=== PATIENT | female | born 1960 | race Caucasian/White ===

== ENCOUNTER 2019-06-04 18:24 | Emergency (ER) | payer MEDICARE, MEDICAID, SELFPAY ==
[2019-06-04 18:25] VITALS: BP 132/78; PULSE 112; RESP 20; TEMP 36.6; O2SAT 88; BMI 41.1
== END 2019-06-04 18:51 | disposition left against medical advice (07) ==
LOC: ED 18:49
PROVIDERS: Emergency Provider Emergency Medicine; PCP Family Medicine
DX: Z53.29 Procedure and treatment not carried out because of patient's decision for other reasons (principal)

== ENCOUNTER 2019-06-24 08:18 | Outpatient (RCR) | payer MEDICARE, MEDICAID, SELFPAY ==
[2019-06-24 08:54] VITALS: BP 129/78; PULSE 106; RESP 18; TEMP 36.4; BMI 42.9
--- NOTE | 2019-06-24 10:15 | PCM.WC.HP ---
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-term use Diabetes mellitus complication status: with circulatory complication Diabetes mellitus complication detail: with other circulatory complications Qualified Code(s): E11.59 - Type 2 diabetes mellitus with other circulatory complications Code(s): E11.9 - Type 2 diabetes mellitus without complications (4) History of DVT (deep vein thrombosis) Status: Chronic Current Visit: Yes Code(s): Z86.718 - Personal history of other venous thrombosis and embolism (5) Obesity Status: Chronic Current Visit: Yes Code(s): E66.9 - Obesity, unspecified (6) Tobacco dependence Status: Acute Current Visit: Yes Code(s): F17.200 - Nicotine dependence, unspecified, uncomplicated (7) Peripheral autonomic neuropathy due to diabetes mellitus Status: Acute Current Visit: Yes Qualifiers: Diabetes mellitus type: type 2 Qualified Code(s): E11.43 - Type 2 diabetes mellitus with diabetic autonomic (poly)neuropathy Code(s): E11.43 - Type 2 diabetes mellitus with diabetic autonomic (poly)neuropathy History of Present Illness Date of Service: 06/24/19 Chief Complaint: Follow-up blood blister left heel History of Wound: The 58-year-old white female history of diabetes type 2. States was wearing boots that did not fit well over 6 months ago and developed a slight sore. In the last 2 weeks it developed into a blood blister with liquid serous fluid and a hematoma underneath the skin. Patient has poor peripheral vascular feeling in her legs. Patient also has history of chronic obstructive lung disease. Past Medical History Past Medical History: Chronic Problems History of DVT (deep vein thrombosis) (Chronic) Obesity (Chronic) Hypothyroidism (Chronic) HLD (hyperlipidemia) (Chronic) Gout (Chronic) Gastroesophageal reflux disease (Chronic) DM2 (diabetes mellitus, type 2) (Chronic) COLD (chronic obstructive lung disease) (Chronic) Past Medical History: Decubitus ulcer left heel stage II Allergies/Adverse Reactions: Allergies morphine Allergy (Mild, Verified 06/04/19 18:28) Hives Home Medications: Ambulatory Orders Medication Instructions Recorded Allopurinol [Zyloprim] 300 mg PO DAILY 07/01/13 [place] Thyroid 360 mg PO DAILY 07/01/13 Carafate 1 gm PO 4X/DAY 07/01/13 Furosemide [Lasix] 40 mg PO BID 07/01/13 Gabapentin 400 mg PO BID 07/01/13 Lantus SoloStar Pen 100 unit SC QHS 07/01/13 Meloxicam 15 mg PO DAILY 07/01/13 Nexium 40 mg PO DAILY 07/01/13 Oxycodone [Oxyir] 15 mg PO TID 07/01/13 Oxycontin 80 mg PO TID 07/01/13 Potassium Chloride [K-Dur] 40 meq PO DAILY 07/01/13 Sitagliptin Phos/Metformin HCl 1 tab PO BID 07/01/13 [Janumet 50-1,000 MG Tablet] Crestor 10 mg PO DAILY 10/10/15 Gabapentin [Neurontin] 800 mg PO 4X/DAY 10/10/15 Lorazepam [Ativan] 1 mg PO TID 10/10/15 Lives: Alone Smoking Status: Heavy Smoker (>10/day) Tobacco Use: Cigarettes Review of Systems Constitutional: Denies: Chills, Fever Eyes: Denies: Blurred vision, Drainage, Pain HEENT: Denies: Difficulty Hearing, Difficulty Swallowing, Sore Throat, Visual Changes Cardiovascular: Denies: Chest Pain, Palpitations, Syncope Respiratory: Denies: Cough, Shortness of Breath Gastrointestinal: Denies: Abdominal Pain, Nausea, Vomiting Genitourinary: Denies: Dysuria, Frequency Musculoskeletal: Denies: Joint Pain, Muscle pain Skin: Reports: Wounds - Blood blister left heel. Denies: Jaundice, Rash Neurological: Denies: Balance problems, Change in Speech, Difficulty swallowing, Focal weakness Psychiatric: Denies: Anxiety, Depression Endocrine: Denies: Change in Body Habitus Hematologic/ Lymphatic: Denies: Adenopathy - Physical Exam Vital Signs Temp Pulse Resp BP 97.6 F L 106 H 18 129/78 H 06/24/19 08:54 06/24/19 08:54 06/24/19 08:54 06/24/19 08:54 General: Oriented x3, Cooperative, Well developed HEENT: Atraumatic, PERRLA Oral: Moist Mucosa Neck: Supple, No JVD Lungs: Clear to auscultation, Normal air movement Cardiovascular: Regular rate, Regular Rhythm Abdomen: Bowel Sounds Present, Soft, Non Tender, No Hepato-splenomegaly Extremities: No clubbing, No edema Wound Measurements and Assessment WC - Nurse 1 - General Ulcer Measurement Start: 06/24/19 08:31 Freq: Status: Active Protocol: Activity Type Activity Date Activity User E-Sign Co-Sign Detail Recorded Client Recorded Date Recorded By Document 06/24/19 08:54 DV [id number] 06/24/19 09:13 DV 06/24/19 08:54 Wound Center Nurse 1 [Ulcer Assessment] #1 Left Medial Heel -Combined with other wound No -Current Size (cm) - Length 2.5 -Current Size (cm) - Width 3.1 -Current Size (cm) - Depth 0.1 -Total Square Cm 7.75 -Date of Last Picture (Recall this 06/24/19 field) -Photo Taken Yes -Epithelialization None Present -Tunneling No -Undermining/Tunneling No -Circular Undermining No -Classification - Thickness Full Thickness without Exposed Support Structure -Exudate Amt Medium -Exudate Type Serosanguineous -Wound Margin Flat & Intact -Granulation Amt None Present (0 %) -Granulation Quality N/A -Slough/Fibrin Yes -Necrosis Amt Large (67-100%) -Necrotic Tissue Type Eschar -Structure Exposed None/Limited to Skin Breakdown -Texture (Talya-wound Skin Appearance) Assessed,Callus ,Fluctuance -Moisture (Talya-wound Skin Appearance Assessed, ) Weeping -Color (Talya-wound Skin Appearance) Assessed, Ecchymosis, Hemosiderin Staining -Temperature (Talya-wound Skin No Abnormality Appearance) (Pt Warm) -Tenderness on Palpation (Talya-wound No Skin Appearance) -Foul Odor after Cleansing No -Anesthetic Used 4% Lidocaine Solution [Edema Assessment] -Lower Limb Edema Present Yes -Right Calf (cm) 43.2 -Right Ankle (cm) 23.5 -Left Calf (cm) 39.5 -Left Ankle (cm) 23.0 WC - Nurse 2 - General Ulcer CM Notes Start: 06/24/19 08:31 Freq: Status: Active Protocol: Activity Type Activity Date Activity User E-Sign Co-Sign Detail Recorded Client Recorded Date Recorded By Document 06/24/19 09:38 MW [id number] 06/24/19 09:47 MW 06/24/19 09:38 Wound Center Nurse 2 [Procedure/Treatment] #1 Left Medial Heel -Time 09:39 -Correct Patient Yes -Correct Side, Site, Position Yes -Correct Procedure Yes -Procedure Performed Yes -Type of Procedure Debridement -Clinical Debridement Subcutaneous -Post Debridement Size (cm) - Length 2.0 -Post Debridement Size (cm) - Width 2.7 -Post Debridement Size (cm) - Depth 0.1 -Total Square Cm 5.40 -Wound/Ulcer Outcome Not Healed -Ulcer Cleansing Rinsed/ Irrigated with Saline -Foul Odor after Cleansing No -Bioengineered Tissue No -Bleeding Controlled with Pressure -Offloading No -Treatment Response Procedure Tolerated Well [See Physician Procedure note for Specifics] Pain Scale: 0-10 Numeric [Pain] -Is Patient Pain Free? Yes Musculoskeletal: No Tenderness to Palpation of Joints or Extremities Lymphatic: No Cervical, Supraclavicular, or Inguinal Adenopathy Neurological: Cranial nerves II-XII grossly intact, Neuro grossly intact Psych/Mental Status: Normal Affect, Appropriate, Alert and oriented to time, place, person, mood and affect Debridement Note Post-Debridement Measurements/Treatment WC - Nurse 2 - General Ulcer CM Notes Start: 06/24/19 08:31 Freq: Status: Active Protocol: Activity Type Activity Date Activity User E-Sign Co-Sign Detail Recorded Client Recorded Date Recorded By Document 06/24/19 09:38 MW [id number] 06/24/19 09:47 MW 06/24/19 09:38 Wound Center Nurse 2 #1 Left Medial Heel -Time 09:39 -Correct Patient Yes -Correct Side, Site, Position Yes -Correct Procedure Yes -Procedure Performed Yes -Type of Procedure Debridement -Clinical Debridement Subcutaneous -Post Debridement Size (cm) - Length 2.0 -Post Debridement Size (cm) - Width 2.7 -Post Debridement Size (cm) - Depth 0.1 -Total Square Cm 5.40 -Wound/Ulcer Outcome Not Healed -Ulcer Cleansing Rinsed/ Irrigated with Saline -Foul Odor after Cleansing No -Bioengineered Tissue No -Bleeding Controlled with Pressure -Offloading No -Treatment Response Procedure Tolerated Well Pain Scale: 0-10 Numeric Is Patient Pain Free? Yes Wound debrided: Left heel blood blister Type of Debridement: Excisional debridement Anesthesia Used: 5% Lidocaine Gel Depth: Down to and including healthy tissue, in the subcutaneous layer Percentage of wound debrided: 100 Instrument Used: #15 blade, Forceps Tissue Removed: Devitalized tissue and fibrin Severity: Limited To Skin Breakdown Amount of bleeding with debridement: None Patient tolerated procedure well Assessment/Plan Aerobic and anaerobic cultures of ulcer Active Problems Blister of left heel (Acute) Decubitus ulcer of left heel, stage 2 (Acute) Tobacco dependence (Acute) Peripheral autonomic neuropathy due to diabetes mellitus (Acute) History of DVT (deep vein thrombosis) (Chronic) Obesity (Chronic) Assessment: Decubitus ulcer stage II left heel. Diabetes type 2 uncontrolled. Peripheral neuropathy from diabetes Plan: Wash leg and foot and heel with antibacterial soap. Apply Aquacel extra to wound base moistened cover with Adaptic gauze and Sonia. Single layer Tubigrip to leg. Follow-up in 1 week
== END 2019-06-30 23:59 ==
LOC: WC 08:18
PROVIDERS: PCP Family Medicine; Visit Provider Nurse Practitioner
DX: E11.621 Type 2 diabetes mellitus with foot ulcer (principal); L89.622 Pressure ulcer of left heel, stage 2; E11.59 Type 2 diabetes mellitus with other circulatory complications; Z86.718 Personal history of other venous thrombosis and embolism; E66.9 Obesity, unspecified; F17.200 Nicotine dependence, unspecified, uncomplicated; E11.43 Type 2 diabetes mellitus with diabetic autonomic (poly)neuropathy; S90.822A Blister (nonthermal), left foot, initial encounter; X58.XXXA Exposure to other specified factors, initial encounter; J44.9 Chronic obstructive pulmonary disease, unspecified; K21.9 Gastro-esophageal reflux disease without esophagitis; E78.5 Hyperlipidemia, unspecified; M10.9 Gout, unspecified; Z79.899 Other long term (current) drug therapy; Z79.84 Long term (current) use of oral hypoglycemic drugs; E03.9 Hypothyroidism, unspecified
CPT/HCPCS: 11042; 87070; 87075; 87205; 99213; G0463

== ENCOUNTER → 2019-06-24 09:45 | Outpatient (CLI) | payer MEDICARE, MEDICAID, SELFPAY ==
[2019-06-24 08:54] VITALS: BMI 42.9
== END ==
PROVIDERS: PCP Family Medicine; Referring Provider Nurse Practitioner; Visit Provider Nurse Practitioner
DX: L97.429 Non-pressure chronic ulcer of left heel and midfoot with unspecified severity (principal)
CPT/HCPCS: 87070; 87075; 87205

== ENCOUNTER 2019-07-22 10:30 | Outpatient (RCR) | payer MEDICARE, MEDICAID, SELFPAY ==
[2019-07-01 01:02] VITALS: BP 129/78; PULSE 106; RESP 18; TEMP 36.4
[2019-07-01 08:41] VITALS: BP 136/76; PULSE 116; RESP 20; TEMP 36.7; BMI 42.9
--- NOTE | 2019-07-01 09:20 | PCM.WC.PN ---
(1) Blister of left heel Status: Acute Current Visit: No Qualifiers: Encounter type: subsequent encounter Qualified Code(s): S90.822D - Blister (nonthermal), left foot, subsequent encounter Code(s): S90.822A - Blister (nonthermal), left foot, initial encounter (2) Decubitus ulcer of left heel, stage 2 Status: Acute Current Visit: Yes Code(s): L89.622 - Pressure ulcer of left heel, stage 2 (3) Peripheral autonomic neuropathy due to diabetes mellitus Status: Acute Current Visit: Yes Qualifiers: Diabetes mellitus type: type 2 Code(s): E11.43 - Type 2 diabetes mellitus with diabetic autonomic (poly)neuropathy (4) Tobacco dependence Status: Acute Current Visit: Yes Code(s): F17.200 - Nicotine dependence, unspecified, uncomplicated (5) DM2 (diabetes mellitus, type 2) Status: Chronic Current Visit: Yes Qualifiers: 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 States was wearing boots that did not fit well over 6 months ago and developed a slight sore. In the last 2 weeks it developed into a blood blister with liquid serous fluid and a hematoma underneath the skin. Patient has poor peripheral vascular feeling in her legs. Patient also has history of chronic obstructive lung disease. Progress of Wound: Left lateral heel is healing well smaller. The blackened scab is easily debrided off. Good pink skin underneath. We will apply epi-fix #1 that was approved this week. - Physical Exam Vital Signs Temp Pulse Resp BP 98.1 F 116 H 20 H 136/76 H 07/01/19 08:41 07/01/19 08:41 07/01/19 08:41 07/01/19 08:41 General: Oriented x3, Cooperative, Well developed HEENT: Atraumatic, PERRLA Oral: Moist Mucosa Neck: Supple, No JVD Lungs: Clear to auscultation, Normal air movement Cardiovascular: Regular rate, Regular Rhythm Abdomen: Bowel Sounds Present, Soft, Non Tender, No Hepato-splenomegaly Extremities: No clubbing, No edema Skin: Ulcer/ Wound - Pressure ulcer stage II left lateral heel Wound Measurements and Assessment WC - Nurse 1 - General Ulcer Measurement Start: 07/01/19 08:41 Freq: Status: Active Protocol: Activity Type Activity Date Activity User E-Sign Co-Sign Detail Recorded Client Recorded Date Recorded By Document 07/01/19 08:41 DL [id number] 07/01/19 08:48 DL 07/01/19 08:41 Wound Center Nurse 1 [Ulcer Assessment] #1 Left Medial Heel -Current Size (cm) - Length 1.1 -Current Size (cm) - Width 2 -Current Size (cm) - Depth 0.1 -Total Square Cm 2.2 -Photo Taken No -Exudate Amt None Present -Wound Margin Distinct, Outline Attached -Granulation Amt None Present (0 %) -Necrosis Amt Large (67-100%) -Necrotic Tissue Type Eschar -Structure Exposed N/A -Texture (Talya-wound Skin Appearance) Scarring -Moisture (Talya-wound Skin Appearance No Abnormality ) -Color (Talya-wound Skin Appearance) No Abnormality -Temperature (Talya-wound Skin No Abnormality Appearance) (Pt Warm) -Tenderness on Palpation (Talya-wound No Skin Appearance) -Ulcer Cleansing Wound Cleanser -Anesthetic Used 4% Lidocaine Solution, Cetacaine [Edema Assessment] -Left Calf (cm) 38 -Left Ankle (cm) 21.4 WC - Nurse 2 - General Ulcer CM Notes Start: 07/01/19 08:41 Freq: Status: Active Protocol: Activity Type Activity Date Activity User E-Sign Co-Sign Detail Recorded Client Recorded Date Recorded By Document 07/01/19 08:57 MW [id number] 07/01/19 09:07 MW 07/01/19 08:57 Wound Center Nurse 2 [Procedure/Treatment] #1 Left Medial Heel -Time 09:04 -Correct Patient Yes -Correct Side, Site, Position Yes -Correct Procedure Yes -Procedure Performed Yes -Type of Procedure Debridement -Clinical Debridement Subcutaneous -Post Debridement Size (cm) - Length 1.2 -Post Debridement Size (cm) - Width 2.0 -Post Debridement Size (cm) - Depth 0.1 -Total Square Cm 2.40 -Wound/Ulcer Outcome Not Healed -Ulcer Cleansing Rinsed/ Irrigated with Saline -Foul Odor after Cleansing No -Bioengineered Tissue Yes -Type of bioengineered Tissue EPIFIX -Expiration Date 04/01/24 -Product Lot Number [id number] -Percent Used 100 -Saline Lot Number [id number] -Bleeding Controlled with Pressure -Offloading No -Treatment Response Procedure Tolerated Well [See Physician Procedure note for Specifics] Pain Scale: 0-10 Numeric [Pain] -Is Patient Pain Free? Yes Musculoskeletal: No Tenderness to Palpation of Joints or Extremities Lymphatic: No Cervical, Supraclavicular, or Inguinal Adenopathy Neurological: Cranial nerves II-XII grossly intact, Neuro grossly intact Psych/Mental Status: Normal Affect, Appropriate Debridement Note Post-Debridement Measurements/Treatment WC - Nurse 2 - General Ulcer CM Notes Start: 07/01/19 08:41 Freq: Status: Active Protocol: Activity Type Activity Date Activity User E-Sign Co-Sign Detail Recorded Client Recorded Date Recorded By Document 07/01/19 08:57 MW [id number] 07/01/19 09:07 MW 07/01/19 08:57 Wound Center Nurse 2 #1 Left Medial Heel -Time 09:04 -Correct Patient Yes -Correct Side, Site, Position Yes -Correct Procedure Yes -Procedure Performed Yes -Type of Procedure Debridement -Clinical Debridement Subcutaneous -Post Debridement Size (cm) - Length 1.2 -Post Debridement Size (cm) - Width 2.0 -Post Debridement Size (cm) - Depth 0.1 -Total Square Cm 2.40 -Wound/Ulcer Outcome Not Healed -Ulcer Cleansing Rinsed/ Irrigated with Saline -Foul Odor after Cleansing No -Bioengineered Tissue Yes -Type of bioengineered Tissue EPIFIX -Expiration Date 04/01/24 -Product Lot Number [id number] -Percent Used 100 -Saline Lot Number [id number] -Bleeding Controlled with Pressure -Offloading No -Treatment Response Procedure Tolerated Well Pain Scale: 0-10 Numeric Is Patient Pain Free? Yes Wound debrided: Left lateral heel Type of Debridement: Excisional debridement Anesthesia Used: 5% Lidocaine Gel Depth: Down to and including healthy tissue, in the subcutaneous layer Percentage of wound debrided: 100 Instrument Used: 5mm curette Tissue Removed: Devitalized tissue and fibrin Severity: Limited To Skin Breakdown Amount of bleeding with debridement: Mild Bleeding Controlled with: Compression and gauze Patient tolerated procedure well Assessment/Plan Active Problems Decubitus ulcer of left heel, stage 2 (Acute) Tobacco dependence (Acute) Peripheral autonomic neuropathy due to diabetes mellitus (Acute) DM2 (diabetes mellitus, type 2) (Chronic) Assessment: Decubitus ulcer stage II left heel. Diabetes type 2 uncontrolled. Peripheral neuropathy from diabetes Plan: Applied epi fix #1 with Adaptic and Steri-Strips gauze wrap. Double layer Tubigrip to leg. Follow-up in 1 week
[2019-07-08 09:11] VITALS: BP 130/74; PULSE 101; RESP 22; TEMP 36.8; BMI 42.9
--- NOTE | 2019-07-08 12:33 | PCM.WC.PN ---
(1) Blister of left heel Status: Acute Current Visit: Yes Qualifiers: Encounter type: subsequent encounter Qualified Code(s): S90.822D - Blister (nonthermal), left foot, subsequent encounter Code(s): S90.822A - Blister (nonthermal), left foot, initial encounter (2) Decubitus ulcer of left heel, stage 2 Status: Acute Current Visit: Yes Code(s): L89.622 - Pressure ulcer of left heel, stage 2 (3) Peripheral autonomic neuropathy due to diabetes mellitus Status: Acute Current Visit: Yes Qualifiers: Diabetes mellitus type: type 2 Code(s): E11.43 - Type 2 diabetes mellitus with diabetic autonomic (poly)neuropathy (4) Tobacco dependence Status: Acute Current Visit: Yes Code(s): F17.200 - Nicotine dependence, unspecified, uncomplicated (5) DM2 (diabetes mellitus, type 2) Status: Chronic Current Visit: Yes Qualifiers: Diabetes mellitus [facility] 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 States was wearing boots that did not fit well over 6 months ago and developed a slight sore. In the last 2 weeks it developed into a blood blister with liquid serous fluid and a hematoma underneath the skin. Patient has poor peripheral vascular feeling in her legs. Patient also has history of chronic obstructive lung disease. Progress of Wound: Left lateral heel is healing well smaller. Good pink skin underneath. We will apply epi-fix #2 - Physical Exam Vital Signs Temp Pulse Resp BP 98.2 F 101 H 22 H 130/74 H 07/08/19 09:11 07/08/19 09:11 07/08/19 09:11 07/08/19 09:11 General: Oriented x3, Cooperative, Well developed HEENT: Atraumatic, PERRLA Oral: Moist Mucosa Neck: Supple, No JVD Lungs: Clear to auscultation, Normal air movement Cardiovascular: Regular rate, Regular Rhythm Abdomen: Bowel Sounds Present, Soft, Non Tender, No Hepato-splenomegaly Extremities: No clubbing, No edema Skin: Ulcer/ Wound - Left heel decubitus ulcer Wound Measurements and Assessment - Nurse 1 - General Ulcer Measurement Start: 07/01/19 08:41 Freq: Status: Active Protocol: Activity Type Activity Date Activity User E-Sign Co-Sign Detail Recorded Client Recorded Date Recorded By Document 07/08/19 09:11 DL [id number] 07/08/19 09:18 DL 07/08/19 09:11 Wound Center Nurse 1 [Ulcer Assessment] #1 Left Medial Heel -Current Size (cm) - Length 1.1 -Current Size (cm) - Width 1.6 -Current Size (cm) - Depth 0.1 -Total Square Cm 1.76 -Photo Taken No -Exudate Amt Small -Exudate Type Serosanguineous -Wound Margin Distinct, Outline Attached -Granulation Amt Large (67-100%) -Granulation Quality [place] -Necrosis Amt Small (1-33%) -Necrotic Tissue Type Adherent Slough -Structure Exposed N/A -Texture (Talya-wound Skin Appearance) No Abnormality -Moisture (Talya-wound Skin Appearance Dry/Scaly ) -Color (Talya-wound Skin Appearance) No Abnormality -Temperature (Talya-wound Skin No Abnormality Appearance) (Pt Warm) -Tenderness on Palpation (Talya-wound No Skin Appearance) -Ulcer Cleansing Wound Cleanser -Foul Odor after Cleansing No -Anesthetic Used 4% Lidocaine Solution [Edema Assessment] -Left Calf (cm) 38 -Left Ankle (cm) 23 WC - Nurse 2 - General Ulcer CM Notes Start: 07/01/19 08:41 Freq: Status: Active Protocol: Activity Type Activity Date Activity User E-Sign Co-Sign Detail Recorded Client Recorded Date Recorded By Document 07/08/19 10:05 MW [id number] 07/08/19 10:14 MW 07/08/19 10:05 Wound Center Nurse 2 [Procedure/Treatment] #1 Left Medial Heel -Time 10:06 -Correct Patient Yes -Correct Side, Site, Position Yes -Correct Procedure Yes -Procedure Performed Yes -Type of Procedure Debridement -Clinical Debridement Subcutaneous -Post Debridement Size (cm) - Length 1.2 -Post Debridement Size (cm) - Width 2.1 -Post Debridement Size (cm) - Depth 0.1 -Total Square Cm 2.52 -Wound/Ulcer Outcome Not Healed -Ulcer Cleansing Rinsed/ Irrigated with Saline -Foul Odor after Cleansing No -Bioengineered Tissue Yes -Type of bioengineered Tissue EPIFIX -Expiration Date 03/01/24 -Product Lot Number [id number] -Percent Used 100 -Saline Lot Number [id number] -Bleeding Controlled with Pressure -Offloading No -Treatment Response Procedure Tolerated Well [See Physician Procedure note for Specifics] Pain Scale: 0-10 Numeric [Pain] -Is Patient Pain Free? Yes Musculoskeletal: No Tenderness to Palpation of Joints or Extremities Lymphatic: No Cervical, Supraclavicular, or Inguinal Adenopathy Neurological: Cranial nerves II-XII grossly intact, Neuro grossly intact Psych/Mental Status: Normal Affect, Appropriate Debridement Note Post-Debridement Measurements/Treatment WC - Nurse 2 - General Ulcer CM Notes Start: 07/01/19 08:41 Freq: Status: Active Protocol: Activity Type Activity Date Activity User E-Sign Co-Sign Detail Recorded Client Recorded Date Recorded By Document 07/01/19 08:57 MW [id number] 07/01/19 09:07 MW Document 07/08/19 10:05 MW [id number] 07/08/19 10:14 MW 07/01/19 07/08/19 08:57 10:05 Wound Center Nurse 2 #1 Left Medial Heel -Time 09:04 10:06 -Correct Patient Yes Yes -Correct Side, Site, Position Yes Yes -Correct Procedure Yes Yes -Procedure Performed Yes Yes -Type of Procedure Debridement Debridement -Clinical Debridement Subcutaneous Subcutaneous -Post Debridement Size (cm) - Length 1.2 1.2 -Post Debridement Size (cm) - Width 2.0 2.1 -Post Debridement Size (cm) - Depth 0.1 0.1 -Total Square Cm 2.40 2.52 -Wound/Ulcer Outcome Not Healed Not Healed -Ulcer Cleansing Rinsed/ Rinsed/ Irrigated with Irrigated with Saline Saline -Foul Odor after Cleansing No No -Bioengineered Tissue Yes Yes -Type of bioengineered Tissue EPIFIX EPIFIX -Expiration Date 04/01/24 03/01/24 -Product Lot Number [id number] -Percent Used 100 100 -Saline Lot Number [id number] -Bleeding Controlled with Pressure Pressure -Offloading No No -Treatment Response Procedure Procedure Tolerated Well Tolerated Well Pain Scale: 0-10 Numeric Is Patient Pain Free? Yes Yes Wound debrided: Left lateral heel Wound Grade/Stage: Left heel decubitus ulcer stage II Type of Debridement: Excisional debridement Anesthesia Used: 5% Lidocaine Gel Depth: Down to and including healthy tissue, in the subcutaneous layer Percentage of wound debrided: 100 Instrument Used: 5mm curette Tissue Removed: Ibrin and devitalized tissue Severity: Limited To Skin Breakdown Amount of bleeding with debridement: Mild Bleeding Controlled with: Compression and gauze Patient tolerated procedure well Assessment/Plan Active Problems Blister of left heel (Acute) Decubitus ulcer of left heel, stage 2 (Acute) Tobacco dependence (Acute) Peripheral autonomic neuropathy due to diabetes mellitus (Acute) DM2 (diabetes mellitus, type 2) (Chronic) Assessment: Decubitus ulcer stage II left heel. Diabetes type 2 uncontrolled. Peripheral neuropathy from diabetes Plan: Applied epi fix #2 with Adaptic and Steri-Strips gauze wrap. Double layer Tubigrip to leg. Follow-up in 1 week
[2019-07-15 10:14] VITALS: BP 104/67; PULSE 91; RESP 18; TEMP 37; BMI 42.9
--- NOTE | 2019-07-15 10:53 | PCM.WC.PN ---
(1) Blister of left heel Status: Acute Current Visit: Yes Qualifiers: Encounter type: subsequent encounter Qualified Code(s): S90.822D - Blister (nonthermal), left foot, subsequent encounter Code(s): S90.822A - Blister (nonthermal), left foot, initial encounter (2) Decubitus ulcer of left heel, stage 2 Status: Acute Current Visit: Yes Code(s): L89.622 - Pressure ulcer of left heel, stage 2 (3) Peripheral autonomic neuropathy due to diabetes mellitus Status: Acute Current Visit: Yes Qualifiers: Diabetes mellitus type: type 2 Code(s): E11.43 - Type 2 diabetes mellitus with diabetic autonomic (poly)neuropathy (4) Tobacco dependence Status: Acute Current Visit: Yes Code(s): F17.200 - Nicotine dependence, unspecified, uncomplicated (5) DM2 (diabetes mellitus, type 2) Status: Chronic Current Visit: Yes Qualifiers: Diabetes mellitus [facility] insulin use: without termite control servicer use 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 States was wearing boots that did not fit well over 6 months ago and developed a slight sore. In the last 2 weeks it developed into a blood blister with liquid serous fluid and a hematoma underneath the skin. Patient has poor peripheral vascular feeling in her legs. Patient also has history of chronic obstructive lung disease. Progress of Wound: Left lateral heel is healing well smaller. Good pink skin underneath. We will apply epi-fix #3 - Physical Exam Vital Signs Temp Pulse Resp BP 98.6 F 91 18 104/67 07/15/19 10:14 07/15/19 10:14 07/15/19 10:14 07/15/19 10:14 General: Oriented x3, Cooperative, Well developed HEENT: Atraumatic, PERRLA Oral: Moist Mucosa Neck: Supple, No JVD Lungs: Clear to auscultation, Normal air movement Cardiovascular: Regular rate, Regular Rhythm Abdomen: Bowel Sounds Present, Soft, Non Tender, No Hepato-splenomegaly Extremities: No clubbing, No edema, - - Left lateral heel pressure ulcer Wound Measurements and Assessment WC - Nurse 1 - General Ulcer Measurement Start: 07/01/19 08:41 Freq: Status: Active Protocol: Activity Type Activity Date Activity User E-Sign Co-Sign Detail Recorded Client Recorded Date Recorded By Document 07/15/19 10:14 DL [id number] 07/15/19 10:20 DL 07/15/19 10:14 Wound Center Nurse 1 [Ulcer Assessment] #1 Left Medial Heel -Current Size (cm) - Length 0.6 -Current Size (cm) - Width 1 -Current Size (cm) - Depth 0.1 -Total Square Cm 0.6 -Photo Taken No -Exudate Amt None Present -Wound Margin Distinct, Outline Attached -Granulation Amt Large (67-100%) -Granulation Quality Red -Necrosis Amt None Present (0 %) -Structure Exposed N/A -Texture (Talya-wound Skin Appearance) Scarring -Moisture (Talya-wound Skin Appearance Dry/Scaly ) -Color (Talya-wound Skin Appearance) No Abnormality -Temperature (Talya-wound Skin No Abnormality Appearance) (Pt Warm) -Tenderness on Palpation (Talya-wound No Skin Appearance) -Ulcer Cleansing Wound Cleanser -Foul Odor after Cleansing No -Anesthetic Used 4% Lidocaine Solution [Edema Assessment] -Left Calf (cm) 37.5 -Left Ankle (cm) 22.5 WC - Nurse 2 - General Ulcer CM Notes Start: 07/01/19 08:41 Freq: Status: Active Protocol: Activity Type Activity Date Activity User E-Sign Co-Sign Detail Recorded Client Recorded Date Recorded By Document 07/15/19 10:31 MW [id number] 07/15/19 10:38 MW 07/15/19 10:31 Wound Center Nurse 2 [Procedure/Treatment] #1 Left Medial Heel -Time 10:31 -Correct Patient Yes -Correct Side, Site, Position Yes -Correct Procedure Yes -Procedure Performed Yes -Type of Procedure Debridement -Clinical Debridement Subcutaneous -Post Debridement Size (cm) - Length 1.2 -Post Debridement Size (cm) - Width 1.5 -Post Debridement Size (cm) - Depth 0.1 -Total Square Cm 1.80 -Wound/Ulcer Outcome Not Healed -Ulcer Cleansing Rinsed/ Irrigated with Saline -Foul Odor after Cleansing No -Bioengineered Tissue Yes -Type of bioengineered Tissue EPIFIX -Expiration Date 03/01/24 -Product Lot Number [id number] -Percent Used 100 -Saline Lot Number [id number] -Bleeding Controlled with Pressure -Offloading No -Treatment Response Procedure Tolerated Well [See Physician Procedure note for Specifics] Pain Scale: 0-10 Numeric [Pain] -Is Patient Pain Free? Yes Musculoskeletal: No Tenderness to Palpation of Joints or Extremities Lymphatic: No Cervical, Supraclavicular, or Inguinal Adenopathy Neurological: Cranial nerves II-XII grossly intact, Neuro grossly intact Psych/Mental Status: Normal Affect, Appropriate Debridement Note Post-Debridement Measurements/Treatment WC - Nurse 2 - General Ulcer CM Notes Start: 07/01/19 08:41 Freq: Status: Active Protocol: Activity Type Activity Date Activity User E-Sign Co-Sign Detail Recorded Client Recorded Date Recorded By Document 07/01/19 08:57 MW [id number] 07/01/19 09:07 MW Document 07/08/19 10:05 MW [id number] 07/08/19 10:14 MW Document 07/15/19 10:31 MW [id number] 07/15/19 10:38 MW 07/01/19 07/08/19 07/15/19 08:57 10:05 10:31 Wound Center Nurse 2 #1 Left Medial Heel -Time 09:04 10:06 10:31 -Correct Patient Yes Yes Yes -Correct Side, Site, Position Yes Yes Yes -Correct Procedure Yes Yes Yes -Procedure Performed Yes Yes Yes -Type of Procedure Debridement Debridement Debridement -Clinical Debridement Subcutaneous Subcutaneous Subcutaneous -Post Debridement Size (cm) - Length 1.2 1.2 1.2 -Post Debridement Size (cm) - Width 2.0 2.1 1.5 -Post Debridement Size (cm) - Depth 0.1 0.1 0.1 -Total Square Cm 2.40 2.52 1.80 -Wound/Ulcer Outcome Not Healed Not Healed Not Healed -Ulcer Cleansing Rinsed/ Rinsed/ Rinsed/ Irrigated with Irrigated with Irrigated with Saline Saline Saline -Foul Odor after Cleansing No No No -Bioengineered Tissue Yes Yes Yes -Type of bioengineered Tissue EPIFIX EPIFIX EPIFIX -Expiration Date 04/01/24 03/01/24 03/01/24 -Product Lot Number [id number] -Percent Used 100 100 100 -Saline Lot Number [id number] -Bleeding Controlled with Pressure Pressure Pressure -Offloading No No No -Treatment Response Procedure Procedure Procedure Tolerated Well Tolerated Well Tolerated Well Pain Scale: 0-10 Numeric Is Patient Pain Free? Yes Yes Yes Wound debrided: Left lateral heel Wound Grade/Stage: Stage II Type of Debridement: Excisional debridement Anesthesia Used: 5% Lidocaine Gel Depth: Down to and including healthy tissue, in the subcutaneous layer Instrument Used: 7mm curette, - - Scissors Tissue Removed: Devitalized tissue and fibrin Severity: Limited To Skin Breakdown Amount of bleeding with debridement: Mild Bleeding Controlled with: Compression and gauze Patient tolerated procedure well Assessment/Plan Active Problems Blister of left heel (Acute) Decubitus ulcer of left heel, stage 2 (Acute) Tobacco dependence (Acute) Peripheral autonomic neuropathy due to diabetes mellitus (Acute) DM2 (diabetes mellitus, type 2) (Chronic) Assessment: Decubitus ulcer stage II left heel. Diabetes type 2 uncontrolled. Peripheral neuropathy from diabetes Plan: Applied epi fix #3 with Adaptic and Steri-Strips gauze wrap. Single layer Tubigrip to leg. Follow-up in 1 week
[2019-07-22 10:31] VITALS: BP 140/85; PULSE 114; RESP 20; TEMP 36.6; BMI 42.9
--- NOTE | 2019-07-22 12:42 | PCM.WC.PN ---
(1) Blister of left heel Status: Acute Current Visit: Yes Qualifiers: Encounter type: subsequent encounter Qualified Code(s): S90.822D - Blister (nonthermal), left foot, subsequent encounter Code(s): S90.822A - Blister (nonthermal), left foot, initial encounter (2) Decubitus ulcer of left heel, stage 2 Status: Acute Current Visit: Yes Code(s): L89.622 - Pressure ulcer of left heel, stage 2 (3) Peripheral autonomic neuropathy due to diabetes mellitus Status: Acute Current Visit: Yes Qualifiers: Diabetes mellitus type: type 2 Code(s): E11.43 - Type 2 diabetes mellitus with diabetic autonomic (poly)neuropathy (4) Tobacco dependence Status: Acute Current Visit: Yes Code(s): F17.200 - Nicotine dependence, unspecified, uncomplicated (5) DM2 (diabetes mellitus, type 2) Status: Chronic Current Visit: Yes Qualifiers: Diabetes mellitus care home insulin use: without director long term care use 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 States was wearing boots that did not fit well over 6 months ago and developed a slight sore. In the last 2 weeks it developed into a blood blister with liquid serous fluid and a hematoma underneath the skin. Patient has poor peripheral vascular feeling in her legs. Patient also has history of chronic obstructive lung disease. Progress of Wound: Left lateral heel is healing well smaller. She has a very small area that is open 0.1 depth will try Aquacel extra for 1 week and hopefully should be ready for discharge. - Physical Exam Vital Signs Temp Pulse Resp BP 97.8 F 114 H 20 H 140/85 H 07/22/19 10:31 07/22/19 10:31 07/22/19 10:31 07/22/19 10:31 General: Oriented x3, Cooperative, Well developed HEENT: Atraumatic, PERRLA Oral: Moist Mucosa Neck: Supple, No JVD Lungs: Clear to auscultation, Normal air movement Cardiovascular: Regular rate, Regular Rhythm Abdomen: Bowel Sounds Present, Soft, Non Tender, No Hepato-splenomegaly Extremities: No clubbing, No edema, - - Left medial heel pressure ulcer stage II Skin: Ulcer/ Wound Wound Measurements and Assessment WC - Nurse 1 - General Ulcer Measurement Start: 07/01/19 08:41 Freq: Status: Active Protocol: Activity Type Activity Date Activity User E-Sign Co-Sign Detail Recorded Client Recorded Date Recorded By Document 07/22/19 10:31 DL [id number] 07/22/19 10:38 DL 07/22/19 10:31 Wound Center Nurse 1 [Ulcer Assessment] #1 Left Medial Heel -Current Size (cm) - Length 0.1 -Current Size (cm) - Width 0.1 -Current Size (cm) - Depth 0.1 -Total Square Cm 0.01 -Photo Taken No -Exudate Amt None Present -Granulation Amt Large (67-100%) -Granulation Quality [place] -Necrosis Amt Small (1-33%) -Necrotic Tissue Type Adherent Slough -Structure Exposed N/A -Texture (Talya-wound Skin Appearance) Scarring -Moisture (Talya-wound Skin Appearance No Abnormality ) -Color (Talya-wound Skin Appearance) No Abnormality -Temperature (Talya-wound Skin No Abnormality Appearance) (Pt Warm) -Tenderness on Palpation (Talya-wound No Skin Appearance) -Anesthetic Used 4% Lidocaine Solution [Edema Assessment] -Left Calf (cm) 37 -Left Ankle (cm) 22 - Nurse 2 - General Ulcer CM Notes Start: 07/01/19 08:41 Freq: Status: Active Protocol: Activity Type Activity Date Activity User E-Sign Co-Sign Detail Recorded Client Recorded Date Recorded By Document 07/22/19 11:04 MW [id number] 07/22/19 11:07 MW 07/22/19 11:04 Wound Center Nurse 2 [Procedure/Treatment] #1 Left Medial Heel -Time 11:04 -Correct Patient Yes -Correct Side, Site, Position Yes -Correct Procedure Yes -Procedure Performed Yes -Type of Procedure Debridement -Clinical Debridement Subcutaneous -Post Debridement Size (cm) - Length 0.5 -Post Debridement Size (cm) - Width 0.7 -Post Debridement Size (cm) - Depth 0.1 -Total Square Cm 0.35 -Wound/Ulcer Outcome Not Healed -Ulcer Cleansing Rinsed/ Irrigated with Saline -Foul Odor after Cleansing No -Bioengineered Tissue No -Bleeding Controlled with Pressure -Offloading No -Treatment Response Procedure Tolerated Well [See Physician Procedure note for Specifics] Pain Scale: 0-10 Numeric [Pain] -Is Patient Pain Free? Yes Musculoskeletal: No Tenderness to Palpation of Joints or Extremities Lymphatic: No Cervical, Supraclavicular, or Inguinal Adenopathy Neurological: Cranial nerves II-XII grossly intact, Neuro grossly intact Psych/Mental Status: Normal Affect, Appropriate, Alert and oriented to time, place, person, mood and affect Debridement Note Post-Debridement Measurements/Treatment WC - Nurse 2 - General Ulcer CM Notes Start: 07/01/19 08:41 Freq: Status: Active Protocol: Activity Type Activity Date Activity User E-Sign Co-Sign Detail Recorded Client Recorded Date Recorded By Document 07/01/19 08:57 MW [id number] 07/01/19 09:07 MW Document 07/08/19 10:05 MW [id number] 07/08/19 10:14 MW Document 07/15/19 10:31 MW [id number] 07/15/19 10:38 MW Document 07/22/19 11:04 MW [id number] 07/22/19 11:07 MW 07/01/19 07/08/19 07/15/19 08:57 10:05 10:31 Wound Center Nurse 2 #1 Left Medial Heel -Time 09:04 10:06 10:31 -Correct Patient Yes Yes Yes -Correct Side, Site, Position Yes Yes Yes -Correct Procedure Yes Yes Yes -Procedure Performed Yes Yes Yes -Type of Procedure Debridement Debridement Debridement -Clinical Debridement Subcutaneous Subcutaneous Subcutaneous -Post Debridement Size (cm) - Length 1.2 1.2 1.2 -Post Debridement Size (cm) - Width 2.0 2.1 1.5 -Post Debridement Size (cm) - Depth 0.1 0.1 0.1 -Total Square Cm 2.40 2.52 1.80 -Wound/Ulcer Outcome Not Healed Not Healed Not Healed -Ulcer Cleansing Rinsed/ Rinsed/ Rinsed/ Irrigated with Irrigated with Irrigated with Saline Saline Saline -Foul Odor after Cleansing No No No -Bioengineered Tissue Yes Yes Yes -Type of bioengineered Tissue EPIFIX EPIFIX EPIFIX -Expiration Date 04/01/24 03/01/24 03/01/24 -Product Lot Number [id number] -Percent Used 100 100 100 -Saline Lot Number [id number] -Bleeding Controlled with Pressure Pressure Pressure -Offloading No No No -Treatment Response Procedure Procedure Procedure Tolerated Well Tolerated Well Tolerated Well Pain Scale: 0-10 Numeric Is Patient Pain Free? Yes Yes Yes 07/22/19 11:04 Wound Center Nurse 2 #1 Left Medial Heel -Time 11:04 -Correct Patient Yes -Correct Side, Site, Position Yes -Correct Procedure Yes -Procedure Performed Yes -Type of Procedure Debridement -Clinical Debridement Subcutaneous -Post Debridement Size (cm) - Length 0.5 -Post Debridement Size (cm) - Width 0.7 -Post Debridement Size (cm) - Depth 0.1 -Total Square Cm 0.35 -Wound/Ulcer Outcome Not Healed -Ulcer Cleansing Rinsed/ Irrigated with Saline -Foul Odor after Cleansing No -Bioengineered Tissue No -Type of bioengineered Tissue -Expiration Date -Product Lot Number -Percent Used -Saline Lot Number -Bleeding Controlled with Pressure -Offloading No -Treatment Response Procedure Tolerated Well Pain Scale: 0-10 Numeric Is Patient Pain Free? Yes Wound debrided: Left medial heel Wound Grade/Stage: Stage II Type of Debridement: Excisional debridement Anesthesia Used: 4% Lidocaine Solution Depth: Down to and including healthy tissue Instrument Used: 5mm curette Tissue Removed: Devitalized tissue Severity: Limited To Skin Breakdown Amount of bleeding with debridement: None Bleeding Controlled with: Compression and gauze Patient tolerated procedure well Assessment/Plan Active Problems Blister of left heel (Acute) Decubitus ulcer of left heel, stage 2 (Acute) Tobacco dependence (Acute) Peripheral autonomic neuropathy due to diabetes mellitus (Acute) DM2 (diabetes mellitus, type 2) (Chronic) Assessment: Decubitus ulcer stage II left heel. Diabetes type 2 uncontrolled. Peripheral neuropathy from diabetes Plan: Aquacel extra moistened and gauze wrap the other day. Single layer Tubigrip to leg. Follow-up in 1 week
== END 2019-07-30 23:59 ==
LOC: WC 10:30
PROVIDERS: PCP Family Medicine; Visit Provider Nurse Practitioner
DX: L89.622 Pressure ulcer of left heel, stage 2 (principal); S90.822A Blister (nonthermal), left foot, initial encounter; X58.XXXA Exposure to other specified factors, initial encounter; F17.200 Nicotine dependence, unspecified, uncomplicated; J44.9 Chronic obstructive pulmonary disease, unspecified; E11.43 Type 2 diabetes mellitus with diabetic autonomic (poly)neuropathy
CPT/HCPCS: 11042; 15275; Q4186

== ENCOUNTER 2019-07-25 02:54 | Inpatient (IN) | payer MEDICARE, MEDICAID, SELFPAY ==
[2019-07-25] VITALS (12 sets, daily range): BP systolic 95–165; BP diastolic 60–99; PULSE 82–113; RESP 16–18; TEMP 36.3–37.2; O2SAT 93–98; BMI 45.1; BMI 45.2
--- NOTE | 2019-07-25 03:03 | RAD_ITS ---
STUDY: X-RAY - RIGHT TIBIA AND FIBULA REASON FOR EXAM: Female, 58 years old. FELL TECHNIQUE: 3 view(s) of the tibia and fibula were obtained. COMPARISON: None. FINDINGS: Comminuted fracture of the distal tibia with the evidence of displacement of the comminuted fragment. There is a transverse fracture of the distal fibula with mild cortical step-off. Soft tissue swelling of the distal calf and ankle. RAD/Tibia & Fibula 2 Views IMPRESSION: Distal tibial and fibular fractures as described. Electronically Signed: Rosey Carpio MD at 3:59 EDT , Service support ,
--- NOTE | 2019-07-25 03:03 | RAD_ITS ---
STUDY: X-RAY - RIGHT ANKLE REASON FOR EXAM: Female, 58 years old. FELL TECHNIQUE: 3 view(s) of the ankle. COMPARISON: None. FINDINGS: There is a comminuted fracture involving the distal radial diaphysis extending into the distal tibial metaphysis and epiphysis. There is a transverse fracture involving the distal fibular shaft. Normal medial and lateral malleoli. Normal tibiotalar articulation and ankle mortise. Normal visualized talus and calcaneus. The visualized subtalar, talonavicular, calcaneocuboid and tarsal articulations are normal. There is soft tissue swelling through the distal calf and ankle. RAD/Ankle min 3 Views IMPRESSION: Comminuted fracture of the distal tibia and transverse fracture of the distal fibula. Electronically Signed: Rosey Carpio MD at 3:59 EDT , Service support ,
--- NOTE | 2019-07-25 03:04 | ED.DCSUM_ITS ---
History of Present Illness Chief Complaint: Lower Extremity Injury Informant: Patient Onset: Today Narrative: Patient presents with right leg pain for the past 5 hours after a fall. She is presenting with ankle and tib-fib pain. She denies any head injury, she has no neck pain no loss of consciousness this was a mechanical fall with no other injury. She has quite a bit of pain when she tries to bear weight but only moderate pain at rest. Past Medical History - Allergies and Home Meds Allergies/Adverse Reactions: Allergies morphine Allergy (Intermediate, Verified 07/25/19 02:59) [facility] Primary Care Physician: Dennis Casas MD [Primary Care Provider] - Past Medical History: - - Patient has multiple medical problems including diabetes, hypertension hypercholesterolemia and chronic pain. Smoking Status: Heavy Smoker (>10/day) Review of Systems All systems negative except as indicated General: Reports: - - No loss of consciousness ENT: Reports: - - No head injury Cardiovascular: Denies: Chest pain Gastrointestinal: Denies: Nausea, Vomiting Musculoskeletal: Reports: - - Right lower extremity injury as in HPI Skin: Denies: Wounds Neurological: Denies: Weakness, Parasthesia Hematologic: Denies: Easy bruising, Easy bleeding Physical Exam Vital Signs/Narrative: Vital Signs Temp Pulse Resp BP Pulse Ox 07/25/19 02:55 98.0 F 90 18 165/88 H 97 General: Well nourished, Obese, - - She does not appear in significant distress laying on the bed Head: Normocephalic, Atraumatic Eyes: Perrl ENT: - - No facial injury Neck: Nontender Cardiovascular: Regular rate Respiratory: No distress Abdomen: Soft, Nontender Back: Nontender Extremities: - - There is tenderness over the medial side of the proximal fibula, there is tenderness over the ankle no significant tenderness over the knee. There is some edema over the ankle no obvious wound. Skin: - - Diffuse chronic plaques over her arms and trunk. Neurological: Alert, Normal Strength, Normal Sensation Diagnostic/Tx/Re-eval Ankle x-ray interpreted by me shows a right tib-fib fracture which is distal. Tib-fib x-ray interpreted by me shows a right tib-fib fracture which is distal - Rhythm Strip Rhythm Strip: Sinus Rhythm Rate: 110 Ectopy: None - EKG Initial EKG Interpretation: - - Normal sinus rhythm with a rate of 110. Normal MI and QTc intervals. Nonspecific T wave flattening throughout. Otherwise normal EKG Interpreted by emergency doctor - Medical Decision Making Patient has a tibial and fibular fracture distally, she cannot bear weight she will likely need surgery I will admit her to the hospital. I will order preop clearance lab work as well as an EKG. Procedures - Lower Extremity Splints Lower Extremity Splint: Orthoglass Splint Fabrication: Pre-fabricated Location: Right - A sugar tong as well as a posterior splint was placed. Patient tolerated procedure well. ED Disposition - Plan for ED Patient: Disposition: Acute Care [facility] Diagnosis: Tibia/fibula fracture, Immobility, Diabetes, Morbid obesity Referrals: Dennis Casas MD [Primary Care Provider] -
--- NOTE | 2019-07-25 03:37 | EKG12_ITS ---
Test Reason : PRE OP Blood Pressure : / mmHG Vent. Rate : 110 BPM Atrial Rate : 110 BPM P-R Int : 130 ms QRS Dur : 074 ms QT Int : 332 ms P-R-T Axes : 000 029 004 degrees QTc Int : 449 ms Sinus tachycardia vs. ectopic atrial tachycardia Low voltage QRS Nonspecific T wave abnormality Abnormal ECG Confirmed by TAIWO HILL, LUIS M ([id number]), telegraph editor YAMILKA CRAIG ([id number]) on 07/27/2019 10:12:42 AM Referred By: BRENDA Confirmed By:LUIS M MARAVILLA MD
--- NOTE | 2019-07-25 03:37 | RAD_ITS ---
STUDY: X-RAY CHEST REASON FOR EXAM: Female, 58 years old patient presents for preoperative evaluation. TECHNIQUE: Single AP portable view of the chest. COMPARISON: September 28, 2013. FINDINGS: The lungs are clear and expanded. There is no demonstrated pleural abnormality. There is mild cardiac enlargement. Normal mediastinum and yvan. There is prominence of the pulmonary hilar arteries without peripheral pulmonary vascular congestion. There is atherosclerotic tortuosity of the aortic arch and descending thoracic aorta. There is demineralization of the osseous structures. Normal visualized ribs, clavicles, and shoulders. There is no demonstrated abnormality of the visualized soft tissue structures of the upper abdomen. RAD/Chest 1 View (Portable) IMPRESSION: Cardiomegaly without evidence of acute cardiopulmonary disease. Electronically Signed: Leia Sue MD at 4:33 EDT , Service support ,
--- NOTE | 2019-07-25 03:46 | PCM.HP.STD ---
Problem List (1) Blister of left heel Status: Acute Qualifiers: Encounter type: subsequent encounter Qualified Code(s): S90.822D - Blister (nonthermal), left foot, subsequent encounter (2) Decubitus ulcer of left heel, stage 2 Status: Chronic (3) Tobacco dependence Status: Chronic (4) Peripheral autonomic neuropathy due to diabetes mellitus Status: Chronic Qualifiers: Diabetes mellitus type: type 2 Qualified Code(s): E11.43 - Type 2 diabetes mellitus with diabetic autonomic (poly)neuropathy (5) Tibia/fibula fracture Status: Acute (6) Diabetes Status: Chronic (7) Morbid obesity Status: Chronic (8) History of DVT (deep vein thrombosis) Status: Chronic (9) Obesity Status: Chronic (10) Hypothyroidism Status: Chronic (11) HLD (hyperlipidemia) Status: Chronic (12) Gout Status: Chronic (13) Gastroesophageal reflux disease Status: Chronic (14) DM2 (diabetes mellitus, type 2) Status: Chronic Qualifiers: 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 Reportedly patient missed the stairs and fell landing on her right side. She reports excruciating pain in her right lower leg and right feet. X-ray showed distal tibia and fibula fracture of the right lower extremity. Past Medical History Past Medical History (Chronic Problems): Chronic Problems Decubitus ulcer of left heel, stage 2 (Chronic) Tobacco dependence (Chronic) Peripheral autonomic neuropathy due to diabetes mellitus (Chronic) Diabetes (Chronic) Morbid obesity (Chronic) History of DVT (deep vein thrombosis) (Chronic) Obesity (Chronic) Hypothyroidism (Chronic) HLD (hyperlipidemia) (Chronic) Gout (Chronic) Gastroesophageal reflux disease (Chronic) DM2 (diabetes mellitus, type 2) (Chronic) COLD (chronic obstructive lung disease) (Chronic) Allergies morphine Allergy (Intermediate, Verified 07/25/19 02:59) Hives Home Medications: Ambulatory Orders Medication Instructions Recorded Allopurinol [Zyloprim] 100 mg PO DAILY 07/01/13 [place] Thyroid 180 mg PO DAILY 07/01/13 Carafate 1 gm PO 4X/DAY 07/01/13 Furosemide [Lasix] 40 mg PO BID 07/01/13 Gabapentin 400 mg PO BID 07/01/13 Meloxicam 15 mg PO DAILY 07/01/13 Oxycodone [Oxyir] 15 mg PO TID 07/01/13 Oxycontin 80 mg PO TID 07/01/13 Potassium Chloride [K-Dur] 40 meq PO DAILY 07/01/13 Sitagliptin Phos/Metformin HCl 1 tab PO BID 07/01/13 [Janumet 50-1,000 MG Tablet] Crestor 10 mg PO DAILY 10/10/15 Gabapentin [Neurontin] 800 mg PO 4X/DAY 10/10/15 Lorazepam [Ativan] 1 mg PO TID 10/10/15 Albuterol Inhaler [Ventolin Hfa 1 puff INHALATION Q4H PRN PRN 06/24/19 (SP)] Naloxone HCl [Narcan] 4 mg NS PRN PRN 06/24/19 Omeprazole [Prilosec] 10 mg PO DAILY 07/25/19 Surgical History: - - section Smoking Status: Current every day smoker Tobacco Use: Cigarettes Alcohol: None - *Family History Maternal History Items: - - Patient does not know maternal medical history Paternal History Items: Heart Disease - Patient's father from a heart condition Review of Systems Constitutional: Denies: Chills, Fever, Weight Change HEENT: Denies: Head Aches, Sinus Congestion, Sinus Drainage Cardiovascular: Denies: Chest Pain, Palpitations Respiratory: Denies: Cough, Shortness of breath at rest, Sputum production Gastrointestinal: Denies: Abdominal Pain, Nausea, Vomiting Genitourinary: Denies: Dysuria Musculoskeletal: Reports: Back Pain, Foot Pain, Leg Pain. Denies: Joint Pain, Joint Tenderness Skin: Reports: Wounds - Left heel. Denies: Rash Neurological: Denies: Numbness, Tingling, Focal weakness Psychiatric: Reports: Anxiety. Denies: Depression, Homicidal Ideations, Suicidal Ideations Hematologic/ Lymphatic: Denies: Easy Bruising, Easy Bleeding VTE Information - Inpt Only VTE Present on Admission: No VTE Mechan Device Prophylaxis: SCD's VTE Pharm Prophylaxis ordered?: No Patient Problems: Active and Suspected Problems Blister of left heel (Acute) Tibia/fibula fracture (Acute) - Physical Exam Vitals/I&O's: Vital Signs Temp Pulse Resp BP Pulse Ox 98.0 F 90 18 165/88 H 97 07/25/19 02:55 07/25/19 02:55 07/25/19 02:55 07/25/19 02:55 07/25/19 02:55 Oxygen Delivery Method Room Air Weight: 119.4 kg Body Mass Index (BMI) 45.1 General: Alert, Oriented x3, Cooperative, - - Morbidly obese HEENT: Atraumatic, PERRLA, EOMI, Normocephalic Neck: Supple, Trachea Midline Lungs: Clear to auscultation, Normal air movement, No rhonchi, No wheeze, No rales Cardiovascular: Regular rate, Regular Rhythm, Normal S1, Normal S2, No murmurs Abdomen: Bowel Sounds Present, Soft, Non Tender Extremities: - - Right leg and right foot in a splint. Skin: - - Blister with drainage at left heel. Musculoskeletal: Muscle Wasting - Left leg Neurological: Cranial nerves II-XII grossly intact Psych/Mental Status: Normal Affect, Appropriate Assessment/Plan All Active Problems Blister of left heel (Acute) Tibia/fibula fracture (Acute) The patient is a 58 year old F with a significant history of diabetes mellitus; chronic lower back pain; bilateral knee pain; GERD who presents to emergency department with a mechanical fall and found to have distal tibia-fibula fracture. Comminuted fracture of the distal tibia and fibula Impression of x-ray distal tibia and fibula fractures. X-ray was independently reviewed. I agree with the radiologist interpretation. Lower extremity CT confirms above . Emergency Department Doctor discussed the case with Dr. Fields, orthopedic who will follow on consult. Splint placed on right leg and right foot at the emergency department. No weightbearing on right lower extremities. Consider PT OT consult after orthopedic evaluation. We will keep patient n.p.o. Hold home Lasix while n.p.o. Okay to take p.o. meds as necessary. Patient takes OxyContin 80 mg 3 times daily; and oxycodone 15 mg p.o. 3 times daily for chronic lower back pain and bilateral knee pain; continued. Also Dilaudid IV PRN ordered. Senokot-S PRN and Zofran antiemetics PRN ordered. PT/INR. Trend CBC and BMP Preop evaluation: Surgical risk calculator on charts. 6.8% serious complication. 34.7 percent discharge to longterm or Rehab. EKG showed sinus tach with diffuse T wave flattening. Leukocytosis On presentation her white count was 13.3 with neutrophilic predominance and bandemia of 1.2%. Review of old records shows a mild to moderate leukocytosis. No fever. Does not appear sick. Trend. Diabetes mellitus with polyneuropathy Hyperglycemia on presentation. Patient reports taking oral and injected hypoglycemic medication. Reportedly she takes lantus 50 units bid. Accu-Chek every 6 hours with correction scale insulin ordered. De-escalate lantus dose while npo On home gabapentin; continued. Morbid obesity; complicates care. Recommend lifestyle modification. Tobacco dependence Counseled Nicotine patch ordered. Decubitus ulcer of left heel, stage II Patient goes to wound care center. Continue Aquacel dressing and Kerlix roll to left heel. Hyperlipidemia Statin continued Hypothyroidism Thyroid medication continued. Bilateral lower extremity edema. Reportedly she developed bilateral lower extremity edema from Lyrica use. Reportedly she takes Lasix once a day. Hold home Lasix with potassium while n.p.o. Gout Allopurinol continued Questionable COPD Although COPD is listed on past medical history patient is unsure. Albuterol as needed. GERD Takes home Prilosec and Carafate at home. Hold Carafate while n.p.o. Change PPI p.o. to IV and escalate dose. DVT Prophylaxis No chemical prophylaxis for now as we await surgical decision. SCD to left lower extremities. Inpatient E&M: 56890 Init Hosp L3
[2019-07-25 03:49] LABS: Absolute Lymphocyte Count 2.96 X10^3/uL (0.83-4.51); Absolute Neutrophil Count 9.5 X10^3/uL (2.0-7.7); Basophil# 0.03 X10^3/uL; Basophil% 0.2 % (0-1); Eosinophil# 0.03 X10^3/uL; Eosinophils% 0.2 % (0-5); Hemoglobin 14.8 g/dL (12.0-15.0); Lymphocyte # 2.96 X10^3/ul (4.0); Lymphocyte % 22.2 % (19-41); Mean Corp Hgb Conc 33.6 g/dL (32-36); Mean Corpuscular Hgb 31.2 pg (27.0-32.0); Mean Corpuscular Volume 92.8 fL (81-99); Mean Platelet Vol. 10.5 fl (6.2-12.0); Monocyte# 0.69 X10^3/uL; Monocyte% 5.2 % (0-10); NRBC Flagged by Analyzer 0 % (0-5); Neutrophil # 9.46 X10^3/uL (2.7-7.7); Platelet Count 134 K/mm3 (150-450); RBC Distribution Width CV 14.9 % (11.6-14.6); RBC Distribution Width SD 49.9 fl (35.1-43.9); Red Blood Count 4.74 M/mm3 (4.2-5.4); White Blood Count 13.3 K/mm3 (4.4-11.0)
[2019-07-25] MEDS: Ondansetron 4 MG/2 ML Vial IV (03:57)
[2019-07-25] MEDS: HYDROmorphone 1 MG/ML Syringe IV (03:57)
--- NOTE | 2019-07-25 03:59 | ED.RN ---
pt has been verbally abusive to the staff. pt was yelling at this nurse from when she arrived by squad. was asking the pt the triage questions and she said,oh, we're going to do this now,i we. empathy given,but every queston was answered with a raise in voice and snarky response. pt stated she needed to pee' asked pt how she preferred to do that, attempt to get on commode or bed sumner.pt stated she would just wet my depends and then you can clean me up! made pt aware that she can use the bed sumner. with assist of this nurse and danilo,placed pt on the bed sumner, wiith much complaining.pt voided and then tom-care given and new attends on.
--- NOTE | 2019-07-25 04:00 | CT_ITS ---
STUDY: CT RIGHT ANKLE WITHOUT CONTRAST REASON FOR EXAM: Female, 58 years old patient with fractures of the distal tibia and fibula presents for pre-operative planning CT. RADIATION DOSAGE (If Supplied By Facility): CTDIvol = ( 15.35 ) mGy, DLP = ( 488.08 ) mGycm TECHNIQUE: Thin section transaxial imaging of the ankle was obtained, with sagittal and coronal reconstructed images. Individualized dose optimization techniques were used for this CT. COMPARISON: None. FINDINGS: There is a comminuted displaced fracture of distal tibia. There is also a fracture of the distal fibula which is displaced about 3 mm. Normal tibiotalar articulation and talar dome. There is a posterior calcaneal enthesophyte. There are degenerative changes of the imaged intertarsal articulations. Normal navicular-cuneiform, cuneiform tarsal bones and intercuneiform articulations. There is diffuse soft tissue swelling. CT/Extremity Lower without Contra IMPRESSION: Comminuted displaced fracture of the distal tibial diaphysis as well as the distal left fibular metaphysis. Electronically Signed: Leia Sue MD at 4:57 EDT , Service support ,
[2019-07-25 04:05] LABS: ALB/GLOB Ratio 0.7 RATIO (0.9-2.4); AST(SGOT) 19 U/L (15-37); Alanine Aminotransfer ALT/SGPT 21 U/L (13-56); Albumin, Serum 3.2 g/dL (3.2-5.0); Alkaline Phosphatase 160 U/L (45-117); Anion Gap 7 (5-15); BUN 15 mg/dL (7-18); Calcium,Total 7.8 mg/dL (8.5-10.1); Chloride 102 mmol/L (98-107); EST Glomerular Filtration Rate 61 mL/min (>60); Est Glom Filt Rate - Afr Amer 73 mL/min (>60); Globulin 4.4 g/dL (2.2-4.2); Glucose 292 mg/dL (74-106); Potassium 4.3 mmol/L (3.5-5.1); Protein, Total 7.6 g/dL (6.4-8.2); Sodium Level 134 mmol/L (136-145)
--- NOTE | 2019-07-25 04:13 | NURSING ---
while helping the pt get a splint placed on her r foot she complained that she did not get the dilaudid.reassured her that she did get it.pt began to argue that she did not.confirmed with danilo rivas that it was given as dociumented.
--- NOTE | 2019-07-25 04:15 | ED.RN ---
PT ACCUSING THIS RN OF NOT GIVING HER DILAUDID. DILAUDID WAS GIVEN TO PATIENT ORDERED. PT WATCHED THIS RN GIVE HER MEDICATION. REITERATED TO PATIENT THAT SHE GOT HER MEDICATIONS ORDERED BY .
--- NOTE | 2019-07-25 04:20 | ED.RN ---
PT ASKED IF I WAS AN ER NURSE. I REPLIED YES, GOOD. YOU WON'T BE TAKING CARE OF ME UPSTAIRS BECAUSE YOU AND THE OTHER GIRL ARE MEAN. PT DID NOT APPRECIATE GETTING UNDRESSED, INTO A GOWN AND ON BED CARDENAS.
[2019-07-25 05:28] LABS: Prothrombin Time (Protime)PT. 12.9 SECONDS (11.7-14.9)
[2019-07-25] MEDS: Insulin Lispro 100 UNIT/ML INSULN.PEN SC ×2 (06:31→18:15)
[2019-07-25 06:35] LABS: Bedside Glucose 247 mg/dL (70-110)
[2019-07-25] MEDS: CLARIFY ORDER 1 EACH NOTE (06:54)
[2019-07-25] MEDS: oxyCODONE 5 MG Tablet 15 MG PO ×2 (08:09→16:41)
[2019-07-25 08:41] LABS: Bedside Glucose 223 mg/dL (70-110)
[2019-07-25] MEDS: HYDROmorphone 0.5 MG/0.5 ML SYRINGE IV ×3 (10:06→22:15)
[2019-07-25] MEDS: 0.9% Saline Lock 10 ML Syringe IV (10:06)
[2019-07-25 11:28] LABS: Hemoglobin A1c 10.7 % (4.2-6.3)
[2019-07-25 11:41] LABS: Bedside Glucose 268 mg/dL (70-110)
--- NOTE | 2019-07-25 12:00 | RAD_ITS ---
STUDY: X-RAY - RIGHT TIBIA AND FIBULA REASON FOR EXAM: Female, 58 years old. CLOSED REDUCTION W/ EXTERNAL FIXATION IN O.R. 21 IMAGES, 342 SEC. FL. TECHNIQUE: 21 C-arm view(s) of the tibia and fibula were obtained. COMPARISON: None. FINDINGS: Images document placement of an external fixator across distal tibial and fibular fractures. Correlate with procedure note. Electronically Signed: Carlo Pereira MD at 16:32 EDT , Service support , RAD/Tibia & Fibula 2 Views
--- NOTE | 2019-07-25 12:16 | CASEMGMT ---
LOVE ROBINS assessment: Face to Face with patient for initial transition planning/care coordination assessment. LOVE ROBINS introduced self and role at [facility], pt voices understanding and consents to assessment at this time. Pt is sitting up in bed in no distress at this time but is anxious as she is set to have surgery in about 45minutes. Pt is A/Ox4 at this time and answers all questions appropriately at this time. Care providers, pharmacy, and demographics verified/updated at this time. Presentation: Chronic bilat leg pain s/p fall, c/o right leg pain-pt states no pain relief with pain meds at home. Admitting dx: Right tibia-fibula distal fracture PCP: [facility] Specialists: Pt states no current specialists. Preferred [facility]acy: [facility] Insurance: [employer] A/B, Lost My Name Prescription Benefit: Yes Living Will/HPOA: Pt states does not have LW/HPOA and declines info at this time. LNOK: Armida Andrews, daughter Living Arrangements: Pt states lives alone in mobile home with no steps in and states has had some difficulty caring for self at home. Pt states daughter lives close in the mobile [place] but she has 6 kids and she is not really able to assist pt. Pt states has looked into getting aides at home but states 'I know there is a long list.' Transportation: Pt states drives self and states no transportation concerns at this time. DME/HHC: Pt states has no current DME or need for any at this time. Pt states has had HHC in the past and has been to [facility] in the past, but states would not want to go back there at this time. Pt states has been going to the [facility] wound center for her left heel. Pt states concerns with going home at time of discharge. Pt advised that CM would f/u with pt on Saturday s/p surgery and therapy, voices understanding. Pt is disabled. Pt states smokes about 1.5pk/day and declines ETOH. Pt voices no further questions/concerns/needs at this time. CM to follow for therapy evals and for further discharge planning/needs. Advised pt to ask for CM if any further questions/concerns/needs arise, voices understanding. Pt Goal: TBD Plan: TBD [place] [facility]INS
--- NOTE | 2019-07-25 12:17 | PCM.CONS.GEN ---
Problem List (1) Tibia/fibula fracture Status: Acute Reason for Consult Date of Consultation: 07/25/19 Reason for Consultation: Distal tibia and fibula fracture, right History of Present Illness: The patient is a 58 year old F who presents for right ankle pain. She reports walking out of her trailer, her legs buckled and she fell. She felt immediate pain in her right ankle at that time. She was unable to bear weight on her right foot. Furthermore, she noticed a deformity of her right foot and ankle. At that time, she presented to the emergency department for further evaluation. While the emergency department, x-rays were taken, revealing a distal tibia comminuted fracture along with a fibular fracture. Due to the significant pain present along with a deformity present, she was admitted for further evaluation and orthopedic consult. While in the emergency department, she was placed in a posterior splint and instructed to remain nonweightbearing. She denies loss of consciousness or head trauma. Past Medical History Past Medical History (Chronic Problems): Chronic Problems Decubitus ulcer of left heel, stage 2 (Chronic) Tobacco dependence (Chronic) Peripheral autonomic neuropathy due to diabetes mellitus (Chronic) Diabetes (Chronic) Morbid obesity (Chronic) History of DVT (deep vein thrombosis) (Chronic) Obesity (Chronic) Hypothyroidism (Chronic) HLD (hyperlipidemia) (Chronic) Gout (Chronic) Gastroesophageal reflux disease (Chronic) DM2 (diabetes mellitus, type 2) (Chronic) COLD (chronic obstructive lung disease) (Chronic) Allergies morphine Allergy (Intermediate, Verified 07/25/19 02:59) Hives Home Medications: Ambulatory Orders Medication Instructions Recorded Allopurinol [Zyloprim] 100 mg PO DAILY 07/01/13 [place] Thyroid 180 mg PO DAILY 07/01/13 Carafate 1 gm PO 4X/DAY 07/01/13 Furosemide [Lasix] 40 mg PO BID 07/01/13 Gabapentin 400 mg PO BID 07/01/13 Meloxicam 15 mg PO DAILY 07/01/13 Oxycodone [Oxyir] 15 mg PO TID 07/01/13 Oxycontin 80 mg PO TID 07/01/13 Potassium Chloride [K-Dur] 40 meq PO DAILY 07/01/13 Sitagliptin Phos/Metformin HCl 1 tab PO BID 07/01/13 [Janumet 50-1,000 MG Tablet] Crestor 10 mg PO DAILY 10/10/15 Gabapentin [Neurontin] 800 mg PO 4X/DAY 10/10/15 Lorazepam [Ativan] 1 mg PO TID 10/10/15 Albuterol Inhaler [Ventolin Hfa 1 puff INHALATION Q4H PRN PRN 06/24/19 (SP)] Naloxone HCl [Narcan] 4 mg NS PRN PRN 06/24/19 Omeprazole [Prilosec] 10 mg PO DAILY 07/25/19 Surgical History: - - section Smoking Status: Current every day smoker Tobacco Use: Cigarettes Alcohol: None - *Family History Maternal History Items: - - Patient does not know maternal medical history Paternal History Items: Heart Disease - Patient's father from a heart condition Review of Systems Constitutional: Denies: Chills, Fever Eyes: Denies: Drainage, Pain HEENT: Denies: Difficulty Hearing, Difficulty Swallowing Cardiovascular: Denies: Chest Pain, Palpitations Respiratory: Denies: Cough, Shortness of Breath Gastrointestinal: Reports: Constipation - Occasional. Denies: Abdominal Pain, Diarrhea Genitourinary: Denies: Dysuria, Frequency, Urgency Musculoskeletal: Reports: Back Pain, Joint Pain Skin: Reports: Wounds - Left heel. Currently being managed by wound care. Neurological: Reports: Numbness, - - Patient reports neuropathy in bilateral lower extremities.. Denies: Confusion Psychiatric: Reports: Anxiety Hematologic/ Lymphatic: Denies: Hx of blood clot Patient Problems: Active and Suspected Problems Tibia/fibula fracture (Acute) Subjective: Patient seen at bedside at this time. Patient admits to significant pain of her right foot and ankle. On a scale of 10, patient rates her pain at a 10 out of 10. She states that she has not walked on her right foot or ankle since the injury. Patient denies any other acute events since the injury. Patient is apprehensive about surgical intervention that is likely to be performed today. No other acute events reported by the nursing staff overnight. Currently, patient denies fever, chills, nausea, vomiting, shortness of breath, chest pain. Patient admits to severe pain in her right ankle. Objective: Right ankle: The patient is in a posterior and sugar tong splint applied in the emergency room. She is unable to feel light touch in her right lower extremity due to neuropathy secondary to diabetes mellitus type 2. Range of motion deferred due to fracture and immobilization. Sensation intact to light touch at the level of the knee. Capillary refill 2 all digits less than 3 seconds. Unable to assess skin on right lower extremity due to dressing in place. Popliteal pulse palpable. Left foot: Patient has an intact dressing on her left heel from a decubitus ulcer. She sees the wound center for care. - Physical Exam Vitals/I&O's: Vital Signs Temp Pulse Resp BP Pulse Ox 98.9 F 86 18 104/69 93 07/25/19 11:43 07/25/19 11:43 07/25/19 11:43 07/25/19 11:43 07/25/19 11:43 Oxygen Delivery Method Room Air Weight: 119.4 kg Body Mass Index (BMI) 45.1 Intake and Output for Last 24 Hours 07/23/19 07/24/19 07/25/19 23:59 23:59 23:59 Intake Total 130 / 130 Output Total 100 / 100 Balance 30 / 30 General: Alert, Oriented x3 Oral: Moist Mucosa Abdomen: Obese Extremities: Capillary Refill Less than 3 Seconds Skin: Ulcer/ Wound - Decubitus ulcer on left heel. Being managed by Wound Care Center. Psych/Mental Status: Normal Affect, Anxious Laboratory Results 07/25/19 03:45: WBC 13.3 H, RBC 4.74, Hgb 14.8, Hct 44.0, MCV 92.8, MCH 31.2, MCHC 33.6, RDW Std Deviation 49.9 H, RDW Coeff of Marc 14.9 H, Plt Count 134 L, MPV 10.5, Immature Gran % (Auto) 1.200 H, Neut % (Auto) 71.0 H, Lymph % (Auto) 22.2, [place] % (Auto) 5.2, Eos % (Auto) 0.2, Baso % (Auto) 0.2, Absolute Neuts (auto) 9.5 H, Absolute Lymphs (auto) 2.96, Nucleated RBC % 0 07/25/19 03:45: Sodium 134 L, Potassium 4.3, Chloride 102, Carbon Dioxide 25.0, Anion Gap 7, BUN 15, Creatinine 1.00, Estim Creat Clear Calc 53.60, Est GFR (MDRD) Af Amer 73, Est GFR (MDRD) Non-Af 61, BUN/Creatinine Ratio 15.0, Glucose 292 H, Calcium 7.8 L, Total Bilirubin 0.40, AST 19, ALT 21, Alkaline Phosphatase 160 H, Total Protein 7.6, Albumin 3.2, Globulin 4.4 H, Albumin/Globulin Ratio 0.7 L 07/25/19 03:45: PT 12.9, INR 1.0 07/25/19 03:45: Hemoglobin A1c 10.7 H 07/25/19 06:26: POC Glucose 247 H 07/25/19 08:24: POC Glucose 223 H 07/25/19 11:35: POC Glucose 268 H Current Medications Albuterol Sulfate (Ventolin Aerosols) 2.5 mg INHALATION Q2H PRN PRN PRN Reason: SOB &/OR WHEEZING Allopurinol (Zyloprim) 100 mg PO DAILY [facility] Last Admin: 07/25/19 10:14 Dose: Not Given Documented by: Atorvastatin Calcium (Lipitor) 20 mg PO QHS [facility] Dextrose (D50w Syringe) 0 gm IV X1 PRN; Protocol PRN Reason: Hypoglycemia Gabapentin (Neurontin) 1,200 mg PO BIDCM [facility] Last Admin: 07/25/19 10:15 Dose: Not Given Documented by: Glucagon () 1 mg IM .X1 PRN PRN Reason: Hypoglycemia Hydromorphone HCl (Dilaudid Inj) 0.5 mg IV Q4H PRN PRN PRN Reason: Pain 6-01/08 Last Admin: 07/25/19 10:06 Dose: 0.5 mg Documented by: Sodium Chloride () 250 mls @ 15 mls/hr IV .[id number] PRN PRN Reason: Saline Flush Sodium Chloride () 250 mls @ 15 mls/hr IV .[id number] PRN PRN Reason: Additional IVPB Infusion Pantoprazole Sodium 40 mg/ (Sodium Chloride) 110 mls @ 330 mls/hr IV Q12 [facility] Last Infusion: 07/25/19 11:49 Dose: Infused Documented by: Insulin Glargine (Lantus (Bkc)) 20 units SC BID [facility] Last Admin: 07/25/19 10:14 Dose: Not Given Documented by: Insulin Human Lispro (Humalog Kwikpen (Bkc)) 0 unit SC Q6 [facility]; Protocol Last Admin: 07/25/19 11:47 Dose: Not Given Documented by: Nicotine (Nicoderm Cq (Pbkc)) 21 mg TRANSDERM. DAILY [facility] Last Admin: 07/25/19 11:23 Dose: Not Given Documented by: Ondansetron HCl (Zofran) 4 mg IV Q6H PRN PRN PRN Reason: NAUSEA/VOMITING Oxycodone HCl (Oxyir) 15 mg PO TID@0000,0800,1600 [facility] Last Admin: 07/25/19 08:09 Dose: 15 mg Documented by: Oxycodone HCl (Oxycontin) 80 mg PO TID@0000,0800,1600 [facility] Last Admin: 07/25/19 08:24 Dose: 80 mg Documented by: Senna/Docusate Sodium (Senokot-S, Talya-Colace) 2 tablet PO DAILY PRN PRN PRN Reason: CONSTIPATION Sodium Chloride () 10 - 40 ml IV UD PRN PRN Reason: SALINE FLUSH Last Admin: 07/25/19 10:06 Dose: 10 ml Documented by: Thyroid ([place] Thyroid) 180 mg PO DAILY [facility] Last Admin: 07/25/19 10:15 Dose: Not Given Documented by: Assessment/Plan All Active Problems Blister of left heel (Acute) Tibia/fibula fracture (Acute) 1. Comminuted right distal tibia and fibula fracture. X-rays and CT scan were reviewed. After discussion with Dr. Patric Sue we will proceed with a closed reduction of the right tibia and fibula fracture with application of external fixation of the right foot, ankle and leg. Discussed the risks, benefits and complications of the procedure including but not limited to , infection, nerve and blood vessel damage, persistent pain, numbness, tingling, paresthesia, blood clot, pulmonary embolism, loss of limb and permanent dysfunction and requirement for possible further surgery. The patient did express understanding. Pt. is agreeable to surgery at this time. She will address further questions to Dr. Patric Sue. We will proceed with surgery on July 25, 2019. 2. Nicotine dependence Discussed tobacco cessation with patient. Discussed postoperative complications due to nicotine dependence. 3. Obesity Extensive discussion regarding patient's BMI. I did discuss with the patient the complications that can occur due to her BMI. I did recommend lifestyle modifications including diet and exercise. I am completing this consultation on behalf of Dr. Patric Sue.
--- NOTE | 2019-07-25 13:45 | PCA ---
pt off floor
[2019-07-25] MEDS: Lactated Ringers 1,000 ML 100 ML IV (15:15)
[2019-07-25 15:31] LABS: Bedside Glucose 261 mg/dL (70-110)
--- NOTE | 2019-07-25 15:36 | OP.PCM_ITS ---
Problem List (1) Tibia/fibula fracture Status: Acute Qualifiers: Encounter type: initial encounter Fracture type: closed Laterality: right Qualified Code(s): S82.201A - Unspecified fracture of shaft of right tibia, initial encounter for closed fracture; S82.401A - Unspecified fracture of shaft of right fibula, initial encounter for closed fracture Report of Operation Date of Procedure: 07/25/19 Pre-Operative Diagnosis: 1. Right tibial pilon fracture, comminuted, displaced, closed. 2. Right fibular shaft fracture, comminuted, displaced, closed. #3. Diabetes mellitus type 2 with polyneuropathy. 4. Peripheral vascular disease Post-Operative Diagnosis: Same as preoperative Surgery/Procedure Performed:: 1. Application of external fixator, right foot, ankle, leg. 2. Closed reduction of pilon fracture, right tibia. 3. Closed reduction of right fibula fracture Description of Surgical Findings:: Consistent with diagnosis. Reduction of fractures achieved and held with external fixation. chief embalmer: Rocío Portillo Type of Anesthesia:: Spinal/Supplemental Anesthesiologist: Elsie Ortega Special Medications: Ancef 3 g given preoperatively Specimen's removed: None Drains: None Estimated Blood Loss (mL): 10 Description of Procedure: Pathology: None Anesthesia: Spinal Hemostasis: Anatomic dissection Estimated blood loss: 10 mL Materials: Emiliano delta frame with associated half pins, rods, couplings Injectables: None Complications: None Condition: Stable Indications: Patient is a 58-year-old female with significant past medical history of diabetes mellitus, chronic morbid obesity, nicotine dependence, left heel decubitus ulcer, who was at her home on the morning of July 24. As she was leaving her home, she was walking down the stairs. Patient lost her balance. Patient did not experience any loss of consciousness. Patient fell with her full weight on her right foot and leg. Patient felt immediate pain and felt cracking in her right ankle. Patient noticed a deformity of her right foot and ankle. Patient was unable to bear weight on the right side. Patient presented to the [facility] emergency department for further evaluation. At that time, she was diagnosed with a Pilon fracture of her right tibia and fibula, that was displaced in nature. Patient was in significant pain. Due to the nature of the fracture, patient was admitted for further evaluation. I, Dr. Andrzej Sue, was then consulted for further evaluation. I discussed with the patient the significant deformity that was present, and the need for surgical intervention. Patient was agreeable to this. I discussed with the patient that due to her multiple comorbidities and the significant edema that was present in her right foot, ankle, leg, patient would benefit from a application of an external fixator to reduce the fracture and allow her soft tissue edema to decrease. This will be applied and further surgical intervention along with exact procedures would be determined at a later date. Patient was agreeable to this surgical intervention at this time. Operative report: Before the patient was brought to the operating room, the risks, benefits, possible outcomes, possible complications of the procedure discussed with the patient. These include but not limited to delayed or nonhealing wounds, delayed or nonhealing bone, infection, DVT, permanent dysfunction of limb, loss of limb, loss of life. I discussed with the patient that the application of an external fixator at this time to stabilize the fracture and to allow the swelling of her right lower extremity to decrease would greatly benefit her. All the patient's questions were answered to her satisfaction and all of her concerns were addressed. No guarantees were made as to the outcome of the procedure. Patient understood all aspects of the procedure, and consent was then signed by the patient. Patient was then brought to the operating room and placed on the operating table in supine position. At that time, spinal anesthesia was achieved along with IV sedation. Care was taken make sure that all pressure points were adequately padded. The right lower extremity was then elevated with blankets. A bump was placed on the ipsilateral hip. Next, the right foot, ankle, leg were then scrubbed, prepped, draped in the usual sterile manner. Attention was then directed to the right tibia. At this time, radiographic evaluation was used to determine the level of the tibia and fibula fractures. These were then marked on the patient. Next, the proximal tibia was palpated and marked on the patient. This was proximal to the fracture line. At this time, a stab incision was made at the level of the proximal tibia just proximal to the fracture line of the tibia. Blunt dissection was continued down deep to the level of the tibia, which was where the periosteum was bluntly dissected off. At this time, the Davenport half pin was placed from anterior to posterior into the tibia. Care was taken make sure this was bicortical. This was confirmed upon radiographic evaluation. Once adequate positioning of this pin was performed, a second pin was placed proximal to this. This was inserted in standard fixation and approximately 2 cm proximal to the first pin. Radiograph evaluation was performed to make sure this pin was bicortical as well. Once adequate positioning of the pin was performed, attention was then directed to the medial aspect of the right calcaneus. Radiograph evaluation was performed to determine the level of where the medial calcaneal pin would be inserted. Once this was determined, a stab incision was made at the medial calcaneus. Blunt dissection was continued down deep to the level of calcaneus, where the periosteum was bluntly dissected off. Next, the half pin was placed from medial to lateral in the calcaneus with care taken make sure this was bicortical. This was confirmed on radiographic evaluation. Next, attention was then directed to the lateral aspect of the right calcaneus. Radiograph evaluation was used to determine where this half pin would be placed. Care was taken make sure that this pin was not going to interfere with the medial calcaneal pain. Once adequate positioning was had, stab incision was made at this level were blunt dissection was continued down deep to the level of the calcaneus. The periosteum was bluntly dissected off. At this time, the half pin was placed from lateral to medial with care taken to make sure that this was bicortical. Multiple radiographic views were performed to make sure that adequate positioning of these pin was adequate. These were bicortical as well. Attention then directed to the dorsomedial aspect of the right foot in the area of the medial cuneiform. Radiograph evaluation was performed to determine the level of where the medial cuneiform pin will be placed. Once this was determined, a stab incision was made at the level of the medial aspect of the medial cuneiform. The cuneiform half pin was inserted from medial to lateral into the intermediate and lateral cuneiforms. Once adequate positioning was had, radiograph evaluation was then performed. Adequate positioning was obtained of this medial cuneiform pin. Next, radiograph evaluation was performed on the tibial pins, calcaneal pins, medial cuneiform pin once again. These were all in adequate position and all were contained multiple cortices. Next, the 10 hole pin clamp was placed on top of the 2 tibial pins. At this time, rods were placed with the couplings to the lateral portion of the tibia to the lateral calcaneus, medial portion of the tibia to the medial calcaneus, and lateral jean to the medial cuneiform pin. The proximal pins, couplings, and rods were then tightened. At this time, live radiograph evaluation was used to perform the closed reduction. Once adequate positioning was obtained, all pins, rods, couplings were tightened. Once all were tightened, radiographic evaluation was performed. The tibia and fibula were noted to be reduced from preoperative assessment. The ankle joint mortise was noted to be intact. The tibia and fibula were noted to be out the length. Reduction was had from preoperative assessment. Each pin site was then dressed with Xeroform, and a dry sterile dressing consisting of 4 x 4 gauze, and Kerlix. The right foot, ankle, leg were then wrapped with an Bob bandage. Neurovascular status was assessed at the end of application and deemed intact to the right lower extremity. The patient tolerated the anesthesia the procedure well and was transported to the PACU with vital signs stable and neurovascular status intact to the right lower extremity. After period of postoperative monitoring, patient will be transferred back to the general medical floor. The assembler surgical garment, the nurse practitioner, was utilized throughout the entire procedure. She helped with patient positioning, holding of limb, holding retractors. She helped with exposure throughout. She helped with bandage application. Without the assembler surgical garment, surgical time would have been increased and surgical outcome could have been less optimal. At this time, I recommend DVT prophylaxis with Lovenox. Lovenox ordered. I recommend continued antibiotic prophylaxis with Ancef. Ancef ordered. I recommend the patient remain nonweightbearing to the right lower extremity. I recommended physical therapy evaluation for patient to maintain nonweightbearing status of the right lower extremity. I recommend patient elevate her right foot above the level of heart as much as possible, with the heel hanging off and nothing touching her right heel. I recommend ice around the right knee as needed. I recommend continued pain medication as ordered by primary care. After speaking with the patient, she does live at home by herself. I recommend a social work administrator consultation for possible placement into a rehabilitation facility. I did discuss with the patient that she will need further surgical intervention, whether it is a definitive internal fixation or application of a more stable external fixator. This will be performed in approximately 2 to 3 weeks, pending the patient's soft tissue edema and recovery. We will continue to follow patient closely and update accordingly. Thank you very much for allowing me to take part in the care of your patient. - Complications None - Admit VTE Documentation VTE Present on Admission: No VTE Mechan Device Prophylaxis: SCD's VTE Pharm Prophylaxis ordered?: Yes
--- NOTE | 2019-07-25 15:40 | RAD_ITS ---
STUDY: X-RAY - RIGHT ANKLE REASON FOR EXAM: Female, 58 years old. post op ankle TECHNIQUE: 3 view(s) of the ankle. COMPARISON: Earlier the same day. FINDINGS: There is an external fixator causes marked overlying artifact. Allowing for this, comminuted fractures of the distal tibia and fibula appear grossly satisfactory, near anatomic alignment. No shortening. No angulation. Grossly normal ankle mortise and normal position of the talus. RAD/Ankle min 3 Views IMPRESSION: Allowing for significant artifact from external fixator, fractures of the distal tibia and fibula are in near anatomic alignment and position. Electronically Signed: Carlo Pereira MD at 16:39 EDT , Service support ,
--- NOTE | 2019-07-25 15:40 | RAD_ITS ---
STUDY: X-RAY - RIGHT TIBIA AND FIBULA REASON FOR EXAM: Female, 58 years old. Postop tib fib TECHNIQUE: 3 view(s) of the tibia and fibula were obtained. COMPARISON: Numerous prior radiographs including. FINDINGS: There is external fixator from the mid tibial shaft to the foot. This causes marked artifact especially over the foot. As indicated on previous studies, the fractures distal tibia fibula grossly anatomic position. Abnormal appearance of the midfoot. IMPRESSION: Limited by artifact. Grossly satisfactory alignment and position of comminuted ankle fractures. Electronically Signed: Carlo Pereira MD at 19:16 EDT , Service support , RAD/Tibia & Fibula 2 Views
--- NOTE | 2019-07-25 15:40 | RAD_ITS ---
STUDY: X-RAY - RIGHT FOOT CLINICAL: Female, 58 years old. post op foot TECHNIQUE: 3 view(s) of the foot. COMPARISON: None. FINDINGS: Exam limited by extensive artifact from external fixator. Abnormal appearance of the proximal second, third metatarsals, which may be related to previous fractures. Abnormal appearance of the fourth and fifth metatarsals which show heterogeneous, increased density can be seen with old fractures or osteomyelitis. Poorly visualized tarsal bones. No gross soft tissue abnormality. RAD/Foot min 3 Views IMPRESSION: Significantly limited exam. Abnormal appearance of the second-fifth metatarsals and inadequate visualization of the tarsals. Electronically Signed: Carlo Pereira MD at 18:35 EDT , Service support ,
--- NOTE | 2019-07-25 16:11 | PCA ---
pt off floor
[2019-07-25] MEDS: Gabapentin 600 MG Tablet 1200 MG PO (16:42)
[2019-07-25] MEDS: Senna/Docusate Sodium 1 Tablet 2 TABLET PO (18:09)
[2019-07-25 18:25] LABS: Bedside Glucose 325 mg/dL (70-110)
--- NOTE | 2019-07-25 21:26 | NURSING ---
Addendum entered by Lesli De La O 07/26/19 02:42: Patient said she does not check her blood sugar at home. Her machine is broken. Original Note: Patient requested Dilaudid be increased; however, patient was sleeping restfully. This RN told patient, When I came in you were sleeping. That tells me that the pain is under control. Patient replied, When I sleep I take my mind off the pain. When I wake up it is back. This RN told pt the plan will be to give her the ordered amount of Dilaudid when it is available in about 45 minutes.
[2019-07-25] MEDS: Atorvastatin Calcium 20 MG Tablet PO (21:34)
[2019-07-25] MEDS: Cefazolin 2 GM in 0.9% Normal Saline 100 ML IV (22:17)
[2019-07-25 23:41] LABS: Bedside Glucose 276 mg/dL (70-110)
[2019-07-26] VITALS (9 sets, daily range): BP systolic 109–147; BP diastolic 52–75; PULSE 72–83; RESP 18–20; TEMP 36.7–37.2; O2SAT 93–98
[2019-07-26] MEDS: oxyCODONE 5 MG Tablet 15 MG PO ×3 (00:17→16:30)
[2019-07-26] MEDS: Insulin Lispro 100 UNIT/ML INSULN.PEN SC ×5 (00:25→21:58)
[2019-07-26] MEDS: Lactated Ringers 1,000 ML 100 ML IV ×3 (00:33→20:47)
[2019-07-26 01:06] LABS: Bedside Glucose 309 mg/dL (70-110)
[2019-07-26] MEDS: HYDROmorphone 0.5 MG/0.5 ML SYRINGE IV ×4 (03:07→20:40)
[2019-07-26] MEDS: Ondansetron 4 MG/2 ML Vial IV (03:21)
[2019-07-26] MEDS: Cefazolin 2 GM in 0.9% Normal Saline 100 ML IV ×3 (06:17→21:48)
[2019-07-26] MEDS: 0.9% Saline Lock 10 ML Syringe IV ×2 (06:19→13:15)
[2019-07-26] MEDS: Enoxaparin 40 MG/0.4 ML Syringe SC (06:21)
[2019-07-26 06:35] LABS: Absolute Lymphocyte Count 2.54 X10^3/uL (0.83-4.51); Absolute Neutrophil Count 5.4 X10^3/uL (2.0-7.7); Basophil# 0.01 X10^3/uL; Basophil% 0.1 % (0-1); Eosinophil# 0.04 X10^3/uL; Eosinophils% 0.5 % (0-5); Hemoglobin 12.6 g/dL (12.0-15.0); Lymphocyte # 2.54 X10^3/ul (4.0); Lymphocyte % 29.4 % (19-41); Mean Corp Hgb Conc 31.5 g/dL (32-36); Mean Corpuscular Hgb 29.1 pg (27.0-32.0); Mean Corpuscular Volume 92.4 fL (81-99); Mean Platelet Vol. 10.6 fl (6.2-12.0); Monocyte# 0.51 X10^3/uL; Monocyte% 5.9 % (0-10); NRBC Flagged by Analyzer 0 % (0-5); Neutrophil % 62.6 % (47-70); Platelet Count 114 K/mm3 (150-450); RBC Distribution Width CV 14.8 % (11.6-14.6); RBC Distribution Width SD 50.7 fl (35.1-43.9); Red Blood Count 4.33 M/mm3 (4.2-5.4); White Blood Count 8.6 K/mm3 (4.4-11.0)
[2019-07-26 06:43] LABS: Anion Gap 5 (5-15); BUN 12 mg/dL (7-18); BUN/Creat Ratio 16.7 RATIO (10-20); Calcium,Total 7.6 mg/dL (8.5-10.1); Chloride 104 mmol/L (98-107); Creatinine, Serum 0.72 mg/dL (0.55-1.02); EST Glomerular Filtration Rate 89 mL/min (>60); Est Glom Filt Rate - Afr Amer 108 mL/min (>60); Estimated Creatinine Clearance 74.44 ml/min; Glucose 252 mg/dL (74-106); Potassium 4.2 mmol/L (3.5-5.1); Sodium Level 135 mmol/L (136-145)
[2019-07-26 07:06] LABS: Bedside Glucose 270 mg/dL (70-110)
--- NOTE | 2019-07-26 07:36 | EKG12_ITS ---
Test Reason : Blood Pressure : / mmHG Vent. Rate : 080 BPM Atrial Rate : 080 BPM P-R Int : 174 ms QRS Dur : 088 ms QT Int : 428 ms P-R-T Axes : 032 022 037 degrees QTc Int : 493 ms Normal sinus rhythm Low voltage QRS Prolonged QT Poor R wave progression Abnormal ECG Confirmed by TAIWO HILL, LUIS M ([id number]), copy editor YAMILKA CRAIG ([id number]) on 07/28/2019 9:40:40 AM Referred By: DENISE Confirmed By:LUIS M MARAVILLA MD
--- NOTE | 2019-07-26 07:42 | NURSING ---
Dr. Ferguson is aware of the results of the EKG and that pt having CP. He also ordered Troponins.
[2019-07-26] MEDS: Gabapentin 600 MG Tablet 1200 MG PO ×2 (08:05→16:38)
[2019-07-26] MEDS: Polyethylene Glycol 3350 17 GM PACKET PO (08:13)
[2019-07-26] MEDS: Bisacodyl 10 MG Suppository RECTAL (08:13)
--- NOTE | 2019-07-26 08:24 | PCM.PN.HOSP ---
Patient Problems: Active and Suspected Problems Tibia/fibula fracture (Acute) Subjective: Doing well, feels constipated though. No issues overnight still some pain in her right leg Vitals/I&O's: Vital Signs Temp Pulse Resp BP Pulse Ox 98.1 F 77 18 109/58 L 93 07/26/19 03:24 07/26/19 03:24 07/26/19 03:24 07/26/19 03:24 07/26/19 08:01 Oxygen Flow Rate (L/min) 2 Oxygen Delivery Method Room Air Weight: 263 lb 3.711 oz Body Mass Index (BMI) 45.1 Intake and Output for Last 24 Hours 07/24/19 07/25/19 07/26/19 23:59 23:59 23:59 Intake Total 815 / 1265 1590 / 1590 Output Total 300 / 525 400 / 400 Balance 515 / 740 1190 / 1190 General: Alert, Oriented x3, Cooperative, No apparent distress HEENT: Atraumatic, PERRLA, EOMI, Normocephalic Oral: Moist Mucosa Neck: Supple, No JVD Lungs: Clear to auscultation, Normal air movement, No rhonchi, No wheeze, No rales Cardiovascular: Regular rate, Regular Rhythm, Normal S1, Normal S2, No murmurs Abdomen: Soft, Non Tender, Non-Distended, No Hepato-splenomegaly, Obese Extremities: No edema, Capillary Refill Less than 3 Seconds Skin: No rashes, No breakdown Musculoskeletal: - - Right lower extremity ex-fix in place and wrapped does have mobility in her toes and sensation Neurological: Neuro grossly intact, Sensory exam intact to light touch and pain Psych/Mental Status: Normal Affect, Appropriate Laboratory Results 07/25/19 03:45: Hemoglobin A1c 10.7 H 07/25/19 08:24: POC Glucose 223 H 07/25/19 11:35: POC Glucose 268 H 07/25/19 15:25: POC Glucose 261 H 07/25/19 18:14: POC Glucose 325 H 07/25/19 22:04: POC Glucose 276 H 07/26/19 00:21: POC Glucose 309 H 07/26/19 05:44: WBC 8.6, RBC 4.33, Hgb 12.6, Hct 40.0, MCV 92.4, MCH 29.1, MCHC 31.5 L D, RDW Std Deviation 50.7 H, RDW Coeff of Marc 14.8 H, Plt Count 114 L, MPV 10.6, Immature Gran % (Auto) 1.500 H, Neut % (Auto) 62.6, Lymph % (Auto) 29.4, Callahan % (Auto) 5.9, Eos % (Auto) 0.5, Baso % (Auto) 0.1, Absolute Neuts (auto) 5.4, Absolute Lymphs (auto) 2.54, Nucleated RBC % 0 07/26/19 05:44: Sodium 135 L, Potassium 4.2, Chloride 104, Carbon Dioxide 26.0, Anion Gap 5, BUN 12, Creatinine 0.72, Estim Creat Clear Calc 74.44, Est GFR (MDRD) Af Amer 108, Est GFR (MDRD) Non-Af 89, BUN/Creatinine Ratio 16.7, Glucose 252 H, Calcium 7.6 L 07/26/19 05:44: Troponin I < 0.015 07/26/19 06:25: POC Glucose 270 H Current Medications Albuterol Sulfate (Ventolin Aerosols) 2.5 mg INHALATION Q2H PRN PRN PRN Reason: SOB &/OR WHEEZING Allopurinol (Zyloprim) 100 mg PO DAILY [facility] Last Admin: 07/25/19 10:14 Dose: Not Given Documented by: Atorvastatin Calcium (Lipitor) 20 mg PO QHS [facility] Last Admin: 07/25/19 21:34 Dose: 20 mg Documented by: Bisacodyl (Dulcolax) 10 mg RECTAL DAILY PRN PRN Reason: Constipation Last Admin: 07/26/19 08:13 Dose: 10 mg Documented by: Dextrose (D50w Syringe) 0 gm IV X1 PRN; Protocol PRN Reason: Hypoglycemia Enoxaparin Sodium (Lovenox) 40 mg SC DAILY@0600 [facility] Last Admin: 07/26/19 06:21 Dose: 40 mg Documented by: Gabapentin (Neurontin) 1,200 mg PO BIDCM [facility] Last Admin: 07/26/19 08:05 Dose: 1,200 mg Documented by: Glucagon () 1 mg IM .X1 PRN PRN Reason: Hypoglycemia Hydromorphone HCl (Dilaudid Inj) 0.5 mg IV Q4H PRN PRN PRN Reason: Pain 6-1010 Last Admin: 07/26/19 03:07 Dose: 0.5 mg Documented by: Sodium Chloride () 250 mls @ 15 mls/hr IV .[id number] PRN PRN Reason: Saline Flush Sodium Chloride () 250 mls @ 15 mls/hr IV .[id number] PRN PRN Reason: Additional IVPB Infusion Pantoprazole Sodium 40 mg/ (Sodium Chloride) 110 mls @ 330 mls/hr IV Q12 [facility] Last Infusion: 07/25/19 23:00 Dose: Infused Documented by: Cefazolin Sodium 2 gm/ Sodium (Chloride) 110 mls @ 150 mls/hr IV Q8 [facility] Last Infusion: 07/26/19 07:28 Dose: Infused Documented by: Lactated Ringer's () 1,000 mls @ 100 mls/hr IV .Q10H [facility] Last Admin: 07/26/19 00:33 Dose: 100 mls/hr Documented by: Insulin Glargine (Lantus (Bk)) 20 units SC BID [facility] Last Admin: 07/26/19 00:22 Dose: 20 units Documented by: Insulin Human Lispro (Humalog Kwikpen ([facility])) 0 unit SC Q6 [facility]; Protocol Last Admin: 07/26/19 06:26 Dose: 4 u Documented by: Nicotine (Nicoderm Cq ([facility])) 21 mg TRANSDERM. DAILY [facility] Last Admin: 07/25/19 11:23 Dose: Not Given Documented by: Ondansetron HCl (Zofran) 4 mg IV Q6H PRN PRN PRN Reason: NAUSEA/VOMITING Last Admin: 07/26/19 03:21 Dose: 4 mg Documented by: Oxycodone HCl (Oxyir) 15 mg PO TID@0000,0800,1600 [facility] Last Admin: 07/26/19 08:04 Dose: 15 mg Documented by: Oxycodone HCl (Oxycontin) 80 mg PO TID@0000,0800,1600 [facility] Last Admin: 07/26/19 08:04 Dose: 80 mg Documented by: Polyethylene Glycol (Miralax) 17 gm PO BID [facility] Last Admin: 07/26/19 08:13 Dose: 17 gm Documented by: Senna/Docusate Sodium (Senokot-S, Talya-Colace) 2 tablet PO DAILY PRN PRN PRN Reason: CONSTIPATION Last Admin: 07/25/19 18:09 Dose: 2 tablet Documented by: Sodium Chloride () 10 - 40 ml IV UD PRN PRN Reason: SALINE FLUSH Last Admin: 07/26/19 06:19 Dose: 10 ml Documented by: Thyroid (Fabio Thyroid) 180 mg PO DAILY [facility] Last Admin: 07/25/19 10:15 Dose: Not Given Documented by: STROKE Vital Signs/Narrative: Vital Signs Pulse Ox 07/26/19 08:01 93 Medical Necessity - Tobacco Use Smoking Status: Current every day smoker Tobacco Use: Cigarettes Assessment/Plan All Active Problems Blister of left heel (Acute) Tibia/fibula fracture (Acute) 1. Comminuted right tibial and fibular fracture status post ex-fix 07/25/2019/constipation/leukocytosis -She takes oxycodone 15 mg p.o. 3 times daily as well as OxyContin 80 mg p.o. 3 times daily chronically at home she is on Dilaudid for acute pain here as well as her home medications therefore will not make any changes -Is on Linzess at home, will continue with MiraLAX and a suppository as well as an enema here -PT/OT -Evaluate for possible SNF placement -Leukocytosis resolved, secondary to fracture apparently 2. DM 2 with polyneuropathy/morbid obesity/decubitus ulcer of the left heel stage II -Continue with Lantus 20 units twice daily, as well as sliding scale insulin -Accu-Cheks AC at bedtime Will adjust as necessary -Continue with her gabapentin -Discussed lifestyle modifications, BMI 45 3. HTN/HLD -Blood pressure is stable -We will hold her Lasix for another day, continue with IV fluids plan will be to discontinue fluids tomorrow and restart her Lasix -Continue with her statin 4. Hypothyroidism -Stable -Continue with Fabio Thyroid 5. Gout -Stable -Continue with allopurinol 6. GERD -Stable -Continue with PPI DVT: SCDs Inpatient E&M: 88994 Subs Hosp L2
[2019-07-26] MEDS: Senna/Docusate Sodium 1 Tablet 2 TABLET PO (08:57)
[2019-07-26] MEDS: Thyroid 60 MG Tablet 180 MG PO (09:00)
[2019-07-26] MEDS: Allopurinol 100 MG Tablet PO (09:00)
[2019-07-26] MEDS: Magnesium Citrate 300 ML PO (09:30)
[2019-07-26] MEDS: diazePAM 2 MG Tablet 4 MG PO ×2 (11:02→21:50)
[2019-07-26 12:31] LABS: Bedside Glucose 316 mg/dL (70-110)
--- NOTE | 2019-07-26 13:32 | PN_ITS ---
Patient Problems: Active and Suspected Problems Tibia/fibula fracture (Acute) Subjective: The patient was sitting in bed upon examination. Patient denies chest pain, shortness of breath, dizziness, lightheadedness, nausea, vomiting or calf pain. Pain is somewhat controlled on medications. The patient is on chronic pain medication for low back pain. The patient is getting Dilaudid, oxycodone and Valium. No adverse events overnight. The patient states that she is having difficulty having a bowel movement. She had a small bowel movement this a.m. but it is not normal for her. She has been given multiple medications for her constipation including dulcolax and Senokot. Objective: Vital signs stable. Patient is afebrile. Patient is able to wiggle her toes. Due to the external fixator she is unable to enter and dorsiflex the right lower extremity. Sensation is intact to light touch at the level of the knee. The patient has a history of bilateral neuropathy secondary to type 2 diabetes mellitus. Dressing is clean, dry and intact. Negative Homans bilaterally. Negative signs and symptoms of DVT. - Physical Exam Vitals/I&O's: Vital Signs Temp Pulse Resp BP Pulse Ox 98.9 F 72 18 147/73 H 96 07/26/19 09:15 07/26/19 09:15 07/26/19 09:15 07/26/19 09:15 07/26/19 09:15 Oxygen Flow Rate (L/min) 2 Oxygen Delivery Method Room Air Weight: 119.4 kg Body Mass Index (BMI) 45.1 Intake and Output for Last 24 Hours 07/24/19 07/25/19 07/26/19 23:59 23:59 23:59 Intake Total 815 / 1265 3150 / 3150 Output Total 300 / 525 800 / 800 Balance 515 / 740 2350 / 2350 General: Alert, Oriented x3, No apparent distress Abdomen: Soft Extremities: Capillary Refill Less than 3 Seconds - In all digits., No Calf Tenderness Skin: Ulcer/ Wound - left heel, wound care being managed by the wound center. Neurological: Sensory exam intact to light touch and pain Psych/Mental Status: Normal Affect, Appropriate Laboratory Results 07/25/19 15:25: POC Glucose 261 H 07/25/19 18:14: POC Glucose 325 H 07/25/19 22:04: POC Glucose 276 H 07/26/19 00:21: POC Glucose 309 H 07/26/19 05:44: WBC 8.6, RBC 4.33, Hgb 12.6, Hct 40.0, MCV 92.4, MCH 29.1, MCHC 31.5 L D, RDW Std Deviation 50.7 H, RDW Coeff of Marc 14.8 H, Plt Count 114 L, MPV 10.6, Immature Gran % (Auto) 1.500 H, Neut % (Auto) 62.6, Lymph % (Auto) 29.4, [place] % (Auto) 5.9, Eos % (Auto) 0.5, Baso % (Auto) 0.1, Absolute Neuts (auto) 5.4, Absolute Lymphs (auto) 2.54, Nucleated RBC % 0 07/26/19 05:44: Sodium 135 L, Potassium 4.2, Chloride 104, Carbon Dioxide 26.0, Anion Gap 5, BUN 12, Creatinine 0.72, Estim Creat Clear Calc 74.44, Est GFR (MDRD) Af Amer 108, Est GFR (MDRD) Non-Af 89, BUN/Creatinine Ratio 16.7, Glucose 252 H, Calcium 7.6 L 07/26/19 05:44: Troponin I < 0.015 07/26/19 06:25: POC Glucose 270 H 07/26/19 08:40: Troponin I < 0.015 07/26/19 11:50: Troponin I < 0.015 07/26/19 12:21: POC Glucose 316 H Current Medications Albuterol Sulfate (Ventolin Aerosols) 2.5 mg INHALATION Q2H PRN PRN PRN Reason: SOB &/OR WHEEZING Allopurinol (Zyloprim) 100 mg PO DAILY [facility] Last Admin: 07/26/19 09:00 Dose: 100 mg Documented by: Atorvastatin Calcium (Lipitor) 20 mg PO QHS [facility] Last Admin: 07/25/19 21:34 Dose: 20 mg Documented by: Bisacodyl (Dulcolax) 10 mg RECTAL DAILY PRN PRN Reason: Constipation Last Admin: 07/26/19 08:13 Dose: 10 mg Documented by: Dextrose (D50w Syringe) 0 gm IV X1 PRN; Protocol PRN Reason: Hypoglycemia Diazepam (Valium) 4 mg PO TID PRN PRN PRN Reason: muscle spasms Last Admin: 07/26/19 11:02 Dose: 4 mg Documented by: Enoxaparin Sodium (Lovenox) 40 mg SC DAILY@0600 [facility] Last Admin: 07/26/19 06:21 Dose: 40 mg Documented by: Gabapentin (Neurontin) 1,200 mg PO BIDCM [facility] Last Admin: 07/26/19 08:05 Dose: 1,200 mg Documented by: Glucagon () 1 mg IM .X1 PRN PRN Reason: Hypoglycemia Hydromorphone HCl (Dilaudid Inj) 0.5 mg IV Q4H PRN PRN PRN Reason: Pain 6-01/08 Last Admin: 07/26/19 13:15 Dose: 0.5 mg Documented by: Sodium Chloride () 250 mls @ 15 mls/hr IV .[id number] PRN PRN Reason: Saline Flush Sodium Chloride () 250 mls @ 15 mls/hr IV .[id number] PRN PRN Reason: Additional IVPB Infusion Pantoprazole Sodium 40 mg/ (Sodium Chloride) 110 mls @ 330 mls/hr IV Q12 [facility] Last Infusion: 07/26/19 09:20 Dose: Infused Documented by: Cefazolin Sodium 2 gm/ Sodium (Chloride) 110 mls @ 150 mls/hr IV Q8 [facility] Last Admin: 07/26/19 13:16 Dose: 150 mls/hr Documented by: Lactated Ringer's () 1,000 mls @ 100 mls/hr IV .Q10H [facility] Last Admin: 07/26/19 11:02 Dose: 100 mls/hr Documented by: Insulin Glargine (Lantus (Bk)) 20 units SC BID [facility] Last Admin: 07/26/19 09:00 Dose: 20 units Documented by: Insulin Human Lispro (Humalog Kwikpen (Bk)) 0 unit SC Q6 [facility]; Protocol Last Admin: 07/26/19 12:25 Dose: 5 u Documented by: Nicotine (Nicoderm Cq ([facility])) 21 mg TRANSDERM. DAILY [facility] Last Admin: 07/26/19 09:01 Dose: Not Given Documented by: Nutritional Formula (Rashard - Ida Flavor) 1 packet PO BIDCM [facility] Ondansetron HCl (Zofran) 4 mg IV Q6H PRN PRN PRN Reason: NAUSEA/VOMITING Last Admin: 07/26/19 03:21 Dose: 4 mg Documented by: Oxycodone HCl (Oxyir) 15 mg PO TID@0000,0800,1600 [facility] Last Admin: 07/26/19 08:04 Dose: 15 mg Documented by: Oxycodone HCl (Oxycontin) 80 mg PO TID@0000,0800,1600 [facility] Last Admin: 07/26/19 08:04 Dose: 80 mg Documented by: Polyethylene Glycol (Miralax) 17 gm PO BID [facility] Last Admin: 07/26/19 08:13 Dose: 17 gm Documented by: Senna/Docusate Sodium (Senokot-S, [place]alya-Colace) 2 tablet PO DAILY PRN PRN PRN Reason: CONSTIPATION Last Admin: 07/26/19 08:57 Dose: 2 tablet Documented by: Sodium Chloride () 10 - 40 ml IV UD PRN PRN Reason: SALINE FLUSH Last Admin: 07/26/19 13:15 Dose: 10 ml Documented by: Thyroid ([place] Thyroid) 180 mg PO DAILY [facility] Last Admin: 07/26/19 09:00 Dose: 180 mg Documented by: Medical Necessity - Tobacco Use Smoking Status: Current every day smoker Tobacco Use: Cigarettes Assessment/Plan All Active Problems Blister of left heel (Acute) Tibia/fibula fracture (Acute) 1. Status post application of external fixator, right foot, ankle and leg with close reduction of pilon fracture, right tibia and closed reduction of right fibula fracture post operative day #1. 2. Continue pain medications: Oxycodone and Dilaudid; she is taking Valium for muscle spasms 3. DVT prophylaxis: Lovenox 40 mg daily 4. PT/OT: Nonweightbearing on right lower extremity 5. H & H: 12.6/40.0, patient is asymptomatic and denies lightheadedness or dizziness 6. WBCs: 8.6, afebrile 7. Encouraged incentive spirometry. 8. Continue postoperative medical management per medicine. 9. Postoperative drainage: Dressing is clean, dry and intact. Maintain dressing. 10. Extensive discussion with the patient regarding lifestyle modifications for nicotine dependence and diabetes mellitus. 11. Disposition: The plan is for the patient to possibly go to an extended care facility upon discharge from the hospital. This will be discussed with case management.
[2019-07-26 16:41] LABS: Bedside Glucose 274 mg/dL (70-110)
[2019-07-26] MEDS: Atorvastatin Calcium 20 MG Tablet PO (21:52)
[2019-07-26 23:45] LABS: Bedside Glucose 280 mg/dL (70-110)
[2019-07-27] MEDS: oxyCODONE 5 MG Tablet 15 MG PO ×3 (00:43→17:11)
[2019-07-27] MEDS: HYDROmorphone 0.5 MG/0.5 ML SYRINGE IV ×5 (01:57→19:47)
[2019-07-27 02:32] VITALS: BP 143/62; PULSE 78; RESP 18; TEMP 36.8; O2SAT 98
[2019-07-27 04:06] LABS: Bedside Glucose 260 mg/dL (70-110)
[2019-07-27] MEDS: Lactated Ringers 1,000 ML 100 ML IV (06:09)
[2019-07-27] MEDS: Cefazolin 2 GM in 0.9% Normal Saline 100 ML IV ×3 (06:10→21:08)
[2019-07-27] MEDS: Enoxaparin 40 MG/0.4 ML Syringe SC (06:12)
[2019-07-27 06:41] LABS: Absolute Lymphocyte Count 2.36 X10^3/uL (0.83-4.51); Absolute Neutrophil Count 6.4 X10^3/uL (2.0-7.7); Basophil# 0.03 X10^3/uL; Basophil% 0.3 % (0-1); Eosinophil# 0.04 X10^3/uL; Eosinophils% 0.4 % (0-5); Hematocrit 40.4 % (37-47); Hemoglobin 13.2 g/dL (12.0-15.0); Lymphocyte # 2.36 X10^3/ul (4.0); Lymphocyte % 24.8 % (19-41); Mean Corp Hgb Conc 32.7 g/dL (32-36); Mean Corpuscular Hgb 29.9 pg (27.0-32.0); Mean Corpuscular Volume 91.4 fL (81-99); Mean Platelet Vol. 10.4 fl (6.2-12.0); Monocyte# 0.43 X10^3/uL; Monocyte% 4.5 % (0-10); NRBC Flagged by Analyzer 0 % (0-5); Neutrophil # 6.44 X10^3/uL (2.7-7.7); Neutrophil % 67.9 % (47-70); Platelet Count 119 K/mm3 (150-450); RBC Distribution Width CV 14.4 % (11.6-14.6); RBC Distribution Width SD 48.2 fl (35.1-43.9); Red Blood Count 4.42 M/mm3 (4.2-5.4); White Blood Count 9.5 K/mm3 (4.4-11.0)
[2019-07-27 07:11] LABS: Anion Gap 7 (5-15); BUN 10 mg/dL (7-18); BUN/Creat Ratio 16.6 RATIO (10-20); Calcium,Total 8.2 mg/dL (8.5-10.1); Chloride 105 mmol/L (98-107); EST Glomerular Filtration Rate 109 mL/min (>60); Est Glom Filt Rate - Afr Amer 131 mL/min (>60); Estimated Creatinine Clearance 89.33 ml/min; Glucose 265 mg/dL (74-106); Potassium 4.5 mmol/L (3.5-5.1); Sodium Level 135 mmol/L (136-145)
[2019-07-27 07:30] VITALS: O2SAT 98
[2019-07-27] MEDS: Insulin Lispro 100 UNIT/ML INSULN.PEN SC ×6 (07:38→21:10)
[2019-07-27] MEDS: 0.9% Saline Lock 10 ML Syringe IV ×4 (07:43→19:49)
[2019-07-27 07:51] LABS: Bedside Glucose 229 mg/dL (70-110)
[2019-07-27 08:20] VITALS: BP 133/73; PULSE 77; RESP 16; TEMP 36.8; O2SAT 95
[2019-07-27] MEDS: Gabapentin 600 MG Tablet 1200 MG PO ×2 (08:29→17:09)
[2019-07-27] MEDS: Thyroid 60 MG Tablet 180 MG PO (08:30)
[2019-07-27] MEDS: Nystatin Powder 15gm Bottle 1 APPLIC TOPICAL ×2 (08:31→21:12)
[2019-07-27] MEDS: Allopurinol 100 MG Tablet PO (08:32)
--- NOTE | 2019-07-27 09:47 | PCM.PN.HOSP ---
Patient Problems: Active and Suspected Problems Tibia/fibula fracture (Acute) Subjective: No issues overnight, doing well, pain is controlled. Vitals/I&O's: Vital Signs Temp Pulse Resp BP Pulse Ox 98.3 F 77 16 133/73 H 95 07/27/19 08:20 07/27/19 08:20 07/27/19 08:20 07/27/19 08:20 07/27/19 08:20 Oxygen Flow Rate (L/min) 2 Oxygen Delivery Method Room Air Weight: 263 lb 3.711 oz Body Mass Index (BMI) 45.1 Intake and Output for Last 24 Hours 07/25/19 07/26/19 07/27/19 23:59 23:59 23:59 Intake Total 815 / 1265 5155 / 5395 1645.00 / 1645.00 Output Total 300 / 525 1400 / 1900 1150 / 1150 Balance 515 / 740 3755 / 3495 495.00 / 495.00 General: Alert, Oriented x3, Cooperative, No apparent distress HEENT: Atraumatic, PERRLA, EOMI, Normocephalic Oral: Moist Mucosa Neck: Supple, No JVD Lungs: Clear to auscultation, Normal air movement, No rhonchi, No wheeze, No rales Cardiovascular: Regular rate, Regular Rhythm, Normal S1, Normal S2, No murmurs Abdomen: Soft, Non Tender, Non-Distended, No Hepato-splenomegaly, Obese Extremities: No edema, Capillary Refill Less than 3 Seconds Skin: No rashes, No breakdown Musculoskeletal: - - Right lower extremity ex-fix in place and wrapped does have mobility in her toes and sensation Neurological: Neuro grossly intact, Sensory exam intact to light touch and pain Psych/Mental Status: Normal Affect, Appropriate Laboratory Results 07/26/19 11:50: Troponin I < 0.015 07/26/19 12:21: POC Glucose 316 H 07/26/19 16:33: POC Glucose 274 H 07/26/19 21:56: POC Glucose 280 H 07/27/19 02:30: POC Glucose 260 H 07/27/19 06:23: WBC 9.5, RBC 4.42, Hgb 13.2, Hct 40.4, MCV 91.4, MCH 29.9, MCHC 32.7, RDW Std Deviation 48.2 H, RDW Coeff of Marc 14.4, Plt Count 119 L, MPV 10.4, Immature Gran % (Auto) 2.100 H, Neut % (Auto) 67.9, Lymph % (Auto) 24.8, [place] % (Auto) 4.5, Eos % (Auto) 0.4, Baso % (Auto) 0.3, Absolute Neuts (auto) 6.4, Absolute Lymphs (auto) 2.36, Nucleated RBC % 0 07/27/19 06:23: Sodium 135 L, Potassium 4.5, Chloride 105, Carbon Dioxide 23.0, Anion Gap 7, BUN 10, Creatinine 0.60, Estim Creat Clear Calc 89.33, Est GFR (MDRD) Af Amer 131, Est GFR (MDRD) Non-Af 109, BUN/Creatinine Ratio 16.6, Glucose 265 H, Calcium 8.2 L 07/27/19 07:35: POC Glucose 229 H Current Medications Albuterol Sulfate (Ventolin Aerosols) 2.5 mg INHALATION Q2H PRN PRN PRN Reason: SOB &/OR WHEEZING Allopurinol (Zyloprim) 100 mg PO DAILY [facility] Last Admin: 07/27/19 08:32 Dose: 100 mg Documented by: Atorvastatin Calcium (Lipitor) 20 mg PO QHS [facility] Last Admin: 07/26/19 21:52 Dose: 20 mg Documented by: Bisacodyl (Dulcolax) 10 mg RECTAL DAILY PRN PRN Reason: Constipation Last Admin: 07/26/19 08:13 Dose: 10 mg Documented by: Dextrose (D50w Syringe) 0 gm IV X1 PRN; Protocol PRN Reason: Hypoglycemia Diazepam (Valium) 4 mg PO TID PRN PRN PRN Reason: muscle spasms Last Admin: 07/26/19 21:50 Dose: 4 mg Documented by: Enoxaparin Sodium (Lovenox) 40 mg SC DAILY@0600 [facility] Last Admin: 07/27/19 06:12 Dose: 40 mg Documented by: Gabapentin (Neurontin) 1,200 mg PO BIDCM [facility] Last Admin: 07/27/19 08:29 Dose: 1,200 mg Documented by: Glucagon () 1 mg IM .X1 PRN PRN Reason: Hypoglycemia Hydromorphone HCl (Dilaudid Inj) 0.5 mg IV Q4H PRN PRN PRN Reason: Pain 6-1010 Last Admin: 07/27/19 06:06 Dose: 0.5 mg Documented by: Sodium Chloride () 250 mls @ 15 mls/hr IV .[id number] PRN PRN Reason: Saline Flush Sodium Chloride () 250 mls @ 15 mls/hr IV .[id number] PRN PRN Reason: Additional IVPB Infusion Pantoprazole Sodium 40 mg/ (Sodium Chloride) 110 mls @ 330 mls/hr IV Q12 [facility] Last Infusion: 07/26/19 21:42 Dose: Infused Documented by: Cefazolin Sodium 2 gm/ Sodium (Chloride) 110 mls @ 150 mls/hr IV Q8 [facility] Last Infusion: 07/27/19 07:00 Dose: Infused Documented by: Insulin Glargine (Lantus ([facility])) 25 units SC BID [facility] Insulin Human Lispro (Humalog Kwikpen ([facility])) 0 unit SC ACHS [facility]; Protocol Last Admin: 07/27/19 07:38 Dose: 6 u Documented by: Insulin Human Lispro (Humalog Kwikpen ([facility])) 5 unit SC TIDAC [facility] Nicotine (Nicoderm Cq ([facility])) 21 mg TRANSDERM. DAILY [facility] Last Admin: 07/27/19 08:32 Dose: Not Given Documented by: Nutritional Formula (Rashard - [place] Flavor) 1 packet PO BIDCM [facility] Last Admin: 07/27/19 08:29 Dose: 1 packet Documented by: Nystatin (Mycostatin Powder) 1 applic TOPICAL BID [facility]; Protocol Last Admin: 07/27/19 08:31 Dose: 1 applicatio Documented by: Ondansetron HCl (Zofran) 4 mg IV Q6H PRN PRN PRN Reason: NAUSEA/VOMITING Last Admin: 07/26/19 03:21 Dose: 4 mg Documented by: Oxycodone HCl (Oxyir) 15 mg PO TID@0000,0800,1600 [facility] Last Admin: 07/27/19 08:29 Dose: 15 mg Documented by: Oxycodone HCl (Oxycontin) 80 mg PO TID@0000,0800,1600 [facility] Last Admin: 07/27/19 08:30 Dose: 80 mg Documented by: Polyethylene Glycol (Miralax) 17 gm PO BID [facility] Last Admin: 07/27/19 08:31 Dose: Not Given Documented by: Senna/Docusate Sodium (Senokot-S, Talya-Colace) 2 tablet PO DAILY PRN PRN PRN Reason: CONSTIPATION Last Admin: 07/26/19 08:57 Dose: 2 tablet Documented by: Sodium Chloride () 10 - 40 ml IV UD PRN PRN Reason: SALINE FLUSH Last Admin: 07/27/19 07:43 Dose: 10 ml Documented by: Thyroid (Fabio Thyroid) 180 mg PO DAILY [facility] Last Admin: 07/27/19 08:30 Dose: 180 mg Documented by: STROKE Vital Signs/Narrative: Vital Signs Temp Pulse Resp BP Pulse Ox 07/27/19 08:20 98.3 F 77 16 133/73 H 95 07/27/19 07:30 98 Medical Necessity - Tobacco Use Smoking Status: Current every day smoker Tobacco Use: Cigarettes Assessment/Plan All Active Problems Blister of left heel (Acute) Tibia/fibula fracture (Acute) 1. Comminuted right tibial and fibular fracture status post ex-fix 07/25/2019/constipation/leukocytosis -She takes oxycodone 15 mg p.o. 3 times daily as well as OxyContin 80 mg p.o. 3 times daily chronically at home she is on Dilaudid for acute pain here as well as her home medications therefore will not make any changes -Is on Linzess at home, will continue with MiraLAX and a suppository as well as an enema here -PT/OT -Evaluate for possible SNF placement -Leukocytosis resolved, secondary to fracture apparently 2. DM 2 with polyneuropathy/morbid obesity/decubitus ulcer of the left heel stage II -Continue with Lantus 25 units twice daily, as well as sliding scale insulin, will add mealtime insulin as well -Accu-Cheks AC at bedtime Will adjust as necessary -Continue with her gabapentin -Discussed lifestyle modifications, BMI 45 3. HTN/HLD -Blood pressure is stable -We will hold her Lasix, will discontinue her IV fluids -Continue with her statin 4. Hypothyroidism -Stable -Continue with [place] Thyroid 5. Gout -Stable -Continue with allopurinol 6. GERD -Stable -Continue with PPI DVT: SCDs Inpatient E&M: 55178 Subs Hosp L2
[2019-07-27 11:10] LABS: Bedside Glucose 343 mg/dL (70-110)
--- NOTE | 2019-07-27 11:11 | CASEMGMT ---
Social Work Note SW in to speak with pt to discuss discharge plans. SW introduced self and role at [facility]. Pt is alert and orientated x3. Pt states agreeable to SNF and states she will only go to [facility] TCU. GALLO explained Medicare rules and guidelines and that this worker will need to check with TCU to confirm bed availability. Pt states understanding, states she will not go to any other SNF. GALLO placed a call to [facility] in [facility]CU. [facility] states she is able to accept pt tomorrow. GALLO updated physician. GALLO in to update pt, pt talking on phone. RN in room at time, GALLO asked RN to update pt on acceptance to TCU tomorrow once pt is off phone. Plan: TCU tomorrow Duyen Quarles [employer], [employer]
--- NOTE | 2019-07-27 12:26 | PN.ORTHO_ITS ---
Patient Problems: Active and Suspected Problems Tibia/fibula fracture (Acute) Charcot foot due to diabetes mellitus (Acute) Subjective: Patient seen at bedside resting comfortably. Patient admits to improved pain of her right foot and ankle at this time. Patient states that attempts to use Bertin lift yesterday were unsuccessful. Patient has had a physical therapy and Occupational Therapy work with her as well. According to the patient, patient will be transitioning to the transitional care unit tomorrow, July 27. Patient denies any other acute complaints at this time. Nursing staff denies any acute overnight events. Currently, patient denies fever, chills, nausea, vomiting, shortness of breath, chest pain. Patient denies right calf pain. Objective: Lower extremity physical exam: Dressing is clean, dry, intact to the right lower extremity with no evidence of strikethrough noted. Vascular: Cap refill time is less than 3 seconds to all digits of the right foot. Temperature gradient is within normal limits of the right lower extremity when compared to the left lower extremity. Neurological: Gross and protective sensation are absent to the digits of the right foot. This is reestablished at the level of the mid calf of the right leg. Musculoskeletal: Foot and ankle appear in a rectus position and underneath the tibia at this time. Tibia appears to be in a rectus position. Musculoskeletal strength deferred at this time. Dermatological: Dressing was left in place. No evidence of open lesions noted in areas outside the dressing. - Physical Exam Vitals/I&O's: Vital Signs Temp Pulse Resp BP Pulse Ox 98.3 F 77 16 133/73 H 95 07/27/19 08:20 07/27/19 08:20 07/27/19 08:20 07/27/19 08:20 07/27/19 08:20 Oxygen Flow Rate (L/min) 2 Oxygen Delivery Method Room Air Weight: 119.4 kg Body Mass Index (BMI) 45.1 Intake and Output for Last 24 Hours 07/25/19 07/26/19 07/27/19 23:59 23:59 23:59 Intake Total 815 / 1265 5155 / 5395 1755.00 / 1755.00 Output Total 300 / 525 1400 / 1900 1150 / 1150 Balance 515 / 740 3755 / 3495 605.00 / 605.00 General: Alert, Oriented x3, Cooperative, No apparent distress HEENT: Atraumatic, PERRLA Oral: Moist Mucosa Neck: Supple, No JVD Lungs: Clear to auscultation, Normal air movement, No rhonchi, No wheeze, No rales Cardiovascular: Regular rate, Regular Rhythm, Normal S1, Normal S2 Abdomen: Bowel Sounds Present, Soft, Non Tender, Non-Distended, Obese Extremities: Capillary Refill Less than 3 Seconds Psych/Mental Status: Alert and oriented to time, place, person, mood and affect Laboratory Results 07/26/19 11:50: Troponin I < 0.015 07/26/19 12:21: POC Glucose 316 H 07/26/19 16:33: POC Glucose 274 H 07/26/19 21:56: POC Glucose 280 H 07/27/19 02:30: POC Glucose 260 H 07/27/19 06:23: WBC 9.5, RBC 4.42, Hgb 13.2, Hct 40.4, MCV 91.4, MCH 29.9, MCHC 32.7, RDW Std Deviation 48.2 H, RDW Coeff of Marc 14.4, Plt Count 119 L, MPV 10.4, Immature Gran % (Auto) 2.100 H, Neut % (Auto) 67.9, Lymph % (Auto) 24.8, Jay % (Auto) 4.5, Eos % (Auto) 0.4, Baso % (Auto) 0.3, Absolute Neuts (auto) 6.4, Absolute Lymphs (auto) 2.36, Nucleated RBC % 0 07/27/19 06:23: Sodium 135 L, Potassium 4.5, Chloride 105, Carbon Dioxide 23.0, Anion Gap 7, BUN 10, Creatinine 0.60, Estim Creat Clear Calc 89.33, Est GFR (MDRD) Af Amer 131, Est GFR (MDRD) Non-Af 109, BUN/Creatinine Ratio 16.6, Glucose 265 H, Calcium 8.2 L 07/27/19 07:35: POC Glucose 229 H 07/27/19 10:57: POC Glucose 343 H STUDY: X-RAY - RIGHT TIBIA AND FIBULA REASON FOR EXAM: Female, 58 years old. Postop tib fib TECHNIQUE: 3 view(s) of the tibia and fibula were obtained. COMPARISON: Numerous prior radiographs including. FINDINGS: There is external fixator from the mid tibial shaft to the foot. This causes marked artifact especially over the foot. As indicated on previous studies, the fractures distal tibia fibula grossly anatomic position. Abnormal appearance of the midfoot. IMPRESSION: Limited by artifact. Grossly satisfactory alignment and position of comminuted ankle fractures. Electronically Signed: Carlo Pereira MD at 19:16 EDT , Service support , STUDY: X-RAY - RIGHT FOOT CLINICAL: Female, 58 years old. post op foot TECHNIQUE: 3 view(s) of the foot. COMPARISON: None. FINDINGS: Exam limited by extensive artifact from external fixator. Abnormal appearance of the proximal second, third metatarsals, which may be related to previous fractures. Abnormal appearance of the fourth and fifth metatarsals which show heterogeneous, increased density can be seen with old fractures or osteomyelitis. Poorly visualized tarsal bones. No gross soft tissue abnormality. RAD/Foot min 3 Views IMPRESSION: Significantly limited exam. Abnormal appearance of the second-fifth metatarsals and inadequate visualization of the tarsals. Electronically Signed: Carlo Pereira MD at 18:35 EDT , Service support , STUDY: X-RAY - RIGHT ANKLE REASON FOR EXAM: Female, 58 years old. post op ankle TECHNIQUE: 3 view(s) of the ankle. COMPARISON: Earlier the same day. FINDINGS: There is an external fixator causes marked overlying artifact. Allowing for this, comminuted fractures of the distal tibia and fibula appear grossly satisfactory, near anatomic alignment. No shortening. No angulation. Grossly normal ankle mortise and normal position of the talus. RAD/Ankle min 3 Views IMPRESSION: Allowing for significant artifact from external fixator, fractures of the distal tibia and fibula are in near anatomic alignment and position. Electronically Signed: Carlo Pereira MD at 16:39 EDT , Service support , STUDY: CT RIGHT ANKLE WITHOUT CONTRAST REASON FOR EXAM: Female, 58 years old patient with fractures of the distal tibia and fibula presents for pre-operative planning CT. RADIATION DOSAGE (If Supplied By Facility): CTDIvol = ( 15.35 ) mGy, DLP = ( 488.08 ) mGycm TECHNIQUE: Thin section transaxial imaging of the ankle was obtained, with sagittal and coronal reconstructed images. Individualized dose optimization techniques were used for this CT. COMPARISON: None. FINDINGS: There is a comminuted displaced fracture of distal tibia. There is also a fracture of the distal fibula which is displaced about 3 mm. Normal tibiotalar articulation and talar dome. There is a posterior calcaneal enthesophyte. There are degenerative changes of the imaged intertarsal articulations. Normal navicular-cuneiform, cuneiform tarsal bones and intercuneiform articulations. There is diffuse soft tissue swelling. CT/Extremity Lower without Contra IMPRESSION: Comminuted displaced fracture of the distal tibial diaphysis as well as the distal left fibular metaphysis. Electronically Signed: Leia Sue MD at 4:57 EDT , Service support , Current Medications Albuterol Sulfate (Ventolin Aerosols) 2.5 mg INHALATION Q2H PRN PRN PRN Reason: SOB &/OR WHEEZING Allopurinol (Zyloprim) 100 mg PO DAILY [facility] Last Admin: 07/27/19 08:32 Dose: 100 mg Documented by: Atorvastatin Calcium (Lipitor) 20 mg PO QHS [facility] Last Admin: 07/26/19 21:52 Dose: 20 mg Documented by: Bisacodyl (Dulcolax) 10 mg RECTAL DAILY PRN PRN Reason: Constipation Last Admin: 07/26/19 08:13 Dose: 10 mg Documented by: Dextrose (D50w Syringe) 0 gm IV X1 PRN; Protocol PRN Reason: Hypoglycemia Diazepam (Valium) 4 mg PO TID PRN PRN PRN Reason: muscle spasms Last Admin: 07/26/19 21:50 Dose: 4 mg Documented by: Enoxaparin Sodium (Lovenox) 40 mg SC DAILY@0600 [facility] Last Admin: 07/27/19 06:12 Dose: 40 mg Documented by: Gabapentin (Neurontin) 1,200 mg PO BIDCM [facility] Last Admin: 07/27/19 08:29 Dose: 1,200 mg Documented by: Glucagon () 1 mg IM .X1 PRN PRN Reason: Hypoglycemia Hydromorphone HCl (Dilaudid Inj) 0.5 mg IV Q4H PRN PRN PRN Reason: Pain 6-1010 Last Admin: 07/27/19 10:40 Dose: 0.5 mg Documented by: Sodium Chloride () 250 mls @ 15 mls/hr IV .[id number] PRN PRN Reason: Saline Flush Sodium Chloride () 250 mls @ 15 mls/hr IV .[id number] PRN PRN Reason: Additional IVPB Infusion Pantoprazole Sodium 40 mg/ (Sodium Chloride) 110 mls @ 330 mls/hr IV Q12 [facility] Last Infusion: 07/27/19 11:00 Dose: Infused Documented by: Cefazolin Sodium 2 gm/ Sodium (Chloride) 110 mls @ 150 mls/hr IV Q8 [facility] Last Infusion: 07/27/19 07:00 Dose: Infused Documented by: Insulin Glargine (Lantus (Bkc)) 25 units SC BID [facility] Insulin Human Lispro (Humalog Kwikpen (Bkc)) 0 unit SC ACHS [facility]; Protocol Last Admin: 07/27/19 11:46 Dose: 12 u Documented by: Insulin Human Lispro (Humalog Kwikpen (Bkc)) 5 unit SC TIDAC [facility] Last Admin: 07/27/19 11:46 Dose: 5 units Documented by: Nicotine (Nicoderm Cq (Pbkc)) 21 mg TRANSDERM. DAILY [facility] Last Admin: 07/27/19 08:32 Dose: Not Given Documented by: Nutritional Formula ([place] - [place] Flavor) [facility] Last Admin: 07/27/19 08:29 Dose: 1 packet Documented by: Nystatin (Mycostatin Powder) 1 applic TOPICAL BID [facility]; Protocol Last Admin: 07/27/19 08:31 Dose: 1 applicatio Documented by: Ondansetron HCl (Zofran) 4 mg IV Q6H PRN PRN PRN Reason: NAUSEA/VOMITING Last Admin: 07/26/19 03:21 Dose: 4 mg Documented by: Oxycodone HCl (Oxyir) 15 mg PO TID@0000,0800,1600 [facility] Last Admin: 07/27/19 08:29 Dose: 15 mg Documented by: Oxycodone HCl (Oxycontin) 80 mg PO TID@0000,0800,1600 [facility] Last Admin: 07/27/19 08:30 Dose: 80 mg Documented by: Polyethylene Glycol (Miralax) 17 gm PO BID [facility] Last Admin: 07/27/19 08:31 Dose: Not Given Documented by: Senna/Docusate Sodium (Senokot-S, Talya-Colace) 2 tablet PO DAILY PRN PRN PRN Reason: CONSTIPATION Last Admin: 07/26/19 08:57 Dose: 2 tablet Documented by: Sodium Chloride () 10 - 40 ml IV UD PRN PRN Reason: SALINE FLUSH Last Admin: 07/27/19 10:40 Dose: 10 ml Documented by: Thyroid (Wendel Thyroid) 180 mg PO DAILY [facility] Last Admin: 07/27/19 08:30 Dose: 180 mg Documented by: Medical Necessity - Tobacco Use Smoking Status: Current every day smoker Tobacco Use: Cigarettes Assessment/Plan All Active Problems Blister of left heel (Acute) Tibia/fibula fracture (Acute) Charcot foot due to diabetes mellitus (Acute) Assessment: this is a 58-year-old female who is 2 days status post closed reduction of tibiofibular fracture of the right lower extremity with application of external fixator. Surgery was performed by me, Dr. Andrzej Sue, on July 25, 2019. Plan: Patient chart reviewed and patient evaluated. Full discussion had with patient about her current clinical condition. Radiographs and CT scan reviewed with the patient in detail. Once again, I discussed with the patient that the surgery is the first step in this process. She is likely to have a minimum of 2-3 more surgeries to help correct her fractures of her right tibia and fibula. As of now, we are determining what the next step would be. It will either be removal of the current external fixator with open reduction internal fixation, or removal of the current external fixator with an application of a circular ring external fixator. I discussed the thought process behind each surgical intervention with the patient. I discussed that we will have to see how her soft tissue and the healing progresses over the next couple weeks. Patient displayed verbal understanding. At this time, patient is willing to go ahead with whatever surgery is necessary. I discussed with the patient while in the operating room, x-rays of her foot were taken, revealing old healed fractures of multiple bones of her right foot. Patient states that she is diagnosed with Charcot disease of her right foot. This was diagnosed by the wound care center. I then discussed with the patient that due to this, she has an increased risk of Charcot of her right ankle. Because of this, she may benefit from the application of a circular ring external fixator. We will perform the next stage of the surgery in approximately 2 to 3 weeks, depending the soft tissue structures around the injury. Patient displayed verbal understanding. Patient will likely be transitioned to the transitional care unit [facility] tomorrow, July 27. I am in agreement with this transfer. At this time, I recommend continued DVT prophylaxis with Lovenox, and this to be continued while in TCU. I recommend continued antibiotic prophylaxis with Ancef while she is an inpatient. Once patient gets transferred to the transitional care unit, I recommend transition to oral antibiotics. A prescription for doxycycline was written by me and placed in the patient's chart. I recommend the patient remain nonweightbearing to the right lower extremity. I recommend patient elevate her right foot above the level of heart as much as possible, with the heel hanging off and nothing touching her right heel. I recommend ice around the right knee as needed. I recommend continued pain medication as ordered by primary care. I did discuss with the patient that she will need further surgical intervention, whether it is a definitive internal fixation or application of a more stable external fixator. This will be performed in approximately 2 to 3 weeks, pending the patient's soft tissue edema and recovery. I will continue to follow patient closely and update accordingly. Thank you very much for allowing me to take part in the care of your patient. Inpatient E&M: [id number] Subs Hosp L2
[2019-07-27 14:15] VITALS: BP 136/78; PULSE 84; RESP 16; TEMP 37; O2SAT 95
[2019-07-27] MEDS: diazePAM 2 MG Tablet 4 MG PO (14:21)
[2019-07-27 17:26] LABS: Bedside Glucose 208 mg/dL (70-110)
[2019-07-27 20:00] VITALS: BP 150/75; PULSE 94; RESP 16; TEMP 36.9; O2SAT 96
[2019-07-27] MEDS: Atorvastatin Calcium 20 MG Tablet PO (23:59)
[2019-07-28] MEDS: oxyCODONE 5 MG Tablet 15 MG PO ×2 (00:03→07:48)
[2019-07-28 00:36] LABS: Bedside Glucose 293 mg/dL (70-110)
[2019-07-28] MEDS: HYDROmorphone 0.5 MG/0.5 ML SYRINGE IV ×3 (01:28→10:21)
[2019-07-28 01:55] VITALS: BP 132/61; PULSE 74; RESP 16; TEMP 36.9; O2SAT 100
[2019-07-28] MEDS: Cefazolin 2 GM in 0.9% Normal Saline 100 ML IV (05:30)
[2019-07-28] MEDS: Enoxaparin 40 MG/0.4 ML Syringe SC (05:33)
[2019-07-28] MEDS: Insulin Lispro 100 UNIT/ML INSULN.PEN SC ×3 (06:37→10:25)
[2019-07-28 06:51] LABS: Bedside Glucose 273 mg/dL (70-110)
[2019-07-28 07:28] VITALS: PULSE 80
[2019-07-28 07:36] VITALS: BP 155/75; PULSE 77; RESP 18; TEMP 36.8; O2SAT 98
[2019-07-28] MEDS: Gabapentin 600 MG Tablet 1200 MG PO (07:48)
[2019-07-28] MEDS: Polyethylene Glycol 3350 17 GM PACKET PO (07:48)
[2019-07-28] MEDS: Allopurinol 100 MG Tablet PO (07:48)
[2019-07-28] MEDS: Thyroid 60 MG Tablet 180 MG PO (07:49)
[2019-07-28 07:50] VITALS: O2SAT 98
--- NOTE | 2019-07-28 08:32 | PCM.TXEXTCAR ---
- Diet 07/26/19 07:33 Diet: Cardiac: Calorie-Controlled Is pt able to select menu?: Yes Diet Comments: Except meds How many daily calories?: 1800 calorie - Routine Orders/Code Status Routine Lab Work: CBC, BMP Code Status: Full Code - Wound(s) lt heel Wound Type: Neuropathic/Diabetic Foot Ulcer RLE Wound Type: Surgical Incision - Therapies Weight Bearing: Non weight bearing Physical Therapy: Eval and Treat Occupational Therapy: Eval and Treat - Allergies/Procedures Done in Hospital Allergies/Adverse Reactions: Allergies morphine Allergy (Intermediate, Verified 07/25/19 02:59) Hives - Type of Care/Length of Stay Estimated LOS: Convalescent Care Less Than 30 days Type of Care Needed: Skilled Rehab Potential: Good Prognosis: Good - Additional Orders/Day of Discharge Day of Discharge: 07/28/19 - Dietary and Speech Recommendations Dietitian Recommendations/Changes: Rec continue Cardiac:1800 Calorie Controlled diet. Will discontinue additional CHO controlled diet as CHO controlled w/ calorie control. Will provide Rashard 1 Packet BID to promote wound healing. - Follow Up Care Primary Care Physician: Dennis Casas MD [Primary Care Provider] - Please follow up with your Primary Care Physician in: 1-2 weeks Please Follow Up With: Andrzej Sue DPM When: 2 weeks
--- NOTE | 2019-07-28 08:37 | PCM.DC.SUM ---
Discharge Date and Diagnosis - Problem List Patient Problems: Active and Suspected Problems Tibia/fibula fracture (Acute) Date of Admission: 07/25/19 Date of Discharge: 07/28/19 - Primary Discharge Diagnosis Active and Suspected Problems Tibia/fibula fracture (Acute) - Secondary Discharge Diagnosis Chronic Problems Decubitus ulcer of left heel, stage 2 (Chronic) Tobacco dependence (Chronic) Peripheral autonomic neuropathy due to diabetes mellitus (Chronic) Diabetes (Chronic) Morbid obesity (Chronic) History of DVT (deep vein thrombosis) (Chronic) Obesity (Chronic) Hypothyroidism (Chronic) HLD (hyperlipidemia) (Chronic) Gout (Chronic) Gastroesophageal reflux disease (Chronic) DM2 (diabetes mellitus, type 2) (Chronic) COLD (chronic obstructive lung disease) (Chronic) Hospital Course and Treatment Imaging Results: R Ankle XR: IMPRESSION: Comminuted fracture of the distal tibia and transverse fracture of the distal fibula. R Tib/fib XR: IMPRESSION: Distal tibial and fibular fractures as described. CXR: IMPRESSION: Cardiomegaly without evidence of acute cardiopulmonary disease. CT RLE: IMPRESSION: Comminuted displaced fracture of the distal tibial diaphysis as well as the distal left fibular metaphysis. Report of Operation Date of Procedure: 07/25/19 Pre-Operative Diagnosis: 1. Right tibial pilon fracture, comminuted, displaced, closed. 2. Right fibular shaft fracture, comminuted, displaced, closed. #3. Diabetes mellitus type 2 with polyneuropathy. 4. Peripheral vascular disease Post-Operative Diagnosis: Same as preoperative Surgery/Procedure Performed:: 1. Application of external fixator, right foot, ankle, leg. 2. Closed reduction of pilon fracture, right tibia. 3. Closed reduction of right fibula fracture Description of Surgical Findings:: Consistent with diagnosis. Reduction of fractures achieved and held with external fixation. decating machine operator: Rocío Portillo Type of Anesthesia:: Spinal/Supplemental Anesthesiologist: Elsie Ortega Special Medications: Ancef 3 g given preoperatively Specimen's removed: None Drains: None Estimated Blood Loss (mL): 10 Consults: Ortho Operations: - - 1. Application of external fixator, right foot, ankle, leg. 2. Closed reduction of pilon fracture, right tibia. 3. Closed reduction of right fibula fracture Procedures: None Summary of Care Provided: Per HPI: The patient is a 58 year old F with a significant history of diabetes mellitus; chronic lower back pain; bilateral knee pain; GERD who presents emergency department with a fall. Reportedly patient missed the stairs and fell landing on her right side. She reports excruciating pain in her right lower leg and right feet. X-ray showed distal tibia and fibula fracture of the right lower extremity. Hospital Course: 1. Comminuted right tibial and fibular fracture status post ex-fix 07/25/2019/constipation/rpfesuypcyno-89-hbwi-old female with diabetes presents to the hospital after a fall. She had a comminuted right tibial and fibula fracture which was repaired with an ex-fix. She is transitioned from IV Ancef to p.o. doxycycline and will be transferred to transitional care unit today for further rehab. Also continue with Lovenox while she is at TCU for anticoagulation. Also given how much narcotic she was on at baseline, will continue with her bowel regimen as well. Her leukocytosis resolved after the initial surgery. She will need to follow-up with Dr. Patric Sue in 2 weeks for further operative intervention. I discussed the discharge plan to TCU with her she expressed understanding of the risks and benefits of discharge today. 2. Chest pain-she had an episode of chest pain during her admission without any changes on EKG and with 3 normal troponins. She says that it resolved very quickly and she thinks it was due to anxiety. She did not have any further episodes of chest pain, however if she does have recurrent chest pain on the TCU this would warrant further evaluation given her chronic medical conditions. 3. DM 2 with polyneuropathy/morbid obesity/decubitus ulcer of her left heel stage II-we will continue her gabapentin for her peripheral neuropathy, however she was started on insulin during this hospitalization for blood sugars in the high 200s and into the 300s. She will be discharged on 25 units of Lantus twice daily as well as a sliding scale insulin and 10 units of insulin. Can also resume her sitagliptin metformin combination, however her A1c is 10.7 therefore at this point insulin is also necessary. Continue to encourage lifestyle modifications and appropriate diet. 4. Her other medical diagnoses were evaluated and her home medications were continued where appropriate Patient Problems: Active and Suspected Problems Tibia/fibula fracture (Acute) - Physical Exam Vitals/I&O's: Vital Signs Temp Pulse Resp BP Pulse Ox 98.3 F 77 18 155/75 H 98 07/28/19 07:36 07/28/19 07:36 07/28/19 07:36 07/28/19 07:36 07/28/19 07:36 Oxygen Flow Rate (L/min) 2 Oxygen Delivery Method Room Air Weight: 263 lb 3.711 oz Body Mass Index (BMI) 45.1 Intake and Output for Last 24 Hours 07/26/19 07/27/19 07/28/19 23:59 23:59 23:59 Intake Total 5155 / 5395 3185.25 / 3725.25 1190 / 1190 Output Total 1400 / 1900 2600 / 3200 925 / 925 Balance 3755 / 3495 585.25 / 525.25 265 / 265 General: Alert, Oriented x3, Cooperative, No apparent distress HEENT: Atraumatic, PERRLA, EOMI, Normocephalic Oral: Moist Mucosa Neck: Supple, No JVD Lungs: Clear to auscultation, Normal air movement, No rhonchi, No wheeze, No rales Cardiovascular: Regular rate, Regular Rhythm, Normal S1, Normal S2, No murmurs Abdomen: Soft, Non Tender, Non-Distended, No Hepato-splenomegaly, Obese Extremities: No edema, Capillary Refill Less than 3 Seconds Skin: No rashes, No breakdown Musculoskeletal: - - Right lower extremity ex-fix in place and wrapped does have mobility in her toes and sensation Neurological: Neuro grossly intact, Sensory exam intact to light touch and pain Psych/Mental Status: Normal Affect, Appropriate Laboratory Results 07/27/19 10:57: POC Glucose 343 H 07/27/19 17:08: POC Glucose 208 H 07/27/19 21:06: POC Glucose 293 H 07/28/19 06:36: POC Glucose 273 H Current Medications Albuterol Sulfate (Ventolin Aerosols) 2.5 mg INHALATION Q2H PRN PRN PRN Reason: SOB &/OR WHEEZING Allopurinol (Zyloprim) 100 mg PO DAILY [facility] Last Admin: 07/28/19 07:48 Dose: 100 mg Documented by: Atorvastatin Calcium (Lipitor) 20 mg PO QHS [facility] Last Admin: 07/27/19 23:59 Dose: 20 mg Documented by: Bisacodyl (Dulcolax) 10 mg RECTAL DAILY PRN PRN Reason: Constipation Last Admin: 07/26/19 08:13 Dose: 10 mg Documented by: Dextrose (D50w Syringe) 0 gm IV X1 PRN; Protocol PRN Reason: Hypoglycemia Diazepam (Valium) 4 mg PO TID PRN PRN PRN Reason: muscle spasms Last Admin: 07/27/19 14:21 Dose: 4 mg Documented by: Enoxaparin Sodium (Lovenox) 40 mg SC DAILY@0600 [facility] Last Admin: 07/28/19 05:33 Dose: 40 mg Documented by: Gabapentin (Neurontin) 1,200 mg PO BIDCM [facility] Last Admin: 07/28/19 07:48 Dose: 1,200 mg Documented by: Glucagon () 1 mg IM .X1 PRN PRN Reason: Hypoglycemia Hydromorphone HCl (Dilaudid Inj) 0.5 mg IV Q4H PRN PRN PRN Reason: Pain 6-1010 Last Admin: 07/28/19 05:30 Dose: 0.5 mg Documented by: Sodium Chloride () 250 mls @ 15 mls/hr IV .[id number] PRN PRN Reason: Saline Flush Sodium Chloride () 250 mls @ 15 mls/hr IV .[id number] PRN PRN Reason: Additional IVPB Infusion Pantoprazole Sodium 40 mg/ (Sodium Chloride) 110 mls @ 330 mls/hr IV Q12 [facility] Last Admin: 07/28/19 07:53 Dose: 330 mls/hr Documented by: Cefazolin Sodium 2 gm/ Sodium (Chloride) 110 mls @ 150 mls/hr IV Q8 [facility] Last Infusion: 07/28/19 06:32 Dose: Infused Documented by: Insulin Glargine (Lantus (Bkc)) 25 units SC BID [facility] Last Admin: 07/27/19 21:11 Dose: 25 u Documented by: Insulin Human Lispro (Humalog Kwikpen (Bkc)) 0 unit SC ACHS [facility]; Protocol Last Admin: 07/28/19 06:37 Dose: 9 u Documented by: Insulin Human Lispro (Humalog Kwikpen (Bkc)) 10 unit SC TIDAC [facility] Nicotine (Nicoderm Cq (Pbkc)) 21 mg TRANSDERM. DAILY [facility] Last Admin: 07/28/19 07:49 Dose: Not Given Documented by: Nutritional Formula (Rashard - [place] Flavor) 1 packet PO BIDCM [facility] Last Admin: 07/28/19 07:48 Dose: 1 packet Documented by: Nystatin (Mycostatin Powder) 1 applic TOPICAL BID [facility]; Protocol Last Admin: 07/27/19 21:12 Dose: 1 applicatio Documented by: Ondansetron HCl (Zofran) 4 mg IV Q6H PRN PRN PRN Reason: NAUSEA/VOMITING Last Admin: 07/26/19 03:21 Dose: 4 mg Documented by: Oxycodone HCl (Oxyir) 15 mg PO TID@0000,0800,1600 [facility] Last Admin: 07/28/19 07:48 Dose: 15 mg Documented by: Oxycodone HCl (Oxycontin) 80 mg PO TID@0000,0800,1600 [facility] Last Admin: 07/28/19 07:53 Dose: 80 mg Documented by: Polyethylene Glycol (Miralax) 17 gm PO BID [facility] Last Admin: 07/28/19 07:48 Dose: 17 gm Documented by: Senna/Docusate Sodium (Senokot-S, Talya-Colace) 2 tablet PO DAILY PRN PRN PRN Reason: CONSTIPATION Last Admin: 07/26/19 08:57 Dose: 2 tablet Documented by: Sodium Chloride () 10 - 40 ml IV UD PRN PRN Reason: SALINE FLUSH Last Admin: 07/27/19 19:49 Dose: 10 ml Documented by: Thyroid (Fabio Thyroid) 180 mg PO DAILY [facility] Last Admin: 07/28/19 07:49 Dose: 180 mg Documented by: Home Medications: Medications to take at Discharge Allopurinol [Zyloprim] 100 mg PO DAILY 07/01/13 [place] Thyroid 180 mg PO DAILY 07/01/13 Carafate 1 gm PO 4X/DAY 07/01/13 Furosemide [Lasix] 40 mg PO BID 07/01/13 Gabapentin 400 mg PO BID 07/01/13 Meloxicam 15 mg PO DAILY 07/01/13 Oxycodone [Oxyir] 15 mg PO TID 07/01/13 Oxycontin 80 mg PO TID 07/01/13 Potassium Chloride [K-Dur] 40 meq PO DAILY 07/01/13 Sitagliptin Phos/Metformin HCl [Janumet 50-1,000 MG Tablet] 1 tab PO BID 07/01/13 Crestor 10 mg PO DAILY 10/10/15 Gabapentin [Neurontin] 800 mg PO 4X/DAY 10/10/15 Lorazepam [Ativan] 1 mg PO TID 10/10/15 Albuterol Inhaler [Ventolin Hfa] 1 puff INHALATION Q4H PRN PRN 06/24/19 Naloxone HCl [Narcan] 4 mg NS PRN PRN 06/24/19 Omeprazole [Prilosec] 10 mg PO DAILY 07/25/19 Enoxaparin [Lovenox] 40 mg SUBCUT DAILY@0600 syringe 07/28/19 Insulin Glargine [Lantus SoloStar Pen] 25 units SUBCUT BID pen 07/28/19 Insulin Lispro [Humalog KwikPen] 10 unit SUBCUT TIDAC insuln.pen 07/28/19 Insulin Lispro [Humalog KwikPen] See Protocol SUBCUT ACHS insuln.pen 07/28/19 Nicotine [Nicoderm Cq] 21 mg TRANSDERM. DAILY patch 07/28/19 Nutritional Supplement [Rashard - ORANGE FLAVOR] 1 packet PO BIDCM packet 07/28/19 Nystatin Powder [Mycostatin Powder] 1 applic TOPICAL BID bottle 07/28/19 Polyethylene Glycol 3350 [Miralax] 17 gm PO BID packet 07/28/19 Senna/Docusate Sodium [Senokot-S] 2 tab PO DAILY PRN PRN tab 07/28/19 Primary Care Physician: Dennis Casas MD [Primary Care Provider] - Please follow up with your Primary Care Physician in: 1-2 weeks Please Follow Up With: Andrzej Sue DPM When: 2 weeks Disposition: Snf facility Minutes spent on discharge:: 35 Patient Condition:: Stable Medical Necessity - Tobacco Use Smoking Status: Current every day smoker Tobacco Use: Cigarettes Meaningful Use Info Meaningful Use Diagnoses (Choose all that apply): None applicable Inpatient E&M: 68317 Disch Hosp
--- NOTE | 2019-07-28 09:46 | CASEMGMT ---
Social Work Note Pt is discharging to TCU today. SW placed a call to Ying in TCU and updated her. Plan: TCU today Duyen Quarles CELL REPAIRER, COUNTER TOP ASSEMBLER
[2019-07-28] MEDS: 0.9% Saline Lock 10 ML Syringe IV (10:21)
[2019-07-28] MEDS: Insulin Lispro 100 UNIT/ML INSULN.PEN 10 UNIT SC (10:26)
[2019-07-28] MEDS: Nystatin Powder 15gm Bottle 1 APPLIC TOPICAL (10:29)
[2019-07-28 11:01] LABS: Bedside Glucose 280 mg/dL (70-110)
--- NOTE | 2019-07-28 12:25 | NURSING ---
Report called to Estella ALEMAN in TCU.
--- NOTE | 2019-07-28 12:36 | PCM.PN.ORT ---
Patient Problems: Active and Suspected Problems Tibia/fibula fracture (Acute) Subjective: Subjective: Patient seen at bedside resting comfortably. In no acute distress at this time. Patient admits to improved pain of her right foot and ankle at this time. Patient states that attempts to use Bertin lift yesterday were unsuccessful. Patient has had a physical therapy and Occupational Therapy work with her as well. According to the patient, patient will be transitioning to the transitional care unit today, July 27. Patient denies any other acute complaints at this time. Nursing staff denies any acute overnight events. Currently, patient denies fever, chills, nausea, vomiting, shortness of breath, chest pain. Patient denies right calf pain. Objective: Objective: Lower extremity physical exam: Dressing is clean, dry, intact to the right lower extremity with no evidence of strikethrough noted. Vascular: Cap refill time is less than 3 seconds to all digits of the right foot. Temperature gradient is within normal limits of the right lower extremity when compared to the left lower extremity. Neurological: Gross and protective sensation are absent to the digits of the right foot. This is reestablished at the level of the mid calf of the right leg. Musculoskeletal: Foot and ankle appear in a rectus position and underneath the tibia at this time. Tibia appears to be in a rectus position. Musculoskeletal strength deferred at this time. Dermatological: Dressing was left in place. No evidence of open lesions noted in areas outside the dressing. - Physical Exam Vitals/I&O's: Vital Signs Temp Pulse Resp BP Pulse Ox 98.3 F 77 18 155/75 H 98 07/28/19 07:36 07/28/19 07:36 07/28/19 07:36 07/28/19 07:36 07/28/19 07:50 Oxygen Flow Rate (L/min) 2 Oxygen Delivery Method Room Air Weight: 119.4 kg Body Mass Index (BMI) 45.1 Intake and Output for Last 24 Hours 07/26/19 07/27/19 07/28/19 23:59 23:59 23:59 Intake Total 5155 / 5395 3185.25 / 3725.25 1300 / 1300 Output Total 1400 / 1900 2600 / 3200 925 / 925 Balance 3755 / 3495 585.25 / 525.25 375 / 375 General: Alert, Oriented x3, Cooperative, No apparent distress HEENT: Atraumatic, PERRLA Oral: Moist Mucosa Neck: Supple, No JVD Lungs: Clear to auscultation, Normal air movement, No rhonchi, No wheeze, No rales Cardiovascular: Regular rate, Regular Rhythm, Normal S1, Normal S2 Abdomen: Bowel Sounds Present, Soft, Non Tender, Non-Distended Extremities: Capillary Refill Less than 3 Seconds Psych/Mental Status: Alert and oriented to time, place, person, mood and affect Laboratory Results 07/27/19 17:08: POC Glucose 208 H 07/27/19 21:06: POC Glucose 293 H 07/28/19 06:36: POC Glucose 273 H 07/28/19 10:24: POC Glucose 280 H Current Medications Albuterol Sulfate (Ventolin Aerosols) 2.5 mg INHALATION Q2H PRN PRN PRN Reason: SOB &/OR WHEEZING Allopurinol (Zyloprim) 100 mg PO DAILY [facility] Last Admin: 07/28/19 07:48 Dose: 100 mg Documented by: Atorvastatin Calcium (Lipitor) 20 mg PO QHS [facility] Last Admin: 07/27/19 23:59 Dose: 20 mg Documented by: Bisacodyl (Dulcolax) 10 mg RECTAL DAILY PRN PRN Reason: Constipation Last Admin: 07/26/19 08:13 Dose: 10 mg Documented by: Dextrose (D50w Syringe) 0 gm IV X1 PRN; Protocol PRN Reason: Hypoglycemia Diazepam (Valium) 4 mg PO TID PRN PRN PRN Reason: muscle spasms Last Admin: 07/27/19 14:21 Dose: 4 mg Documented by: Enoxaparin Sodium (Lovenox) 40 mg SC DAILY@0600 [facility] Last Admin: 07/28/19 05:33 Dose: 40 mg Documented by: Gabapentin (Neurontin) 1,200 mg PO BIDCM [facility] Last Admin: 07/28/19 07:48 Dose: 1,200 mg Documented by: Glucagon () 1 mg IM .X1 PRN PRN Reason: Hypoglycemia Hydromorphone HCl (Dilaudid Inj) 0.5 mg IV Q4H PRN PRN PRN Reason: Pain 6-10/10 Last Admin: 07/28/19 10:21 Dose: 0.5 mg Documented by: Sodium Chloride () 250 mls @ 15 mls/hr IV .[id number] PRN PRN Reason: Saline Flush Sodium Chloride () 250 mls @ 15 mls/hr IV .[id number] PRN PRN Reason: Additional IVPB Infusion Pantoprazole Sodium 40 mg/ (Sodium Chloride) 110 mls @ 330 mls/hr IV Q12 [facility] Last Infusion: 07/28/19 08:15 Dose: Infused Documented by: Cefazolin Sodium 2 gm/ Sodium (Chloride) 110 mls @ 150 mls/hr IV Q8 [facility] Last Infusion: 07/28/19 06:32 Dose: Infused Documented by: Insulin Glargine (Lantus (Bkc)) 25 units SC BID [facility] Last Admin: 07/28/19 10:26 Dose: 25 u Documented by: Insulin Human Lispro (Humalog Kwikpen (Bk)) 0 unit SC ACHS [facility]; Protocol Last Admin: 07/28/19 10:25 Dose: 9 u Documented by: Insulin Human Lispro (Humalog Kwikpen (Bk)) 10 unit SC TIDAC [facility] Last Admin: 07/28/19 10:26 Dose: 10 units Documented by: Nicotine (Nicoderm Cq ([facility])) 21 mg TRANSDERM. DAILY [facility] Last Admin: 07/28/19 07:49 Dose: Not Given Documented by: Nutritional Formula (Rashard - [place] Flavor) 1 packet PO BIDCM [facility] Last Admin: 07/28/19 07:48 Dose: 1 packet Documented by: Nystatin (Mycostatin Powder) 1 applic TOPICAL BID [facility]; Protocol Last Admin: 07/28/19 10:29 Dose: 1 applicatio Documented by: Ondansetron HCl (Zofran) 4 mg IV Q6H PRN PRN PRN Reason: NAUSEA/VOMITING Last Admin: 07/26/19 03:21 Dose: 4 mg Documented by: Oxycodone HCl (Oxyir) 15 mg PO TID@0000,0800,1600 [facility] Last Admin: 07/28/19 07:48 Dose: 15 mg Documented by: Oxycodone HCl (Oxycontin) 80 mg PO TID@0000,0800,1600 [facility] Last Admin: 07/28/19 07:53 Dose: 80 mg Documented by: Polyethylene Glycol (Miralax) 17 gm PO BID [facility] Last Admin: 07/28/19 07:48 Dose: 17 gm Documented by: Senna/Docusate Sodium (Senokot-S, Talya-Colace) 2 tablet PO DAILY PRN PRN PRN Reason: CONSTIPATION Last Admin: 07/26/19 08:57 Dose: 2 tablet Documented by: Sodium Chloride () 10 - 40 ml IV UD PRN PRN Reason: SALINE FLUSH Last Admin: 07/28/19 10:21 Dose: 10 ml Documented by: Thyroid ([place] Thyroid) 180 mg PO DAILY [facility] Last Admin: 07/28/19 07:49 Dose: 180 mg Documented by: Medical Necessity - Tobacco Use Smoking Status: Current every day smoker Tobacco Use: Cigarettes Assessment/Plan All Active Problems Charcot foot due to diabetes mellitus (Acute) Blister of left heel (Acute) Tibia/fibula fracture (Acute) Assessment: this is a 58-year-old female who is 3 days status post closed reduction of tibiofibular fracture of the right lower extremity with application of external fixator. Surgery was performed by me, Dr. Andrzej Sue, on July 25, 2019. Plan: Patient chart reviewed and patient evaluated. Full discussion had with patient about her current clinical condition. Once again, I discussed with the patient that the surgery is the first step in this process. She is likely to have a minimum of 2-3 more surgeries to help correct her fractures of her right tibia and fibula. As of now, we are determining what the next step would be. It will either be removal of the current external fixator with open reduction internal fixation, or removal of the current external fixator with an application of a circular ring external fixator. I discussed the thought process behind each surgical intervention with the patient. I discussed that we will have to see how her soft tissue and the healing progresses over the next couple weeks. Patient displayed verbal understanding. At this time, patient is willing to go ahead with whatever surgery is necessary. I then discussed with the patient that due to the Charcot of her right foot, she has an increased risk of Charcot of her right ankle. Because of this, she may benefit from the application of a circular ring external fixator. We will perform the next stage of the surgery in approximately 2 to 3 weeks, depending the soft tissue structures around the injury. Patient displayed verbal understanding. Patient will likely be transitioned to the transitional care unit [facility] today, July 27. I am in agreement with this transfer. At this time, I recommend continued DVT prophylaxis with Lovenox, and this to be continued while in TCU. I recommend continued antibiotic prophylaxis with Ancef while she is an inpatient. Once patient gets transferred to the transitional care unit, I recommend transition to oral antibiotics. A prescription for doxycycline was written by me and placed in the patient's chart. I recommend the patient remain nonweightbearing to the right lower extremity. I recommend patient elevate her right foot above the level of heart as much as possible, with the heel hanging off and nothing touching her right heel. I recommend ice around the right knee as needed. I recommend continued pain medication as ordered by primary care. I did discuss with the patient that she will need further surgical intervention, whether it is a definitive internal fixation or application of a more stable external fixator. This will be performed in approximately 2 to 3 weeks, pending the patient's soft tissue edema and recovery. Patient will see me in the office this Saturday, July 31, 2019 for further postoperative care. I will help coordinate the appointment with the patient and TCU. I will continue to follow patient closely and update accordingly. Thank you very much for allowing me to take part in the care of your patient. Inpatient E&M: 56545 Subs Hosp L2
== END 2019-07-28 12:42 | DRG 493 ==
LOC: ED 04:12 → MS3 04:20
PROVIDERS: Podiatrist Foot & Ankle Surgery; Registered Nurse; Admitting Provider Hospitalist; Emergency Provider Emergency Medicine; PCP Family Medicine; Visit Provider Family Medicine
PROC: (CPT 27814; principal; 2019-07-25 13:00)
DX: S82.871A Displaced pilon fracture of right tibia, initial encounter for closed fracture (principal); Z68.42 Body mass index [BMI] 45.0-49.9, adult; S82.831A Other fracture of upper and lower end of right fibula, initial encounter for closed fracture; E11.51 Type 2 diabetes mellitus with diabetic peripheral angiopathy without gangrene; W10.8XXA Fall (on) (from) other stairs and steps, initial encounter; Y93.01 Activity, walking, marching and hiking; Y92.009 Unspecified place in unspecified non-institutional (private) residence as the place of occurrence of the external cause; I10 Essential (primary) hypertension; G89.29 Other chronic pain; F17.210 Nicotine dependence, cigarettes, uncomplicated; E66.01 Morbid (severe) obesity due to excess calories; E11.43 Type 2 diabetes mellitus with diabetic autonomic (poly)neuropathy; E03.9 Hypothyroidism, unspecified; E78.5 Hyperlipidemia, unspecified; K21.9 Gastro-esophageal reflux disease without esophagitis; J44.9 Chronic obstructive pulmonary disease, unspecified; M10.9 Gout, unspecified; E11.65 Type 2 diabetes mellitus with hyperglycemia; L89.622 Pressure ulcer of left heel, stage 2; E11.610 Type 2 diabetes mellitus with diabetic neuropathic arthropathy; F41.9 Anxiety disorder, unspecified
CPT/HCPCS: 11042; 36415; 71045; 73590; 73610; 73630; 73700; 76000; 80048; 80053; 82962; 83036; 84484; 85025; 85610; 93005; 97162; 97166; 99285; C1713; J7120; A4216; J2405

== ENCOUNTER 2019-07-28 12:50 | Inpatient (IN) | payer MEDICARE, MEDICAID, SELFPAY ==
[2019-07-25 11:43] VITALS: BMI 45.1
[2019-07-28 13:25] VITALS: BP 122/53; PULSE 79; RESP 16; TEMP 36.6; O2SAT 95; BMI 42.9
[2019-07-28] MEDS: LORazepam 1 MG Tablet PO ×2 (15:07→23:13)
[2019-07-28 15:18] VITALS: BP 122/53; PULSE 77; RESP 16; TEMP 36.6; O2SAT 94
--- NOTE | 2019-07-28 15:46 | HP.PCM_ITS ---
Problem List (1) Debility Status: Acute (2) Fracture of right tibia and fibula Status: Acute (3) Hypertension Status: Chronic (4) Chronic pain Status: Chronic (5) Opioid dependence Status: Chronic (6) Body mass index (BMI) 40.0-44.9, adult Status: Chronic (7) Tobacco abuse Status: Chronic (8) Diabetic polyneuropathy Status: Chronic (9) Hypokalemia Status: Chronic (10) Anxiety Status: Chronic (11) Diabetes Status: Chronic (12) Hypothyroidism Status: Chronic (13) HLD (hyperlipidemia) Status: Chronic (14) Gout Status: Chronic (15) Gastroesophageal reflux disease Status: Chronic History of Present Illness Date of Admission: 07/28/19 Chief Complaint: Here for rehabilitation, strengthening, prior to discharge home with family. The patient is a 58 year old Female with below past medical history presented to [facility] Emergency Department 07/25/2019 with fall. 07/25/2019 X-ray right ankle showed right ankle fracture. 07/25/2019 X-ray right tibia/fibula, distal tibia/fibula fracture. 07/25/2019 Chest X-ray showed cardiomegaly, otherwise negative. 07/25/2019 EKG showed sinus tachycardia versus ectopic atrial tachycardia, low voltage QRS, nonspecific T wave abnormality. 07/25/2019 CT right ankle, distal tibia/fibula fracture. Right ankle, right tibia/fibula pain. Severe pain with weight bearing, moderate pain at rest. Imaging shows right tibia/fibula fracture. Right sugar tong, posterior splint placed. 07/25/2019 Admit to Hospital. Non Weight Bearing right lower extremity. Prepare for surgery. 07/25/2019 Dr. Patric Sue performed application external fixator, right foot, leg, ankle. Closed reduction of pilon fracture, right tibia. Closed reduction of right fibular fracture. On chronic oxycontin, oxycodone. On Dilaudid for acute pain. Miralax, Dulcolax, Soap suds enema for constipation, Linzess not on formulary. Evaluate for [facility]. Adjust insulin for glycemic control. Hold Lasix, stop IV fluids. Dr. Patric Sue recommends further surgery in 2-3 weeks. 07/28/2019 Admit to TCU with debility, here for rehabilitation, strengthening, may return to surgery with Dr. Patric Sue prior to discharge home with family. Past Medical History Past Medical History (Chronic Problems): Chronic Problems Hypertension (Chronic) Chronic pain (Chronic) Opioid dependence (Chronic) Body mass index (BMI) 40.0-44.9, adult (Chronic) Tobacco abuse (Chronic) Diabetic polyneuropathy (Chronic) Hypokalemia (Chronic) Anxiety (Chronic) Decubitus ulcer of left heel, stage 2 (Chronic) Tobacco dependence (Chronic) Peripheral autonomic neuropathy due to diabetes mellitus (Chronic) Diabetes (Chronic) Morbid obesity (Chronic) History of DVT (deep vein thrombosis) (Chronic) Obesity (Chronic) Hypothyroidism (Chronic) HLD (hyperlipidemia) (Chronic) Gout (Chronic) Gastroesophageal reflux disease (Chronic) DM2 (diabetes mellitus, type 2) (Chronic) COLD (chronic obstructive lung disease) (Chronic) Allergies morphine Allergy (Intermediate, Verified 07/25/19 02:59) Hives Home Medications: Ambulatory Orders Medication Instructions Recorded Allopurinol [Zyloprim] 100 mg PO DAILY 07/01/13 [place] Thyroid 180 mg PO DAILY 07/01/13 Carafate 1 gm PO 4X/DAY 07/01/13 Furosemide [Lasix] 40 mg PO BID 07/01/13 Gabapentin 400 mg PO BID 07/01/13 Meloxicam 15 mg PO DAILY 07/01/13 Oxycodone [Oxyir] 15 mg PO TID 07/01/13 Oxycontin 80 mg PO TID 07/01/13 Potassium Chloride [K-Dur] 40 meq PO DAILY 07/01/13 Sitagliptin Phos/Metformin HCl 1 tab PO BID 07/01/13 [Janumet 50-1,000 MG Tablet] Crestor 10 mg PO DAILY 10/10/15 Gabapentin [Neurontin] 800 mg PO 4X/DAY 10/10/15 Lorazepam [Ativan] 1 mg PO TID 10/10/15 Albuterol Inhaler [Ventolin Hfa] 1 puff INHALATION Q4H PRN PRN 06/24/19 Naloxone HCl [Narcan] 4 mg NS PRN PRN 06/24/19 Omeprazole [Prilosec] 10 mg PO DAILY 07/25/19 Enoxaparin [Lovenox] 40 mg SUBCUT DAILY@0600 syringe 07/28/19 Insulin Glargine [Lantus SoloStar 25 units SUBCUT BID pen 07/28/19 Pen] Insulin Lispro [Humalog KwikPen] 10 unit SUBCUT TIDAC insuln.pen 07/28/19 Insulin Lispro [Humalog KwikPen] See Protocol SUBCUT ACHS 07/28/19 insuln.pen Nicotine [Nicoderm Cq] 21 mg TRANSDERM. 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 MARINE UNDERWRITER history Lives: With Family Smoking Status: Current every day smoker Tobacco Use: Cigarettes Alcohol: None Drugs: None - *Family History Paternal History Items: Heart Disease - Patient's father from a heart condition Maternal History Items: - - Patient does not know maternal medical history Review of Systems Constitutional: Denies: Chills, Fever, Weight Change HEENT: Denies: Head Aches, Sinus Congestion, Sinus Drainage Cardiovascular: Denies: Chest Pain, Palpitations Respiratory: Denies: Cough, Shortness of breath at rest, Sputum production Gastrointestinal: Denies: Abdominal Pain, Nausea, Vomiting Genitourinary: Denies: Dysuria Musculoskeletal: Denies: Joint Pain, Joint Tenderness Skin: Denies: Rash, Wounds Neurological: Denies: Numbness, Tingling, Focal weakness Psychiatric: Denies: Anxiety, Depression, Homicidal Ideations, Suicidal Ideations Hematologic/ Lymphatic: Denies: Easy Bruising, Easy Bleeding VTE Information - Inpt Only VTE Present on Admission: No VTE Mechan Device Prophylaxis: Knee High CELINE Hose VTE Pharm Prophylaxis ordered?: Yes Patient Problems: Active and Suspected Problems Debility (Acute) Fracture of right tibia and fibula (Acute) - Physical Exam Vitals/I&O's: Vital Signs Temp Pulse Resp BP Pulse Ox 97.8 F 77 16 122/53 H 94 07/28/19 15:18 07/28/19 15:18 07/28/19 15:18 07/28/19 15:18 07/28/19 15:18 Oxygen Delivery Method Room Air Weight: 113.4 kg Body Mass Index (BMI) 42.9 Intake and Output for Last 24 Hours 07/26/19 07/27/19 07/28/19 23:59 23:59 23:59 Intake Total 60 / Balance 60 General: Alert, Oriented x3, Cooperative HEENT: Atraumatic, PERRLA, EOMI, Normocephalic Neck: Supple, No JVD, Negative Carotid Bruits Lungs: Clear to auscultation, Normal air movement Cardiovascular: Regular rate, No murmurs Abdomen: Bowel Sounds Present, Soft, Non Tender Extremities: No edema, Capillary Refill Less than 3 Seconds, - - External fixator, right lower extremity dressed. Skin: No rashes, No breakdown Musculoskeletal: No Tenderness to Palpation of Joints or Extremities Neurological: Cranial nerves II-XII grossly intact Psych/Mental Status: Normal Affect, Appropriate Current Medications Albuterol Sulfate (Ventolin Hfa (Sp)) 1 puff INHALATION Q4H PRN PRN PRN Reason: DYSPNEA Allopurinol (Zyloprim) 100 mg PO DAILYCM [facility] Atorvastatin Calcium (Lipitor) 20 mg PO QHS [facility] Bisacodyl (Dulcolax) 10 mg PO DAILY PRN PRN Reason: Constipation Enoxaparin Sodium (Lovenox) 40 mg SC DAILY@0600 [facility] Furosemide (Lasix) 40 mg PO BID [facility] Gabapentin (Neurontin) 800 mg PO 4X/DAY [facility] Gabapentin (Neurontin) 400 mg PO BID [facility] Insulin Glargine (Lantus (Bkc)) 25 units SC BID [facility] Insulin Human Lispro (Humalog Kwikpen (Bkc)) 10 unit SC TIDAC [facility] Insulin Human Lispro (Humalog Kwikpen (Bkc)) 0 unit SC ACHS [facility]; Protocol [facility]) [facility] Lorazepam (Ativan) 1 mg PO TID [facility] Last Admin: 07/28/19 15:07 Dose: 1 mg Documented by: Meloxicam (Mobic) 15 mg PO DAILY [facility] Metformin HCl (Glucophage) 1,000 mg PO BIDCM [facility] Nicotine (Nicoderm Cq (Pbkc)) 21 mg TRANSDERM. DAILY [facility] Non-Formulary Medication (Naloxone Hcl [Narcan]) 4 mg NS PRN PRN PRN Reason: NARCOTIC INDUCED BREATHING DIF Nutritional Formula (Rashard - [place] Flavor) [facility] Nystatin (Mycostatin Powder) 1 applic TOPICAL BID [facility]; Protocol Oxycodone HCl (Oxyir) 15 mg PO TID [facility] Oxycodone HCl (Oxycontin) 80 mg PO TID [facility] Pantoprazole Sodium (Protonix) 20 mg PO DAILY [facility] Polyethylene Glycol (Miralax) 17 gm PO DAILY PRN PRN Reason: Constipation Polyethylene Glycol (Miralax) 17 gm PO BID [facility] Potassium Chloride (K-Dur) 40 meq PO DAILY [facility] Senna/Docusate Sodium (Senokot-S, [place]-Colace) 2 tablet PO BID [facility] Senna/Docusate Sodium (Senokot-S, Talya-Colace) tablet PO DAILY PRN PRN PRN Reason: CONSTIPATION Sucralfate (Carafate) 1 gm PO 1HR_ACHS [facility] Thyroid ([place] Thyroid) 180 mg PO DAILY [facility] Tuberculin PPD (Tubersol, Aplisol, Ppd) 5 tu ID X1 ONE Stop: 07/29/19 10:01 Tuberculin PPD (Tubersol, Aplisol, Ppd) 5 tu ID X1 ONE Stop: 08/05/19 10:01 Assessment/Plan All Active Problems Debility (Acute) Fracture of right tibia and fibula (Acute) Charcot foot due to diabetes mellitus (Acute) Blister of left heel (Acute) Tibia/fibula fracture (Acute) 58 year old female with below past medical history hospitalized for right tibia/fibula fracture, underwent external fixation, closed reduction right tibia/fibula fracture 07/25/[address] Andrzej Sue, admitted to TCU with debility, here for rehabilitation, strengthening, prior to further surgery, then discharge home with family. * Debility - PT/OT. * Pain - Oxycontin 80MG TID, Oxycodone 15MG TID, Dilaudid 2MG Q4H PRN pain (4- 10) * Bowel - Miralax 17GM BID, Senna/colace 2 tablets BID, Dulcolax 10MG daily PRN. * Adult immunization - Administer Prevnar 13, Pneumovax 23, Fluzone as appropriate. * DVT prophylaxis - Lovenox 40MG SC daily. * Shortness of breath - Albuterol MDI 1 puff Q4H PRN. * Gout - Allopurinol 100MG daily. * Hyperlipidemia - Atorvastatin 20MG QHS. * Edema - Lasix 40MG BID. * Diabetic polyneuropathy - Gabapentin 1200MG BID, 800MG BID, 400MG TID. * Diabetes Mellitus II - Metformin 1000MG BID, Tradjenta 5MG daily, Lantus 25 units BID, Humalog 10 units TIDAC. 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 * Osteoarthritis - Meloxicam 15MG daily * Opioid dependence - Narcan 4MG nasal spray PRN narcotic overdose. * Tobacco Abuse - Nicotine patch 21MG TD daily. * Nutrition - Rashard 1 packet BID. * Tinea Corporis - Nystatin powder BID. * GERD - Pantoprazole 20MG daily, Sucralfate 1GM QACHS. * Hypokalemia - K-Dur 40MEQ daily. * Hypothyroidism - [place] Thyroid 180MG daily.
[2019-07-28] MEDS: oxyCODONE 5 MG Tablet 15 MG PO ×2 (15:47→23:13)
--- NOTE | 2019-07-28 16:07 | CASEMGMT ---
Social Work Discussed code status with pt. Confirmed full code. MOLST form completed and placed in chart. Kristan Wang, GREENS LABORER [employer]ER
[2019-07-28] MEDS: Sucralfate 1 GM Tablet PO ×2 (16:52→23:16)
[2019-07-28 17:15] LABS: Bedside Glucose 213 mg/dL (70-110)
[2019-07-28] MEDS: Insulin Lispro 100 UNIT/ML INSULN.PEN 10 UNIT SC (17:41)
[2019-07-28] MEDS: Furosemide 40 MG Tablet PO (17:43)
[2019-07-28] MEDS: Senna/Docusate Sodium 1 Tablet 2 TABLET PO (17:44)
[2019-07-28] MEDS: Gabapentin 400 MG Capsule PO (17:53)
[2019-07-28] MEDS: Gabapentin 400 MG Capsule 1200 MG PO (17:53)
[2019-07-28] MEDS: Polyethylene Glycol 3350 17 GM PACKET PO (17:53)
[2019-07-28] MEDS: Nystatin Powder 15gm Bottle 1 APPLIC TOPICAL (17:54)
[2019-07-28] MEDS: metFORMIN HCl 1,000 MG Tablet 1000 MG PO (18:31)
--- NOTE | 2019-07-28 19:01 | NURSING ---
PT HAS $447 DOLLARS LOCKED UP IN MED BOX IN ROOM. RN AWARE.
--- NOTE | 2019-07-28 19:36 | NURSING ---
pt with numerous narcotic prescriptions from home. counted with production shift supervisor staff and locked in med room. message to left to [place] as pt worried that maybe wont be safe at home with family.
[2019-07-28 22:16] LABS: Bedside Glucose 342 mg/dL (70-110)
[2019-07-28] MEDS: Atorvastatin Calcium 20 MG Tablet PO (23:16)
[2019-07-29] MEDS: Gabapentin 400 MG Capsule 800 MG PO ×2 (00:30→11:47)
--- NOTE | 2019-07-29 03:14 | NURSING ---
Patient states, I doesn't want the nicotine patch because it doesn't help me or stay on when put on. Rn made aware.
[2019-07-29 06:21] LABS: Bedside Glucose 241 mg/dL (70-110)
[2019-07-29 06:29] LABS: Absolute Lymphocyte Count 3.74 X10^3/uL (0.83-4.51); Absolute Neutrophil Count 5.2 X10^3/uL (2.0-7.7); Basophil# 0.02 X10^3/uL; Basophil% 0.2 % (0-1); Eosinophil# 0.06 X10^3/uL; Eosinophils% 0.6 % (0-5); Hematocrit 40.4 % (37-47); Hemoglobin 13.2 g/dL (12.0-15.0); Lymphocyte # 3.74 X10^3/ul (4.0); Lymphocyte % 38.2 % (19-41); Mean Corp Hgb Conc 32.7 g/dL (32-36); Mean Corpuscular Hgb 29.5 pg (27.0-32.0); Mean Corpuscular Volume 90.4 fL (81-99); Mean Platelet Vol. 10.1 fl (6.2-12.0); Monocyte# 0.59 X10^3/uL; NRBC Flagged by Analyzer 0 % (0-5); Neutrophil # 5.18 X10^3/uL (2.7-7.7); Neutrophil % 52.9 % (47-70); Platelet Count 146 K/mm3 (150-450); RBC Distribution Width CV 14.5 % (11.6-14.6); RBC Distribution Width SD 47.8 fl (35.1-43.9); Red Blood Count 4.47 M/mm3 (4.2-5.4); White Blood Count 9.8 K/mm3 (4.4-11.0)
[2019-07-29] MEDS: LORazepam 1 MG Tablet PO ×3 (06:36→22:12)
[2019-07-29] MEDS: Pantoprazole Sodium 20 MG Tablet PO (06:37)
[2019-07-29] MEDS: Furosemide 40 MG Tablet PO ×2 (06:37→17:11)
[2019-07-29] MEDS: Polyethylene Glycol 3350 17 GM PACKET PO ×2 (06:37→17:11)
[2019-07-29] MEDS: Thyroid 60 MG Tablet 180 MG PO (06:37)
[2019-07-29] MEDS: Meloxicam 15 MG Tablet PO (06:37)
[2019-07-29] MEDS: Senna/Docusate Sodium 1 Tablet 2 TABLET PO ×2 (06:37→17:12)
[2019-07-29] MEDS: Nystatin Powder 15gm Bottle 1 APPLIC TOPICAL ×2 (06:38→17:12)
[2019-07-29] MEDS: Enoxaparin 40 MG/0.4 ML Syringe SC (06:38)
[2019-07-29 06:44] LABS: Anion Gap 5 (5-15); BUN 16 mg/dL (7-18); BUN/Creat Ratio 21.1 RATIO (10-20); Calcium,Total 8.6 mg/dL (8.5-10.1); Chloride 104 mmol/L (98-107); Creatinine, Serum 0.76 mg/dL (0.55-1.02); EST Glomerular Filtration Rate 84 mL/min (>60); Est Glom Filt Rate - Afr Amer 101 mL/min (>60); Estimated Creatinine Clearance 70.52 ml/min; Glucose 251 mg/dL (74-106); Potassium 4.5 mmol/L (3.5-5.1); Sodium Level 137 mmol/L (136-145)
[2019-07-29] MEDS: oxyCODONE 5 MG Tablet 15 MG PO ×3 (06:52→22:12)
[2019-07-29] MEDS: Sucralfate 1 GM Tablet PO ×4 (06:55→22:13)
[2019-07-29] MEDS: metFORMIN HCl 1,000 MG Tablet 1000 MG PO ×2 (08:36→18:28)
[2019-07-29] MEDS: Gabapentin 400 MG Capsule PO ×3 (08:37→17:11)
[2019-07-29] MEDS: Gabapentin 400 MG Capsule 1200 MG PO ×2 (08:37→17:12)
[2019-07-29] MEDS: Allopurinol 100 MG Tablet PO (08:38)
[2019-07-29] MEDS: LINAGLIPTIN 5 MG TABLET PO (08:38)
[2019-07-29] MEDS: Glucerna Shake 120 ML LIQUID PO (08:43)
[2019-07-29] MEDS: Tuberculin,Purif.prot.deriv. 50 TU/ML Vial 5 ML ID (10:43)
[2019-07-29 11:30] LABS: Bedside Glucose 390 mg/dL (70-110)
[2019-07-29] MEDS: Insulin Lispro 100 UNIT/ML INSULN.PEN 15 UNIT SC (11:47)
[2019-07-29 15:07] VITALS: BP 114/54; PULSE 97; RESP 16; TEMP 37.2; O2SAT 93
[2019-07-29 16:15] LABS: Bedside Glucose 216 mg/dL (70-110)
--- NOTE | 2019-07-29 16:54 | CASEMGMT ---
Social Work Completed advanced directives with pt. Pt named diane, June Scott, as HCPOA. Copies placed on chart. Kristan Wang, BUSINESS PROFESSOR SURGICAL GARMENT INSPECTOR
[2019-07-29] MEDS: Bisacodyl 5 MG Tablet 10 MG PO ×2 (17:07→22:43)
--- NOTE | 2019-07-29 17:11 | PCM.PN.RX ---
<Glenroy Summers - Last Filed: 07/30/19 14:18> Progress Note - Pharmacy Subjective: [] TCU Admission Objective: Allergies morphine Allergy (Intermediate, Verified 07/25/19 02:59) Hives Current Medications Generic Name Dose Route Start Last Admin Trade Name Freq PRN Reason Stop Dose Admin Albuterol Sulfate 1 puff 07/28/19 13:41 Ventolin Hfa (Sp) INHALATION Q4H PRN PRN DYSPNEA Allopurinol 100 mg 07/29/19 08:00 07/29/19 08:38 Zyloprim PO 100 mg DAILYCM [facility] Administration Atorvastatin Calcium 20 mg 07/28/19 22:00 07/28/19 23:16 Lipitor PO 20 mg QHS [facility] Administration Bisacodyl 10 mg 07/28/19 13:32 Dulcolax PO DAILY PRN Constipation Emollient Ointment 1 applic 07/29/19 06:00 07/29/19 06:37 Eucerin Intensive Repair TOPICAL 1 applicatio BID [facility] Administration Protocol Enoxaparin Sodium 40 mg 07/29/19 06:00 07/29/19 06:38 Lovenox SC 40 mg DAILY@0600 [facility] Administration Furosemide 40 mg 07/28/19 18:00 07/29/19 06:37 Lasix PO 40 mg BID [facility] Administration Gabapentin 800 mg 07/29/19 00:00 07/29/19 11:47 Neurontin PO 800 mg BID@0000,1200 [facility] Administration Gabapentin 400 mg 07/28/19 17:45 07/29/19 11:47 Neurontin PO 400 mg TIDCM [facility] Administration Gabapentin 1,200 mg 07/28/19 18:00 07/29/19 08:37 Neurontin PO 1,200 mg BID@0800,1800 [facility] Administration Hydromorphone HCl 2 mg 07/28/19 16:36 Dilaudid Tablet PO Q4H PRN PRN Pain Score 4-10/10 Insulin Glargine 25 units 07/28/19 18:00 07/29/19 06:44 Lantus (Bk) SC 25 u BID [facility] Administration Insulin Human Lispro 17 unit 07/29/19 16:45 Humalog Kwikpen ([facility]) SC TIDAC [facility] Linagliptin 5 mg 07/29/19 08:00 07/29/19 08:38 Tradjenta PO 5 mg DAILYCM [facility] Administration Lorazepam 1 mg 07/28/19 14:00 07/29/19 14:09 Ativan PO 1 mg TID [facility] Administration Meloxicam 15 mg 07/29/19 06:00 07/29/19 06:37 Mobic PO 15 mg DAILY [facility] Administration Metformin HCl 1,000 mg 07/28/19 17:00 07/29/19 08:36 Glucophage PO 1,000 mg BIDCM [facility] Administration Nutritional Formula 1 packet 07/28/19 17:00 07/29/19 08:36 Rashard - [place] Flavor PO 1 packet BIDCM [facility] Administration Nystatin 1 applic 07/28/19 18:00 07/29/19 06:38 Mycostatin Powder TOPICAL 1 applicatio BID [facility] Administration Protocol Oxycodone HCl 15 mg 07/28/19 14:00 07/29/19 14:10 Oxyir PO 15 mg TID [facility] Administration Oxycodone HCl 80 mg 07/29/19 00:00 07/29/19 08:44 Oxycontin PO 80 mg TID@0000,0800,1600 [facility] Administration Pantoprazole Sodium 20 mg 07/29/19 06:00 07/29/19 06:37 Protonix PO 20 mg DAILY [facility] Administration Polyethylene Glycol 17 gm 07/28/19 18:00 07/29/19 06:37 Miralax PO 17 gm BID [facility] Administration Potassium Chloride 40 meq 07/29/19 06:00 07/29/19 06:37 K-Dur PO 40 meq DAILY [facility] Administration Senna/Docusate Sodium 2 tablet 07/28/19 18:00 07/29/19 06:37 Senokot-S, Talya-Colace PO 2 tablet BID [facility] Administration Sucralfate 1 gm 07/28/19 16:00 07/29/19 16:37 Carafate PO 1 gm 1HR_ACHS [facility] Administration Thyroid 180 mg 07/29/19 06:00 07/29/19 06:37 [place] Thyroid PO 180 mg DAILY [facility] Administration Tuberculin PPD 5 tu 08/05/19 10:00 Tubersol, Aplisol, Ppd ID 08/05/19 10:01 X1 ONE Problem List Debility (Acute) Fracture of right tibia and fibula (Acute) Hypertension (Chronic) Chronic pain (Chronic) Opioid dependence (Chronic) Body mass index (BMI) 40.0-44.9, adult (Chronic) Tobacco abuse (Chronic) Diabetic polyneuropathy (Chronic) Hypokalemia (Chronic) Anxiety (Chronic) Vital Signs Temp Pulse Resp BP Pulse Ox 98.9 F 97 16 114/54 L 93 07/29/19 15:07 07/29/19 15:07 07/29/19 15:07 07/29/19 15:07 07/29/19 15:07 Oxygen Delivery Method Room Air Weight: 113.4 kg Body Mass Index (BMI) 42.9 Sodium 137 mmol/L (136-145) 07/29/19 06:10 Potassium 4.5 mmol/L (3.5-5.1) 07/29/19 06:10 Chloride 104 mmol/L (98-107) 07/29/19 06:10 Carbon Dioxide 28.0 mmol/L (21.0-32.0) 07/29/19 06:10 Anion Gap 5 (5-15) 07/29/19 06:10 BUN 16 mg/dL (7-18) 07/29/19 06:10 Creatinine 0.76 mg/dL (0.55-1.02) 07/29/19 06:10 Est GFR (MDRD) Af Amer 101 mL/min (>60) 07/29/19 06:10 Est GFR (MDRD) Non-Af 84 mL/min (>60) 07/29/19 06:10 BUN/Creatinine Ratio 21.1 RATIO (10-20) H 07/29/19 06:10 Glucose 251 mg/dL (74-106) H 07/29/19 06:10 Assessment/Plan: 1) Pain: Oxycontin 80mg po tid, Oxycodone 15mg po tid, Hydromorphone 2mg po q4h prn for pain 4-10. Please continue to monitor prn usage and for signs/symptoms of increased/decreased pain --OARRS verified 07/29/19. Pt routinely fills Oxycontin 80mg tid, Oxycodone 15mg tid, Gabapentin 400mg and 800mg, and Lorazepam 1mg. 2) DVT Prophylaxis: Enoxaparin 40mg subq daily. Pt's SrCr is 0.85, CrCl is 63 and Plts are 156. Please continue to monitor. Please continue to monitor for signs/symptoms of bleeding/clot. *3) Hyperlipidemia: Atorvastatin 20mg po qhs. Pt's LFTs are within normal limits. I could not find a recent Lipid Panel in the pt's chart. Please consider a yearly Lipid Panel while the pt is taking a statin. Thanks 4) Hypokalemia: Potassium 40meq po daily. Pt's K+ is 4.5. Please continue to monitor. 5) GERD: Pantoprazole 20mg po daily, Sucralfate 1gm po before meals and at bedtime. PPIs can interfere with Magnesium absorption. Please consider a yearly Magnesium level while the pt is on a PPI. Thanks 7) Osteoarthritis: Meloxicam 15mg po daily. Please continue to monitor for signs/symptoms of arthritis. --pt is 58 years old, does not qualify for BEERS criteria. *8) Gout: Allopurinol 100mg po daily. Pt's LFTs are within normal limits. Please continue to monitor. Pt's BUN is slightly elevated at 25. Please continue to monitor. I could not find a recent Uric Acid level in the pt's chart. Please consider a yearly Uric Acid level while the pt is on Allopurinol for gout. Thanks *9) Hypothyroidism: [place] Thyroid 180mg po daily. I could not find a recent Thyroid Function Test in the pts chart. Please consider a yearly Thyroid Function Test. Thanks 10) Edema: Furosemide 40mg po bid. Pt's Na is 134 and K+ s 4.5. Please continue to monitor. Please continue to monitor for signs/symptoms of swelling/edema. 11) Diabetes: Metformin 1000mg po bid, Linagliptin 5mg po daily, Lantus 25 units subq bid, and Humalog 10 units subq tid before meals. Please continue to monitor pt's blood glucose levels and adjust medications accordingly. *12) Diabetic Neuropathy: Gabapentin 1200mg, 800mg, and 400mg. Please verify with pt what doses she takes at home. OARRS verification shows that pt last filled on 07/08/19 Gabapentin 800mg 120 for 30 days, and Gabapentin 400mg 60 for 30 days. Does pt take 1200mg bid and 800mg bid? *Psychotropic Medications: Lorazepam 1mg po tid. See physicians note about GDR. --OARRS verified 07/29/19. --Please document risk vs benefit for continuation of Benazodiazepine and Opioids. Thank you. Unnecessary Medications: Bowel Regimen: Bisacodyl 10mg po daily prn for constipation, Miralax 17gm po bid, Senna/Docusate 2 tablets po bid. Please continue to monitor prn usage and for signs/symptoms of diarrhea/constipation. Date of Note:: 07/29/19 - Provider Comments Provider responsibility: Provider responsible to enter orders to implement recommendations <Heladio Cardenas Chi - Last Filed: 07/30/19 17:20> Progress Note - Pharmacy Subjective: [] Objective: Allergies morphine Allergy (Intermediate, Verified 07/25/19 02:59) Hives Current Medications Generic Name Dose Route Start Last Admin Trade Name Freq PRN Reason Stop Dose Admin Albuterol Sulfate 1 puff 07/28/19 13:41 Ventolin Hfa (Sp) INHALATION Q4H PRN PRN DYSPNEA Allopurinol 100 mg 07/29/19 08:00 07/30/19 08:03 Zyloprim PO 100 mg DAILYCM [facility] Administration Atorvastatin Calcium 20 mg 07/28/19 22:00 07/29/19 22:13 Lipitor PO 20 mg QHS [facility] Administration Bisacodyl 10 mg 07/28/19 13:32 07/29/19 22:43 Dulcolax PO 10 mg DAILY PRN Administration Constipation Emollient Ointment 1 applic 07/29/19 06:00 07/30/19 17:00 Eucerin Intensive Repair TOPICAL 1 applicatio BID [facility] Administration Protocol Enoxaparin Sodium 40 mg 07/29/19 06:00 07/30/19 07:01 Lovenox SC 40 mg DAILY@0600 [facility] Administration Furosemide 40 mg 07/28/19 18:00 07/30/19 17:00 Lasix PO 40 mg BID [facility] Administration Gabapentin 800 mg 07/29/19 00:00 07/30/19 11:13 Neurontin PO 800 mg BID@0000,1200 [facility] Administration Gabapentin 400 mg 07/28/19 17:45 07/30/19 16:57 Neurontin PO 400 mg TIDCM [facility] Administration Gabapentin 1,200 mg 07/28/19 18:00 07/30/19 17:01 Neurontin PO 1,200 mg BID@0800,1800 [facility] Administration Hydromorphone HCl 2 mg 07/28/19 16:36 07/29/19 22:41 Dilaudid Tablet PO 2 mg Q4H PRN PRN Administration Pain Score 4-10/10 Insulin Glargine 30 units 07/30/19 18:00 Lantus ([facility]) SC BID [facility] Insulin Human Lispro 20 unit 07/30/19 11:45 07/30/19 11:18 Humalog Kwikpen ([facility]) SC 20 unit TIDAC [facility] Administration Linagliptin 5 mg 07/29/19 08:00 07/30/19 08:03 Tradjenta PO 5 mg DAILYCM [facility] Administration Lorazepam 1 mg 07/28/19 14:00 07/30/19 13:37 Ativan PO 1 mg TID [facility] Administration Meloxicam 15 mg 07/29/19 06:00 07/30/19 07:01 Mobic PO 15 mg DAILY [facility] Administration Metformin HCl 1,000 mg 07/28/19 17:00 07/30/19 16:58 Glucophage PO 1,000 mg BIDCM [facility] Administration Nutritional Formula 1 packet 07/28/19 17:00 07/30/19 16:59 Rashard - [place] Flavor PO 1 packet BIDCM [facility] Administration Nystatin 1 applic 07/28/19 18:00 07/30/19 17:02 Mycostatin Powder TOPICAL 1 applicatio BID [facility] Administration Protocol Oxycodone HCl 15 mg 07/28/19 14:00 07/30/19 13:37 Oxyir PO 15 mg TID [facility] Administration Oxycodone HCl 80 mg 07/29/19 00:00 07/30/19 16:58 Oxycontin PO 80 mg TID@0000,0800,1600 [facility] Administration Pantoprazole Sodium 20 mg 07/29/19 06:00 07/30/19 07:01 Protonix PO 20 mg DAILY [facility] Administration Polyethylene Glycol 17 gm 07/28/19 18:00 07/30/19 17:00 Miralax PO 17 gm BID [facility] Administration Potassium Chloride 40 meq 07/29/19 06:00 07/30/19 07:04 K-Dur PO 40 meq DAILY [facility] Administration Senna/Docusate Sodium 2 tablet 07/28/19 18:00 07/30/19 17:00 Senokot-S, Talya-Colace PO 2 tablet BID [facility] Administration Sucralfate 1 gm 07/28/19 16:00 07/30/19 16:58 Carafate PO 1 gm 1HR_ACHS [facility] Administration Thyroid 180 mg 07/29/19 06:00 07/30/19 07:01 [place] Thyroid PO 180 mg DAILY [facility] Administration Tuberculin PPD 5 tu 08/05/19 10:00 Tubersol, Aplisol, Ppd ID 08/05/19 10:01 X1 ONE Problem List Debility (Acute) Fracture of right tibia and fibula (Acute) Hypertension (Chronic) Chronic pain (Chronic) Opioid dependence (Chronic) Body mass index (BMI) 40.0-44.9, adult (Chronic) Tobacco abuse (Chronic) Diabetic polyneuropathy (Chronic) Hypokalemia (Chronic) Anxiety (Chronic) Vital Signs Temp Pulse Resp BP Pulse Ox 97.4 F L 104 H 16 118/60 94 07/30/19 14:39 07/30/19 14:39 07/30/19 14:39 07/30/19 14:39 07/30/19 14:39 Oxygen Delivery Method Room Air Weight: 113.4 kg Body Mass Index (BMI) 42.9 Sodium 134 mmol/L (136-145) L 07/30/19 06:50 Potassium 4.5 mmol/L (3.5-5.1) 07/30/19 06:50 Chloride 100 mmol/L (98-107) 07/30/19 06:50 Carbon Dioxide 24.0 mmol/L (21.0-32.0) 07/30/19 06:50 Anion Gap 10 (5-15) 07/30/19 06:50 BUN 25 mg/dL (7-18) H 07/30/19 06:50 Creatinine 0.85 mg/dL (0.55-1.02) 07/30/19 06:50 Est GFR (MDRD) Af Amer 89 mL/min (>60) 07/30/19 06:50 Est GFR (MDRD) Non-Af 74 mL/min (>60) 07/30/19 06:50 BUN/Creatinine Ratio 29.6 RATIO (10-20) H 07/30/19 06:50 Glucose 274 mg/dL (74-106) H 07/30/19 06:50 Assessment/Plan: Psychotropic Medications: Unnecessary Medications: Bowel Regimen: - Provider Comments Provider responsibility: Provider responsible to enter orders to implement recommendations Provider Comments to Recommendations by Pharmacy: Agree
[2019-07-29] MEDS: Insulin Lispro 100 UNIT/ML INSULN.PEN 17 UNIT SC (17:17)
[2019-07-29 21:31] LABS: Bedside Glucose 233 mg/dL (70-110)
[2019-07-29] MEDS: Atorvastatin Calcium 20 MG Tablet PO (22:13)
[2019-07-29 22:35] VITALS: PULSE 93; RESP 16; O2SAT 95
[2019-07-29] MEDS: HYDROmorphone 2 MG TABLET PO (22:41)
[2019-07-30] MEDS: Gabapentin 400 MG Capsule 800 MG PO ×3 (00:11→22:21)
--- NOTE | 2019-07-30 00:28 | NURSING ---
$447 noted in med box. Witnessed by patient and 2 nurses. Taken down to the still operator brandy with pt consent.
[2019-07-30 06:16] LABS: Bedside Glucose 258 mg/dL (70-110)
[2019-07-30] MEDS: oxyCODONE 5 MG Tablet 15 MG PO ×3 (07:00→22:21)
[2019-07-30] MEDS: LORazepam 1 MG Tablet PO ×3 (07:00→22:21)
[2019-07-30] MEDS: Thyroid 60 MG Tablet 180 MG PO (07:01)
[2019-07-30] MEDS: Enoxaparin 40 MG/0.4 ML Syringe SC (07:01)
[2019-07-30] MEDS: Furosemide 40 MG Tablet PO ×2 (07:01→17:00)
[2019-07-30] MEDS: Pantoprazole Sodium 20 MG Tablet PO (07:01)
[2019-07-30] MEDS: Sucralfate 1 GM Tablet PO ×4 (07:01→22:21)
[2019-07-30] MEDS: Senna/Docusate Sodium 1 Tablet 2 TABLET PO ×2 (07:01→17:00)
[2019-07-30] MEDS: Meloxicam 15 MG Tablet PO (07:01)
[2019-07-30] MEDS: Polyethylene Glycol 3350 17 GM PACKET PO ×2 (07:01→17:00)
[2019-07-30] MEDS: Nystatin Powder 15gm Bottle 1 APPLIC TOPICAL ×2 (07:05→17:02)
[2019-07-30 07:19] LABS: Basophil# 0.03 X10^3/uL; Basophil% 0.3 % (0-1); Eosinophil# 0.07 X10^3/uL; Eosinophils% 0.6 % (0-5); Hemoglobin 13.8 g/dL (12.0-15.0); Lymphocyte % 31.2 % (19-41); Mean Corp Hgb Conc 32.9 g/dL (32-36); Mean Corpuscular Hgb 29.6 pg (27.0-32.0); Mean Corpuscular Volume 89.9 fL (81-99); Mean Platelet Vol. 10.5 fl (6.2-12.0); Monocyte# 0.64 X10^3/uL; Monocyte% 5.5 % (0-10); NRBC Flagged by Analyzer 0 % (0-5); Neutrophil # 6.95 X10^3/uL (2.7-7.7); Neutrophil % 60.1 % (47-70); Platelet Count 156 K/mm3 (150-450); RBC Distribution Width CV 14.6 % (11.6-14.6); RBC Distribution Width SD 47.8 fl (35.1-43.9); Red Blood Count 4.67 M/mm3 (4.2-5.4); White Blood Count 11.6 K/mm3 (4.4-11.0)
[2019-07-30 07:42] LABS: Anion Gap 10 (5-15); BUN 25 mg/dL (7-18); BUN/Creat Ratio 29.6 RATIO (10-20); Calcium,Total 8.5 mg/dL (8.5-10.1); Chloride 100 mmol/L (98-107); Creatinine, Serum 0.85 mg/dL (0.55-1.02); EST Glomerular Filtration Rate 74 mL/min (>60); Est Glom Filt Rate - Afr Amer 89 mL/min (>60); Estimated Creatinine Clearance 63.06 ml/min; Glucose 274 mg/dL (74-106); Potassium 4.5 mmol/L (3.5-5.1); Sodium Level 134 mmol/L (136-145)
[2019-07-30] MEDS: Allopurinol 100 MG Tablet PO (08:03)
[2019-07-30] MEDS: LINAGLIPTIN 5 MG TABLET PO (08:03)
[2019-07-30] MEDS: Gabapentin 400 MG Capsule PO ×3 (08:04→16:57)
[2019-07-30] MEDS: metFORMIN HCl 1,000 MG Tablet 1000 MG PO ×2 (08:04→16:58)
[2019-07-30] MEDS: Gabapentin 400 MG Capsule 1200 MG PO ×2 (08:16→17:01)
[2019-07-30] MEDS: Insulin Lispro 100 UNIT/ML INSULN.PEN 17 UNIT SC (08:37)
[2019-07-30 09:35] VITALS: PULSE 95; RESP 16; O2SAT 94
[2019-07-30 11:16] LABS: Bedside Glucose 216 mg/dL (70-110)
[2019-07-30] MEDS: Insulin Lispro 100 UNIT/ML INSULN.PEN 20 UNIT SC ×2 (11:18→17:41)
[2019-07-30 14:39] VITALS: BP 118/60; PULSE 104; RESP 16; TEMP 36.3; O2SAT 94
[2019-07-30 17:21] LABS: Bedside Glucose 198 mg/dL (70-110)
[2019-07-30 21:35] LABS: Bedside Glucose 188 mg/dL (70-110)
[2019-07-30] MEDS: Atorvastatin Calcium 20 MG Tablet PO (22:21)
[2019-07-31 06:03] LABS: Absolute Lymphocyte Count 3.86 X10^3/uL (0.83-4.51); Absolute Neutrophil Count 6.9 X10^3/uL (2.0-7.7); Basophil# 0.04 X10^3/uL; Basophil% 0.3 % (0-1); Eosinophil# 0.08 X10^3/uL; Eosinophils% 0.7 % (0-5); Hemoglobin 13.2 g/dL (12.0-15.0); Lymphocyte # 3.86 X10^3/ul (4.0); Lymphocyte % 32.5 % (19-41); Mean Corp Hgb Conc 31.4 g/dL (32-36); Mean Corpuscular Hgb 29.7 pg (27.0-32.0); Mean Corpuscular Volume 94.4 fL (81-99); Mean Platelet Vol. 10.6 fl (6.2-12.0); Monocyte# 0.75 X10^3/uL; Monocyte% 6.3 % (0-10); NRBC Flagged by Analyzer 0 % (0-5); Neutrophil # 6.91 X10^3/uL (2.7-7.7); Neutrophil % 58.1 % (47-70); Platelet Count 151 K/mm3 (150-450); RBC Distribution Width CV 14.6 % (11.6-14.6); RBC Distribution Width SD 51.2 fl (35.1-43.9); Red Blood Count 4.45 M/mm3 (4.2-5.4); White Blood Count 11.9 K/mm3 (4.4-11.0)
[2019-07-31] MEDS: Polyethylene Glycol 3350 17 GM PACKET PO ×2 (06:23→17:19)
[2019-07-31] MEDS: Senna/Docusate Sodium 1 Tablet 2 TABLET PO ×2 (06:23→17:20)
[2019-07-31] MEDS: Meloxicam 15 MG Tablet PO (06:23)
[2019-07-31] MEDS: Thyroid 60 MG Tablet 180 MG PO (06:23)
[2019-07-31] MEDS: Pantoprazole Sodium 20 MG Tablet PO (06:23)
[2019-07-31] MEDS: Enoxaparin 40 MG/0.4 ML Syringe SC (06:23)
[2019-07-31] MEDS: Furosemide 40 MG Tablet PO ×2 (06:23→17:21)
[2019-07-31] MEDS: Gabapentin 400 MG Capsule 800 MG PO (06:24)
[2019-07-31] MEDS: Sucralfate 1 GM Tablet PO ×4 (06:24→21:33)
[2019-07-31 06:25] LABS: Bedside Glucose 282 mg/dL (70-110)
[2019-07-31] MEDS: oxyCODONE 5 MG Tablet 15 MG PO ×3 (06:25→21:45)
[2019-07-31] MEDS: LORazepam 1 MG Tablet PO ×3 (06:26→21:44)
[2019-07-31] MEDS: Nystatin Powder 15gm Bottle 1 APPLIC TOPICAL ×2 (06:33→17:20)
[2019-07-31 06:38] LABS: Anion Gap 6 (5-15); BUN 28 mg/dL (7-18); BUN/Creat Ratio 33.1 RATIO (10-20); Calcium,Total 8.6 mg/dL (8.5-10.1); Chloride 103 mmol/L (98-107); Creatinine, Serum 0.85 mg/dL (0.55-1.02); EST Glomerular Filtration Rate 73 mL/min (>60); Est Glom Filt Rate - Afr Amer 89 mL/min (>60); Estimated Creatinine Clearance 63.06 ml/min; Glucose 215 mg/dL (74-106); Potassium 4.2 mmol/L (3.5-5.1); Sodium Level 136 mmol/L (136-145)
[2019-07-31] MEDS: Insulin Lispro 100 UNIT/ML INSULN.PEN 20 UNIT SC ×3 (08:20→17:22)
[2019-07-31] MEDS: metFORMIN HCl 1,000 MG Tablet 1000 MG PO ×2 (08:21→17:18)
[2019-07-31] MEDS: LINAGLIPTIN 5 MG TABLET PO (08:22)
[2019-07-31] MEDS: Allopurinol 100 MG Tablet PO (08:22)
[2019-07-31 11:21] LABS: Bedside Glucose 216 mg/dL (70-110)
[2019-07-31] MEDS: Gabapentin 300 MG Capsule PO ×3 (12:18→21:45)
[2019-07-31 16:00] VITALS: BP 120/59; PULSE 96; RESP 18; TEMP 36.2; O2SAT 98
[2019-07-31 16:25] LABS: Bedside Glucose 199 mg/dL (70-110)
--- NOTE | 2019-07-31 19:01 | NURSING ---
Spoke with Dr. Andrzej Sue, received order to start pt on Doxcycline 100mg BID.
[2019-07-31 21:36] LABS: Bedside Glucose 185 mg/dL (70-110)
[2019-07-31] MEDS: Atorvastatin Calcium 20 MG Tablet PO (21:46)
[2019-07-31] MEDS: Doxycycline 100 MG CAPSULE PO (23:02)
[2019-08-01 06:25] LABS: Bedside Glucose 223 mg/dL (70-110)
[2019-08-01 06:53] LABS: Absolute Lymphocyte Count 3.84 X10^3/uL (0.83-4.51); Absolute Neutrophil Count 7.3 X10^3/uL (2.0-7.7); Basophil# 0.04 X10^3/uL; Basophil% 0.3 % (0-1); Eosinophil# 0.08 X10^3/uL; Eosinophils% 0.7 % (0-5); Hematocrit 41.6 % (37-47); Hemoglobin 13.2 g/dL (12.0-15.0); Lymphocyte # 3.84 X10^3/ul (4.0); Lymphocyte % 31.4 % (19-41); Mean Corp Hgb Conc 31.7 g/dL (32-36); Mean Corpuscular Hgb 29.9 pg (27.0-32.0); Mean Corpuscular Volume 94.1 fL (81-99); Mean Platelet Vol. 10.2 fl (6.2-12.0); Monocyte# 0.78 X10^3/uL; Monocyte% 6.4 % (0-10); NRBC Flagged by Analyzer 0 % (0-5); Neutrophil # 7.29 X10^3/uL (2.7-7.7); Neutrophil % 59.6 % (47-70); Platelet Count 166 K/mm3 (150-450); RBC Distribution Width CV 14.6 % (11.6-14.6); RBC Distribution Width SD 51.4 fl (35.1-43.9); Red Blood Count 4.42 M/mm3 (4.2-5.4); White Blood Count 12.2 K/mm3 (4.4-11.0)
[2019-08-01 07:11] LABS: Anion Gap 5 (5-15); BUN 32 mg/dL (7-18); BUN/Creat Ratio 31.7 RATIO (10-20); Calcium,Total 8.8 mg/dL (8.5-10.1); Chloride 99 mmol/L (98-107); Creatinine, Serum 1.01 mg/dL (0.55-1.02); EST Glomerular Filtration Rate 60 mL/min (>60); Est Glom Filt Rate - Afr Amer 73 mL/min (>60); Estimated Creatinine Clearance 53.07 ml/min; Glucose 235 mg/dL (74-106); Potassium 4.8 mmol/L (3.5-5.1); Sodium Level 132 mmol/L (136-145)
[2019-08-01] MEDS: oxyCODONE 5 MG Tablet 15 MG PO ×3 (07:16→21:40)
[2019-08-01] MEDS: Enoxaparin 40 MG/0.4 ML Syringe SC (07:18)
[2019-08-01] MEDS: Thyroid 60 MG Tablet 180 MG PO (07:19)
[2019-08-01] MEDS: Doxycycline 100 MG CAPSULE PO ×2 (07:20→16:59)
[2019-08-01] MEDS: Nystatin Powder 15gm Bottle 1 APPLIC TOPICAL ×2 (07:22→17:01)
[2019-08-01] MEDS: Furosemide 40 MG Tablet PO ×2 (07:22→17:00)
[2019-08-01] MEDS: Gabapentin 300 MG Capsule PO ×4 (07:23→21:40)
[2019-08-01] MEDS: Meloxicam 15 MG Tablet PO (07:24)
[2019-08-01] MEDS: Pantoprazole Sodium 20 MG Tablet PO (07:24)
[2019-08-01] MEDS: Sucralfate 1 GM Tablet PO ×4 (07:25→21:40)
[2019-08-01] MEDS: LORazepam 1 MG Tablet PO ×3 (07:32→21:40)
[2019-08-01] MEDS: Insulin Lispro 100 UNIT/ML INSULN.PEN 20 UNIT SC ×3 (07:33→16:50)
[2019-08-01] MEDS: metFORMIN HCl 1,000 MG Tablet 1000 MG PO ×2 (08:22→16:49)
[2019-08-01] MEDS: LINAGLIPTIN 5 MG TABLET PO (08:23)
[2019-08-01] MEDS: Allopurinol 100 MG Tablet PO (08:23)
[2019-08-01 10:00] VITALS: PULSE 69; RESP 16; O2SAT 98
[2019-08-01] MEDS: Menthol/Lanolin/Calamine/Znox 113 GM Tube 1 APPLIC TOPICAL ×3 (11:20→21:41)
[2019-08-01 11:26] LABS: Bedside Glucose 202 mg/dL (70-110)
[2019-08-01 16:00] VITALS: BP 108/62; PULSE 98; RESP 18; TEMP 36.7; O2SAT 90
[2019-08-01 16:32] LABS: Bedside Glucose 144 mg/dL (70-110)
[2019-08-01] MEDS: Atorvastatin Calcium 20 MG Tablet PO (21:40)
[2019-08-02] MEDS: Doxycycline 100 MG CAPSULE PO ×2 (06:29→17:02)
[2019-08-02] MEDS: Meloxicam 15 MG Tablet PO (06:29)
[2019-08-02] MEDS: Gabapentin 300 MG Capsule PO ×4 (06:30→22:22)
[2019-08-02] MEDS: oxyCODONE 5 MG Tablet 15 MG PO ×3 (06:30→22:22)
[2019-08-02] MEDS: Pantoprazole Sodium 20 MG Tablet PO (06:30)
[2019-08-02] MEDS: Thyroid 60 MG Tablet 180 MG PO (06:30)
[2019-08-02] MEDS: Furosemide 40 MG Tablet PO ×2 (06:30→17:00)
[2019-08-02] MEDS: LORazepam 1 MG Tablet PO ×3 (06:30→22:22)
[2019-08-02] MEDS: Enoxaparin 40 MG/0.4 ML Syringe SC (06:32)
[2019-08-02] MEDS: Nystatin Powder 15gm Bottle 1 APPLIC TOPICAL ×2 (06:32→17:01)
[2019-08-02] MEDS: Menthol/Lanolin/Calamine/Znox 113 GM Tube 1 APPLIC TOPICAL ×4 (06:35→22:22)
--- NOTE | 2019-08-02 08:23 | PCA ---
refused adl care this morning
[2019-08-02] MEDS: metFORMIN HCl 1,000 MG Tablet 1000 MG PO ×2 (08:35→16:42)
[2019-08-02] MEDS: Allopurinol 100 MG Tablet PO (08:35)
[2019-08-02] MEDS: LINAGLIPTIN 5 MG TABLET PO (08:35)
[2019-08-02] MEDS: Sucralfate 1 GM Tablet PO ×4 (08:35→22:22)
[2019-08-02] MEDS: Insulin Lispro 100 UNIT/ML INSULN.PEN 20 UNIT SC ×3 (08:40→16:40)
[2019-08-02 11:06] LABS: Bedside Glucose 193 mg/dL (70-110)
[2019-08-02 15:41] VITALS: BP 102/72; PULSE 89; RESP 18; TEMP 37.1; O2SAT 94
[2019-08-02 16:50] LABS: Bedside Glucose 169 mg/dL (70-110)
[2019-08-02 22:09] VITALS: PULSE 84; O2SAT 94
[2019-08-02] MEDS: Atorvastatin Calcium 20 MG Tablet PO (22:22)
[2019-08-03] MEDS: Pantoprazole Sodium 20 MG Tablet PO (05:23)
[2019-08-03] MEDS: Meloxicam 15 MG Tablet PO (05:23)
[2019-08-03] MEDS: Gabapentin 300 MG Capsule PO ×4 (05:23→22:32)
[2019-08-03] MEDS: Thyroid 60 MG Tablet 180 MG PO (05:23)
[2019-08-03] MEDS: LORazepam 1 MG Tablet PO ×3 (05:24→22:30)
[2019-08-03] MEDS: oxyCODONE 5 MG Tablet 15 MG PO ×3 (05:24→22:30)
[2019-08-03] MEDS: Furosemide 40 MG Tablet PO ×2 (05:24→17:30)
[2019-08-03] MEDS: Doxycycline 100 MG CAPSULE PO ×2 (05:24→17:29)
[2019-08-03] MEDS: Nystatin Powder 15gm Bottle 1 APPLIC TOPICAL ×2 (05:26→17:37)
[2019-08-03] MEDS: Menthol/Lanolin/Calamine/Znox 113 GM Tube 1 APPLIC TOPICAL ×4 (05:26→22:31)
[2019-08-03] MEDS: Enoxaparin 40 MG/0.4 ML Syringe SC (05:26)
[2019-08-03] MEDS: Sucralfate 1 GM Tablet PO ×4 (07:58→22:31)
[2019-08-03] MEDS: metFORMIN HCl 1,000 MG Tablet 1000 MG PO ×2 (08:01→17:29)
[2019-08-03] MEDS: LINAGLIPTIN 5 MG TABLET PO (08:02)
[2019-08-03] MEDS: Allopurinol 100 MG Tablet PO (08:03)
[2019-08-03] MEDS: Insulin Lispro 100 UNIT/ML INSULN.PEN 20 UNIT SC ×3 (08:12→17:34)
[2019-08-03 08:21] LABS: Bedside Glucose 249 mg/dL (70-110)
[2019-08-03 10:00] VITALS: PULSE 100; RESP 18; O2SAT 96
[2019-08-03 11:06] LABS: Bedside Glucose 238 mg/dL (70-110)
[2019-08-03 16:00] VITALS: BP 132/72; PULSE 97; RESP 18; TEMP 36.8; O2SAT 96
--- NOTE | 2019-08-03 16:00 | NURSING ---
UNABLE TO GET A HOLD OF FAMILY TODAY FOR UPDATES ON PT. FAMILY IS AT A , PER PATENT. WILL TRY AGAIN TOMORROW.
[2019-08-03 16:46] LABS: Bedside Glucose 159 mg/dL (70-110)
[2019-08-03 22:21] LABS: Bedside Glucose 162 mg/dL (70-110)
[2019-08-03] MEDS: Atorvastatin Calcium 20 MG Tablet PO (22:32)
[2019-08-04] MEDS: oxyCODONE 5 MG Tablet 15 MG PO ×3 (05:58→23:40)
[2019-08-04] MEDS: Thyroid 60 MG Tablet 180 MG PO (05:58)
[2019-08-04] MEDS: LORazepam 1 MG Tablet PO ×3 (05:58→23:41)
[2019-08-04] MEDS: Enoxaparin 40 MG/0.4 ML Syringe SC (05:58)
[2019-08-04] MEDS: Furosemide 40 MG Tablet PO ×2 (05:59→17:32)
[2019-08-04] MEDS: Doxycycline 100 MG CAPSULE PO ×2 (06:00→17:32)
[2019-08-04] MEDS: Meloxicam 15 MG Tablet PO (06:00)
[2019-08-04] MEDS: Menthol/Lanolin/Calamine/Znox 113 GM Tube 1 APPLIC TOPICAL ×4 (06:01→23:41)
[2019-08-04] MEDS: Gabapentin 300 MG Capsule PO ×4 (06:02→23:42)
[2019-08-04] MEDS: Nystatin Powder 15gm Bottle 1 APPLIC TOPICAL ×2 (06:02→17:26)
[2019-08-04] MEDS: Pantoprazole Sodium 20 MG Tablet PO (06:03)
[2019-08-04 06:15] LABS: Bedside Glucose 207 mg/dL (70-110)
[2019-08-04] MEDS: Sucralfate 1 GM Tablet PO ×4 (06:27→23:42)
[2019-08-04] MEDS: Insulin Lispro 100 UNIT/ML INSULN.PEN 20 UNIT SC ×3 (07:04→17:34)
[2019-08-04] MEDS: Allopurinol 100 MG Tablet PO (08:11)
[2019-08-04] MEDS: metFORMIN HCl 1,000 MG Tablet 1000 MG PO ×2 (08:12→17:35)
[2019-08-04] MEDS: LINAGLIPTIN 5 MG TABLET PO (08:12)
[2019-08-04 09:00] VITALS: PULSE 89; RESP 18; O2SAT 98
[2019-08-04 11:20] LABS: Bedside Glucose 302 mg/dL (70-110)
--- NOTE | 2019-08-04 14:33 | CASEMGMT ---
Social Work Provided card of prayers and encouragement from community member to pt. Pt appreciative. Kristan Wang, RETAIL PROPERTY MANAGER DROP HAMMER PILE DRIVER OPERATOR
[2019-08-04 16:00] VITALS: BP 129/69; PULSE 94; RESP 16; TEMP 36.8; O2SAT 97
--- NOTE | 2019-08-04 16:08 | NURSING ---
ASKED PT IF SHE WOULD LIKE THIS NURSE TO UPDATE ANY FAMILY MEMBER ON HER TODAY. PT STATED NO I CAN TELL THEM.
[2019-08-04 17:06] LABS: Bedside Glucose 155 mg/dL (70-110)
[2019-08-04] MEDS: Atorvastatin Calcium 20 MG Tablet PO (23:42)
[2019-08-05] MEDS: oxyCODONE 5 MG Tablet 15 MG PO ×3 (05:39→22:19)
[2019-08-05] MEDS: LORazepam 1 MG Tablet PO ×3 (05:39→22:19)
[2019-08-05] MEDS: Meloxicam 15 MG Tablet PO (05:40)
[2019-08-05] MEDS: Furosemide 40 MG Tablet PO ×2 (05:40→17:23)
[2019-08-05] MEDS: Enoxaparin 40 MG/0.4 ML Syringe SC (05:40)
[2019-08-05] MEDS: Thyroid 60 MG Tablet 180 MG PO (05:40)
[2019-08-05] MEDS: Gabapentin 300 MG Capsule PO ×4 (05:40→22:21)
[2019-08-05] MEDS: Menthol/Lanolin/Calamine/Znox 113 GM Tube 1 APPLIC TOPICAL ×4 (05:40→22:27)
[2019-08-05] MEDS: Nystatin Powder 15gm Bottle 1 APPLIC TOPICAL ×2 (05:41→17:27)
[2019-08-05] MEDS: Doxycycline 100 MG CAPSULE PO ×2 (05:42→17:22)
[2019-08-05] MEDS: Pantoprazole Sodium 20 MG Tablet PO (05:49)
[2019-08-05 06:16] LABS: Bedside Glucose 232 mg/dL (70-110)
[2019-08-05] MEDS: Sucralfate 1 GM Tablet PO ×4 (06:53→22:21)
[2019-08-05] MEDS: Insulin Lispro 100 UNIT/ML INSULN.PEN 20 UNIT SC ×3 (07:17→17:25)
[2019-08-05] MEDS: metFORMIN HCl 1,000 MG Tablet 1000 MG PO ×2 (08:06→17:21)
[2019-08-05] MEDS: LINAGLIPTIN 5 MG TABLET PO (08:07)
[2019-08-05] MEDS: Allopurinol 100 MG Tablet PO (08:07)
[2019-08-05 09:41] VITALS: PULSE 81; RESP 16; O2SAT 98
[2019-08-05 11:00] LABS: Bedside Glucose 206 mg/dL (70-110)
[2019-08-05] MEDS: Tuberculin,Purif.prot.deriv. 50 TU/ML Vial 5 ML ID (11:13)
--- NOTE | 2019-08-05 11:23 | CASEMGMT ---
Social Work IDT met with patient and daughter via conference call for care plan meeting. Discussed patient's progress in therapy. Pt is min assist for bed mobility, min to mod x2 for slideboard transfers, not ambulating due to NWBS, but ambulating in w/c 15 ft SBA, set up for UE dressing, max for LE dressing, using bedpan. Pt is receiving 1:1 visits from activities and enjoys the art supplies. Pt on a regular diet and accepting Rashard for wound healing. Pt is out of room isolation 08/17, COVID swab 08/03 - awaiting results. Explained Medicare benefit and day is 08/16. SW has spoken with patient several times about insurance coverage and not being a [facility] certified facility so pt would DC 08/16 and had provided list of SNFs upon admission. Inquired about referrals. Pt still upset she would need tot transfer to a SNF even though receiving surgery next week. Explained if pt is safe, has assistance and feels she can return home on 08/16, she can do that, but otherwise IDT is recommending continued therapy and nursing care after surgery to return to PLOF at a SNF. Pt and dtr to further and will notify SW of decision. Will continue to follow. Kristan Wang, ERENDIRA CYBER TRANSPORT SYSTEMS SPECIALIST
[2019-08-05 14:50] VITALS: BP 100/57; PULSE 102; RESP 16; TEMP 37.3; O2SAT 95
[2019-08-05 16:11] LABS: Bedside Glucose 193 mg/dL (70-110)
[2019-08-05 16:55] LABS: Bedside Glucose 212 mg/dL (70-110)
[2019-08-05] MEDS: Senna/Docusate Sodium 1 Tablet 2 TABLET PO (17:21)
[2019-08-05] MEDS: Atorvastatin Calcium 20 MG Tablet PO (22:24)
[2019-08-05 22:36] LABS: Bedside Glucose 141 mg/dL (70-110)
[2019-08-06 06:21] LABS: Bedside Glucose 184 mg/dL (70-110)
[2019-08-06] MEDS: oxyCODONE 5 MG Tablet 15 MG PO ×3 (06:22→22:09)
[2019-08-06] MEDS: Gabapentin 300 MG Capsule PO ×4 (06:23→22:11)
[2019-08-06] MEDS: Doxycycline 100 MG CAPSULE PO ×2 (06:23→17:44)
[2019-08-06] MEDS: LORazepam 1 MG Tablet PO ×3 (06:23→22:10)
[2019-08-06] MEDS: Thyroid 60 MG Tablet 180 MG PO (06:23)
[2019-08-06] MEDS: Sucralfate 1 GM Tablet PO ×4 (06:23→22:12)
[2019-08-06] MEDS: Pantoprazole Sodium 20 MG Tablet PO (06:24)
[2019-08-06] MEDS: Furosemide 40 MG Tablet PO ×2 (06:24→17:45)
[2019-08-06] MEDS: Senna/Docusate Sodium 1 Tablet 2 TABLET PO ×2 (06:24→17:45)
[2019-08-06] MEDS: Meloxicam 15 MG Tablet PO (06:24)
[2019-08-06] MEDS: Menthol/Lanolin/Calamine/Znox 113 GM Tube 1 APPLIC TOPICAL ×4 (06:27→22:10)
[2019-08-06] MEDS: Nystatin Powder 15gm Bottle 1 APPLIC TOPICAL ×2 (06:28→17:42)
[2019-08-06] MEDS: Enoxaparin 40 MG/0.4 ML Syringe SC (06:28)
[2019-08-06] MEDS: metFORMIN HCl 1,000 MG Tablet 1000 MG PO ×2 (08:23→17:45)
[2019-08-06] MEDS: Allopurinol 100 MG Tablet PO (08:24)
[2019-08-06] MEDS: LINAGLIPTIN 5 MG TABLET PO (08:24)
[2019-08-06] MEDS: Insulin Lispro 100 UNIT/ML INSULN.PEN 20 UNIT SC ×3 (08:29→17:43)
[2019-08-06 10:00] VITALS: PULSE 98; RESP 16; O2SAT 95
[2019-08-06 11:55] LABS: Bedside Glucose 265 mg/dL (70-110)
[2019-08-06 15:05] VITALS: BP 96/48; PULSE 96; RESP 20; TEMP 36.5; O2SAT 94
[2019-08-06 16:21] LABS: Bedside Glucose 145 mg/dL (70-110)
[2019-08-06 21:16] LABS: Bedside Glucose 144 mg/dL (70-110)
[2019-08-06] MEDS: Atorvastatin Calcium 20 MG Tablet PO (22:13)
[2019-08-07] MEDS: Enoxaparin 40 MG/0.4 ML Syringe SC (06:05)
[2019-08-07] MEDS: Furosemide 40 MG Tablet PO ×2 (06:06→17:40)
[2019-08-07] MEDS: Thyroid 60 MG Tablet 180 MG PO (06:06)
[2019-08-07] MEDS: Polyethylene Glycol 3350 17 GM PACKET PO (06:06)
[2019-08-07] MEDS: Gabapentin 300 MG Capsule PO ×4 (06:07→20:55)
[2019-08-07] MEDS: Doxycycline 100 MG CAPSULE PO ×2 (06:07→17:51)
[2019-08-07] MEDS: Sucralfate 1 GM Tablet PO ×3 (06:07→20:55)
[2019-08-07] MEDS: Meloxicam 15 MG Tablet PO (06:07)
[2019-08-07] MEDS: Senna/Docusate Sodium 1 Tablet 2 TABLET PO ×2 (06:07→17:40)
[2019-08-07] MEDS: Pantoprazole Sodium 20 MG Tablet PO (06:07)
[2019-08-07] MEDS: oxyCODONE 5 MG Tablet 15 MG PO ×3 (06:19→20:55)
[2019-08-07] MEDS: LORazepam 1 MG Tablet PO ×3 (06:19→20:55)
[2019-08-07] MEDS: Nystatin Powder 15gm Bottle 1 APPLIC TOPICAL ×2 (06:22→17:41)
[2019-08-07] MEDS: Menthol/Lanolin/Calamine/Znox 113 GM Tube 1 APPLIC TOPICAL ×4 (06:24→20:56)
[2019-08-07 06:26] LABS: Bedside Glucose 196 mg/dL (70-110)
[2019-08-07] MEDS: Insulin Lispro 100 UNIT/ML INSULN.PEN 20 UNIT SC ×3 (08:05→17:42)
[2019-08-07] MEDS: metFORMIN HCl 1,000 MG Tablet 1000 MG PO ×2 (08:06→17:39)
[2019-08-07] MEDS: LINAGLIPTIN 5 MG TABLET PO (08:07)
--- NOTE | 2019-08-07 09:13 | PCA ---
Patient requested personal belongings that were being kept at [employer] [facility] [employer] office, contacted [employer] signed out pts personal belongings and gave them to pt, i asked pt if she would like to make sure all is there she declined offer she said knows it is all there an that her daughter is coming to pick the items up for her.
[2019-08-07] MEDS: Allopurinol 100 MG Tablet PO (09:31)
[2019-08-07 09:35] VITALS: PULSE 84; RESP 18; O2SAT 96
--- NOTE | 2019-08-07 10:16 | NURSING ---
Addendum entered by Soraya Patterson 08/07/19 12:28: pt returned from appt with orders, pt to have surgery on August 12, DC lovenox on August 10. NPO after MN 08/13/19 Original Note: PT OFF UNIT VIA WC TO APPT
--- NOTE | 2019-08-07 12:44 | CASEMGMT ---
Social Work Spoke with Shane Sue's office and explained insurance for pt continued rehab and need for new SNF. Pt had appt with on this date. Upon return p provided SW with list of several SNFs to refer to. Referrals made. Will await outcome. Kristan Wang, ODD JOB WORKER CYLINDER WORKER
[2019-08-07 12:56] LABS: Bedside Glucose 198 mg/dL (70-110)
--- NOTE | 2019-08-07 14:23 | DCINST_ITS ---
- Discharge Diagnoses Current Active Problems: Current Active and Chronic Problems Debility (Acute) Fracture of right tibia and fibula (Acute) Hypertension (Chronic) Chronic pain (Chronic) Opioid dependence (Chronic) Body mass index (BMI) 40.0-44.9, adult (Chronic) Tobacco abuse (Chronic) Diabetic polyneuropathy (Chronic) Hypokalemia (Chronic) Anxiety (Chronic) You will use the following diet at home:: No restrictions, Regular Your food should be the consistency of: Regular Your liquids should be the consistency of: Regular/Thin Discharge Activity: Return to Normal Activity Weight Bearing Status: No weight bearing - Right lower extremity. Call your doctor if you observe: Fever of 101 or Higher, Inability to urinate, Inability to have a bowel movement, Shortness of breath, Chest pain, Uncontrolled pain Allergies/Adverse Reactions: Allergies morphine Allergy (Intermediate, Verified 07/25/19 02:59) Hives Medications to take at Discharge Allopurinol [Zyloprim] 100 mg PO DAILY 07/01/13 [place] Thyroid 180 mg PO DAILY 07/01/13 Carafate 1 gm PO 4X/DAY 07/01/13 Furosemide [Lasix] 40 mg PO BID 07/01/13 Meloxicam 15 mg PO DAILY 07/01/13 Oxycodone [Oxyir] 15 mg PO TID 07/01/13 Oxycontin 80 mg PO TID 07/01/13 Potassium Chloride [K-Dur] 40 meq PO DAILY 07/01/13 Crestor 10 mg PO DAILY 10/10/15 Lorazepam [Ativan] 1 mg PO TID 10/10/15 Albuterol Inhaler [Ventolin Hfa] 1 puff INHALATION Q4H PRN PRN 06/24/19 Omeprazole [Prilosec] 10 mg PO DAILY 07/25/19 Nutritional Supplement [Rashard - ORANGE FLAVOR] 1 packet PO BIDCM packet 07/28/19 Nystatin Powder [Mycostatin Powder] 1 applic TOPICAL BID bottle 07/28/19 Polyethylene Glycol 3350 [Miralax] 17 gm PO BID packet 07/28/19 Bisacodyl [Dulcolax] 10 mg PO DAILY PRN tablet 08/07/19 Doxycycline 100 mg PO BID capsule 08/07/19 Emollient Combination No.72 [Eucerin Intensive Repair] 1 applic TOPICAL BID lotion 08/07/19 Gabapentin [Neurontin] 300 mg PO 4X/DAY capsule 08/07/19 Insulin Glargine [Lantus SoloStar Pen] 30 units SC BID pen 08/07/19 Insulin Lispro [Humalog KwikPen] 20 unit SC TIDAC insuln.pen 08/07/19 Linagliptin [Tradjenta] 5 mg PO DAILYCM tablet 08/07/19 Menthol/Lanolin/Calamine/Znox [Calmoseptine Ointment] 1 applic TOPICAL 4X/DAY tube 08/07/19 Senna/Docusate Sodium [Senokot-S] 2 tablet PO BID tablet 08/07/19 metFORMIN HCl [Glucophage] 1,000 mg PO BIDCM tablet 08/07/19 Primary Care Physician: Dennis Casas MD [Primary Care Provider] - Please follow up with your Primary Care Physician in: 1 week. Test Results: Test results from this visit will be discussed in further detail at your follow- up appointment, if applicable. Please Follow Up With: Dr. Patric Sue Please Follow Up With: Dr. Patric Sue Please Follow Up With: Dr. Patric Denies When: Saturday Proposed Discharge Date: 08/13/19
--- NOTE | 2019-08-07 14:25 | PCM.DC.SUM ---
Discharge Date and Diagnosis - Problem List Patient Problems: Active and Suspected Problems Debility (Acute) Fracture of right tibia and fibula (Acute) Date of Admission: 07/28/19 Date of Discharge: 08/13/19 - Primary Discharge Diagnosis Active and Suspected Problems Debility (Acute) Fracture of right tibia and fibula (Acute) - Secondary Discharge Diagnosis Chronic Problems Hypertension (Chronic) Chronic pain (Chronic) Opioid dependence (Chronic) Body mass index (BMI) 40.0-44.9, adult (Chronic) Tobacco abuse (Chronic) Diabetic polyneuropathy (Chronic) Hypokalemia (Chronic) Anxiety (Chronic) Decubitus ulcer of left heel, stage 2 (Chronic) Tobacco dependence (Chronic) Peripheral autonomic neuropathy due to diabetes mellitus (Chronic) Diabetes (Chronic) Morbid obesity (Chronic) History of DVT (deep vein thrombosis) (Chronic) Obesity (Chronic) Hypothyroidism (Chronic) HLD (hyperlipidemia) (Chronic) Gout (Chronic) Gastroesophageal reflux disease (Chronic) DM2 (diabetes mellitus, type 2) (Chronic) COLD (chronic obstructive lung disease) (Chronic) Hospital Course and Treatment Imaging Results: 07/29/19 09:53 Diet: Cardiac: Carb-Controlled Food consistency:: Regular Liquid Consistency:: Regular/Thin Is pt able to select menu?: Yes 08/13/19 00:01 NPO [Diet: Nothing Per Oral] Is pt able to select menu?: Yes Labs (Last 48 Hours) 08/04/19 08/05/19 08/05/19 11:34 15:47 16:42 COVID-19 (JAMIE) Not Detected POC Glucose 193 H 212 H 08/05/19 08/06/19 08/06/19 22:24 05:56 10:45 COVID-19 (JAMIE) POC Glucose 141 H 184 H 265 H 08/06/19 08/06/19 08/07/19 16:05 21:09 06:13 COVID-19 (JAMIE) POC Glucose 145 H 144 H 196 H 08/07/19 12:49 COVID-19 (JAMIE) POC Glucose 198 H Microbiology 08/05/19 11:35 Mucosa - Nasopharyngeal Coronavirus COVID-19 PCR - Final Operations: None, - - 1. Application of external fixator, right foot, ankle, leg. 2. Closed reduction of pilon fracture, right tibia. 3. Closed reduction of right fibula fracture Procedures: None Summary of Care Provided: The patient is a 58 year old Female with below past medical history hospitalized for right tibia/fibula fracture, underwent external fixation, closed reduction right tibia/fibula fracture 07/25/[address] Andrzej Sue, admitted to TCU with debility, here for rehabilitation, strengthening, prior to further surgery, then discharge home with family. Discharge to [facility] for right lower extremity surgery with Dr. Andrzej Sue. Patient Problems: Active and Suspected Problems Debility (Acute) Fracture of right tibia and fibula (Acute) - Physical Exam Vitals/I&O's: Vital Signs Temp Pulse Resp BP Pulse Ox 97.7 F L 96 20 H 96/48 L 94 08/06/19 15:05 08/06/19 15:05 08/06/19 15:05 08/06/19 15:05 08/06/19 15:05 Oxygen Delivery Method Room Air Weight: 113.4 kg Body Mass Index (BMI) 42.9 Intake and Output for Last 24 Hours 08/05/19 08/06/19 08/07/19 23:59 23:59 23:59 Intake Total 520 / 520 600 / 600 600 / 600 Output Total 600 / 600 Balance 520 / 520 600 / 600 0 / 0 Microbiology Past 72 Hours 08/05/19 11:35 Mucosa - Nasopharyngeal Coronavirus COVID-19 PCR - Final Laboratory Results 08/06/19 16:05: POC Glucose 145 H 08/06/19 21:09: POC Glucose 144 H 08/07/19 06:13: POC Glucose 196 H 08/07/19 12:49: POC Glucose 198 H Current Medications Albuterol Sulfate (Ventolin Hfa (Sp)) 1 puff INHALATION Q4H PRN PRN PRN Reason: DYSPNEA Allopurinol (Zyloprim) 100 mg PO DAILYCM KIMBERLEY Last Admin: 08/07/19 09:31 Dose: 100 mg Documented by: Atorvastatin Calcium (Lipitor) 20 mg PO QHS KIMBER[place] Last Admin: 08/06/19 22:13 Dose: 20 mg Documented by: Bisacodyl (Dulcolax) 10 mg PO DAILY PRN PRN Reason: Constipation Last Admin: 07/29/19 22:43 Dose: 10 mg Documented by: Calamine/Phenol (Calmoseptine Ointment) 1 applic TOPICAL 4X/DAY KIMBERLEY; Protocol Last Admin: 08/07/19 12:53 Dose: 1 applicatio Documented by: Doxycycline Monohydrate (Doxycycline) 100 mg PO BID REPLACED BY [facility] Last Admin: 08/07/19 06:07 Dose: 100 mg Documented by: Emollient Ointment (Eucerin Intensive Repair) 1 applic TOPICAL BID REPLACED BY [facility]; Protocol Last Admin: 08/07/19 06:23 Dose: 1 applicatio Documented by: Enoxaparin Sodium (Lovenox) 40 mg SC DAILY@0600 REPLACED BY [facility] Last Admin: 08/07/19 06:05 Dose: 40 mg Documented by: Furosemide (Lasix) 40 mg PO BID REPLACED BY [facility] Last Admin: 08/07/19 06:06 Dose: 40 mg Documented by: Gabapentin (Neurontin) 300 mg PO 4X/DAY REPLACED BY [facility] Last Admin: 08/07/19 12:50 Dose: 300 mg Documented by: Insulin Glargine (Lantus (Bkc)) 30 units SC BID REPLACED BY [facility] Last Admin: 08/07/19 06:20 Dose: 30 unit Documented by: Insulin Human Lispro (Humalog Kwikpen ([facility])) 20 unit SC TIDAC REPLACED BY [facility] Last Admin: 08/07/19 12:50 Dose: 20 unit Documented by: Linagliptin (Tradjenta) [facility] Last Admin: 08/07/19 08:07 Dose: 5 mg Documented by: Lorazepam (Ativan) 1 mg PO TID REPLACED BY [facility] Last Admin: 08/07/19 12:59 Dose: 1 mg Documented by: Meloxicam (Mobic) 15 mg PO DAILY REPLACED BY [facility] Last Admin: 08/07/19 06:07 Dose: 15 mg Documented by: Metformin HCl (Glucophage) 1,[facility] Last Admin: 08/07/19 08:06 Dose: 1,000 mg Documented by: Nutritional Formula (Rashard - [place] Flavor) 1 packet PO BIDCM REPLACED BY [facility] Last Admin: 08/07/19 08:06 Dose: 1 packet Documented by: Nystatin (Mycostatin Powder) 1 applic TOPICAL BID REPLACED BY [facility]; Protocol Last Admin: 08/07/19 06:22 Dose: 1 applicatio Documented by: Oxycodone HCl (Oxyir) 15 mg PO TID REPLACED BY [facility] Last Admin: 08/07/19 12:59 Dose: 15 mg Documented by: Oxycodone HCl (Oxycontin) 80 mg PO TID@0000,0800,1600 REPLACED BY [facility] Last Admin: 08/07/19 08:14 Dose: 80 mg Documented by: Pantoprazole Sodium (Protonix) 20 mg PO DAILY REPLACED BY [facility] Last Admin: 08/07/19 06:07 Dose: 20 mg Documented by: Polyethylene Glycol (Miralax) 17 gm PO BID REPLACED BY [facility] Last Admin: 08/07/19 06:06 Dose: 17 gm Documented by: Potassium Chloride (K-Dur) 40 meq PO DAILY REPLACED BY [facility] Last Admin: 08/07/19 06:28 Dose: 40 meq Documented by: Senna/Docusate Sodium (Senokot-S, [place]-Colace) 2 tablet PO BID REPLACED BY [facility] Last Admin: 08/07/19 06:07 Dose: 2 tablet Documented by: Sucralfate (Carafate) 1 gm PO 1HR_ACHS REPLACED BY [facility] Last Admin: 08/07/19 12:26 Dose: Not Given Documented by: Thyroid ([place] Thyroid) 180 mg PO DAILY REPLACED BY [facility] Last Admin: 08/07/19 06:06 Dose: 180 mg Documented by: Discharge Diet: No Restrictions Discharge Activity: Return to Normal Activity Weight Bearing Status: No weight bearing - Right lower extremity. Call your doctor if you observe: Fever of 101 or Higher, Inability to urinate, Inability to have a bowel movement, Shortness of breath, Chest pain, Uncontrolled pain Home Medications: Medications to take at Discharge Allopurinol [Zyloprim] 100 mg PO DAILY 07/01/13 [place] Thyroid 180 mg PO DAILY 07/01/13 Carafate 1 gm PO 4X/DAY 07/01/13 Furosemide [Lasix] 40 mg PO BID 07/01/13 Meloxicam 15 mg PO DAILY 07/01/13 Oxycodone [Oxyir] 15 mg PO TID 07/01/13 Oxycontin 80 mg PO TID 07/01/13 Potassium Chloride [K-Dur] 40 meq PO DAILY 07/01/13 Crestor 10 mg PO DAILY 10/10/15 Lorazepam [Ativan] 1 mg PO TID 10/10/15 Albuterol Inhaler [Ventolin Hfa] 1 puff INHALATION Q4H PRN PRN 06/24/19 Omeprazole [Prilosec] 10 mg PO DAILY 07/25/19 Nutritional Supplement [Rashard - ORANGE FLAVOR] 1 packet PO BIDCM packet 07/28/19 Nystatin Powder [Mycostatin Powder] 1 applic TOPICAL BID bottle 07/28/19 Polyethylene Glycol 3350 [Miralax] 17 gm PO BID packet 07/28/19 Bisacodyl [Dulcolax] 10 mg PO DAILY PRN tablet 08/07/19 Doxycycline 100 mg PO BID capsule 08/07/19 Emollient Combination No.72 [Eucerin Intensive Repair] 1 applic TOPICAL BID lotion 08/07/19 Gabapentin [Neurontin] 300 mg PO 4X/DAY capsule 08/07/19 Insulin Glargine [Lantus SoloStar Pen] 30 units SC BID pen 08/07/19 Insulin Lispro [Humalog KwikPen] 20 unit SC TIDAC insuln.pen 08/07/19 Linagliptin [Tradjenta] 5 mg PO DAILYCM tablet 08/07/19 Menthol/Lanolin/Calamine/Znox [Calmoseptine Ointment] 1 applic TOPICAL 4X/DAY tube 08/07/19 Senna/Docusate Sodium [Senokot-S] 2 tablet PO BID tablet 08/07/19 metFORMIN HCl [Glucophage] 1,000 mg PO BIDCM tablet 08/07/19 Primary Care Physician: Dennis Casas MD [Primary Care Provider] - Please follow up with your Primary Care Physician in: 1 week. Please Follow Up With: Dr. Patric Sue Please Follow Up With: Dr. Patric Sue Please Follow Up With: Dr. Patric Denise When: Saturday Disposition: Acute care Hospital Minutes spent on discharge:: 30 Patient Condition:: Stable Medical Necessity - Tobacco Use Smoking Status: Current every day smoker Tobacco Use: Cigarettes Meaningful Use Info Meaningful Use Diagnoses (Choose all that apply): None applicable
[2019-08-07 14:40] VITALS: BP 93/56; PULSE 107; RESP 18; TEMP 36.6; O2SAT 94
[2019-08-07 16:50] LABS: Bedside Glucose 151 mg/dL (70-110)
[2019-08-07 17:56] VITALS: BP 131/88; PULSE 107
[2019-08-07] MEDS: Atorvastatin Calcium 20 MG Tablet PO (20:55)
[2019-08-07 21:20] LABS: Bedside Glucose 100 mg/dL (70-110)
[2019-08-08] MEDS: LORazepam 1 MG Tablet PO ×3 (05:58→22:25)
[2019-08-08] MEDS: Senna/Docusate Sodium 1 Tablet 2 TABLET PO ×2 (05:58→17:34)
[2019-08-08] MEDS: Thyroid 60 MG Tablet 180 MG PO (05:58)
[2019-08-08] MEDS: Meloxicam 15 MG Tablet PO (05:58)
[2019-08-08] MEDS: oxyCODONE 5 MG Tablet 15 MG PO ×3 (05:58→22:25)
[2019-08-08] MEDS: Furosemide 40 MG Tablet PO ×2 (05:58→17:33)
[2019-08-08] MEDS: Sucralfate 1 GM Tablet PO ×4 (05:59→22:26)
[2019-08-08] MEDS: Doxycycline 100 MG CAPSULE PO ×2 (05:59→17:32)
[2019-08-08] MEDS: Gabapentin 300 MG Capsule PO ×4 (05:59→22:27)
[2019-08-08] MEDS: Pantoprazole Sodium 20 MG Tablet PO (05:59)
[2019-08-08] MEDS: Enoxaparin 40 MG/0.4 ML Syringe SC (05:59)
[2019-08-08] MEDS: Nystatin Powder 15gm Bottle 1 APPLIC TOPICAL ×2 (06:04→17:38)
[2019-08-08] MEDS: Menthol/Lanolin/Calamine/Znox 113 GM Tube 1 APPLIC TOPICAL ×4 (06:04→22:27)
[2019-08-08 06:30] LABS: Bedside Glucose 165 mg/dL (70-110)
[2019-08-08] MEDS: Insulin Lispro 100 UNIT/ML INSULN.PEN 20 UNIT SC ×3 (08:07→17:31)
[2019-08-08] MEDS: metFORMIN HCl 1,000 MG Tablet 1000 MG PO ×2 (08:08→17:31)
[2019-08-08] MEDS: Allopurinol 100 MG Tablet PO (08:09)
[2019-08-08] MEDS: LINAGLIPTIN 5 MG TABLET PO (08:09)
[2019-08-08 11:21] LABS: Bedside Glucose 266 mg/dL (70-110)
[2019-08-08 14:49] VITALS: BP 99/69; PULSE 97; RESP 16; TEMP 36.6; O2SAT 96
[2019-08-08 16:30] LABS: Bedside Glucose 190 mg/dL (70-110)
[2019-08-08 21:11] LABS: Bedside Glucose 192 mg/dL (70-110)
[2019-08-08] MEDS: Atorvastatin Calcium 20 MG Tablet PO (22:26)
[2019-08-09] MEDS: oxyCODONE 5 MG Tablet 15 MG PO ×3 (06:14→21:54)
[2019-08-09] MEDS: LORazepam 1 MG Tablet PO ×3 (06:15→21:54)
[2019-08-09] MEDS: Senna/Docusate Sodium 1 Tablet 2 TABLET PO ×2 (06:15→17:09)
[2019-08-09] MEDS: Pantoprazole Sodium 20 MG Tablet PO (06:17)
[2019-08-09] MEDS: Doxycycline 100 MG CAPSULE PO ×2 (06:17→17:09)
[2019-08-09] MEDS: Gabapentin 300 MG Capsule PO ×4 (06:17→21:55)
[2019-08-09] MEDS: Furosemide 40 MG Tablet PO ×2 (06:17→17:09)
[2019-08-09] MEDS: Thyroid 60 MG Tablet 180 MG PO (06:17)
[2019-08-09] MEDS: Meloxicam 15 MG Tablet PO (06:18)
[2019-08-09 06:21] LABS: Bedside Glucose 203 mg/dL (70-110)
[2019-08-09] MEDS: Nystatin Powder 15gm Bottle 1 APPLIC TOPICAL ×2 (06:23→17:17)
[2019-08-09] MEDS: Enoxaparin 40 MG/0.4 ML Syringe SC (06:23)
[2019-08-09] MEDS: Menthol/Lanolin/Calamine/Znox 113 GM Tube 1 APPLIC TOPICAL ×4 (06:34→21:04)
[2019-08-09] MEDS: Polyethylene Glycol 3350 17 GM PACKET PO (06:35)
[2019-08-09] MEDS: Sucralfate 1 GM Tablet PO ×4 (07:31→21:04)
[2019-08-09] MEDS: metFORMIN HCl 1,000 MG Tablet 1000 MG PO ×2 (08:15→17:06)
[2019-08-09] MEDS: Insulin Lispro 100 UNIT/ML INSULN.PEN 20 UNIT SC ×2 (08:15→11:32)
[2019-08-09] MEDS: LINAGLIPTIN 5 MG TABLET PO (08:16)
[2019-08-09] MEDS: Allopurinol 100 MG Tablet PO (08:16)
[2019-08-09 11:15] LABS: Bedside Glucose 223 mg/dL (70-110)
[2019-08-09 16:00] VITALS: BP 116/64; PULSE 76; RESP 18; TEMP 36.6; O2SAT 96
[2019-08-09 16:30] LABS: Bedside Glucose 211 mg/dL (70-110)
[2019-08-09] MEDS: Insulin Lispro 100 UNIT/ML INSULN.PEN 23 UNIT SC (17:05)
[2019-08-09] MEDS: Atorvastatin Calcium 20 MG Tablet PO (21:05)
[2019-08-09 21:06] VITALS: PULSE 83; RESP 16; O2SAT 98
[2019-08-09 22:21] LABS: Bedside Glucose 164 mg/dL (70-110)
[2019-08-10 06:16] LABS: Bedside Glucose 193 mg/dL (70-110)
[2019-08-10] MEDS: oxyCODONE 5 MG Tablet 15 MG PO ×3 (06:26→22:29)
[2019-08-10] MEDS: LORazepam 1 MG Tablet PO ×3 (06:26→22:29)
[2019-08-10] MEDS: Sucralfate 1 GM Tablet PO ×4 (06:27→22:30)
[2019-08-10] MEDS: Senna/Docusate Sodium 1 Tablet 2 TABLET PO ×2 (06:27→17:35)
[2019-08-10] MEDS: Meloxicam 15 MG Tablet PO (06:27)
[2019-08-10] MEDS: Thyroid 60 MG Tablet 180 MG PO (06:27)
[2019-08-10] MEDS: Furosemide 40 MG Tablet PO ×2 (06:27→17:34)
[2019-08-10] MEDS: Pantoprazole Sodium 20 MG Tablet PO (06:27)
[2019-08-10] MEDS: Doxycycline 100 MG CAPSULE PO ×2 (06:28→17:34)
[2019-08-10] MEDS: Enoxaparin 40 MG/0.4 ML Syringe SC (06:28)
[2019-08-10] MEDS: Menthol/Lanolin/Calamine/Znox 113 GM Tube 1 APPLIC TOPICAL ×4 (06:35→22:33)
[2019-08-10] MEDS: Gabapentin 300 MG Capsule PO ×4 (06:36→22:30)
[2019-08-10] MEDS: Nystatin Powder 15gm Bottle 1 APPLIC TOPICAL ×2 (06:36→17:35)
[2019-08-10] MEDS: Insulin Lispro 100 UNIT/ML INSULN.PEN 23 UNIT SC ×3 (08:35→17:38)
[2019-08-10] MEDS: LINAGLIPTIN 5 MG TABLET PO (08:36)
[2019-08-10] MEDS: metFORMIN HCl 1,000 MG Tablet 1000 MG PO ×2 (08:36→17:33)
[2019-08-10] MEDS: Allopurinol 100 MG Tablet PO (08:36)
--- NOTE | 2019-08-10 08:59 | MDS.RN ---
Information for the mds was obtained from review of the clinical record, interview of resident, staff, and direct observation of resident's care.
[2019-08-10 09:50] VITALS: PULSE 89; RESP 18; O2SAT 97
[2019-08-10 11:30] LABS: Bedside Glucose 170 mg/dL (70-110)
--- NOTE | 2019-08-10 12:21 | CASEMGMT ---
Social Work [facility] accepted pt. Pt notified and very happy. Pt to transfer to surgery 08/12 and DC to [facility] 08/13. Kristan Wang, DIRECTOR OF CARDIOLOGY MATTRESS SPECIALIST
[2019-08-10 14:31] VITALS: BP 115/64; PULSE 75; RESP 14; TEMP 35.8; O2SAT 95
[2019-08-10 16:41] LABS: Bedside Glucose 188 mg/dL (70-110)
[2019-08-10 21:45] LABS: Bedside Glucose 104 mg/dL (70-110)
[2019-08-10] MEDS: Atorvastatin Calcium 20 MG Tablet PO (22:31)
[2019-08-11 03:45] VITALS: BP 130/76; PULSE 75; RESP 16; TEMP 36.6; O2SAT 97
[2019-08-11] MEDS: oxyCODONE 5 MG Tablet 15 MG PO ×3 (06:08→22:37)
[2019-08-11] MEDS: Senna/Docusate Sodium 1 Tablet 2 TABLET PO ×2 (06:08→17:34)
[2019-08-11] MEDS: LORazepam 1 MG Tablet PO ×3 (06:08→22:37)
[2019-08-11] MEDS: Furosemide 40 MG Tablet PO ×2 (06:09→17:33)
[2019-08-11] MEDS: Pantoprazole Sodium 20 MG Tablet PO (06:09)
[2019-08-11] MEDS: Meloxicam 15 MG Tablet PO (06:09)
[2019-08-11] MEDS: Sucralfate 1 GM Tablet PO ×4 (06:09→22:37)
[2019-08-11] MEDS: Thyroid 60 MG Tablet 180 MG PO (06:09)
[2019-08-11] MEDS: Doxycycline 100 MG CAPSULE PO ×2 (06:09→17:32)
[2019-08-11] MEDS: Gabapentin 300 MG Capsule PO ×4 (06:09→22:37)
[2019-08-11] MEDS: Menthol/Lanolin/Calamine/Znox 113 GM Tube 1 APPLIC TOPICAL ×4 (06:11→22:38)
[2019-08-11] MEDS: Nystatin Powder 15gm Bottle 1 APPLIC TOPICAL ×2 (06:13→17:34)
[2019-08-11 06:31] LABS: Bedside Glucose 155 mg/dL (70-110)
[2019-08-11] MEDS: Allopurinol 100 MG Tablet PO (08:11)
[2019-08-11] MEDS: LINAGLIPTIN 5 MG TABLET PO (08:11)
[2019-08-11] MEDS: metFORMIN HCl 1,000 MG Tablet 1000 MG PO ×2 (08:11→17:31)
[2019-08-11] MEDS: Insulin Lispro 100 UNIT/ML INSULN.PEN 23 UNIT SC ×3 (08:15→17:44)
[2019-08-11 11:31] LABS: Bedside Glucose 188 mg/dL (70-110)
--- NOTE | 2019-08-11 11:33 | NURSING ---
PT STATED SHE WOULD UPDATE HER FAMILY AND NURSE DIDNT NEED TO CALL.
[2019-08-11 15:56] VITALS: BP 108/62; PULSE 76; RESP 18; TEMP 35.6; O2SAT 94
[2019-08-11 17:11] LABS: Bedside Glucose 121 mg/dL (70-110)
[2019-08-11 21:11] LABS: Bedside Glucose 85 mg/dL (70-110)
[2019-08-11 22:23] VITALS: PULSE 88; O2SAT 98
[2019-08-11] MEDS: Atorvastatin Calcium 20 MG Tablet PO (22:37)
[2019-08-12] MEDS: LORazepam 1 MG Tablet PO ×3 (06:07→22:46)
[2019-08-12] MEDS: oxyCODONE 5 MG Tablet 15 MG PO ×3 (06:07→22:46)
[2019-08-12] MEDS: Doxycycline 100 MG CAPSULE PO ×2 (06:08→17:16)
[2019-08-12] MEDS: Thyroid 60 MG Tablet 180 MG PO (06:08)
[2019-08-12] MEDS: Senna/Docusate Sodium 1 Tablet 2 TABLET PO ×2 (06:08→17:17)
[2019-08-12] MEDS: Gabapentin 300 MG Capsule PO ×4 (06:08→22:46)
[2019-08-12] MEDS: Sucralfate 1 GM Tablet PO ×4 (06:08→22:47)
[2019-08-12] MEDS: Meloxicam 15 MG Tablet PO (06:08)
[2019-08-12] MEDS: Pantoprazole Sodium 20 MG Tablet PO (06:08)
[2019-08-12] MEDS: Menthol/Lanolin/Calamine/Znox 113 GM Tube 1 APPLIC TOPICAL ×4 (06:10→22:48)
[2019-08-12] MEDS: Furosemide 40 MG Tablet PO ×2 (06:10→17:17)
[2019-08-12] MEDS: Nystatin Powder 15gm Bottle 1 APPLIC TOPICAL ×2 (06:11→17:18)
[2019-08-12 06:26] LABS: Bedside Glucose 200 mg/dL (70-110)
[2019-08-12 06:57] VITALS: BP 142/84; PULSE 71; RESP 18; TEMP 36.4; O2SAT 98
[2019-08-12] MEDS: Insulin Lispro 100 UNIT/ML INSULN.PEN 23 UNIT SC ×3 (07:48→17:26)
[2019-08-12] MEDS: LINAGLIPTIN 5 MG TABLET PO (07:49)
[2019-08-12] MEDS: Allopurinol 100 MG Tablet PO (07:49)
[2019-08-12] MEDS: metFORMIN HCl 1,000 MG Tablet 1000 MG PO ×2 (07:49→17:15)
[2019-08-12 08:53] VITALS: PULSE 78; RESP 16; O2SAT 94
[2019-08-12 11:16] LABS: Bedside Glucose 170 mg/dL (70-110)
[2019-08-12 13:43] VITALS: BP 116/69; PULSE 87; RESP 16; TEMP 37.4; O2SAT 96
--- NOTE | 2019-08-12 14:30 | MDS.RN ---
Pain interview for rock 08/13/19 completed.
[2019-08-12 17:06] LABS: Bedside Glucose 121 mg/dL (70-110)
[2019-08-12 21:11] LABS: Bedside Glucose 107 mg/dL (70-110)
[2019-08-12] MEDS: Atorvastatin Calcium 20 MG Tablet PO (22:46)
[2019-08-13] MEDS: LORazepam 1 MG Tablet PO (05:37)
[2019-08-13] MEDS: Pantoprazole Sodium 20 MG Tablet PO (05:38)
[2019-08-13] MEDS: Gabapentin 300 MG Capsule PO (05:38)
[2019-08-13] MEDS: Thyroid 60 MG Tablet 180 MG PO (05:38)
--- NOTE | 2019-08-13 05:44 | NURSING ---
Pt was taken to PACU in bed for surgery. Administered medications per doctor order. Vs 141/65, HI-80, RR-18, Temp- 98.2
[2019-08-13 05:46] VITALS: PULSE 80; RESP 18; O2SAT 97
[2019-08-13 06:05] VITALS: TEMP 36.8
== END 2019-08-13 06:00 | disposition short-term general hospital (02) | DRG 560 ==
PROVIDERS: Admitting Provider Family Medicine Geriatric Medicine; PCP Family Medicine; Visit Provider Family Medicine Geriatric Medicine
DX: S82.301D Unspecified fracture of lower end of right tibia, subsequent encounter for closed fracture with routine healing (principal); F11.20 Opioid dependence, uncomplicated; Z68.41 Body mass index [BMI] 40.0-44.9, adult; S82.831D Other fracture of upper and lower end of right fibula, subsequent encounter for closed fracture with routine healing; W19.XXXD Unspecified fall, subsequent encounter; K21.9 Gastro-esophageal reflux disease without esophagitis; I10 Essential (primary) hypertension; G89.29 Other chronic pain; E78.5 Hyperlipidemia, unspecified; J44.9 Chronic obstructive pulmonary disease, unspecified; E66.01 Morbid (severe) obesity due to excess calories; F41.9 Anxiety disorder, unspecified; F17.210 Nicotine dependence, cigarettes, uncomplicated; M10.9 Gout, unspecified; E03.9 Hypothyroidism, unspecified; M19.90 Unspecified osteoarthritis, unspecified site; E87.6 Hypokalemia; B35.4 Tinea corporis; E11.43 Type 2 diabetes mellitus with diabetic autonomic (poly)neuropathy; Z86.718 Personal history of other venous thrombosis and embolism
CPT/HCPCS: 36415; 80048; 82962; 85025; 87635; 97110; 97162; 97166; 97530; 97535; 97542; 97802; 99406; G2023; U0002; U0004

== ENCOUNTER 2019-08-13 06:09 | Observation (INO) | payer MEDICARE, MEDICAID, SELFPAY ==
[2019-07-28 13:25] VITALS: BMI 42.9
[2019-08-13] VITALS (13 sets, daily range): BP systolic 104–125; BP diastolic 64–76; PULSE 82–99; RESP 16–18; TEMP 36.3–37.4; O2SAT 92–96; BMI 42.9
[2019-08-13] MEDS: Lactated Ringers 1,000 ML 100 ML IV ×2 (06:41→14:38)
[2019-08-13 06:55] LABS: Bedside Glucose 191 mg/dL (70-110)
--- NOTE | 2019-08-13 07:00 | RAD_ITS ---
STUDY: X-RAY - RIGHT TIBIA AND FIBULA REASON FOR EXAM: Female, 58 years old. Application multi plane eternal fixator, fluoro time 577.8 sec, 19 images, 21.44 mgy TECHNIQUE: 2 view(s) of the tibia and fibula were obtained. COMPARISON: None. FINDINGS: Intraoperative imaging provided for external fixating device. RAD/Tibia & Fibula 2 Views IMPRESSION: Intraoperative imaging provided for external fixating device. Electronically Signed: Julio César Prado, at 13:53 EDT , Service support ,
--- NOTE | 2019-08-13 12:09 | OP.PCM_ITS ---
Problem List (1) Fracture of right tibia and fibula Status: Acute Qualifiers: Encounter type: subsequent encounter Fracture type: closed Fracture healing: with routine healing Qualified Code(s): S82.201D - Unspecified fra cture of shaft of right tibia, subsequent encounter for closed fracture with routine healing; S82.401D - Unspecified fracture of shaft of right fibula, subsequent encounter for closed fracture with routine healing Report of Operation Date of Procedure: 08/13/19 Pre-Operative Diagnosis: 1. Right tibial pilon fracture, closed, displaced. 2. Right fibular fracture, closed, nondisplaced Post-Operative Diagnosis: Same as preoperative Surgery/Procedure Performed:: 1. Application of multiplane external fixator of the right lower extremity. 2. Closed reduction of the fracture of the tibia and fibula, right side. 3. Removal of external fixator, right lower extremity Description of Surgical Findings:: Consistent with diagnosis. Reduction of deformity achieved and held with external fixation. executive office manager: Rocío Portillo Type of Anesthesia:: Spinal/Supplemental - With a femoral block to the right lower extremity Anesthesiologist: Pascual Carrasco Special Medications: 3 g of Ancef given preoperatively Specimen's removed: None Drains: None Estimated Blood Loss (mL): 25 Description of Procedure: Pathology: None Anesthesia: IV sedation with spinal and a femoral block to the right lower extremity Hemostasis: Anatomic dissection Estimated blood loss: 25 mL Materials: 1.)Emiliano 6-0 by 40 mm ROTHMAN coated half pin x2 2.) [place] 5-0 by 30 mm ROTHMAN coated half pin #3. Emiliano hexapod short struts x6 4. 180 mm circular ring. 5. 155 mm circular ring. 6. 2 mm K wire x3 7. 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 Patient presented to the [facility] emergency department for further evaluation. There was evidence of a displaced tibial pilon fracture and a fibular fracture. Patient was then subsequently admitted due to her pain and deformity of the fracture. I was then consulted at that time. I then decided to place a multiplane trauma frame on her right lower extremity due to the excessive swelling that was present in the deformity of the fracture. Patient was then discharged from an inpatient stay with a transmitted to the transitional care unit. Patient has been following up with me in the office for postoperative care. Due to the patient's multiple comorbidities and evidence of the deformity present, I recommended that and application of a circular ring multiplane external fixator to construction helper in this fracture healing would greatly benefit the patient and help her return to activities. Furthermore, this would decrease the risks of a open reduction with internal fixation. The risks and benefits to an open reduction with internal fixation versus the external fixator were discussed with the patient. Patient was then agreeable to the external fixator. Operative report: Before the patient was brought to the operating room, the risks, benefits, possible outcomes, possible complications of the procedure were discussed with the patient. These included but not limited to delayed or nonhealing wounds, delayed or nonhealing bone, decrease in function of limb, infection, DVT, loss of limb, loss of life. All the patient's questions were answered to her satisfaction and all of her concerns were addressed. No guarantees made as to the outcome of the procedure. Patient understood all aspects of the procedure, and consent was then signed by the patient. Before the patient was brought to the operating room, the anesthesiology team administered a femoral block to the right lower extremity. Patient was then brought to the operating room and placed on the operating table in supine position. After timeout, spinal anesthesia was obtained. IV sedation was then performed. Adequate padding was placed in all levels of pressure points. At this time, attention was then directed to the right lower extremity where the trauma external fixator was placed. At this time, all of the bars and all of the pins associated with this frame were removed in their entirety. Next, the right foot, ankle, leg were then scrubbed, prepped, draped in the usual sterile manner. Attention was then directed to the lateral aspect of the right calcaneus in the area where the external fixator pin was evacuated. At this time, a curette was used to remove any fibrous tissue contained within the external fixator pin site. This was then irrigated with copious amounts normal sterile saline. The skin of this was then reapproximated and coapted utilizing 2-0 nylon in a simple interrupted and horizontal mattress fashion. Attention was then directed to the medial aspect of the right calcaneus in the area where the external fixator pin was vacated. A curette was then used to remove any fibrous tissue contained within this site. The site was then irrigated with copious amounts of normal sterile saline. The skin of this was then reapproximated and coapted utilizing 2-0 nylon in a simple interrupted and horizontal mattress fashion. Attention was then directed to the medial aspect of the right midfoot in the area where the external fixator pin was evacuated. At this time, a curette was used to remove any fibrous tissue contained within the external fixator pin site. This was then irrigated with copious amounts normal sterile saline. The skin of this was then reapproximated and coapted utilizing 2-0 nylon in a simple interrupted and horizontal mattress fashion. It was determined at this time that the 2 tibial half pins will be removed and replaced with ROTHMAN coated half pins. The right foot, ankle, leg was then scrubbed, prepped, draped in the usual manner once again. Attention was then directed to the midshaft of the tibia at the site of where the previous external fixator pins were then vacated. A curette was used to remove any fibrous tissue contained within this area. Next, the 180 mm circular ring was then placed over the foot and ankle around the midportion of the calf. At this time, the 6-0 ROTHMAN-coated half pin was then placed from anterior to posterior into the tibia into of these holes, totaling 2 half pins. Care was taken make sure that a least 2 finger breaths between the ring of the external fixator and the soft tissue was had throughout the entire circumference of the leg. Once these were fully inserted, radiograph evaluation was then performed. They were bicortical at this time, and no loosening was noted. Next, the 2 mm K wire was driven from anterior lateral to posterior medial aspect through the tibia and connected to this full circular ring. This was then tensioned appropriately. This ring then connected to the 2 tibial half pins. Next, the [place] small hexapod struts were then attached to the proximal tibial ring in standard fashion. At this time, a 150 mm distal ring was placed over the foot and ankle surrounding the ankle at this time. Care was taken make sure that this ring was proximal to the ankle joint and would not interfere with the ankle joint itself. The hexapod struts were then tightened on the proximal ring. They were then placed on the distal ring in appropriate position and tightened as well. Care was taken make sure that a least 2 finger breaths between the ring of the external fixator and the soft tissue was had throughout the entire circumference of the ankle. Next, a 2 mm K wire was driven from anterior medial to posterior lateral through the tibia and into the fibula in a fashion similar to that of the syndesmosis. This was then attached to the tibial ring. Next, a second 2 mm K wire was driven from medial to lateral thro ugh the thickest portion of the tibia at the level proximal to the ankle joint. Care was taken to make sure that this wire was approximately 60 degrees from the syndesmosis wire. Once this wire was fully inserted, tensioning of both K wires of the distal ring was performed appropriately on opposing sides of each other. Next, live radiographic evaluation was used to distract the distal ring from the proximal ring and to reduce the tibial fractures and fibular fracture at this time. Once adequate reduction was achieved, all the hexapod struts were tightened. Next, a bone clamp was used to reduce the lateral and medial cortical fracture pieces. Once this was reduced, this was held in place via a size 5-0 30 mm ROTHMAN-coated half pin. The temporary fixation was then removed. Radiograph evaluation was then performed. The half apin was noted to hold these fractures in the reduced position. This half pin was then attached to the distal ring via a community service technician and jean. Radiograph evaluation was then performed. The fractures of the tibia fibula were noted to be reduced from preoperative assessment, at this time I believe that adequate alignment was achieved. The right ankle was placed through range of motion and there was adequate range of motion of the right ankle joint. Care was taken make sure that all half pins and wires were fixated to the rings and that all of these bolts were tightened. The temporary fixation surgical sites were reapproximated coapted utilizing 2-0 nylon. All half pin and the K wire insertion and exit sites were dressed with Xeroform. All of the suture sites were dressed with Betadine soaked gauze. All pin sites were then dressed with 4 x 4's. Kerlix was used in between the ring and the soft tissue to aid in reduction of edema. The external fixator was then wrapped with a Kerlix. The right foot ankle and leg were then wrapped with an Bob bandage. Neurovascular status was assessed at the end of application and deemed intact to the right lower extremity. The patient tolerated anesthesia procedure well and was transported to the PACU with vital signs stable and neurovascular status intact to the right lower extremity. After period of postoperative monitoring, patient will be made for observation. Patient will be transferred to the [facility] tomorrow, August 13. At this time, patient is to remain nonweightbearing to the right lower extremity. Patient is to continue elevating above the level of heart with no pressure on the right heel. Patient is to keep the dressing to the right lower extremity clean, dry, intact. Patient will continue medications as instructed. - Admit VTE Documentation VTE Present on Admission: No VTE Mechan Device Prophylaxis: SCD's VTE Pharm Prophylaxis ordered?: Yes
--- NOTE | 2019-08-13 12:31 | RAD_ITS ---
STUDY: X-RAY - RIGHT TIBIA AND FIBULA REASON FOR EXAM: Female, 58 years old. POST OP PORTABLE, RIGHT ANKLE AND RIGHT TIB FIB. TECHNIQUE: 2 view(s) of the tibia and fibula were obtained. COMPARISON: Comparison is made with prior study done earlier in the day. FINDINGS: External fixating device. Satisfactory reduction of distal tibial fracture. RAD/Tibia & Fibula 2 Views IMPRESSION: External fixator device for stabilization of the distal tibial fracture. Electronically Signed: Julio César Prado, at 13:54 EDT , Service support ,
[2019-08-13 12:41] LABS: Bedside Glucose 307 mg/dL (70-110)
[2019-08-13] MEDS: Insulin Lispro 100 UNIT/ML INSULN.PEN 6 UNIT SC (12:42)
--- NOTE | 2019-08-13 12:55 | RAD_ITS ---
STUDY: X-RAY - RIGHT ANKLE REASON FOR EXAM: Female, 58 years old. POST OP PORTABLE, RIGHT ANKLE AND RIGHT TIB FIB. TECHNIQUE: 2 view(s) of the ankle. COMPARISON: Comparison is made with prior study done earlier today. FINDINGS: External fixator device for reduction of the distal tibial fracture. There is good alignment. RAD/Ankle min 3 Views IMPRESSION: External fixator device in place for reduction of the distal tibial fracture. There is good alignment. Electronically Signed: Julio César Prado, at 13:56 EDT , Service support ,
[2019-08-13 14:20] LABS: Bedside Glucose 292 mg/dL (70-110)
--- NOTE | 2019-08-13 14:50 | HP.PCM_ITS ---
Problem List (1) Fracture of right tibia and fibula Status: Acute Qualifiers: Encounter type: subsequent encounter Fracture type: closed Fracture healing: with routine healing Qualified Code(s): S82.201D - Unspecified fra cture of shaft of right tibia, subsequent encounter for closed fracture with routine healing; S82.401D - Unspecified fracture of shaft of right fibula, subsequent encounter for closed fracture with routine healing (2) Hypertension Status: Chronic (3) Diabetic polyneuropathy Status: Chronic (4) Charcot foot due to diabetes mellitus Status: Acute (5) Morbid obesity Status: Chronic History of Present Illness Date of Admission: 08/13/19 Chief Complaint: Pain in right leg due to tibia/fibula fractures The patient is a 58 year old F with multiple medical problems who suffered a right tibia and fibula fracture on July 25, 2019. Patient was admitted to the [facility] for this injury and for pain. I was then consulted. On that day, I performed a closed reduction with application of an multiplane trauma frame to the right lower extremity. Patient was subsequently discharged and sent to TCU for further care. Patient has been following up with me postoperatively. Multiple discussions were had with the patient about the next step for surgery. Due to the patient's multiple comorbidities, including diabetes with a recent hemoglobin A1c of 10.7, Charcot disease of her right foot, history of smoking, and peripheral vascular disease, I recommended application of a multiplane circular ring external fixator with a closed reduct ion of the tibia and fibula fractures. The risks, benefits, possible outcomes, possible complications of the procedure were discussed with the patient, including but not limited to infection, decreased function of limb, DVT, loss of limb, loss of life. All the patient's questions were answered to her satisfaction and all of her concerns were addressed. No guarantees were made as to the outcome of the procedure. Patient understood all aspects of the procedure, and was agreeable to the surgical intervention. This procedure was performed today, August 12. Patient was admitted for observation and for pain control. While the patient was in the TCU prior to surgical intervention, arrangements were made for her to be transferred to the [facility] for subacute rehab. This is to take place August 13. [] Past Medical History Past Medical History (Chronic Problems): Chronic Problems Hypertension (Chronic) Chronic pain (Chronic) Opioid dependence (Chronic) Body mass index (BMI) 40.0-44.9, adult (Chronic) Tobacco abuse (Chronic) Diabetic polyneuropathy (Chronic) Hypokalemia (Chronic) Anxiety (Chronic) Decubitus ulcer of left heel, stage 2 (Chronic) Tobacco dependence (Chronic) Peripheral autonomic neuropathy due to diabetes mellitus (Chronic) Diabetes (Chronic) Morbid obesity (Chronic) History of DVT (deep vein thrombosis) (Chronic) Obesity (Chronic) Hypothyroidism (Chronic) HLD (hyperlipidemia) (Chronic) Gout (Chronic) Gastroesophageal reflux disease (Chronic) DM2 (diabetes mellitus, type 2) (Chronic) COLD (chronic obstructive lung disease) (Chronic) Allergies morphine Allergy (Intermediate, Verified 08/13/19 06:18) Hives Home Medications: Ambulatory Orders Medication Instructions Recorded [place] Thyroid 180 mg PO DAILY 07/01/13 Carafate 1 gm PO 4X/DAY 07/01/13 Meloxicam 15 mg PO DAILY 07/01/13 Oxycontin 80 mg PO TID 07/01/13 RX: Allopurinol [Zyloprim] 100 mg PO DAILY 07/01/13 RX: Furosemide [Lasix] 40 mg PO BID 07/01/13 RX: Oxycodone [Oxyir] 15 mg PO TID 07/01/13 RX: Potassium Chloride [K-Dur] 40 meq PO DAILY 07/01/13 Crestor 10 mg PO DAILY 10/10/15 RX: Lorazepam [Ativan] 1 mg PO TID 10/10/15 RX: Albuterol Inhaler [Ventolin 1 puff INHALATION Q4H PRN PRN 06/24/19 Hfa] RX: Omeprazole [Prilosec] 10 mg PO DAILY 07/25/19 RX: Nutritional Supplement [Rashard 1 packet PO BIDCM packet 07/28/19 - [facility]] RX: Nystatin Powder [Mycostatin 1 applic TOPICAL BID bottle 07/28/19 Powder] RX: Polyethylene Glycol 3350 17 gm PO BID packet 07/28/19 [Miralax] RX: Bisacodyl [Dulcolax] 10 mg PO DAILY PRN tab 08/07/19 RX: Doxycycline 100 mg PO BID cap 08/07/19 RX: Emollient Combination No.72 1 applic TOPICAL BID lotion 08/07/19 [Eucerin Intensive Repair] RX: Gabapentin [Neurontin] 300 mg PO 4X/DAY cap 08/07/19 RX: Insulin Glargine [Lantus 30 units SUBCUT BID pen 08/07/19 SoloStar Pen] RX: Insulin Lispro [Humalog 20 unit SUBCUT TIDAC insuln.pen 08/07/19 KwikPen] RX: Linagliptin [Tradjenta] 5 mg PO DAILYCM tab 08/07/19 RX: Menthol/Lanolin/Calamine/Znox 1 applic TOPICAL 4X/DAY tube 08/07/19 [Calmoseptine Ointment] RX: Senna/Docusate Sodium 2 tab PO BID tab 08/07/19 [Senokot-S] RX: metFORMIN HCl [Glucophage] 1,000 mg PO BIDCM tab 08/07/19 Surgical History: - - section, right tibia/fibula closed reduction with application of external fixator (07/25/2019, 08/13/2019) Psychiatric History: Anxiety TRANSITION LEAD History: No pertinent TRANSITION LEAD history Lives: Alone Smoking Status: Former smoker - Quit on 07/25/2019 Tobacco Use: Cigarettes Alcohol: Occasional Drugs: None - *Family History Paternal History Items: Heart Disease - Patient's father from a heart condition Maternal History Items: - - Patient does not know maternal medical history Review of Systems Constitutional: Denies: Anorexia, Chills, Fever, Night Sweats, Malaise, Weakness Eyes: Denies: Blurred vision, Cataracts, Conjunctivae Inflammation HEENT: Denies: Difficulty Hearing, Difficulty Swallowing, Dysphasia Cardiovascular: Denies: Chest Pain, Claudication, Chest Pressure, Chest Tightness Respiratory: Denies: Cough, Shortness of Breath, Shortness of breath at rest, Shortness of breath upon exertion Gastrointestinal: Denies: Abdominal Pain, Constipation, Diarrhea, Dyspepsia Genitourinary: Denies: Dysuria, Frequency, Hematuria, Hesitancy Musculoskeletal: Reports: Foot Pain - admits to right foot and ankle pain. Skin: Reports: Wounds - previous wound of left heel that has healed Neurological: Denies: Balance problems, Blurred vision, Double vision Psychiatric: Reports: Anxiety Endocrine: Reports: Heat/ Cold Intolerance, Polydipsia, Polyuria VTE Information - Inpt Only VTE Present on Admission: No VTE Mechan Device Prophylaxis: SCD's VTE Pharm Prophylaxis ordered?: Yes Subjective: Patient seen at bedside postoperatively. Patient admits to no pain of the right lower extremity at this time. Patient admits to drowsiness, likely due from the anesthesia. Patient denies any acute complaints at this time. Currently, patient denies fever, chills, nausea, vomiting, shortness of breath, chest pain. Patient denies right calf pain patient admits to mild pain in the right ankle. Objective: Lower extremity physical exam: External fixator is intact at this time the right lower extremity with no evidence of loosening or failure. Dressing on the right lower extremity is clean, dry, intact with no evidence of strikethrough noted. Vascular status assessed to the digits of the right foot and deemed intact. Neurological examination of the right foot is absent due to the patient's diabetes with polyneuropathy. Tibia appears in a rectus position with the ankle underneath the tibia at this time. - Physical Exam Vitals/I&O's: Vital Signs Temp Pulse Resp BP Pulse Ox 98.1 F 83 18 120/73 96 08/13/19 14:24 08/13/19 14:24 08/13/19 14:24 08/13/19 14:24 08/13/19 14:24 Oxygen Delivery Method Room Air Weight: 113.4 kg Body Mass Index (BMI) 42.9 Intake and Output for Last 24 Hours 08/11/19 08/12/19 08/13/19 23:59 23:59 23:59 Intake Total 910 / 910 Output Total 75 / 75 Balance 835 / 835 General: Alert, Oriented x3, Cooperative, No apparent distress HEENT: Atraumatic, PERRLA Oral: Moist Mucosa, No Gingival or Mucosal Lesions/ Ulcerations Neck: Supple, No JVD Lungs: Clear to auscultation, Normal air movement, No rhonchi, No wheeze Cardiovascular: Regular rate, Regular Rhythm, Normal S1, Normal S2 Abdomen: Bowel Sounds Present, Soft, Non Tender, Non-Distended, Obese Extremities: No clubbing, No cyanosis, Diminished Peripheral Pulses Skin: Ulcer/ Wound - Of left heel appears healed at this time Musculoskeletal: No Tenderness to Palpation of Joints or Extremities, No Muscle Wasting Neurological: - - Light touch sensation to the right lower extremity is absent Psych/Mental Status: Alert and oriented to time, place, person, mood and affect Laboratory Results 08/13/19 06:29: POC Glucose 191 H 08/13/19 12:36: POC Glucose 307 H 08/13/19 13:57: POC Glucose 292 H STUDY: X-RAY - RIGHT ANKLE REASON FOR EXAM: Female, 58 years old. POST OP PORTABLE, RIGHT ANKLE AND RIGHT TIB FIB. TECHNIQUE: 2 view(s) of the ankle. COMPARISON: Comparison is made with prior study done earlier today. FINDINGS: External fixator device for reduction of the distal tibial fracture. There is good alignment. RAD/Ankle min 3 Views IMPRESSION: External fixator device in place for reduction of the distal tibial fracture. There is good alignment. Electronically Signed: Julio César Prado at 13:56 EDT , Service support , STUDY: X-RAY - RIGHT TIBIA AND FIBULA REASON FOR EXAM: Female, 58 years old. POST OP PORTABLE, RIGHT ANKLE AND RIGHT TIB FIB. TECHNIQUE: 2 view(s) of the tibia and fibula were obtained. COMPARISON: Comparison is made with prior study done earlier in the day. FINDINGS: External fixating device. Satisfactory reduction of distal tibial fracture. RAD/Tibia & Fibula 2 Views IMPRESSION: External fixator device for stabilization of the distal tibial fracture. Electronically Signed: Julio César Prado at 13:54 EDT , Service support , Current Medications Albuterol Sulfate (Ventolin Aerosols) 2.5 mg INHALATION Q4H PRN PRN PRN Reason: SOB/DYSPNEA Allopurinol (Zyloprim) 100 mg PO DAILY [facility] Atorvastatin Calcium (Lipitor) 20 mg PO QHS [facility] Bisacodyl (Dulcolax) 10 mg PO DAILY PRN PRN Reason: Constipation Calamine/Phenol (Calmoseptine Ointment) 1 applic TOPICAL 4X/DAY [facility]; Protocol Doxycycline Monohydrate (Doxycycline) 100 mg PO BID [facility] Emollient Ointment (Eucerin Intensive Repair) 1 applic TOPICAL BID [facility]; Protocol Enoxaparin Sodium (Lovenox) 40 mg SC DAILY@0600 [facility] Furosemide (Lasix) 40 mg PO BIDLX [facility] Gabapentin (Neurontin) 300 mg PO 4X/DAY [facility] Lactated Ringer's () 1,000 mls @ 100 mls/hr IV .Q10H [facility] Last Admin: 08/13/19 14:38 Dose: 100 mls/hr Documented by: Cefazolin Sodium 2 gm/ Sodium (Chloride) 110 mls @ 150 mls/hr IV Q8 [facility] Insulin Glargine (Lantus (Bkc)) 30 units SC BID [facility] Insulin Human Lispro (Humalog Kwikpen (Bkc)) 20 unit SC TIDAC [facility] Linagliptin (Tradjenta) 5 mg PO DAILYCM [facility] Lorazepam (Ativan) 1 mg PO TID [facility] Meloxicam (Mobic) 15 mg PO DAILY [facility] Metformin HCl (Glucophage) 1,000 mg PO BIDCM [facility] Nutritional Formula (Rashard - [place] Flavor) 1 packet PO BIDCM [facility] Nystatin (Mycostatin Powder) 1 applic TOPICAL BID [facility]; Protocol Oxycodone HCl (Oxyir) 15 mg PO TID [facility] Oxycodone HCl (Oxycontin) 80 mg PO TID [facility] Pantoprazole Sodium (Protonix) 20 mg PO DAILY [facility] Polyethylene Glycol (Miralax) 17 gm PO BID [facility] Potassium [facility] ([facility]) [facility] Senna/Docusate Sodium (Senokot-S, Talya-Colace) 2 tablet PO BID [facility] Sodium Chloride () 10 - 40 ml IV UD PRN PRN Reason: SALINE FLUSH Sucralfate (Carafate) 1 gm PO 1HR_ACHS [facility] Thyroid ([place] Thyroid) 180 mg PO DAILY [facility] Assessment/Plan All Active Problems Debility (Acute) Fracture of right tibia and fibula (Acute) Charcot foot due to diabetes mellitus (Acute) Blister of left heel (Acute) Tibia/fibula fracture (Acute) Assessment: This a 58-year-old female with multiple medical problems, including but not limited to diabetes mellitus, peripheral vascular disease, chronic pain, hypertension, morbid obesity, who was admitted today status post right closed reduction of tibia and fibula fractures with application of multiplane external fixator. Plan: Patient chart reviewed and patient evaluated. Full discussion had with the patient postoperatively about her intervention. At this time, I believe that we obtain good alignment with the external fixator. I like the patient to remain nonweightbearing to the right lower extremity at this time. I like the patient to elevate her right foot above the level of heart at all times, with the exception of bathroom privileges. She is to keep pressure off her right heel at this time. We will continue the patient's home medication regiment for her multiple medical problems. Patient already has a bed at the [facility]. We will likely transfer patient tomorrow, August 13. Pain medication ordered for pain control at this time. Antibiotics ordered for prophylaxis.
--- NOTE | 2019-08-13 14:57 | CASEMGMT ---
Addendum entered by Duyen Quarles 08/13/19 15:53: SW received message from [facility] at [facility] stating she doesn't necessarily need PT/OT if physician didn't order any, just need updated clinicals. SW faxed updated clinicals. Original Note: Social Work Note SW received handoff from TCU GALLO that plan is for pt to discharge to [facility] tomorrow. SW spoke with physician, updated physician that transfer to extended care facility, signed medication list and any scripts will need to be signed. SW placed transfer to extended care facility on pt's chart. SW was asked if PT/OT will need to see pt as it hasn't been ordered yet. GALLO placed a call to Krys at [facility] and left message asking if she will need PT/OT. SW waiting for call back. Plan: [facility] tomorrow Duyen Quarles DRY SANDER, CHILDREN'S NURSERY ASSISTANT
[2019-08-13] MEDS: Cefazolin 2 GM in 0.9% Normal Saline 100 ML IV ×2 (15:08→21:22)
[2019-08-13] MEDS: Sucralfate 1 GM Tablet PO ×2 (15:47→22:36)
[2019-08-13] MEDS: oxyCODONE 5 MG Tablet 15 MG PO (15:47)
[2019-08-13] MEDS: Gabapentin 300 MG Capsule PO ×3 (15:47→22:47)
[2019-08-13] MEDS: LORazepam 1 MG Tablet PO ×2 (15:47→22:33)
[2019-08-13] MEDS: Insulin Lispro 100 UNIT/ML INSULN.PEN 20 UNIT SC (16:43)
[2019-08-13] MEDS: metFORMIN HCl 1,000 MG Tablet 1000 MG PO (16:44)
[2019-08-13] MEDS: Menthol/Lanolin/Calamine/Znox 113 GM Tube 1 APPLIC TOPICAL ×2 (16:45→22:44)
[2019-08-13 16:50] LABS: Bedside Glucose 240 mg/dL (70-110)
--- NOTE | 2019-08-13 17:31 | NURSING ---
pt home meds counted and bagged in valuable bag, locked in narc veterinary epidemiologist med room.
[2019-08-13] MEDS: Polyethylene Glycol 3350 17 GM PACKET PO (22:36)
[2019-08-13] MEDS: Doxycycline 100 MG CAPSULE PO (22:36)
[2019-08-13] MEDS: Atorvastatin Calcium 20 MG Tablet PO (22:36)
[2019-08-13] MEDS: Nystatin Powder 15gm Bottle 1 APPLIC TOPICAL (22:44)
[2019-08-13] MEDS: Senna/Docusate Sodium 1 Tablet 2 TABLET PO (22:47)
[2019-08-13 23:06] LABS: Bedside Glucose 237 mg/dL (70-110)
[2019-08-14 00:14] VITALS: BP 117/72; PULSE 93; RESP 18; TEMP 36.6; O2SAT 96
[2019-08-14] MEDS: oxyCODONE 5 MG Tablet 15 MG PO ×2 (00:25→08:09)
[2019-08-14] MEDS: Lactated Ringers 1,000 ML 100 ML IV (01:40)
[2019-08-14 06:48] VITALS: BP 120/67; PULSE 96; RESP 18; TEMP 36.6; O2SAT 98
[2019-08-14] MEDS: Cefazolin 2 GM in 0.9% Normal Saline 100 ML IV (06:54)
[2019-08-14] MEDS: LORazepam 1 MG Tablet PO (06:54)
[2019-08-14] MEDS: Sucralfate 1 GM Tablet PO (06:57)
[2019-08-14] MEDS: Enoxaparin 40 MG/0.4 ML Syringe SC (07:24)
--- NOTE | 2019-08-14 07:29 | DS.PCM_ITS ---
Discharge Date and Diagnosis Date of Admission: 08/13/19 Date of Discharge: 08/14/19 - Primary Discharge Diagnosis #1. Right lower extremity tibia and fibula fractures, displaced, closed - Secondary Discharge Diagnosis Chronic Problems Hypertension (Chronic) Chronic pain (Chronic) Opioid dependence (Chronic) Body mass index (BMI) 40.0-44.9, adult (Chronic) Tobacco abuse (Chronic) Diabetic polyneuropathy (Chronic) Hypokalemia (Chronic) Anxiety (Chronic) Decubitus ulcer of left heel, stage 2 (Chronic) Tobacco dependence (Chronic) Peripheral autonomic neuropathy due to diabetes mellitus (Chronic) Diabetes (Chronic) Morbid obesity (Chronic) History of DVT (deep vein thrombosis) (Chronic) Obesity (Chronic) Hypothyroidism (Chronic) HLD (hyperlipidemia) (Chronic) Gout (Chronic) Gastroesophageal reflux disease (Chronic) DM2 (diabetes mellitus, type 2) (Chronic) COLD (chronic obstructive lung disease) (Chronic) Hospital Course and Treatment Imaging Results: STUDY: X-RAY - RIGHT ANKLE REASON FOR EXAM: Female, 58 years old. POST OP PORTABLE, RIGHT ANKLE AND RIGHT TIB FIB. TECHNIQUE: 2 view(s) of the ankle. COMPARISON: Comparison is made with prior study done earlier today. FINDINGS: External fixator device for reduction of the distal tibial fracture. There is good alignment. RAD/Ankle min 3 Views IMPRESSION: External fixator device in place for reduction of the distal tibial fracture. There is good alignment. Electronically Signed: Julio César Prado, at 13:56 EDT , Service support , STUDY: X-RAY - RIGHT TIBIA AND FIBULA REASON FOR EXAM: Female, 58 years old. POST OP PORTABLE, RIGHT ANKLE AND RIGHT TIB FIB. TECHNIQUE: 2 view(s) of the tibia and fibula were obtained. COMPARISON: Comparison is made with prior study done earlier in the day. FINDINGS: External fixating device. Satisfactory reduction of distal tibial fracture. RAD/Tibia & Fibula 2 Views IMPRESSION: External fixator device for stabilization of the distal tibial fracture. Electronically Signed: Julio César Johan, at 13:54 EDT , Service support , Operations: None, - - 1. Application of external fixator, right foot, ankle, leg. 2. Closed reduction of pilon fracture, right tibia. 3. Closed reduction of right fibula fracture Summary of Care Provided: The patient is a 58 year old F with multiple medical problems who suffered a fall on July 25, 2019. Patient suffered a right tibial pilon fracture and right fibular fracture. Patient was seen in the [facility] emergency department, and was subsequently admitted for further evaluation. I was then consulted at that time. At that time, a trauma external fixator was placed with close reduction. Due to the patient's multiple comorbidities, I recommended removal of the current external fixator with application of a more stable ring multiplane external fixator. The risks and benefits were discussed with the patient about this operation. Patient was agreeable. Patient was transferred to the transitional care unit after the initial surgery. Surgery was performed on August 14, 2019. Patient seen today with no acute complaints and is ready for transfer to SNF. Patient will now be transitioned to the [facility]. [] Subjective: Patient seen at bedside resting comfortably. Patient denies any acute overnight events at this time. Patient admits to minimal pain of her right ankle, well controlled at this time. Currently, patient denies fever, chills, nausea, vomiting, shortness of breath, chest pain. Patient denies right calf pain. Objective: Lower extremity physical exam: Dressing is clean, dry, intact to the right lower extremity with no evidence of strikethrough noted. Ankle range of motion is intact to the right ankle at this time. Capillary fill time is intact and 3 seconds to the right lower extremity. Gross and protective sensation are absent to the right foot to the patient's history of diabetes and polyneuropathy. Tibia appears in a rectus position at this time and the foot and ankle appear underneath the tibia. - Physical Exam Vitals/I&O's: Vital Signs Temp Pulse Resp BP Pulse Ox 97.9 F 96 18 120/67 98 08/14/19 06:48 08/14/19 06:48 08/14/19 06:48 08/14/19 06:48 08/14/19 06:48 Oxygen Delivery Method Room Air Weight: 113.4 kg Body Mass Index (BMI) 42.9 Intake and Output for Last 24 Hours 08/12/19 08/13/19 08/14/19 23:59 23:59 23:59 Intake Total 2581.67 / 2581.67 1381.67 / 1381.67 Output Total 875 / 875 900 / 900 Balance 1706.67 / 1706.67 481.67 / 481.67 General: Alert, Oriented x3, Cooperative, No apparent distress HEENT: Atraumatic, PERRLA Oral: Moist Mucosa, No Gingival or Mucosal Lesions/ Ulcerations Neck: Supple, No JVD Lungs: Clear to auscultation, Normal air movement, No rhonchi, No wheeze, No ral es Cardiovascular: Regular rate, Regular Rhythm, Normal S1, Normal S2 Abdomen: Bowel Sounds Present, Soft, Non Tender, Non-Distended, Obese Extremities: Capillary Refill Less than 3 Seconds, No Calf Tenderness, Diminished Peripheral Pulses Skin: No rashes, No breakdown Musculoskeletal: Tenderness - Upon palpation of the right ankle. No other areas of tenderness noted. Neurological: - - Sensation exam to light touch and pain absent to the right f oot. Psych/Mental Status: Alert and oriented to time, place, person, mood and affect Laboratory Results 08/13/19 12:36: POC Glucose 307 H 08/13/19 13:57: POC Glucose 292 H 08/13/19 16:39: POC Glucose 240 H 08/13/19 22:40: POC Glucose 237 H Current Medications Albuterol Sulfate (Ventolin Aerosols) 2.5 mg INHALATION Q4H PRN PRN PRN Reason: SOB/DYSPNEA Allopurinol (Zyloprim) 100 mg PO DAILY [place] Atorvastatin Calcium (Lipitor) 20 mg PO QHS [facility] Last Admin: 08/13/19 22:36 Dose: 20 mg Documented by: Bisacodyl (Dulcolax) 10 mg PO DAILY PRN PRN Reason: Constipation Calamine/Phenol (Calmoseptine Ointment) 1 applic TOPICAL 4X/DAY [facility]; Protocol Last Admin: 08/13/19 22:44 Dose: 1 applicatio Documented by: Doxycycline Monohydrate (Doxycycline) 100 mg PO BID [facility] Last Admin: 08/13/19 22:36 Dose: 100 mg Documented by: Emollient Ointment (Eucerin Intensive Repair) 1 applic TOPICAL BID [facility]; Protocol Last Admin: 08/13/19 22:42 Dose: 1 applicatio Documented by: Enoxaparin Sodium (Lovenox) 40 mg SC DAILY@0600 [facility] Last Admin: 08/14/19 07:24 Dose: 40 mg Documented by: Furosemide (Lasix) 40 mg PO BIDLX [facility] Last Admin: 08/13/19 16:45 Dose: Not Given Documented by: Gabapentin (Neurontin) 300 mg PO 4X/DAY [facility] Last Admin: 08/13/19 22:47 Dose: 300 mg Documented by: Lactated Ringer's () 1,000 mls @ 100 mls/hr IV .Q10H [facility] Last Infusion: 08/14/19 06:55 Dose: 0 mls/hr Documented by: Cefazolin Sodium 2 gm/ Sodium (Chloride) 110 mls @ 150 mls/hr IV Q8 [facility] Last Admin: 08/14/19 06:54 Dose: 150 mls/hr Documented by: Insulin Glargine (Lantus (Bkc)) 30 units SC BID [facility] Last Admin: 08/13/19 22:41 Dose: 30 u Documented by: Insulin Human Lispro (Humalog Kwikpen (Bkc)) 20 unit SC TIDAC [facility] Last Admin: 08/13/19 16:43 Dose: 20 units Documented by: [facility]) [facility] Lorazepam (Ativan) 1 mg PO TID [facility] Last Admin: 08/14/19 06:54 Dose: 1 mg Documented by: Meloxicam (Mobic) 15 mg PO DAILY [facility] Metformin HCl (Glucophage) 1,000 mg PO BIDCM [facility] Last Admin: 08/13/19 16:44 Dose: 1,000 mg Documented by: Nutritional Formula (Rashard - Letcher Flavor) 1 packet PO BIDCM [facility] Last Admin: 08/13/19 16:44 Dose: 1 packet Documented by: Nystatin (Mycostatin Powder) 1 applic TOPICAL BID [facility]; Protocol Last Admin: 08/13/19 22:44 Dose: 1 applicatio Documented by: Oxycodone HCl (Oxyir) 15 mg PO TID@0000,0800,1600 [facility] Last Admin: 08/14/19 00:25 Dose: 15 mg Documented by: Oxycodone HCl (Oxycontin) 80 mg PO TID@0000,0800,1600 [facility] Last Admin: 08/14/19 00:25 Dose: 80 mg Documented by: Pantoprazole Sodium (Protonix) 20 mg PO DAILY [facility] Polyethylene Glycol (Miralax) 17 gm PO BID [facility] Last Admin: 08/13/19 22:36 Dose: 17 gm Documented by: Potassium Chloride (K-Dur) 40 meq [facility] Senna/Docusate Sodium (Senokot-S, Talya-Colace) 2 tablet PO BID [facility] Last Admin: 08/13/19 22:47 Dose: 2 tablet Documented by: Sodium Chloride () 10 - 40 ml IV UD PRN PRN Reason: SALINE FLUSH Sucralfate (Carafate) 1 gm PO 1HR_ACHS [facility] Last Admin: 08/14/19 06:57 Dose: 1 gm Documented by: Thyroid ([place] Thyroid) 180 mg PO DAILY [facility] Discharge Diet: 1800 Calorie Control Diet Discharge Activity: May Not Drive, May Not Shower, Use Walker, Use Crutches Weight Bearing Status: No weight bearing - to right leg Keep extremity elevated above heart level: Right Leg Additional Activity Instructions:: 1. Keep dressing clean, dry, intact to the right lower extremity at this time until follow-up appointment with Dr. Sue. Do not get dressing wet. Reinforce dressing as necessary. 2. Ice around right knee 20 minutes every hour as needed for pain. 3. Elevate right foot above level of heart as much as possible. Please make sure the right heel is hanging off pillows and that there is no pressure on the right heel. 4. Do not place any weight on the right foot at this time. Use assistive devices as needed. 5. I recommend no showering at this time. Sponge bath as needed. #6. Continue pain medication, antibiotics, and Lovenox as instructed Call your doctor if your incision/area has: Continuous Slow Oozing, Sudden Increased Bleeding, Increased Pain/ Swelling, Increased Redness Call your doctor if you observe: Fever of 101 or Higher, Coldness, Increased Pain, Inability to have a bowel movement, Shortness of breath, Chest pain, Increased palpitations (irregular heartbeat), Calf discomfort, Uncontrolled pain Cleanse incision/area with: Keep Dressing Clean & Dry Home Medications: Medications to take at Discharge Allopurinol [Zyloprim] 100 mg PO DAILY 07/01/13 Furosemide [Lasix] 40 mg PO DAILY 07/01/13 Meloxicam 15 mg PO DAILY 07/01/13 Oxycodone [Oxyir] 15 mg PO TID 07/01/13 Potassium Chloride [K-Dur] 20 meq PO DAILY 07/01/13 Lorazepam [Ativan] 1 mg PO TID PRN 10/10/15 Albuterol Inhaler [Ventolin Hfa] 1 puff INHALATION Q4H PRN PRN 06/24/19 Fluconazole 200 mg PO DAILY 08/13/19 Gabapentin [Neurontin] 400 mg PO BID PRN PRN 08/13/19 Insulin Detemir [Levemir] 60 unit SQ BID 08/13/19 Linaclotide [Linzess] 145 mcg PO BREAKFAST 08/13/19 Mometasone Furoate/Dimethicone [Quinixil 0.1% Cream-5% Crm Kit] 1 applic TP DAILY 08/13/19 Naloxone HCl [Narcan] 4 mg NS 08/13/19 Nystatin Powder [Mycostatin Powder] 1 applic TOPICAL TID 08/13/19 Omeprazole 40 mg PO DAILY 08/13/19 Oxycodone HCl [Oxycodone HCl ER] 80 mg PO Q8H 08/13/19 Rosuvastatin Calcium 20 mg PO DAILY 08/13/19 Sertraline HCl 50 mg PO DAILY 08/13/19 Sitagliptin Phos/Metformin HCl [Janumet 50-1,000 MG Tablet] 1 tab PO BIDCM 08/13/19 Sucralfate 1 gm PO 4X/DAY 08/13/19 Thyroid [[place] Thyroid] 15 mg PO DAILY 08/13/19 Umeclidinium Brm/Vilanterol Tr [Anoro Ellipta 62.5-25 Mcg INH] 1 dose INHALATION DAILY 08/13/19 Other Amb Orders: Thyroid Stim Hormone (TSH) Time Frame: 08/11/19, Facility: [facility], Location: Laboratory Primary Care Physician: Dennis Casas MD [Primary Care Provider] - Please Follow Up With: Andrzej Sue DPM When: August 17 at 10am in [place] office Disposition: Jail facility Minutes spent on discharge:: 30 Patient Condition:: Good Medical Necessity - Tobacco Use Smoking Status: Former smoker - Quit on 07/25/2019 Tobacco Use: Cigarettes Meaningful Use Info Meaningful Use Diagnoses (Choose all that apply): None applicable OBSV E&M: 63149 Observation care discharge
[2019-08-14 08:00] VITALS: O2SAT 100
[2019-08-14] MEDS: Thyroid 60 MG Tablet 180 MG PO (08:08)
[2019-08-14] MEDS: Gabapentin 300 MG Capsule PO (08:08)
[2019-08-14] MEDS: Pantoprazole Sodium 20 MG Tablet PO (08:08)
[2019-08-14] MEDS: Doxycycline 100 MG CAPSULE PO (08:08)
[2019-08-14] MEDS: Allopurinol 100 MG Tablet PO (08:08)
[2019-08-14] MEDS: Furosemide 40 MG Tablet PO (08:08)
[2019-08-14] MEDS: Senna/Docusate Sodium 1 Tablet 2 TABLET PO (08:08)
[2019-08-14] MEDS: LINAGLIPTIN 5 MG TABLET PO (08:09)
[2019-08-14] MEDS: metFORMIN HCl 1,000 MG Tablet 1000 MG PO (08:09)
[2019-08-14] MEDS: Meloxicam 15 MG Tablet PO (08:09)
[2019-08-14] MEDS: Insulin Lispro 100 UNIT/ML INSULN.PEN 20 UNIT SC (08:11)
[2019-08-14] MEDS: Nystatin Powder 15gm Bottle 1 APPLIC TOPICAL (08:12)
[2019-08-14] MEDS: Menthol/Lanolin/Calamine/Znox 113 GM Tube 1 APPLIC TOPICAL (08:13)
[2019-08-14 09:14] VITALS: BP 128/69; PULSE 98; RESP 18; TEMP 36.4; O2SAT 100
--- NOTE | 2019-08-14 09:46 | CASEMGMT ---
Social Work Pt ready for discharge today. PASSRR completed as well as COVID screen. Orders faxed to the [facility] and Transportation arranged with [facility] for a 1000 wheelchair pickup. SW met with pt and pt is agreeable to d/c today and permission given to notify dgt of dc plan. Call to pt dgt and VM left with d/c information. RN notified of d/c plans. Phone call to Cindi at the [facility] and informed of discharge plan and able to accept. ANDREWS Thorpe
[2019-08-14 10:05] VITALS: BP 128/69; PULSE 98; RESP 18; TEMP 36.4; O2SAT 100
--- NOTE | 2019-08-14 10:21 | PHA.DC.MR ---
Pharmacy Service has performed discharge medication reconciliation for this patient. The patient's discharge medication list was reviewed for discrepancies and discrepancies were resolved. Home Medications Allopurinol [Zyloprim] 100 mg PO DAILY 07/01/13 Furosemide [Lasix] 40 mg PO DAILY 07/01/13 Meloxicam 15 mg PO DAILY 07/01/13 Oxycodone [Oxyir] 15 mg PO TID 07/01/13 Potassium Chloride [K-Dur] 20 meq PO DAILY 07/01/13 Lorazepam [Ativan] 1 mg PO TID PRN 10/10/15 Albuterol Inhaler [Ventolin Hfa] 1 puff INHALATION Q4H PRN PRN 06/24/19 Fluconazole 200 mg PO DAILY 08/13/19 Gabapentin [Neurontin] 400 mg PO BID PRN PRN 08/13/19 Insulin Detemir [Levemir] 60 unit SQ BID 08/13/19 Linaclotide [Linzess] 145 mcg PO BREAKFAST 08/13/19 Mometasone Furoate/Dimethicone [Quinixil 0.1% Cream-5% Crm Kit] 1 applic TP DAILY 08/13/19 Naloxone HCl [Narcan] 4 mg NS 08/13/19 Nystatin Powder [Mycostatin Powder] 1 applic TOPICAL TID 08/13/19 Omeprazole 40 mg PO DAILY 08/13/19 Oxycodone HCl [Oxycodone HCl ER] 80 mg PO Q8H 08/13/19 Rosuvastatin Calcium 20 mg PO DAILY 08/13/19 Sertraline HCl 50 mg PO DAILY 08/13/19 Sitagliptin Phos/Metformin HCl [Janumet 50-1,000 MG Tablet] 1 tab PO BIDCM 08/13/19 Sucralfate 1 gm PO 4X/DAY 08/13/19 Thyroid [[place] Thyroid] 15 mg PO DAILY 08/13/19 Umeclidinium Brm/Vilanterol Tr [Anoro Ellipta 62.5-25 Mcg INH] 1 dose INHALATION DAILY 08/13/19
[2019-08-14 11:21] LABS: Bedside Glucose 187 mg/dL (70-110)
== END 2019-08-14 10:41 | disposition skilled nursing facility (03) ==
LOC: ACINP 12:35 → MS3 08-14 06:50
PROVIDERS: Admitting Provider Podiatrist Foot & Ankle Surgery; PCP Family Medicine; Referring Provider Podiatrist Foot & Ankle Surgery; Visit Provider Podiatrist Foot & Ankle Surgery
DX: S82.871A Displaced pilon fracture of right tibia, initial encounter for closed fracture (principal); S82.401A Unspecified fracture of shaft of right fibula, initial encounter for closed fracture; W19.XXXA Unspecified fall, initial encounter; Y93.9 Activity, unspecified; Y92.9 Unspecified place or not applicable; E11.42 Type 2 diabetes mellitus with diabetic polyneuropathy; E66.01 Morbid (severe) obesity due to excess calories; I10 Essential (primary) hypertension; E11.610 Type 2 diabetes mellitus with diabetic neuropathic arthropathy; E11.51 Type 2 diabetes mellitus with diabetic peripheral angiopathy without gangrene; E78.5 Hyperlipidemia, unspecified; F41.9 Anxiety disorder, unspecified; M10.9 Gout, unspecified; K21.9 Gastro-esophageal reflux disease without esophagitis; E03.9 Hypothyroidism, unspecified; J44.9 Chronic obstructive pulmonary disease, unspecified; F32.9 Major depressive disorder, single episode, unspecified; G89.29 Other chronic pain; Z79.899 Other long term (current) drug therapy; Z79.4 Long term (current) use of insulin; Z68.41 Body mass index [BMI] 40.0-44.9, adult; Z87.891 Personal history of nicotine dependence; Z86.718 Personal history of other venous thrombosis and embolism; Z79.891 Long term (current) use of opiate analgesic; G47.30 Sleep apnea, unspecified; M19.90 Unspecified osteoarthritis, unspecified site
CPT/HCPCS: 20692; 27752; 64445; 64447; 73590; 73610; 76000; 82962; 96361; 96365; 96366; 96372; 99218; C1713; J7120; G0378; G0379; J0330; J2405

== ENCOUNTER → 2019-10-29 07:53 | Outpatient (CLI) | payer MEDICARE, MEDICAID, SELFPAY ==
[2019-08-13 14:23] VITALS: BMI 42.9
--- NOTE | 2019-10-29 07:55 | CT_ITS ---
STUDY: CT - RIGHT TIBIA AND FIBULA REASON FOR EXAM: Female, 59 years old. PT STATED TIBIA FX WITH EXTERNAL FIXATION F/U, HX DIABETIC RADIATION DOSAGE (If Supplied By Facility): CTDIvol = ( ) mGy, DLP = ( ) mGycm TECHNIQUE: Transaxial CT imaging of the lower extremity was performed without. Sagittal and coronal images were reconstructed. Individualized dose optimization techniques were used for this CT. Metallic artifact limits visualization around the external fixating pins of the tibia. COMPARISON: X-ray of the right tibia and fibula dated AUG 13 2019. FINDINGS: External halo device with screws anchored in the middle and distal thirds of the tibia reidentified. No hardware associated abnormalities are seen. Reidentification of moderate focal thinning of the cortex in the distal one third aspect of the tibial shaft, at the site of the healed fracture deformity. No new areas of cortical thinning are present. The bony structures are demineralized. There are healed fracture deformities of the third, fourth, and fifth metatarsal bones. No acute fracture of the talus or calcaneus. A hardware tract tunde is seen in the posterior aspect of the calcaneus. No visualized occult fracture. The fibula is unremarkable. There is significant fatty atrophy of the muscles of the lower leg and foot. Normal tibiotalar articulation and ankle mortise. The visualized subtalar, talonavicular, calcaneocuboid and tarsal articulations are normal. Mild subcutaneous edema is present. CT/Extremity Lower without Contra IMPRESSION: 1. Healed fracture deformity of the distal one third tibial shaft. 2. Demineralization 3. Healed fracture deformities of the third through fifth metatarsal bones. Electronically Signed: Pradip Easley MD at 21:58 EDT , Service support ,
== END ==
PROVIDERS: PCP Family Medicine; Referring Provider Podiatrist Foot & Ankle Surgery; Visit Provider Podiatrist Foot & Ankle Surgery
DX: S82.871D Displaced pilon fracture of right tibia, subsequent encounter for closed fracture with routine healing (principal); S82.421D Displaced transverse fracture of shaft of right fibula, subsequent encounter for closed fracture with routine healing; S93.04XD Dislocation of right ankle joint, subsequent encounter
CPT/HCPCS: 73700

== ENCOUNTER 2019-11-05 08:07 | Day surgery (SDC) | payer MEDICARE, MEDICAID, SELFPAY ==
[2019-08-13 14:23] VITALS: BMI 42.9
[2019-11-05] VITALS (9 sets, daily range): BP systolic 94–131; BP diastolic 55–79; PULSE 68–92; RESP 16–18; TEMP 36.4–36.9; O2SAT 93–99; BMI 42.0
[2019-11-05 08:35] LABS: Bedside Glucose 265 mg/dL (70-110)
[2019-11-05] MEDS: Lactated Ringers 1,000 ML 100 ML IV (08:53)
[2019-11-05] MEDS: Cefazolin 2 GM in 0.9% Normal Saline 100 ML IV (12:04)
--- NOTE | 2019-11-05 12:50 | PCM.DC.ORTHO ---
Discharge Diet: 1800 Calorie Control Diet Discharge Activity: May Not Drive, May Not Shower, Use Walker, Use Crutches Weight Bearing Status: No weight bearing Keep extremity elevated above heart level: Right Leg Additional Activity Instructions:: 1. Keep dressing to right leg clean, dry, intact. Do not get dressing wet. Do not remove dressing. If get dressing wet, call office for further instruction. I recommend sponge bathing until further notice at this time. #2. Elevate right foot above level of heart as often as possible until follow-up appointment. 3. Ice around right knee 30 minutes every hour as needed for pain. 4. No walking or standing on right foot. Do not place weight on right foot. Use crutches/walker/knee scooter/wheelchair for assistance. 5. Begin taking Augmentin (antibiotic) today, November 05, 2019 as instructed. 6. Begin taking aspirin tomorrow, November 06, 2019 as instructed. 7. Begin taking pain medication today, November 05, 2019 as needed. 8. Follow-up as scheduled. If any questions or concerns, call Dr. Sue's office for further instruction. Call your doctor if your incision/area has: Sudden Increased Bleeding Call your doctor if you observe: Fever of 101 or Higher, Coldness, Increased Pain, Inability to have a bowel movement, Shortness of breath, Chest pain, Increased palpitations (irregular heartbeat), Calf discomfort, Uncontrolled pain Cleanse incision/area with: Keep Dressing Clean & Dry Allergies/Adverse Reactions: Allergies morphine Allergy (Intermediate, Verified 11/05/19 08:12) Hives Medications to take at Discharge Allopurinol [Zyloprim] 100 mg PO DAILY 07/01/13 Furosemide [Lasix] 40 mg PO DAILY 07/01/13 Meloxicam 15 mg PO DAILY 07/01/13 Oxycodone [Oxyir] 15 mg PO TID 07/01/13 Potassium Chloride [K-Dur] 40 meq PO DAILY 07/01/13 Albuterol Inhaler [Ventolin Hfa] 1 puff INHALATION Q4H PRN PRN 06/24/19 Gabapentin [Neurontin] 400 mg PO BID 08/13/19 Insulin Detemir [Levemir] 60 unit SQ BID 08/13/19 Naloxone HCl [Narcan] 4 mg NS PRN PRN 08/13/19 Omeprazole 40 mg PO DAILY 08/13/19 Oxycodone HCl [Oxycodone HCl ER] 80 mg PO Q8H 08/13/19 Sitagliptin Phos/Metformin HCl [Janumet 50-1,000 MG Tablet] 1 tab PO BIDCM 08/13/19 Sucralfate 1 gm PO 4X/DAY 08/13/19 Thyroid [[place] Thyroid] 15 mg PO DAILY 08/13/19 Amoxicillin/Potassium Clav [Augmentin 875-125 Tablet] 1 ea PO BID 10/30/19 Atorvastatin Calcium [Lipitor] 20 mg PO QHS 10/30/19 Enoxaparin Sodium [Lovenox] 40 mg SQ QHS 10/30/19 Gabapentin [Neurontin] 800 mg PO 4X/DAY 10/30/19 Magnesium Hydroxide [Milk Of Magnesia] 30 ml PO DAILY PRN PRN 10/30/19 Multivitamin with Minerals [Multiple Vitamin] 1 ea PO DAILY 10/30/19 Senna [Senokot] 2 tab PO BID 10/30/19 Primary Care Physician: Dennis aCsas MD [Primary Care Provider] - Test Results: Test results from this visit will be discussed in further detail at your follow-up appointment, if applicable. Please Follow Up With: Andrzej Sue DPM When: in 1 week as previously scheduled Proposed Discharge Date: 11/05/19
--- NOTE | 2019-11-05 12:54 | PCM.OPRPT ---
Problem List (1) Fracture of right tibia and fibula Status: Acute Qualifiers: Encounter type: subsequent encounter Fracture type: closed Fracture healing: with routine healing Qualified Code(s): S82.201D - Unspecified fracture of shaft of right tibia, subsequent encounter for closed fracture with routine healing; S82.401D - Unspecified fracture of shaft of right fibula, subsequent encounter for closed fracture with routine healing Report of Operation Date of Procedure: 11/05/19 Pre-Operative Diagnosis: 1. Right tibia fracture, closed, displaced. 2. Diabetes mellitus type 2 with polyneuropathy. 3. Peripheral vascular disease Post-Operative Diagnosis: Same as preoperative Surgery/Procedure Performed:: 1. Removal of external fixator, right foot, ankle, leg. Description of Surgical Findings:: Consistent with diagnosis. Complete removal of external fixator noted at this time. crane manager: Rocío Portillo Type of Anesthesia:: Spinal/Supplemental Anesthesiologist: Pascual Carrasco Special Medications: 2 grams of ancef given pre-operatively Estimated Blood Loss (mL): 15 Description of Procedure: Hemostasis: Anatomic dissection. Estimated blood loss: 50 mL Materials: #1. Size 2-0 Vicryl. 2. Size 3-0 Vicryl. 4. Size 3-0 nylon. Injectables: None Complications: None Condition: Stable Indications: Patient is a 59-year-old female with multiple medical problems including diabetes mellitus type 2 with polyneuropathy who suffered an injury to her right lower leg on July 25, 2019. After the injury, patient presented to the [facility] emergency department for further evaluation. She was diagnosed with a displaced tibia fracture at that time. She was admitted for further evaluation. I was then consulted on the patient, and due to the level of deformity that was present, placed a trauma external fixator to reduce her symptoms and to aid in her soft tissue healing. Patient continued to follow-up with me after discharge from the hospital. After reviewing the patient's multiple medical problems, I decided that the most appropriate next surgical step would be removal of the trauma frame external fixator with application of a circular ring external fixator. Patient was agreeable to this. This was performed on August 13, 2019. Patient has subsequently been following up with me twice a week in the office for pin care. Due to the healing that was present on radiographic evaluation, a CT scan was ordered to assess the healing of the tibia fracture. This was performed on October 29, 2019 at [facility]. The official report read that the fracture of the tibia was healed. After discussing this with the patient, I deemed it was appropriate this time to remove the external fixator. Furthermore, I discussed with the patient that I would recommend an Achilles tendon lengthening due to the level of Equinus that was present. I discussed the risks and benefits of the surgical interventions. Patient refused an Achilles tendon lengthening at that time, and was requesting to just have the removal of the external fixator performed. Surgery was planned for today, November 05, 2019. Operative report: Before the patient was brought to the operating room, the risks, benefits, possible outcomes, possible complications of the procedure were discussed with the patient. These include but not limited to delayed or nonhealing wounds, continued pain, infection, decreased function of limb, loss of limb, loss of life. I did discuss the Achilles tendon lengthening with the patient once again, stating that I would recommended to improve her outcome. All the patient questions were answered to her satisfaction and all of her concerns were addressed. No guarantees were made as to the outcome of the procedure. Patient understood all aspects of the procedure, and was agreeable to have the external fixator removed but refused the Achilles tendon lengthening at this time. Before the patient brought to the operating room, the anesthesiologist started spinal anesthesia on the patient. Patient was then brought to the operating room and placed on the operating table in supine position. IV sedation was then performed and anesthesia took control of the patient's sedation. Once adequate anesthesia was obtained, the right foot, ankle, leg were then scrubbed, prepped, draped in the usual sterile manner. At this time, the external fixator along with the associated half pins and K wires were removed in their entirety from the right lower extremity. These were removed in standard fashion and in a way as to not introduce organisms into the soft tissue/bone. Hemostasis was achieved at all K wires and half pin sites. Next, the right foot, ankle, leg were then re-scrubbed, reprepped, redraped in the usual sterile manner. Next, a curette was used to remove any fibrous tissue contained within the K wire and half pin sites. Each K wire and half pin site were then irrigated with copious amounts of normal sterile saline. The subcutaneous tissues of the half pin sites were reapproximated and coapted utilizing size 3-0 Vicryl and 2-0 Vicryl. The skin of all the K wires and half pin sites were reapproximated and coapted utilizing size 3-0 nylon in a simple interrupted horizontal mattress fashion. Each surgical site was then dressed with Betadine soaked gauze, and a dry sterile dressing consisting of 4 x 4 gauze, ABD pads, wrapped with Kerlix. The right foot, ankle, leg were then wrapped in Bob bandage. Next, a stockinette was placed over the right lower extremity. Cast padding was wrapped from the metatarsal heads extending proximally to the level just distal to the tibial tuberosity. A posterior splint was fashioned to the right lower extremity and was adhered to the right lower extremity utilizing Bob bandages. Neurovascular status was assessed at the end of the application and deemed intact to the right lower extremity. The patient tolerated the anesthesia and the procedure well and was transported to the PACU with vital signs stable and neurovascular status intact to the right lower extremity. After period of postoperative monitoring, patient will be discharged home with written and oral instructions for wound care and follow-up. The medical surgical tech, the nurse practitioner, was utilized at the entire procedure. She helped with patient positioning, holding of limb. She helped with bandage application, and cast application. Without the medical surgical tech, surgical time would have been increased and surgical outcome could have been less optimal. - Complications None - Admit VTE Documentation VTE Present on Admission: No VTE Mechan Device Prophylaxis: SCD's VTE Pharm Prophylaxis ordered?: Yes
[2019-11-05 13:46] LABS: Bedside Glucose 236 mg/dL (70-110)
--- NOTE | 2019-11-05 13:50 | RAD_ITS ---
STUDY: X-RAY - RIGHT ANKLE REASON FOR EXAM: Female, 59 years old. POST OP, RIGHT ANKLE REMOVAL OF EXTERNAL FIXATOR TECHNIQUE: 3 view(s) of the ankle. COMPARISON: June 13, 2019 and JULY 25, 2019 FINDINGS: Interval removal of previously seen external fixating hardware of the distal one third tibia and calcaneus. Tract foster are seen one third fibular shaft from prior hardware. There is active healing (80%) of the distal one third tibial fracture sites. The distal one third fibular fracture site demonstrates complete interval healing. Mild soft tissue swelling is present. The bony structures are demineralized. A healed fracture deformity of the proximal shaft of the fifth metatarsal bone is partially visualized. Normal tibiotalar articulation and ankle mortise. RAD/Ankle min 3 Views IMPRESSION: 1. Active healing of the distal one third tibial fracture site Electronically Signed: Pradip Easley MD at 18:40 EDT , Service support ,
[2019-11-05] MEDS: oxyCODONE 5 MG Tablet PO (14:41)
== END 2019-11-05 16:32 | disposition home or self-care (01) ==
LOC: SDC 08:08 → AC 08:09
PROVIDERS: Anesthesiology; PCP Family Medicine; Referring Provider Family Medicine; Visit Provider Podiatrist Foot & Ankle Surgery
PROC: (CPT 27685; principal; 2019-11-05 09:15)
DX: Z44.8 Encounter for fitting and adjustment of other external prosthetic devices (principal); E11.42 Type 2 diabetes mellitus with diabetic polyneuropathy; E11.51 Type 2 diabetes mellitus with diabetic peripheral angiopathy without gangrene; S82.201D Unspecified fracture of shaft of right tibia, subsequent encounter for closed fracture with routine healing; S82.401D Unspecified fracture of shaft of right fibula, subsequent encounter for closed fracture with routine healing; W10.9XXD Fall (on) (from) unspecified stairs and steps, subsequent encounter; J44.9 Chronic obstructive pulmonary disease, unspecified; Z79.899 Other long term (current) drug therapy; Z87.891 Personal history of nicotine dependence; G47.30 Sleep apnea, unspecified; K21.9 Gastro-esophageal reflux disease without esophagitis; Z86.718 Personal history of other venous thrombosis and embolism; E78.00 Pure hypercholesterolemia, unspecified; F41.9 Anxiety disorder, unspecified; F32.9 Major depressive disorder, single episode, unspecified; Z11.59 Encounter for screening for other viral diseases; M19.90 Unspecified osteoarthritis, unspecified site
CPT/HCPCS: 20694; 73610; 82962; 87635; 94799; J7120; J2405; U0003

== ENCOUNTER → 2019-12-14 14:41 | Outpatient (CLI) | payer MEDICARE, MEDICAID, SELFPAY ==
[2019-11-05 08:41] VITALS: BMI 42.0
--- NOTE | 2019-12-14 14:45 | CT_ITS ---
STUDY: CT RIGHT LOWER LEG WITHOUT CONTRAST REASON FOR EXAM: Female, 59 years old. DISPLACED FX. ATTENTION MEDIAL MALLEOLAR RADIATION DOSAGE (If Supplied By Facility): CTDIvol = ( 15.35 ) mGy, DLP = ( 507.27 ) mGycm TECHNIQUE: Transaxial CT imaging of the right lower leg was performed. Coronal and sagittal images were reformatted. Individualized dose optimization techniques were used for this CT. COMPARISON: X-ray November 05, 2019. CT October 29, 2019. FINDINGS: There is diffuse demineralization of the osseous structures. There are tracts from prior external fixator in the shaft and distal tibia. There is a nonunited fracture of the distal shaft of the tibia with partial sclerosis along the margins and periosteal reaction. There is partial callus. There is healed fracture of the distal fibula. There are lucencies with prior intervention in the calcaneus and cuneiform bones. There is linear sclerosis of the posterior calcaneus. There are heel spurs. There is linear sclerosis of the navicular and cuboid. There is tibiotalar joint space narrowing and spurring. There is muscular atrophy of the lower leg. There is subcutaneous edema and skin thickening. There is tendinosis of the peroneal longus with thickening. There is os peroneum. Normal tibialis posterior and flexor tendons. Normal Achilles tendon. CT/Extremity Lower without Contra IMPRESSION: Nonunited fracture of the tibia. Healed fracture of the fibula. Regions of linear sclerosis of the posterior calcaneus, navicular, and cuboid with regions of possible stress reaction. Electronically Signed: Kev Linn MD at 16:25 EDT , Service support ,
== END ==
PROVIDERS: PCP Family Medicine; Referring Provider Podiatrist Foot & Ankle Surgery; Visit Provider Podiatrist Foot & Ankle Surgery
DX: S82.871D Displaced pilon fracture of right tibia, subsequent encounter for closed fracture with routine healing (principal)
CPT/HCPCS: 73700

== ENCOUNTER 2020-10-29 16:16 | Inpatient (IN) | payer MEDICARE, MEDICAID, SELFPAY ==
[2019-11-05 08:41] VITALS: BMI 42.0
[2020-10-29 16:17] VITALS: BP 155/84; PULSE 107; RESP 18; TEMP 36.3; O2SAT 94; BMI 42.7
--- NOTE | 2020-10-29 16:33 | CT_ITS ---
EXAM: CT ABDOMEN AND PELVIS WITHOUT INTRAVENOUS CONTRAST CLINICAL INDICATION: Right flank pain, abd pain, prev kidney stone hx TECHNIQUE: Helically acquired images were obtained of the abdomen and pelvis without intravenous contrast. This CT exam was performed using one or more of the following dose reduction techniques: automated exposure control, adjustment of the mA and/or kV according to patient size, and/or use of iterative reconstruction technique. This report was created using [employer] report generation technology. COMPARISON: None. FINDINGS: LOWER THORAX: Unremarkable. Lung bases are clear. No cardiomegaly. No significant pericardial effusion. ABDOMEN: LIVER: Focal areas of diminished density in the left hepatic lobe are likely focal fatty infiltration. GALLBLADDER AND BILE DUCTS: Gallbladder sludge layers dependently within the gallbladder without gallbladder wall thickening. No calcified gallstones. No intra- or extrahepatic biliary ductal dilation. PANCREAS: Unremarkable. No focal cystic mass. SPLEEN: Unremarkable. Normal size without focal cystic or solid mass. ADRENALS: Unremarkable. No nodules. KIDNEYS AND URETERS: Mild right hydronephrosis and hydroureter secondary to 2 distal ureteral calculi measuring up to 8-9 mm. Right perinephric and periureteral edema. Several calculi of the inferior right renal collecting system with single calculus of the inferior left kidney. Normal renal size and position. STOMACH AND BOWEL: Unremarkable. No stomach or bowel distention. No focal inflammatory change. PELVIS: APPENDIX: No evidence of acute appendicitis. BLADDER: Unremarkable. REPRODUCTIVE: Unremarkable as visualized. No mass. ABDOMEN and PELVIS: INTRAPERITONEAL SPACE: Unremarkable. No ascites or other fluid collection. No free air. BONES/JOINTS: Degenerative changes of the lumbar spine. Acquired canal narrowing at L3-L4 and L4-L5. No suspicious lytic or blastic abnormality. SOFT TISSUES: Injections sites of the bilateral anterior abdominal wall. Diffuse muscular atrophy and fatty replacement of the lumbar and gluteal muscles. No discrete abdominal or pelvic wall hernia. VASCULATURE: Unremarkable. Abdominal aorta is non-dilated. LYMPH NODES: Unremarkable. No enlarged lymph nodes. CT/Abdomen/Pelvis without Cont IMPRESSION: Mild right hydronephrosis and hydroureter secondary to 2 distal ureteral calculi measuring up to 8-9 mm. Electronically Signed: Tyrese Polanco MD ([place]) at 17:34 EDT , Service support ,
[2020-10-29] MEDS: Ketorolac 30 MG/ML Syringe IV (16:45)
--- NOTE | 2020-10-29 16:46 | EDS_ITS ---
HPI History of Present Illness Chief Complaint: Flank Pain Informant: patient Narrative Narrative: Patient is a 60-year-old female who presents to the emergency department for flank pain and abdominal pain. She states that this started around midnight last night. She states that she took a home Percocet which did not give her any relief. She describes the pain as severe. No known aggravating relieving factors. She denies any urinary symptoms. She has been nauseous. No chest pain or shortness of breath. No fevers or chills. She does have a history of many kidney stones in the past. She has passed all these before. She states that she had a CT scan of her abdomen/pelvis around 1 week ago which showed an 8 to 9 mm stone. She was not having any pain at that time. She does not recall why she had the CT scan. PFSH PFSH Medical History Anxiety Asthma Bipolar disorder Cirrhosis COPD (chronic obstructive pulmonary disease) Coronary artery disease Depression Diabetes Diabetes DVT (deep venous thrombosis) GERD (gastroesophageal reflux disease) GERD (gastroesophageal reflux disease) Hepatitis Hypertension Hypothyroidism Kidney stones Kidney stones Myocardial infarct Smoker Home Medications Meloxicam 15 mg PO DAILY 07/01/13 [History Last Taken 07/01/13] allopurinol 100 mg PO DAILY 07/01/13 [History Last Taken 11/05/19 06:00] albuterol sulfate 1 puff INHALATION Q4H PRN PRN 06/24/19 [History Last Taken Unknown] omeprazole 40 mg PO DAILY 08/13/19 [History Last Taken Unknown] sucralfate 1 gm PO 4X/DAY 08/13/19 [History Last Taken Unknown] gabapentin 800 mg PO 4X/DAY 10/30/19 [History Last Taken Unknown] multivitamin with minerals 1 ea PO DAILY 10/30/19 [History Last Taken Unknown] furosemide [Lasix] 20 mg PO DAILY 10/29/20 [History Last Taken Unknown] insulin detemir U-100 [Levemir U-100 Insulin] 80 unit SUBCUT BID 10/29/20 [History Last Taken 10/29/20 08:00] levothyroxine 50 mcg PO DAILY 10/29/20 [History Last Taken Unknown] nystatin [Nyamyc] 1 applic TOPICAL DAILY 10/29/20 [History Last Taken Unknown] oxycodone 30 mg PO TID 10/29/20 [History Last Taken Unknown] potassium chloride 10 meq PO DAILY 10/29/20 [History Last Taken Unknown] rosuvastatin 20 mg PO DAILY 10/29/20 [History Last Taken Unknown] sitagliptin-metformin [t] 1 tab PO BID 10/29/20 [History Last Taken Unknown] Allergy/AdvReac Type Severity Reaction Status Date / Time morphine Allergy Intermediate Hives Verified 10/29/20 16:18 Social History Smoking Status: Current every day smoker tobacco type: cigarettes ROS ROS ED Constitutional Constitutional ED: Denies chills or fever(s) Eyes Eyes: Denies change in vision ENT ENT ED: Denies epistaxis or rhinorrhea Cardiovascular Cardiovascular: Denies chest pain or palpitations Respiratory/Chest Respiratory/Chest: Denies cough or dyspnea Gastrointestinal Gastrointestinal: Reports abdominal pain and nausea; Denies diarrhea or vomiting Genitourinary Genitourinary ED: Denies dysuria, hematuria or urinary frequency Musculoskeletal Musculoskeletal: Reports back pain; Denies neck pain Integumentary Denies rash Neurologic Neurologic: Denies dizziness, headache(s) or weakness EXAM Physical Exam Const Vital Signs: 10/29/20 16:17 10/29/20 18:00 Temperature 97.4 F L Temperature Source Temporal Pulse Rate 107 H 100 Respiratory Rate 18 18 Blood Pressure 155/84 H 115/55 L Blood Pressure Mean 107 75 Pulse Ox 94 Oxygen Delivery Method Room Air Positive well nourished and well developed General Appearance ED: well developed and NAD HEENT Reports normocephalic, head/scalp atraumatic and moist mucous membranes Eyes PERRL and EOMs intact bilaterally Neck supple Resp normal respiratory effort and clear to auscultation bilaterally Auscultation: Negative for rales, rhonchi or wheezes Cardio regular rhythm and no murmurs Rate: tachycardic GI normal to inspection, nondistended, normoactive bowel sounds and non-tender GI Narrative: Diffusely tender without one spot hurting worse than another. Palpation: Negative for guarding or rebound tenderness present Back/Spine General Back: CVA tenderness right Extremity normal to inspection General Extremety ED: Negative for edema or tenderness General Extremity: Negative for edema Neuro no sensory deficits noted Sensorium / Orientation: alert Motor Exam: strength 5/5 throughout Psych mental status grossly normal Skin no rashes or lesions noted MDM MDM MDM Narrative Medical decision making narrative: Patient presents the ED for right-sided back pain and abdominal pain. Upon arrival to the emergency department she is tachycardic but otherwise normal vital signs. She does appear uncomfortable on physical exam. She is in no acute distress. She states that she was diagnosed with a kidney stone a week ago. She has not been having pain until last night. We will repeat CT scan to check basic lab work as well as urinalysis. Patient CT scan did show an 8 to 9 mm distal ureteral stone. I did speak with Dr. Hollis about this and he wants the patient to be admitted for acute management. She does have a leukocytosis. Urine does not show any evidence of infection. There are inflammatory markers with leukocyte esterase and white blood cells. No bacteria. No nitrites. Patient did get good relief with the Toradol initially but her pain came back relatively quickly. She is given dose of hydromorphone as she does have an allergy to morphine. She otherwise has remained stable throughout ED stay. Lab Data Labs: Laboratory Results - last 24 hr 10/29/20 10/29/20 10/29/20 16:50 16:50 17:48 WBC 16.3 H RBC 4.13 L Hgb 13.0 Hct 39.9 MCV 96.6 MCH 31.5 MCHC 32.6 RDW Std Deviation 53.7 H RDW Coeff of Marc 15.1 H Plt Count 152 MPV 10.4 Immature Gran % (Auto) 1.400 H Neut % (Auto) 87.8 H Lymph % (Auto) 6.0 L Lucas % (Auto) 4.6 Eos % (Auto) 0.0 Baso % (Auto) 0.2 Absolute Neuts (auto) 14.3 H Absolute Lymphs (auto) 0.98 Nucleated RBC % 0.1 Sodium 131 L Potassium 4.8 Chloride 97 L Carbon Dioxide 25.0 Anion Gap 9 BUN 11 Creatinine 1.38 H Estim Creat Clear Calc 37.90 Est GFR (MDRD) Af Amer 50 L Est GFR (MDRD) Non-Af 42 L BUN/Creatinine Ratio 8.0 L Glucose 332 H Calcium 8.7 Total Bilirubin 0.70 AST 28 ALT 26 Alkaline Phosphatase 74 Total Protein 7.7 Albumin 3.1 L Globulin 4.6 H Albumin/Globulin Ratio 0.7 L Lipase 37 L Urine Color Yellow Urine Clarity Sl. Cloudy Urine pH 5.0 Ur Specific [place] 1.020 Urine Protein 100 H Urine Glucose (UA) 1000 H Urine Ketones 5 H Urine Occult Blood 25 H Urine Nitrite Negative Urine Bilirubin 1 H Urine Urobilinogen 1 H Ur Leukocyte Esterase 500 H Urine RBC 0 SEEN Urine WBC 25-50 SEEN Ur Squamous Epith Cells 0-5 SEEN Urine Bacteria 0 SEEN Urine Mucus 0 SEEN Urine Yeast 1+ Radiography Diagnostic Testing: Radiology Impression Abdomen/Pelvis CT 10/29/20 16:33 IMPRESSION: Mild right hydronephrosis and hydroureter secondary to 2 distal ureteral calculi measuring up to 8-9 mm. Electronically Signed: Tyrese Polanco MD ([place]) at 17:34 EDT , Service support , Discharge Plan Dx/Rx/DC Orders Clinical Impression: Calculus, ureteral, Leukocytosis, Abdominal pain Disposition Disposition: Acute Care Hospital [facility] Discharge Date/Time: 10/29/20 19:51
[2020-10-29 16:57] LABS: Absolute Lymphocyte Count 0.98 X10^3/uL (0.83-4.51); Absolute Neutrophil Count 14.3 X10^3/uL (2.0-7.7); Basophil# 0.03 X10^3/uL; Basophil% 0.2 % (0-1); Hematocrit 39.9 % (37-47); Lymphocyte # 0.98 X10^3/ul (0.83-4.51); Mean Corp Hgb Conc 32.6 g/dL (32-36); Mean Corpuscular Hgb 31.5 pg (27.0-32.0); Mean Corpuscular Volume 96.6 fL (81-99); Mean Platelet Vol. 10.4 fl (6.2-12.0); Monocyte# 0.75 X10^3/uL; Monocyte% 4.6 % (0-10); NRBC Flagged by Analyzer 0.1 % (0-5); Neutrophil # 14.26 X10^3/uL (2.7-7.7); Neutrophil % 87.8 % (47-70); Platelet Count 152 K/mm3 (150-450); RBC Distribution Width CV 15.1 % (11.6-14.6); RBC Distribution Width SD 53.7 fl (35.1-43.9); Red Blood Count 4.13 M/mm3 (4.2-5.4); White Blood Count 16.3 K/mm3 (4.4-11.0)
[2020-10-29 17:19] LABS: ALB/GLOB Ratio 0.7 RATIO (0.9-2.4); AST(SGOT) 28 U/L (15-37); Alanine Aminotransfer ALT/SGPT 26 U/L (13-56); Albumin, Serum 3.1 g/dL (3.2-5.0); Alkaline Phosphatase 74 U/L (45-117); Anion Gap 9 (5-15); BUN 11 mg/dL (7-18); Calcium,Total 8.7 mg/dL (8.5-10.1); Chloride 97 mmol/L (98-107); Creatinine, Serum 1.38 mg/dL (0.55-1.02); EST Glomerular Filtration Rate 42 mL/min (>60); Est Glom Filt Rate - Afr Amer 50 mL/min (>60); Globulin 4.6 g/dL (2.2-4.2); Glucose 332 mg/dL (74-106); Lipase 37 U/L (73-393); Potassium 4.8 mmol/L (3.5-5.1); Protein, Total 7.7 g/dL (6.4-8.2); Sodium Level 131 mmol/L (136-145)
[2020-10-29 17:51] LABS: Bacteria 0 SEEN /hpf (None Seen); Mucous, Urine 0 SEEN /hpf (<or=2+); Red Blood Cells-Urine 0 SEEN /hpf (0-5)
[2020-10-29 17:59] LABS: Color, Urine Yellow (Yellow); Glucose, Dipstick 1000 mg/dl (Normal); Ketone-Dipstick 5 mg/dl (Negative); Leukocyte Esterase-Dipstick 500 /ul (Negative); Nitrite-Dipstick Negative (Negative); Occult Blood-Urine 25 /ul (Negative); Protein-Dipstick 100 mg/dl (Negative); Urine Clarity Sl. Cloudy (Clear); Urine Urobilinogen 1 mg/dl (Normal)
[2020-10-29 18:00] VITALS: BP 115/55; PULSE 100; RESP 18
[2020-10-29 18:00] LABS: Urine Bilirubin Dipstick 1 mg/dL (Negative)
[2020-10-29 18:07] LABS: White Blood Cells 25-50 SEEN /hpf (0-5)
[2020-10-29 18:08] LABS: Squamous Epithelial Cells - UA 0-5 SEEN /hpf (5-10); Yeast-Urine 1+ /hpf (None Seen)
[2020-10-29 19:29] VITALS: BP 125/60; PULSE 100; RESP 18; TEMP 37.3; O2SAT 94
[2020-10-29] MEDS: HYDROmorphone 0.5 MG/0.5 ML SYRINGE IV (19:34)
[2020-10-29 21:08] VITALS: BMI 43.6
[2020-10-29 21:50] VITALS: BP 144/85; PULSE 108; RESP 18; TEMP 37.4; O2SAT 97
[2020-10-29 21:55] LABS: Bedside Glucose 279 mg/dL (70-110)
[2020-10-29] MEDS: Ciprofloxacin 400 MG/200 ML BAG 200 MG IV (23:02)
[2020-10-29] MEDS: Insulin Lispro 100 UNIT/ML INSULN.PEN SC (23:50)
[2020-10-29] MEDS: Ketorolac 15 MG/ML Vial IV (23:55)
[2020-10-29] MEDS: 0.9% Saline Lock 10 ML Syringe IV (23:56)
[2020-10-30] VITALS (31 sets, daily range): BP systolic 96–154; BP diastolic 48–97; PULSE 77–117; RESP 14–22; TEMP 36.8–39.6; O2SAT 83–99; BMI 43.6; BMI 43.4
[2020-10-30] MEDS: 0.9% Normal Saline 1,000 ML 125 ML IV ×2 (00:13→08:38)
[2020-10-30] MEDS: Ondansetron 4 MG/2 ML Vial IV (00:18)
[2020-10-30] MEDS: 0.9% Saline Lock 10 ML Syringe IV ×2 (00:18→05:49)
[2020-10-30] MEDS: Acetaminophen 500 MG Tablet PO ×2 (02:26→08:38)
--- NOTE | 2020-10-30 05:00 | EKG12_ITS ---
Test Reason : AM EKG Blood Pressure : / mmHG Vent. Rate : 093 BPM Atrial Rate : 093 BPM P-R Int : 174 ms QRS Dur : 082 ms QT Int : 362 ms P-R-T Axes : 000 025 -01 degrees QTc Int : 450 ms Normal sinus rhythm Low voltage QRS Nonspecific T wave abnormality Abnormal ECG Confirmed by TAIWO HILL, LUIS M ([id number]), editor house organ ROGER FARRELL ([id number]) on 11/04/2020 9:17:56 AM Referred By: DARIELA Confirmed By:LUIS M MARAVILLA MD
[2020-10-30] MEDS: Ketorolac 15 MG/ML Vial IV ×2 (05:49→17:44)
[2020-10-30] MEDS: Insulin Lispro 100 UNIT/ML INSULN.PEN SC ×3 (05:51→21:50)
[2020-10-30 06:01] LABS: Bedside Glucose 361 mg/dL (70-110)
[2020-10-30 06:57] LABS: Thyroid Stim Hormone (TSH) 0.53 uIU/mL (0.358-3.74)
[2020-10-30 07:39] LABS: Hemoglobin A1c 10.1 % (3.8-5.6)
--- NOTE | 2020-10-30 08:26 | HP.PCM_ITS ---
HPI - General General Date of Admission: 10/29/20 HPI Narrative SANTIAGO CERDA, is a 60 F who presents with obstructing large stones in distal right ureter. admitted for pain control. PFSH Medical History Anxiety Asthma Bipolar disorder Cirrhosis COPD (chronic obstructive pulmonary disease) Coronary artery disease Depression Diabetes Diabetes DVT (deep venous thrombosis) GERD (gastroesophageal reflux disease) GERD (gastroesophageal reflux disease) Hepatitis Hypertension Hypothyroidism Kidney stones Kidney stones Myocardial infarct Smoker Home Medications Meloxicam 15 mg PO DAILY 07/01/13 [History Last Taken 07/01/13] allopurinol 100 mg PO DAILY 07/01/13 [History Last Taken 11/05/19 06:00] albuterol sulfate 1 puff INHALATION Q4H PRN PRN 06/24/19 [History Last Taken Unknown] omeprazole 40 mg PO DAILY 08/13/19 [History Last Taken Unknown] sucralfate 1 gm PO 4X/DAY 08/13/19 [History Last Taken Unknown] gabapentin 800 mg PO 4X/DAY 10/30/19 [History Last Taken Unknown] multivitamin with minerals 1 ea PO DAILY 10/30/19 [History Last Taken Unknown] furosemide [Lasix] 20 mg PO DAILY 10/29/20 [History Last Taken Unknown] insulin detemir U-100 [Levemir U-100 Insulin] 80 unit SUBCUT BID 10/29/20 [History Last Taken 10/29/20 08:00] levothyroxine 50 mcg PO DAILY 10/29/20 [History Last Taken Unknown] nystatin [Nyamyc] 1 applic TOPICAL DAILY 10/29/20 [History Last Taken Unknown] oxycodone 30 mg PO TID 10/29/20 [History Last Taken Unknown] potassium chloride 10 meq PO DAILY 10/29/20 [History Last Taken Unknown] rosuvastatin 20 mg PO DAILY 10/29/20 [History Last Taken Unknown] sitagliptin-metformin [Janumet] 1 tab PO BID 10/29/20 [History Last Taken Unknown] Allergy/AdvReac Type Severity Reaction Status Date / Time morphine Allergy Intermediate Hives Verified 10/29/20 16:18 Social History Smoking Status: Current every day smoker tobacco type: cigarettes ROS Constitutional Constitutional: Denies chills, fever(s) or malaise Eyes Eyes: Denies blurry vision or change in vision ENT HEENT: Reports none Cardiovascular Cardiovascular: Denies chest pain or palpitations Respiratory/Chest Respiratory/Chest: Denies cough or shortness of breath with exertion Gastrointestinal Gastrointestinal: Denies abdominal pain, constipation or diarrhea Musculoskeletal Musculoskeletal: Denies back pain, joint stiffness or joint swelling Integumentary Integumentary: Denies dry skin, jaundice, lesions or rash Neurologic Neurologic: Denies confusion, syncope or weakness Psychiatric Psychiatric: Reports none; Denies anxiety or depression Endocrine Endocrinology: Denies excessive sweating, fatigue or flushing Hematologic/Lymphatic Hematologic/Lymphatic: Denies anemia, easy bleeding or easy bruising Vital Signs Vital Signs Vital Signs: 10/29/20 16:17 10/29/20 18:00 10/29/20 19:29 Temperature 97.4 F L 99.2 F H Temperature Source Temporal Oral Pulse Rate 107 H 100 100 Respiratory Rate 18 18 18 Blood Pressure 155/84 H 115/55 L 125/60 H Blood Pressure Mean 107 75 81 Blood Pressure Source Blood Pressure Position Blood Pressure Location Pulse Ox 94 94 Oxygen Delivery Method Room Air Room Air Oxygen Flow Rate (L/min) 10/29/20 21:50 10/30/20 00:03 10/30/20 02:25 Temperature 99.4 F H 102.3 F H Temperature Source Oral Oral Pulse Rate 108 H Respiratory Rate 18 Blood Pressure 144/85 H Blood Pressure Mean 104 Blood Pressure Source Monitor Blood Pressure Position Semi-Fowlers Blood Pressure Location Right Arm Pulse Ox 97 85 Oxygen Delivery Method Room Air Room Air Oxygen Flow Rate (L/min) 10/30/20 02:30 Temperature 99.4 F H Temperature Source Oral Pulse Rate 98 Respiratory Rate 16 Blood Pressure 112/55 L Blood Pressure Mean 74 Blood Pressure Source Monitor Blood Pressure Position Semi-Fowlers Blood Pressure Location Left Forearm Pulse Ox 94 Oxygen Delivery Method Nasal Cannula Oxygen Flow Rate (L/min) 2 Weight Weight: 115.3 kg Body Mass Index (BMI) 43.6 Physical Exam Const alert and oriented x3 General Appearance: cooperative HEENT normocephalic, head/scalp atraumatic, EAC's normal and TM's normal bilaterally Eyes PERRL and EOMs intact bilaterally Pupil: sluggish Neck no lymphadenopathy, supple and no JVD General: trachea midline Lymph Lymphatic: no lymphadenopathy noted, lymphedema and lymphadenopathy Resp normal respiratory effort, normal air movement and clear to auscultation bilaterally Cardio regular rate, regular rhythm and peripheral pulses 2+ throughout GI soft to palpation, non-tender and non-distended Extremity normal capillary refill and no clubbing, cyanosis or edema General Extremity: no tenderness to palpation of joints or extremities Skin no rashes or lesions noted General Skin Exam: turgor normal Lesions: no lesions Rashes: no rashes Neuro CN's II-XII intact bilaterally Speech: speech normal Motor Exam: strength 5/5 throughout; Negative for general weakness Psych thought process normal, cooperative and affect normal Appearance: appropriate Results Lab / Micro Data Result Diagrams: 10/29/20 16:50 10/29/20 16:50 Labs: Laboratory Results - last 24 hr 10/29/20 16:50: WBC 16.3 H, RBC 4.13 L, Hgb 13.0, Hct 39.9, MCV 96.6, MCH 31.5, MCHC 32.6, RDW Std Deviation 53.7 H, RDW Coeff of Marc 15.1 H, Plt Count 152, MPV 10.4, Immature Gran % (Auto) 1.400 H, Neut % (Auto) 87.8 H, Lymph % (Auto) 6.0 L , [place] % (Auto) 4.6, Eos % (Auto) 0.0, Baso % (Auto) 0.2, Absolute Neuts (auto) 14.3 H, Absolute Lymphs (auto) 0.98, Nucleated RBC % 0.1 10/29/20 16:50: Sodium 131 L, Potassium 4.8, Chloride 97 L, Carbon Dioxide 25.0, Anion Gap 9, BUN 11, Creatinine 1.38 H, Estim Creat Clear Calc 37.90, Est GFR (MDRD) Af Amer 50 L, Est GFR (MDRD) Non-Af 42 L, BUN/Creatinine Ratio 8.0 L, Glucose 332 H, Calcium 8.7, Total Bilirubin 0.70, AST 28, ALT 26, Alkaline Phosphatase 74, Total Protein 7.7, Albumin 3.1 L, Globulin 4.6 H, Albumin/Globulin Ratio 0.7 L, Lipase 37 L 10/29/20 17:48: Urine Color Yellow, Urine Clarity Sl. Cloudy, Urine pH 5.0, Ur Specific [place] 1.020, Urine Protein 100 H, Urine Glucose (UA) 1000 H, Urine Ketones 5 H, Urine Occult Blood 25 H, Urine Nitrite Negative, Urine Bilirubin 1 H, Urine Urobilinogen 1 H, Ur Leukocyte Esterase 500 H, Urine RBC 0 SEEN, Urine WBC 25-50 SEEN, Ur Squamous Epith Cells 0-5 SEEN, Urine Bacteria 0 SEEN, Urine M ucus 0 SEEN, Urine Yeast 1+ 10/29/20 21:40: POC Glucose 279 H 10/30/20 05:40: TSH 0.53 10/30/20 05:40: Hemoglobin A1c 10.1 H 10/30/20 05:52: POC Glucose 361 H Radiology Impression Abdomen/Pelvis CT 10/29/20 16:33 IMPRESSION: Mild right hydronephrosis and hydroureter secondary to 2 distal ureteral calculi measuring up to 8-9 mm. Electronically Signed: Tyrese Polanco MD ([facility]) at 17:34 EDT , Service support , Assessment & Plan Assessment/Plan (1) Right distal ureteral calculus: PLAN: plan for cysto righ sten today.
[2020-10-30 10:26] LABS: Bedside Glucose 325 mg/dL (70-110)
--- NOTE | 2020-10-30 10:59 | PCM.PN.GU ---
Subjective Subjective Patient presents with obstructing kidney stones in the right side plan to place a stent today she is concerned about anesthesia given her cardiac history and pulmonary history we will do consultation to cardiology and pulmonology for preoperative clearance today we are just going to place a stent Objective Data Objective Data Vital Signs: Vital Signs Temp Pulse Resp BP Pulse Ox 100.7 F H 101 H 18 113/59 L 96 10/30/20 10:49 10/30/20 10:16 10/30/20 10:16 10/30/20 10:16 10/30/20 10:16 Oxygen Flow Rate (L/min) 2 Oxygen Delivery Method Nasal Cannula Weight: 115.3 kg Body Mass Index (BMI) 43.4 Intake & Output: Intake and Output for Last 24 Hours 10/28/20 10/29/20 10/30/20 23:59 23:59 23:59 Intake Total 1200 / 1200 Balance 1200 / 1200 Lab / Micro Data Result Diagrams: 10/29/20 16:50 10/29/20 16:50 Labs: Laboratory Results - last 24 hr 10/29/20 16:50: WBC 16.3 H, RBC 4.13 L, Hgb 13.0, Hct 39.9, MCV 96.6, MCH 31.5, MCHC 32.6, RDW Std Deviation 53.7 H, RDW Coeff of Marc 15.1 H, Plt Count 152, MPV 10.4, Immature Gran % (Auto) 1.400 H, Neut % (Auto) 87.8 H, Lymph % (Auto) 6.0 L, [place] % (Auto) 4.6, Eos % (Auto) 0.0, Baso % (Auto) 0.2, Absolute Neuts (auto) 14.3 H, Absolute Lymphs (auto) 0.98, Nucleated RBC % 0.1 10/29/20 16:50: Sodium 131 L, Potassium 4.8, Chloride 97 L, Carbon Dioxide 25.0, Anion Gap 9, BUN 11, Creatinine 1.38 H, Estim Creat Clear Calc 37.90, Est GFR (MDRD) Af Amer 50 L, Est GFR (MDRD) Non-Af 42 L, BUN/Creatinine Ratio 8.0 L, Glucose 332 H, Calcium 8.7, Total Bilirubin 0.70, AST 28, ALT 26, Alkaline Phosphatase 74, Total Protein 7.7, Albumin 3.1 L, Globulin 4.6 H, Albumin/Globulin Ratio 0.7 L, Lipase 37 L 10/29/20 17:48: Urine Color Yellow, Urine Clarity Sl. Cloudy, Urine pH 5.0, Ur Specific [place] 1.020, Urine Protein 100 H, Urine Glucose (UA) 1000 H, Urine Ketones 5 H, Urine Occult Blood 25 H, Urine Nitrite Negative, Urine Bilirubin 1 H, Urine Urobilinogen 1 H, Ur Leukocyte Esterase 500 H, Urine RBC 0 SEEN, Urine WBC 25-50 SEEN, Ur Squamous Epith Cells 0-5 SEEN, Urine Bacteria 0 SEEN, Urine Mucus 0 SEEN, Urine Yeast 1+ 10/29/20 21:40: POC Glucose 279 H 10/30/20 05:40: TSH 0.53 10/30/20 05:40: Hemoglobin A1c 10.1 H 10/30/20 05:52: POC Glucose 361 H 10/30/20 10:20: POC Glucose 325 H Radiography Diagnostic Testing: Radiology Impression Abdomen/Pelvis CT 10/29/20 16:33 IMPRESSION: Mild right hydronephrosis and hydroureter secondary to 2 distal ureteral calculi measuring up to 8-9 mm. Electronically Signed: Tyrese Polanco MD ([facility]) at 17:34 EDT , Service support , Physical Exam Const alert and oriented x3 General Appearance: cooperative HEENT normocephalic, head/scalp atraumatic, EAC's normal and TM's normal bilaterally Eyes PERRL and EOMs intact bilaterally Pupil: sluggish Neck no lymphadenopathy, supple and no JVD General: trachea midline Lymph Lymphatic: no lymphadenopathy noted, lymphedema and lymphadenopathy Resp normal respiratory effort, normal air movement and clear to auscultation bilaterally Cardio regular rate, regular rhythm and peripheral pulses 2+ throughout GI soft to palpation, non-tender and non-distended Extremity normal capillary refill and no clubbing, cyanosis or edema General Extremity: no tenderness to palpation of joints or extremities Skin no rashes or lesions noted General Skin Exam: turgor normal Lesions: no lesions Rashes: no rashes Neuro CN's II-XII intact bilaterally Speech: speech normal Motor Exam: strength 5/5 throughout; Negative for general weakness Psych thought process normal, cooperative and affect normal Appearance: appropriate Assessment & Plan Assessment/Plan (1) Right distal ureteral calculus: PLAN: s/p stent placement will consult medical services to deal with medical issues alvin need pulmonary and cardiology consult for clearance to general anesthesia to laser stones later this week, per anesthesia request, will put non emergent consults in for assist to clear pateint for surgery on saturday to laser stones.
[2020-10-30] MEDS: Ciprofloxacin 400 MG/200 ML BAG 200 MG IV (11:17)
[2020-10-30] MEDS: Lidocaine Jelly 2% 20 ML Syringe (URO-JET) 20 APPLIC (11:20)
--- NOTE | 2020-10-30 11:33 | PCM.OPRPT ---
Report of Operation Date of Procedure: 10/30/20 Pre-Operative Diagnosis: Right obstructing ureteral calculi with infection and pyelonephrosis Post-Operative Diagnosis: Same Surgery/Procedure Performed:: Cystoscopy and right stent placement Description of Surgical Findings:: Patient was taken back to the operating room after induction of general anesthesia, the patient was placed in dorsolithotomy position. The urethra and genitals were prepped and draped in usual sterile fashion. Using a 21 [place] rigid cystourethroscope the entire length of the urethra was normal then went into the bladder. Identified the trigone the left and right ureteral orifice. I then cannulated the right orifice and advanced a wire up into the kidney. I then backloaded a 5 [place] open ended catheter over the wire and injected contrast to delineate the anatomy. After the retrograde was performed I then used fluoroscopic images and guidance to advanced a wire up into the kidney and over the 0.038 glidewire I advanced a 6 [place] by 26 cm double pigtail stent. I then pulled the 0.038 Glidewire off and the stent coiled in the kidney bladder good position. The bladder was then drained. We confirmed the position of the stent by fluoroscopy. Patient anesthetic was reversed and was taken back to the PACU in good condition. Type of Anesthesia: General Drains: stent Admit VTE Documentation VTE Present on Admission: No VTE Mechan Device Prophylaxis: SCD's
[2020-10-30] MEDS: Gabapentin 800 MG Tablet PO (13:19)
[2020-10-30] MEDS: Sucralfate 1 GM Tablet PO ×2 (13:19→21:50)
[2020-10-30] MEDS: Potassium Chloride Oral Tablet 10 MEQ PO (13:19)
[2020-10-30] MEDS: Furosemide 20 MG Tablet PO (13:19)
[2020-10-30] MEDS: Pantoprazole Sodium 40 MG Tablet PO (13:19)
[2020-10-30] MEDS: Allopurinol 100 MG Tablet PO (13:19)
--- NOTE | 2020-10-30 13:29 | PCM.CONS.C ---
Assessment & Plan Assessment/Plan (1) Pre-op evaluation: PLAN: The patient has been referred for preoperative cardiovascular evaluation based upon the aforementioned reasons. At the present the patient appears to be without any acute cardiovascular symptoms/events. The patient's ECG is as noted. The patient has undergone previous diagnostic cardiac catheterization as noted above. A request will be made for the official cardiac catheterization reports. However, the patient states that she has not had to follow with anybody from cardiology on an active basis. At the moment from a preoperative assessment standpoint it may not be unreasonable, based upon her underlying concerns of her pulmonary disease history to further assess her cardiovascular status with a transthoracic echocardiogram in attempt to evaluate her cardiac size, anatomy, and function as well as potentially estimate her right-sided pressures/pulmonary pressures. Otherwise, at the moment, it does not appear she requires additional cardiac diagnostic studies barring a change in her clinical course/findings. She should have close monitoring of her cardiac rate, rhythm, and blood pressure during and following any surgical procedure. An attempt should be made to avoid excess IV volume that may bring out a volume overload episode. (2) HLD (hyperlipidemia): QUALIFIERS: Hyperlipidemia type: unspecified Qualified Code(s): E78.5 - Hyperlipidemia, unspecified PLAN: She is reported as having a history of hyperlipidemia. It would not be unreasonable to reassess her lipids. She should continue medical therapy as deemed appropriate (3) Hypertension: QUALIFIERS: Hypertension type: unspecified Qualified Code(s): I10 - Essential (primary) hypertension PLAN: She is reported as having history of hypertension. Her blood pressure should be monitored. Her medications can be adjusted accordingly. Addt'l Comments Depending upon her clinical course she may need further input from internal medicine to assist with evaluation of her other conditions such as her diabetes mellitus. A request is also been made by urology for a pulmonology consult to assist with evaluation care of any underlying pulmonary disease process in anticipation of an upcoming general anesthesia surgical procedure. This note was generated using a voice recognition system and there may be incorrect words, spelling or punctuation that were not noted when reviewing the office note prior to saving. HPI Consult Data Date of Consult: 10/30/20 HPI Narrative HPI Narrative: SANTIAGO CERDA, is a 60 year old white female who presents for preoperative consultation. The patient states she has been evaluated by [facility] cardiology in the remote past. She believes she underwent evaluation with diagnostic cardiac catheterization, potentially on more than one occasion, and remembers being told everything was okay . She states she does not actively follow with anyone in cardiology. She denies any ongoing symptoms at rest or with stress suspicious for angina pectoris. There is been no orthopnea or PND or peripheral pitting edema. She has had no near syncope or syncope. She admits that she is a heavy smoker . She states because of the smoking history she is very concerned about undergoing general anesthesia for any operative procedure. Thus, based upon this history and concern consults were placed to cardiology and pulmonology to evaluate the patient prior to a possible upcoming urologic procedure that may require general anesthesia. The patient presented to [facility] based upon concerns of flank pain and abdominal pain. She was diagnosed with nephrolithiasis. She underwent a cystoscopy and a right ureteral stent placement this day based upon a right obstructing ureteral calculi with infection and pyelonephrosis. She is recovering in her room. She states at the present time she has no acute symptoms with respect to chest discomfort or difficulty breathing. She did have an ECG in the hospital. She was noted to be in sinus rhythm with low voltage QRS and a nonspecific T wave abnormality. Based upon review of the patient's cardiovascular records there is no other obvious report available for review at this time regarding noninvasive or invasive studies. However, based upon review of the cardiac catheterization repository/film library it appears the patient did undergo diagnostic cardiac catheterization under the direction of Dr. Veloz on 02-15-2006 and 10-13-2007. Based upon review of the cardiac catheterization films from 2005 it appeared the patient had no angiographically significant appearing CAD and overall preserved LV systolic function. The 2007 cardiac catheterization films are unavailable for review. The official reports for both 2005 and 2007 are unavailable for review at this time. PFSH Medical History Anxiety Asthma Bipolar disorder Cirrhosis COPD (chronic obstructive pulmonary disease) Coronary artery disease Depression Diabetes Diabetes DVT (deep venous thrombosis) GERD (gastroesophageal reflux disease) GERD (gastroesophageal reflux disease) Hepatitis Hypertension Hypothyroidism Kidney stones Kidney stones Myocardial infarct Smoker Home Medications Meloxicam 15 mg PO DAILY 07/01/13 [History Last Taken 07/01/13] allopurinol 100 mg PO DAILY 07/01/13 [History Last Taken 11/05/19 06:00] albuterol sulfate 1 puff INHALATION Q4H PRN PRN 06/24/19 [History Last Taken Unknown] omeprazole 40 mg PO DAILY 08/13/19 [History Last Taken Unknown] sucralfate 1 gm PO 4X/DAY 08/13/19 [History Last Taken Unknown] gabapentin 800 mg PO 4X/DAY 10/30/19 [History Last Taken Unknown] multivitamin with minerals 1 ea PO DAILY 10/30/19 [History Last Taken Unknown] furosemide [Lasix] 20 mg PO DAILY 10/29/20 [History Last Taken Unknown] insulin detemir U-100 [Levemir U-100 Insulin] 80 unit SUBCUT BID 10/29/20 [History Last Taken 10/29/20 08:00] levothyroxine 50 mcg PO DAILY 10/29/20 [History Last Taken Unknown] nystatin [Nyamyc] 1 applic TOPICAL DAILY 10/29/20 [History Last Taken Unknown] oxycodone 30 mg PO TID 10/29/20 [History Last Taken Unknown] potassium chloride 10 meq PO DAILY 10/29/20 [History Last Taken Unknown] rosuvastatin 20 mg PO DAILY 10/29/20 [History Last Taken Unknown] sitagliptin-metformin [Janumet] 1 tab PO BID 10/29/20 [History Last Taken Unknown] Allergy/AdvReac Type Severity Reaction Status Date / Time morphine Allergy Intermediate Hives Verified 10/29/20 16:18 Social History Smoking Status: Current every day smoker tobacco type: cigarettes ROS Constitutional Constitutional: Reports as per HPI Eyes Eyes: Reports as per HPI ENT HEENT: Reports as per HPI Cardiovascular Cardiovascular: Reports as per HPI Respiratory/Chest Respiratory/Chest: Reports as per HPI Gastrointestinal Gastrointestinal: Reports abdominal pain Genitourinary Genitourinary: Reports flank pain Musculoskeletal Musculoskeletal: Reports as per HPI Integumentary Integumentary: Reports as per HPI Neurologic Neurologic: Reports as per HPI Physical Exam Narrative This is a 60-year-old white female who is resting comfortably at the moment in no acute distress. Const alert, oriented x3 and no apparent distress Orientation / Consciousness: awake HEENT normocephalic, head/scalp atraumatic and hearing grossly normal bilaterally Eyes PERRL, EOMs intact bilaterally and conjunctivae normal Neck full ROM, supple and no JVD Resp clear to auscultation bilaterally Cardio regular rate, regular rhythm, S1 normal heart sound and S2 normal heart sound GI normal to inspection, nondistended, normoactive bowel sounds Extremity no pedal edema Skin no rashes or lesions noted Neuro oriented x3, CN's II-XII intact bilaterally and moves all extremities Psych mental status grossly normal Objective Data Vital Signs: Vital Signs Temp Pulse Resp BP Pulse Ox 99.4 F H 111 H 19 H 101/48 L 99 10/30/20 12:53 10/30/20 12:53 10/30/20 12:53 10/30/20 12:53 10/30/20 12:53 Oxygen Flow Rate (L/min) 2 Oxygen Delivery Method Nasal Cannula Weight: 254 lb 3.088 oz Body Mass Index (BMI) 43.4 Intake & Output: Intake and Output for Last 24 Hours 10/28/20 10/29/20 10/30/20 23:59 23:59 23:59 Intake Total 1200 / 1200 Balance 1200 / 1200 Lab / Micro Data Result Diagrams: 10/29/20 16:50 10/29/20 16:50 Labs: Laboratory Results - last 24 hr 10/29/20 16:50: WBC 16.3 H, RBC 4.13 L, Hgb 13.0, Hct 39.9, MCV 96.6, MCH 31.5, MCHC 32.6, RDW Std Deviation 53.7 H, RDW Coeff of Marc 15.1 H, Plt Count 152, MPV 10.4, Immature Gran % (Auto) 1.400 H, Neut % (Auto) 87.8 H, Lymph % (Auto) 6.0 L, [place] % (Auto) 4.6, Eos % (Auto) 0.0, Baso % (Auto) 0.2, Absolute Neuts (auto) 14.3 H, Absolute Lymphs (auto) 0.98, Nucleated RBC % 0.1 10/29/20 16:50: Sodium 131 L, Potassium 4.8, Chloride 97 L, Carbon Dioxide 25.0, Anion Gap 9, BUN 11, Creatinine 1.38 H, Estim Creat Clear Calc 37.90, Est GFR (MDRD) Af Amer 50 L, Est GFR (MDRD) Non-Af 42 L, BUN/Creatinine Ratio 8.0 L, Glucose 332 H, Calcium 8.7, Total Bilirubin 0.70, AST 28, ALT 26, Alkaline Phosphatase 74, Total Protein 7.7, Albumin 3.1 L, Globulin 4.6 H, Albumin/Globulin Ratio 0.7 L, Lipase 37 L 10/29/20 17:48: Urine Color Yellow, Urine Clarity Sl. Cloudy, Urine pH 5.0, Ur Specific [place] 1.020, Urine Protein 100 H, Urine Glucose (UA) 1000 H, Urine Ketones 5 H, Urine Occult Blood 25 H, Urine Nitrite Negative, Urine Bilirubin 1 H, Urine Urobilinogen 1 H, Ur Leukocyte Esterase 500 H, Urine RBC 0 SEEN, Urine WBC 25-50 SEEN, Ur Squamous Epith Cells 0-5 SEEN, Urine Bacteria 0 SEEN, Urine Mucus 0 SEEN, Urine Yeast 1+ 10/29/20 21:40: POC Glucose 279 H 10/30/20 05:40: TSH 0.53 10/30/20 05:40: Hemoglobin A1c 10.1 H 10/30/20 05:52: POC Glucose 361 H 10/30/20 10:20: POC Glucose 325 H Cardiology Labs/Tests 10/29/20 16:50: WBC 16.3 H, RBC 4.13 L, Hgb 13.0, Hct 39.9, MCV 96.6, MCH 31.5, MCHC 32.6, Plt Count 152, MPV 10.4, Immature Gran % (Auto) 1.400 H, Neut % (Auto) 87.8 H, Lymph % (Auto) 6.0 L, [place] % (Auto) 4.6, Eos % (Auto) 0.0, Baso % (Auto) 0.2, Absolute Neuts (auto) 14.3 H, Nucleated RBC % 0.1 10/29/20 16:50: Sodium 131 L, Potassium 4.8, Chloride 97 L, Carbon Dioxide 25.0, Anion Gap 9, BUN 11, Creatinine 1.38 H, Est GFR (MDRD) Af Amer 50 L, Est GFR (MDRD) Non-Af 42 L, BUN/Creatinine Ratio 8.0 L, Glucose 332 H, Calcium 8.7, Total Bilirubin 0.70 10/29/20 17:48: Urine Color Yellow, Urine Clarity Sl. Cloudy, Urine pH 5.0, Ur Specific [place] 1.020, Urine Protein 100 H, Urine Glucose (UA) 1000 H, Urine Ketones 5 H, Urine Occult Blood 25 H, Urine Nitrite Negative, Urine Bilirubin 1 H, Urine Urobilinogen 1 H, Ur Leukocyte Esterase 500 H, Urine RBC 0 SEEN, Urine WBC 25-50 SEEN 10/30/20 05:40: Hemoglobin A1c 10.1 H EKG: As noted above Radiography Diagnostic Testing: Radiology Impression Abdomen/Pelvis CT 10/29/20 16:33 IMPRESSION: Mild right hydronephrosis and hydroureter secondary to 2 distal ureteral calculi measuring up to 8-9 mm. Electronically Signed: Tyrese Polanco MD ([place]) at 17:34 EDT , Service support ,
--- NOTE | 2020-10-30 13:31 | PCM.CONS.GEN ---
Assessment & Plan Assessment/Plan (1) Pre-op evaluation: (2) Right distal ureteral calculus: PLAN: This is a 60-year-old female admitted under Dr. Rocha, urology service after she had ureteric colic pain and found to have 2 distal ureteric calculi complicating right hydronephrosis and hydroureter 1. Right ureteric colic pain due to ureteric calculi complicated with right hydroureteronephrosis with suspicion of complicated UTI: Patient had cystoscopy and stents placed today. There is plan for lithotripsy later this week therefore cardiology and spooler operator automatic are being consulted for preoperative risk evaluation. UA shows WBC 25-50 cells, LE 500, nitrite negative with glucosuria and proteinuria. Empirically patient is on ciprofloxacin 400 mg every 12. 2. Sepsis probably secondary to complicated UTI: Patient fever 102.3 Fahrenheit, tachycardia, leukocytosis and fulfills SIRS criteria with sepsis. There is no lactic acid therefore ordered 3. Diabetes mellitus type 2: A1c 10.1%. Glucose is uncontrolled 332. 4. Acute kidney injury probably from sepsis/ATN: Creatinine is elevated. Monitor kidney function and electrolytes 5. History of diagnostic cardiac cath: Staying Machine Operator consult reviewed. Patient underwent diagnostic cardiac cath between [id number] but no official report available. As per irrigator gravity flow, it seems no significant angiographically. Coronary artery disease. 2D echo is ordered. Fasting profile ordered. 6. Chronic smoker, PAD possible asthma: Dr. Rocha ordered pulmonary consult as per anesthesia. 7. Other comorbidities hypertension, hypothyroidism, GERD and bipolar disorder: She denies history of cirrhosis. She states 1-2 drinks of alcohol occasionally in 1 year no significant alcohol intake. VTE prophylaxis: On Lovenox 30 mg subcu daily, adjusted to creatinine clearance Clinical Impression(s) from Imaging Studies Abdomen/Pelvis CT 10/29/20 16:33 IMPRESSION: Mild right hydronephrosis and hydroureter secondary to 2 distal ureteral calculi measuring up to 8-9 mm. HPI Consult Data Date of Consult: 10/30/20 HPI Narrative HPI Narrative: SANTIAGO CERDA, is a 60 F with history of kidney stones spontaneously passed in the past came to ER with severe abdominal/flank pain. She described 10/10 arising from right flank with radiation to rightgroin/inner thigh region, constant pain associated with nausea. She also feels fever with chills. Denies burning micturition but has been urinating less frequently last few days. The patient's past medical history states hypertension, diabetes mellitus type 2, coronary artery disease, PAD, COPD, bipolar disorder, chronic smoker a pack per day, asthma, hypothyroidism and others although she denies or probably does not know with history of coronary artery disease, CHF, cardiac stent, COPD or asthma or PAD Family history: Father had CA. She was last admitted in July 2019 for right tibia and fibula which was managed by director financial planning. PFSH Medical History Anxiety Asthma Bipolar disorder Cirrhosis COPD (chronic obstructive pulmonary disease) Coronary artery disease Depression Diabetes Diabetes DVT (deep venous thrombosis) GERD (gastroesophageal reflux disease) GERD (gastroesophageal reflux disease) Hepatitis Hypertension Hypothyroidism Kidney stones Kidney stones Myocardial infarct Smoker Home Medications Meloxicam 15 mg PO DAILY 07/01/13 [History Last Taken 07/01/13] allopurinol 100 mg PO DAILY 07/01/13 [History Last Taken 11/05/19 06:00] albuterol sulfate 1 puff INHALATION Q4H PRN PRN 06/24/19 [History Last Taken Unknown] omeprazole 40 mg PO DAILY 08/13/19 [History Last Taken Unknown] sucralfate 1 gm PO 4X/DAY 08/13/19 [History Last Taken Unknown] gabapentin 800 mg PO 4X/DAY 10/30/19 [History Last Taken Unknown] multivitamin with minerals 1 ea PO DAILY 10/30/19 [History Last Taken Unknown] furosemide [Lasix] 20 mg PO DAILY 10/29/20 [History Last Taken Unknown] insulin detemir U-100 [Levemir U-100 Insulin] 80 unit SUBCUT BID 10/29/20 [History Last Taken 10/29/20 08:00] levothyroxine 50 mcg PO DAILY 10/29/20 [History Last Taken Unknown] nystatin [Nyamyc] 1 applic TOPICAL DAILY 10/29/20 [History Last Taken Unknown] oxycodone 30 mg PO TID 10/29/20 [History Last Taken Unknown] potassium chloride 10 meq PO DAILY 10/29/20 [History Last Taken Unknown] rosuvastatin 20 mg PO DAILY 10/29/20 [History Last Taken Unknown] sitagliptin-metformin [Janumet] 1 tab PO BID 10/29/20 [History Last Taken Unknown] Allergy/AdvReac Type Severity Reaction Status Date / Time morphine Allergy Intermediate Hives Verified 10/29/20 16:18 Social History Smoking Status: Current every day smoker tobacco type: cigarettes ROS ROS Narrative Constitutional: Feeling fever and chills. Reports fatigue and weakness HEENT: Reports systems reviewed and no addt'l complaints, except as documented Respiratory/Chest: Denies chest pain/pressure. Denies shortness of breath at rest or with exertion. No PND/orthopnea Gastrointestinal: Denies coffee ground emesis, hematemesis or vomiting. Denies history of cirrhosis Genitourinary: Denies burning urination. Rest as mentioned in HPI Musculoskeletal: Reports joint pain and limited range of motion Neurologic: Denies seizure-like activity skin: No ulcer. No rash Endocrinology: Reports systems reviewed and no addt'l complaints, except as documented Hematologic/Lymphatic: Reports systems reviewed and no addt'l complaints, except as documented Rest 12 ROS are negative except as mentioned in HPI Physical Exam Narrative Seen and examined after the left ureteric stent General: Alert, Oriented x3, Cooperative HEENT: Atraumatic, PERRLA, EOMI, Normocephalic Oral: Oral mucosa is dry. No Gingival or Mucosal Lesions/ Ulcerations Neck: Supple, No JVD, Negative Carotid Bruits Lungs: Air entry diminished in bilateral lung bases. No crepitation/rhonchi Cardiovascular: Sinus rhythm, Normal S1, Normal S2, No murmurs Abdomen: Bowel Sounds Present, Soft, Non Tender, Non-Distended : No renal angle tenderness. No suprapubic tenderness. Extremities: Mild bilateral ankle edema, Capillary Refill Less than 3 Seconds. Uses walker Skin: No rashes, No breakdown Musculoskeletal: No Tenderness to Palpation of Joints or Extremities Neurological: Cranial nerves II-XII grossly intact, Deep Tendon Reflexes 2+/4 and Symmetrical, Neuro grossly intact Psych/Mental Status: Normal Affect, Appropriate. Lab / Micro Data Result Diagrams: 10/29/20 16:50 10/29/20 16:50 Labs: Laboratory Results - last 24 hr 10/29/20 16:50: WBC 16.3 H, RBC 4.13 L, Hgb 13.0, Hct 39.9, MCV 96.6, MCH 31.5, MCHC 32.6, RDW Std Deviation 53.7 H, RDW Coeff of Marc 15.1 H, Plt Count 152, MPV 10.4, Immature Gran % (Auto) 1.400 H, Neut % (Auto) 87.8 H, Lymph % (Auto) 6.0 L, [place] % (Auto) 4.6, Eos % (Auto) 0.0, Baso % (Auto) 0.2, Absolute Neuts (auto) 14.3 H, Absolute Lymphs (auto) 0.98, Nucleated RBC % 0.1 10/29/20 16:50: Sodium 131 L, Potassium 4.8, Chloride 97 L, Carbon Dioxide 25.0, Anion Gap 9, BUN 11, Creatinine 1.38 H, Estim Creat Clear Calc 37.90, Est GFR (MDRD) Af Amer 50 L, Est GFR (MDRD) Non-Af 42 L, BUN/Creatinine Ratio 8.0 L, Glucose 332 H, Calcium 8.7, Total Bilirubin 0.70, AST 28, ALT 26, Alkaline Phosphatase 74, Total Protein 7.7, Albumin 3.1 L, Globulin 4.6 H, Albumin/Globulin Ratio 0.7 L, Lipase 37 L 10/29/20 17:48: Urine Color Yellow, Urine Clarity Sl. Cloudy, Urine pH 5.0, Ur Specific [place] 1.020, Urine Protein 100 H, Urine Glucose (UA) 1000 H, Urine Ketones 5 H, Urine Occult Blood 25 H, Urine Nitrite Negative, Urine Bilirubin 1 H, Urine Urobilinogen 1 H, Ur Leukocyte Esterase 500 H, Urine RBC 0 SEEN, Urine WBC 25-50 SEEN, Ur Squamous Epith Cells 0-5 SEEN, Urine Bacteria 0 SEEN, Urine Mucus 0 SEEN, Urine Yeast 1+ 10/29/20 21:40: POC Glucose 279 H 10/30/20 05:40: TSH 0.53 10/30/20 05:40: Hemoglobin A1c 10.1 H 10/30/20 05:52: POC Glucose 361 H 10/30/20 10:20: POC Glucose 325 H Radiology Impression Abdomen/Pelvis CT 10/29/20 16:33 IMPRESSION: Mild right hydronephrosis and hydroureter secondary to 2 distal ureteral calculi measuring up to 8-9 mm. Electronically Signed: Tyrese Polanco MD (Brooks) at 17:34 EDT , Service support , Charges/Coding Visit Charges Inpatient E&M: 32389 Init Hosp L3
--- NOTE | 2020-10-30 13:47 | ECHOCS_ITS ---
Reason For Study: PRE-OP Procedure This was a 2D Doppler, Color Flow transthoracic echocardiogram. The study was technically difficult. Contrast injection was performed. Exam performed portable in ICU/CCU. Left Ventricle Normal LV size. Left ventricular systolic function is normal. The estimated ejection fraction is 60 %. Diastolic function is indeterminate. No regional wall motion abnormalities noted. Right Ventricle Normal RV size. Normal systolic function. Atria The left atrium is mildly enlarged. Normal right atrium. No doppler evidence for ASD. Mitral Valve There is no mitral annular calcification. Normal mitral valve. Trivial mitral valve insufficiency. Tricuspid Valve Normal tricuspid valve. Trivial tricuspid valve insufficiency. Right ventricular systolic pressure estimated to be 34 mmHg. Aortic Valve The aortic valve is not well visualized. Pulmonic Valve The pulmonic valve is not well visualized. Great Vessels Normal sized aortic root. Pericardium/Pleural No pericardial effusion. Medication Diluted definity 3ml given slow IV push to enhance endocardial definition. MMode/2D Measurements & Calculations Ao root diam: 3.3 cm LAV(MOD-bp): 67.2 ml LVAd ap4: 29.3 cm2 LAV(MOD-bp) Indexed: 31.0 ml/m2 LVLd ap4: 8.3 cm LAV(MOD-sp2): 67.0 ml EDV(MOD-sp4): 86.6 ml LAV(MOD-sp4): 67.5 ml EDV(sp4-el): 87.8 ml LVAs ap4: 16.7 cm2 LVLs ap4: 6.7 cm ESV(MOD-sp4): 37.0 ml ESV(sp4-el): 35.3 ml EF(MOD-sp4): 57.4 % EF(sp4-el): 59.8 % SV(MOD-sp4): 49.7 ml SV(sp4-el): 52.5 ml LA A4 area: 24.5 cm2 LA dimension(2D): 4.0 cm RA A4 area: 20.2 cm2 Time Measurements MV dec time: 0.23 sec Doppler Measurements & Calculations MV E max julian: 112.2 cm/sec Lat Peak E' Julian: 6.7 cm/sec Med Peak E' Julian: 6.0 cm/sec MV A max julian: 126.1 cm/sec E/E' lat: 16.7 E/E' med: 18.7 MV E/A: 0.89 Ao V2 max: 194.4 cm/sec LV V1 max: 125.0 cm/sec TR max julian: 278.7 cm/sec Ao max P.1 mmHg LV V1 max P.2 mmHg TR max P.1 mmHg Ao V2 mean: 154.1 cm/sec LV V1 mean P.0 mmHg Ao mean P.1 mmHg LV V1 mean: 95.0 cm/sec Ao V2 VTI: 39.6 cm LV V1 VTI: 25.7 cm ECHO/Echo Complete W/ Contrast Interpretation Summary The study was technically difficult. Contrast injection was performed. Left ventricular systolic function is normal. The estimated ejection fraction is 60 %. The left atrium is mildly enlarged. Trivial mitral valve insufficiency. Trivial tricuspid valve insufficiency. Right ventricular systolic pressure estimated to be 34 mmHg. Diastolic function is indeterminate. Ordering Physician: Cornelius Alfaro Referring Physician: LUPE ZEPEDA Performed By: Alena Perales, PAO, RVT
[2020-10-30 14:45] LABS: Bedside Glucose 391 mg/dL (70-110)
[2020-10-30] MEDS: Insulin Lispro 100 UNIT/ML INSULN.PEN 10 UNIT SC (14:46)
--- NOTE | 2020-10-30 15:23 | NURSING ---
Text sent to Dr. Rodriguez to make him aware patients temperature is 103.3 orally.
[2020-10-30] MEDS: Enoxaparin 30 MG/0.3 ML Syringe SC (15:32)
[2020-10-30] MEDS: Lactated Ringers 1,000 ML 999 ML IV (15:35)
[2020-10-30] MEDS: Acetaminophen 325 MG Tablet 650 MG PO (15:44)
[2020-10-30 16:21] LABS: Lactic Acid 3.2 mmol/L (0.4-1.9)
--- NOTE | 2020-10-30 17:04 | NURSING ---
Report called to ICU kiara.
--- NOTE | 2020-10-30 17:04 | NURSING ---
Update called to Daughter and told patient was transferred to ICU
[2020-10-30] MEDS: 0.9% Normal Saline 1,000 ML 999 ML IV ×2 (17:10→18:12)
[2020-10-30] MEDS: Gabapentin 600 MG Tablet PO ×2 (18:17→21:49)
[2020-10-30 19:46] LABS: Reflex Lactate? Y
[2020-10-30 20:12] LABS: International Normalized Ratio 1.4; Prothrombin Time (Protime)PT. 16.8 SECONDS (11.7-14.9)
[2020-10-30 20:41] LABS: Lactic Acid 1.1 mmol/L (0.4-1.9)
[2020-10-30] MEDS: Nystatin Powder 15gm Bottle 1 APPLIC TOPICAL (21:58)
[2020-10-30 22:10] LABS: Bedside Glucose 297 mg/dL (70-110)
[2020-10-31] VITALS (15 sets, daily range): BP systolic 95–134; BP diastolic 49–65; PULSE 87–96; RESP 14–20; TEMP 35.7–37.6; O2SAT 93–99
[2020-10-31 04:06] LABS: Absolute Neutrophil Count 9.2 X10^3/uL (2.0-7.7); Basophil# 0.02 X10^3/uL; Basophil% 0.2 % (0-1); Eosinophil# 0.04 X10^3/uL; Eosinophils% 0.4 % (0-5); Hematocrit 32.3 % (37-47); Hemoglobin 10.4 g/dL (12.0-15.0); Lymphocyte % 9.2 % (19-41); Mean Corp Hgb Conc 32.2 g/dL (32-36); Mean Corpuscular Hgb 31.5 pg (27.0-32.0); Mean Corpuscular Volume 97.9 fL (81-99); Mean Platelet Vol. 10.5 fl (6.2-12.0); Monocyte# 0.57 X10^3/uL; Monocyte% 5.2 % (0-10); NRBC Flagged by Analyzer 0 % (0-5); Neutrophil # 9.15 X10^3/uL (2.7-7.7); Platelet Count 107 K/mm3 (150-450); RBC Distribution Width CV 15.4 % (11.6-14.6); RBC Distribution Width SD 55.5 fl (35.1-43.9); White Blood Count 10.9 K/mm3 (4.4-11.0)
[2020-10-31 04:26] LABS: AST(SGOT) 11 U/L (15-37); Alanine Aminotransfer ALT/SGPT 18 U/L (13-56); Albumin, Serum 2.3 g/dL (3.2-5.0); Alkaline Phosphatase 55 U/L (45-117); Anion Gap 7 (5-15); BUN 19 mg/dL (7-18); BUN/Creat Ratio 15.6 RATIO (10-20); Bilirubin, Direct 0.29 mg/dL (0.00-0.30); Calcium,Total 7.5 mg/dL (8.5-10.1); Chloride 100 mmol/L (98-107); Cholesterol 92 mg/dL (200); Creatinine, Serum 1.22 mg/dL (0.55-1.02); EST Glomerular Filtration Rate 48 mL/min (>60); Est Glom Filt Rate - Afr Amer 58 mL/min (>60); Estimated Creatinine Clearance 42.87 ml/min; GGTP 74 U/L (5-55); Globulin 3.7 g/dL (2.2-4.2); Glucose 337 mg/dL (74-106); High Density Lipoprotein 22 mg/dL; Potassium 3.9 mmol/L (3.5-5.1); Sodium Level 134 mmol/L (136-145); Triglycerides 265 mg/dL; Very Low Density Lipoprotein 53 mg/dL (5-40)
[2020-10-31] MEDS: Levothyroxine 50 MCG Tablet PO (05:39)
[2020-10-31 06:55] LABS: Bedside Glucose 285 mg/dL (70-110)
--- NOTE | 2020-10-31 07:01 | EX.PCM.CONCC ---
Assessment & Plan Assessment/Plan (1) Right distal ureteral calculus: (2) Body mass index (BMI) 40.0-44.9, adult: (3) Tobacco abuse: (4) Diabetic polyneuropathy: PLAN: RECOMMENDATIONS: 1. Continue empiric antibiotics pending culture data 2. Stabilization of UTI prior to any surgical intervention 3. Wean oxygen as tolerated. Encourage CPAP with sleep 4. Initiate as needed bronchodilators. No steroids at this time 5. Aggressive control of blood sugars. 6. Okay to leave the intensive care unit from my perspective IMPRESSIONS: 1. Sepsis secondary to UTI secondary to obstructing stone status post stent Patient appears to be doing okay at this time. Patient is on appropriate broad-spectrum antibiotics. Await culture data. Patient will likely require definitive therapy at some point. Blood pressures have been doing well after fluid resuscitation. Likely okay to leave the intensive care unit from my perspective. Patient will likely need to stay hospitalized if surgical intervention is required on Saturday. 2. Probable COPD and untreated sleep apnea No pulmonary function test for quantification or clarification of lung function. However, patient is requiring only minimal nasal cannula oxygen after aggressive fluid resuscitation. Clinical suspicion that untreated sleep apnea will pose the greatest risk from an operative standpoint. Patient should have continuous pulse oximetry if she is not going to comply with CPAP therapy. 3. Diabetes mellitus type 2/hypertension/hypothyroidism/GERD/bipolar/morbid obesity Complicates care, management, recovery and prognosis. Poor control of diabetes at baseline. Patient will have a variable p.o. intake secondary to potential surgical interventions. Okay to continue with baseline medications from my perspective. Patient would benefit from weight loss. HPI Consult Data Date of Consult: 10/31/20 HPI Narrative HPI Narrative: SANTIAGO CERDA is a 60 F, with past medical history listed below, who presents to [facility] on 10/29/2020 secondary to flank and abdominal pain. Patient reportedly started to have issues on the night of presentation. Patient had taken a Percocet at home and did not get any relief, so she came to the ER for evaluation. Patient had denied any urinary symptoms, but has been nauseous. Patient denies any chest pain or shortness of breath. Patient denied fevers or chills at home, but did have a history of kidney stones in the past. Patient did have a CT of her abdomen about a week ago showing an 8 to 9 mm stone, but was unaware on why the CT was ordered in the first place. In the ER, patient was afebrile, but tachycardic at 107 bpm. Patient was hypertensive at 155/84 and saturating 94% on room air. A CT of the abdomen was repeated showing nonobstructing stone. Patient did have an elevated white blood cell count of 16.3, sodium of 131 and creatinine of 1.38. Urinalysis did show white blood cells and leukocyte esterase. Patient was seen by Dr. Magana and admitted to the floor for further evaluation. After being on the floor, patient spiked a temperature of 102.3 ?F and desaturated to 85% requiring 2 L nasal cannula. Patient did have a stent placed with resolution of pain. Per documentation, patient will likely require lithotripsy later this week. Patient has poor insight into her respiratory condition. Patient does state that she has a history of COPD and BETO. Patient was unable to tolerate CPAP in the past, but has not required supplemental oxygen previously. Patient is only required supplemental oxygen when she is sleeping. Patient does report an extensive smoking history and is actively smoking. Patient does report that she is lost significant weight since she was diagnosed with obstructive sleep apnea. Patient does have a cough productive of clear to white sputum on a daily basis. This is not changed recently. Review of systems otherwise negative from a constitutional, HEENT, respiratory, cardiovascular, GI, genitourinary, musculoskeletal, skin, neurologic, psychiatric and hematologic system unless stated above. PFSH Medical History Anxiety Asthma Bipolar disorder Cirrhosis COPD (chronic obstructive pulmonary disease) Coronary artery disease Depression Diabetes Diabetes DVT (deep venous thrombosis) GERD (gastroesophageal reflux disease) GERD (gastroesophageal reflux disease) Hepatitis Hypertension Hypothyroidism Kidney stones Kidney stones Myocardial infarct Smoker Home Medications Meloxicam 15 mg PO DAILY 07/01/13 [History Last Taken 07/01/13] allopurinol 100 mg PO DAILY 07/01/13 [History Last Taken 11/05/19 06:00] albuterol sulfate 1 puff INHALATION Q4H PRN PRN 06/24/19 [History Last Taken Unknown] omeprazole 40 mg PO DAILY 08/13/19 [History Last Taken Unknown] sucralfate 1 gm PO 4X/DAY 08/13/19 [History Last Taken Unknown] gabapentin 800 mg PO 4X/DAY 10/30/19 [History Last Taken Unknown] multivitamin with minerals 1 ea PO DAILY 10/30/19 [History Last Taken Unknown] furosemide [Lasix] 20 mg PO DAILY 10/29/20 [History Last Taken Unknown] insulin detemir U-100 [Levemir U-100 Insulin] 80 unit SUBCUT BID 10/29/20 [History Last Taken 10/29/20 08:00] levothyroxine 50 mcg PO DAILY 10/29/20 [History Last Taken Unknown] nystatin [Nyamyc] 1 applic TOPICAL DAILY 10/29/20 [History Last Taken Unknown] oxycodone 30 mg PO TID 10/29/20 [History Last Taken Unknown] potassium chloride 10 meq PO DAILY 10/29/20 [History Last Taken Unknown] rosuvastatin 20 mg PO DAILY 10/29/20 [History Last Taken Unknown] sitagliptin-metformin [Janumet] 1 tab PO BID 10/29/20 [History Last Taken Unknown] Allergy/AdvReac Type Severity Reaction Status Date / Time morphine Allergy Intermediate Hives Verified 10/29/20 16:18 Social History Smoking Status: Current every day smoker tobacco type: cigarettes ROS ROS Narrative See HPI Physical Exam Const alert, oriented x3 and no apparent distress General Appearance: cooperative, comfortable and well developed Nutritional Appearance: morbidly obese HEENT normocephalic, head/scalp atraumatic and moist oral mucous membranes Eyes PERRL and EOMs intact bilaterally Neck full ROM and no lymphadenopathy Chest inspection of chest normal Resp normal respiratory effort and no use of accessory muscles Effort and Inspection: able to speak in complete sentences Auscultation: diminished lung sounds; Negative for rales, rhonchi or wheezes Percussion: Negative for dullness Cardio regular rate, regular rhythm, S1 normal heart sound, S2 normal heart sound, no murmurs, no rub and no gallops GI normal to inspection, nondistended, normoactive bowel sounds no CVA tenderness Extremity no clubbing, cyanosis or edema Skin no rashes or lesions noted Neuro oriented x3, CN's II-XII intact bilaterally, moves all extremities and no focal motor deficits Psych cooperative and affect normal Lab / Micro Data Result Diagrams: 10/31/20 04:00 10/31/20 04:00 Labs: Laboratory Results - last 24 hr 10/30/20 05:40: Hemoglobin A1c 10.1 H 10/30/20 10:20: POC Glucose 325 H 10/30/20 14:40: POC Glucose 391 H 10/30/20 15:30: Lactic Acid 3.2 H* 10/30/20 19:40: PT 16.8 H, INR 1.4, APTT 37.0 H 10/30/20 19:40: Lactic Acid 1.1 10/30/20 21:43: POC Glucose 297 H 10/31/20 04:00: Sodium 134 L, Potassium 3.9, Chloride 100, Carbon Dioxide 27.0, Anion Gap 7, BUN 19 H, Creatinine 1.22 H, Estim Creat Clear Calc 42.87, Est GFR (MDRD) Af Amer 58 L, Est GFR (MDRD) Non-Af 48 L, BUN/Creatinine Ratio 15.6, Glucose 337 H, Calcium 7.5 L, Total Bilirubin 0.60, Direct Bilirubin 0.29, GGT 74 H, AST 11 L, ALT 18, Alkaline Phosphatase 55, Total Protein 6.0 L, Albumin 2.3 L, Globulin 3.7, Triglycerides 265 H, Cholesterol 92, LDL Cholesterol 17, VLDL Cholesterol 53 H, HDL Cholesterol 22 L 10/31/20 04:00: WBC 10.9, RBC 3.30 L, Hgb 10.4 L, Hct 32.3 L, MCV 97.9, MCH 31.5, MCHC 32.2, RDW Std Deviation 55.5 H, RDW Coeff of Marc 15.4 H, Plt Count 107 L, MPV 10.5, Immature Gran % (Auto) 1.000 H, Neut % (Auto) 84.0 H, Lymph % (Auto) 9.2 L, [place] % (Auto) 5.2, Eos % (Auto) 0.4, Baso % (Auto) 0.2, Absolute Neuts (auto) 9.2 H, Absolute Lymphs (auto) 1.00, Nucleated RBC % 0 10/31/20 06:49: POC Glucose 285 H Charges/Coding Visit Charges Inpatient E&M: 13174 Init Hosp L3
--- NOTE | 2020-10-31 07:37 | PCM.PN.HOSP ---
Subjective Subjective Overnight events noticed. Patient blood pressure was stabilized in ICU. Did not require vasopressor. Patient little upset she could not get sleep in ICU. Positive fluid balance about 4200 mL Objective Data Objective Data Vital Signs: Vital Signs Temp Pulse Resp BP Pulse Ox 97.9 F 89 16 114/55 L 94 10/31/20 06:00 10/31/20 07:00 10/31/20 07:00 10/31/20 07:00 10/31/20 07:00 Oxygen Flow Rate (L/min) 2 Oxygen Delivery Method Nasal Cannula Weight: 265 lb 6.985 oz Body Mass Index (BMI) 43.4 Intake & Output: Intake and Output for Last 24 Hours 10/29/20 10/30/20 10/31/20 23:59 23:59 23:59 Intake Total 5450 / 5450 50 / 50 Output Total 475 / 875 550 / 550 Balance 4975 / 4575 -500 / -500 Lab / Micro Data Result Diagrams: 10/31/20 04:00 10/31/20 04:00 Labs: Laboratory Results - last 24 hr 10/30/20 05:40: Hemoglobin A1c 10.1 H 10/30/20 10:20: POC Glucose 325 H 10/30/20 14:40: POC Glucose 391 H 10/30/20 15:30: Lactic Acid 3.2 H* 10/30/20 19:40: PT 16.8 H, INR 1.4, APTT 37.0 H 10/30/20 19:40: Lactic Acid 1.1 10/30/20 21:43: POC Glucose 297 H 10/31/20 04:00: Sodium 134 L, Potassium 3.9, Chloride 100, Carbon Dioxide 27.0, Anion Gap 7, BUN 19 H, Creatinine 1.22 H, Estim Creat Clear Calc 42.87, Est GFR (MDRD) Af Amer 58 L, Est GFR (MDRD) Non-Af 48 L, BUN/Creatinine Ratio 15.6, Glucose 337 H, Calcium 7.5 L, Total Bilirubin 0.60, Direct Bilirubin 0.29, GGT 74 H, AST 11 L, ALT 18, Alkaline Phosphatase 55, Total Protein 6.0 L, Albumin 2.3 L, Globulin 3.7, Triglycerides 265 H, Cholesterol 92, LDL Cholesterol 17, VLDL Cholesterol 53 H, HDL Cholesterol 22 L 10/31/20 04:00: WBC 10.9, RBC 3.30 L, Hgb 10.4 L, Hct 32.3 L, MCV 97.9, MCH 31.5, MCHC 32.2, RDW Std Deviation 55.5 H, RDW Coeff of Marc 15.4 H, Plt Count 107 L, MPV 10.5, Immature Gran % (Auto) 1.000 H, Neut % (Auto) 84.0 H, Lymph % (Auto) 9.2 L, [place] % (Auto) 5.2, Eos % (Auto) 0.4, Baso % (Auto) 0.2, Absolute Neuts (auto) 9.2 H, Absolute Lymphs (auto) 1.00, Nucleated RBC % 0 10/31/20 06:49: POC Glucose 285 H Physical Exam Narrative Seen and examined monitoring and evaluation advisor sinus rhythm with PVCs. General: Alert, Oriented x3, Cooperative HEENT: Atraumatic, PERRLA, EOMI, Normocephalic Oral: Oral mucosa is dry. No Gingival or Mucosal Lesions/ Ulcerations Neck: Supple, No JVD, Negative Carotid Bruits Lungs: Air entry diminished in bilateral lung bases. Mild bilateral fine crackles. 94% on 2 L of oxygen Cardiovascular: Sinus rhythm, Normal S1, Normal S2, No murmurs Abdomen: Bowel Sounds Present, Soft, Non Tender, Non-Distended : No renal angle tenderness. No suprapubic tenderness. Extremities: Mild bilateral ankle edema, Capillary Refill Less than 3 Seconds. Uses walker Skin: No rashes, No breakdown Musculoskeletal: No Tenderness to Palpation of Joints or Extremities Neurological: Cranial nerves II-XII grossly intact, Deep Tendon Reflexes 2+/4 and Symmetrical, Neuro grossly intact Psych/Mental Status: Normal Affect, Appropriate. Assessment & Plan Assessment/Plan (1) Pre-op evaluation: (2) Right distal ureteral calculus: PLAN: This is a 60-year-old female admitted under Dr. Rocha, urology service after she had ureteric colic pain and found to have 2 distal ureteric calculi complicating right hydronephrosis and hydroureter 1. Right ureteric colic pain due to ureteric calculi complicated with right hydroureteronephrosis with suspicion of complicated UTI: Patient had cystoscopy and stents placed today. There is plan for lithotripsy later this week therefore cardiology and supervisor metal fabricating are being consulted for preoperative risk evaluation. UA shows WBC 25-50 cells, LE 500, nitrite negative with glucosuria and proteinuria. Empirically patient is on ciprofloxacin 400 mg every 12. 2 severe sepsis with (high fever, tachycardia, tachypnea and leukocytosis with left shift and lactic acidosis) secondary to complicated UTI as mentioned above: Patient fever 102.3 Fahrenheit, tachycardia, leukocytosis and fulfills SIRS criteria with sepsis. Lactic acidosis. The patient was transferred to ICU on 10/30. Patient was volume resuscitated and has positive fluid balance. No hypotension. Lasix 20 mg IV. Vitals were stabilized. Cultures pending. Empirically on IV Zosyn since yesterday and Cipro discontinued. Can be transferred to PCU 3. Diabetes mellitus type 2: A1c 10.1%. Glucose is uncontrolled 332. Oral hypoglycemics were held. On the schedule long and short-acting insulin. 4. Acute kidney injury probably from sepsis/ATN: Creatinine is elevated. Monitor kidney function and electrolytes 10/31: Improvement in creatinine with volume resuscitation, probably mild volume overloaded. Last admission 5. History of diagnostic cardiac cath: Store Detective consult reviewed. Patient underwent diagnostic cardiac cath between [id number] but no official report available. As per education site manager, it seems no significant angiographically. Coronary artery disease. 2D echo is ordered. Fasting lipid profile shows LDL 17, HDL 22, TG 265. 6. Chronic smoker, PAD possible asthma: Patient was evaluated by truck shop mechanic/supervisor metal fabricating. 7. Other comorbidities hypertension, hypothyroidism, GERD and bipolar disorder: She denies history of cirrhosis. She states 1-2 drinks of alcohol occasionally in 1 year no significant alcohol intake. VTE prophylaxis: On Lovenox 30 mg subcu twice daily, adjusted to creatinine clearance Clinical Impression(s) from Imaging Studies Abdomen/Pelvis CT 10/29/20 16:33 IMPRESSION: Mild right hydronephrosis and hydroureter secondary to 2 distal ureteral calculi measuring up to 8-9 mm. Charges/Coding Visit Charges Inpatient E&M: 35469 Subs Hosp L3
[2020-10-31] MEDS: Insulin Lispro 100 UNIT/ML INSULN.PEN SC ×4 (07:39→21:42)
[2020-10-31] MEDS: Insulin Lispro 100 UNIT/ML INSULN.PEN 10 UNIT SC (07:40)
--- NOTE | 2020-10-31 07:43 | CON.PCM.UR_ITS ---
Assessment & Plan Assessment/Plan (1) Right distal ureteral calculus: PLAN: plan to take to Surgery saturday to laser stone, transfer out of ICU today HPI Consult Data Date of Consult: 10/31/20 HPI Narrative HPI Narrative: SANTIAGO CERDA, is a 60 F who presents with stone, s/p stent, had sepsis afterwards with fever and high lactate now better back to floor. PFSH Medical History Anxiety Asthma Bipolar disorder Cirrhosis COPD (chronic obstructive pulmonary disease) Coronary artery disease Depression Diabetes Diabetes DVT (deep venous thrombosis) GERD (gastroesophageal reflux disease) GERD (gastroesophageal reflux disease) Hepatitis Hypertension Hypothyroidism Kidney stones Kidney stones Myocardial infarct Smoker Home Medications Meloxicam 15 mg PO DAILY 07/01/13 [History Last Taken 07/01/13] allopurinol 100 mg PO DAILY 07/01/13 [History Last Taken 11/05/19 06:00] albuterol sulfate 1 puff INHALATION Q4H PRN PRN 06/24/19 [History Last Taken Unknown] omeprazole 40 mg PO DAILY 08/13/19 [History Last Taken Unknown] sucralfate 1 gm PO 4X/DAY 08/13/19 [History Last Taken Unknown] gabapentin 800 mg PO 4X/DAY 10/30/19 [History Last Taken Unknown] multivitamin with minerals 1 ea PO DAILY 10/30/19 [History Last Taken Unknown] furosemide [Lasix] 20 mg PO DAILY 10/29/20 [History Last Taken Unknown] insulin detemir U-100 [Levemir U-100 Insulin] 80 unit SUBCUT BID 10/29/20 [History Last Taken 10/29/20 08:00] levothyroxine 50 mcg PO DAILY 10/29/20 [History Last Taken Unknown] nystatin [Nyamyc] 1 applic TOPICAL DAILY 10/29/20 [History Last Taken Unknown] oxycodone 30 mg PO TID 10/29/20 [History Last Taken Unknown] potassium chloride 10 meq PO DAILY 10/29/20 [History Last Taken Unknown] rosuvastatin 20 mg PO DAILY 10/29/20 [History Last Taken Unknown] sitagliptin-metformin [Janumet] 1 tab PO BID 10/29/20 [History Last Taken Unknown] Allergy/AdvReac Type Severity Reaction Status Date / Time morphine Allergy Intermediate Hives Verified 10/29/20 16:18 Social History Smoking Status: Current every day smoker tobacco type: cigarettes Lab / Micro Data Result Diagrams: 10/31/20 04:00 10/31/20 04:00 Labs: Laboratory Results - last 24 hr 10/30/20 10:20: POC Glucose 325 H 10/30/20 14:40: POC Glucose 391 H 10/30/20 15:30: Lactic Acid 3.2 H* 10/30/20 19:40: PT 16.8 H, INR 1.4, APTT 37.0 H 10/30/20 19:40: Lactic Acid 1.1 10/30/20 21:43: POC Glucose 297 H 10/31/20 04:00: Sodium 134 L, Potassium 3.9, Chloride 100, Carbon Dioxide 27.0, Anion Gap 7, BUN 19 H, Creatinine 1.22 H, Estim Creat Clear Calc 42.87, Est GFR (MDRD) Af Amer 58 L, Est GFR (MDRD) Non-Af 48 L, BUN/Creatinine Ratio 15.6, Glucose 337 H, Calcium 7.5 L, Total Bilirubin 0.60, Direct Bilirubin 0.29, GGT 7 4 H, AST 11 L, ALT 18, Alkaline Phosphatase 55, Total Protein 6.0 L, Albumin 2.3 L, Globulin 3.7, Triglycerides 265 H, Cholesterol 92, LDL Cholesterol 17, VLDL Cholesterol 53 H, HDL Cholesterol 22 L 10/31/20 04:00: WBC 10.9, RBC 3.30 L, Hgb 10.4 L, Hct 32.3 L, MCV 97.9, MCH 31.5, MCHC 32.2, RDW Std Deviation 55.5 H, RDW Coeff of Marc 15.4 H, Plt Count 107 L, MPV 10.5, Immature Gran % (Auto) 1.000 H, Neut % (Auto) 84.0 H, Lymph % (Auto) 9.2 L, [place] % (Auto) 5.2, Eos % (Auto) 0.4, Baso % (Auto) 0.2, Absolute Neuts (auto) 9.2 H, Absolute Lymphs (auto) 1.00, Nucleated RBC % 0 10/31/20 06:49: POC Glucose 285 H
[2020-10-31] MEDS: Enoxaparin 30 MG/0.3 ML Syringe SC ×2 (10:10→21:41)
[2020-10-31] MEDS: Gabapentin 600 MG Tablet PO ×4 (10:10→21:41)
[2020-10-31] MEDS: Allopurinol 100 MG Tablet PO (10:11)
[2020-10-31] MEDS: Pantoprazole Sodium 40 MG Tablet PO (10:11)
[2020-10-31] MEDS: Nystatin Powder 15gm Bottle 1 APPLIC TOPICAL ×2 (10:12→20:05)
[2020-10-31] MEDS: Multivitamins,Ther W-Minerals Tablet 1 TABLET PO (10:17)
[2020-10-31] MEDS: Furosemide 20 MG/2 ML VIAL IV (10:20)
--- NOTE | 2020-10-31 10:40 | CASEMGMT ---
RN CM Face to Face with patient for initial transition planning/care coordination assessment. RN CM introduced self and role at [facility]. Patient lying in bed, alert and oriented. Patient willing to participate in assessment and is able to answer all questions appropriately. Care providers, pharmacy, and demographics verified. Patient wishes to discharge home, denies need for home health at this time. Patient states he has no further needs or concerns at this time. CM to follow for discharge planning needs that may arise. PCP: Augusto Specialists: Patric Sue-lastex thread winder Preferred Pharmacy: [facility] Insurance: [facility] Prescription Benefit: yes Living Will/HPOA: none LNOK: daughters Living Arrangements: Patient lives in a mobile home with ramp to enter. Patient states she is independent at home for self care. Daughters live next door. Transportation: Daughters DME/HHC: Patient states she has tub bench, grab bars, walker, and wheelchair at home. Patient denies previous HHC but has [facility]. Disposition Plan: Patient to discharge home with family support and follow-up plans in place. Duyen WEATHERS, RN, CM
[2020-10-31] MEDS: Sucralfate 1 GM Tablet PO ×3 (11:27→21:41)
[2020-10-31] MEDS: Insulin Lispro 100 UNIT/ML INSULN.PEN 20 UNIT SC ×2 (11:28→17:09)
[2020-10-31 12:15] LABS: Bedside Glucose 313 mg/dL (70-110)
--- NOTE | 2020-10-31 15:23 | CHAPLAIN ---
Type of Pastoral Visit _x__ Initial Visit ___ Follow-up Visit ___ On-call Visit ___ General Patient Visit ___ Spiritual Assessment ___ Family Conference ___ Bereavement ___ Rapid Response ___ Code Blue ___ Other (describe below) Pastoral Care Referral From _x__ Patient ___ Family ___ Nurse ___ Physician ___ Weatherization And Housing Inspector ___ Union Contract Representative ___ Other (describe below) Sacrament/Intervention _x__ Active listening ___ Anointing ___ Catholic ___ Bereavement ___ Communion ___ Violet exploration ___ _x__ Life review _x__ Prayer ___ Reconciliation ___ Sacrament of Sick _x__ Supportive presence ___ Wedding ___ Other (describe below) Pastoral Comments
[2020-10-31 17:50] LABS: Bedside Glucose 365 mg/dL (70-110)
--- NOTE | 2020-10-31 18:34 | PCM.PN.CARD ---
Subjective Subjective The patient is currently in the PCU. She describes no ongoing symptoms of chest discomfort or difficulty breathing at this time. Objective Data Vital Signs: Vital Signs Temp Pulse Resp BP Pulse Ox 99.6 F H 93 17 113/63 93 10/31/20 14:00 10/31/20 14:00 10/31/20 14:00 10/31/20 14:00 10/31/20 14:00 Oxygen Flow Rate (L/min) 2 Oxygen Delivery Method Room Air Weight: 265 lb 6.985 oz Body Mass Index (BMI) 43.4 Intake & Output: Intake and Output for Last 24 Hours 10/29/20 10/30/20 10/31/20 23:59 23:59 23:59 Intake Total 5450 / 5450 870 / 870 Output Total 475 / 875 1150 / 1150 Balance 4975 / 4575 -280 / -280 Lab / Micro Data Result Diagrams: 10/31/20 04:00 10/31/20 04:00 Labs: Laboratory Results - last 24 hr 10/30/20 19:40: PT 16.8 H, INR 1.4, APTT 37.0 H 10/30/20 19:40: Lactic Acid 1.1 10/30/20 21:43: POC Glucose 297 H 10/31/20 04:00: Sodium 134 L, Potassium 3.9, Chloride 100, Carbon Dioxide 27.0, Anion Gap 7, BUN 19 H, Creatinine 1.22 H, Estim Creat Clear Calc 42.87, Est GFR (MDRD) Af Amer 58 L, Est GFR (MDRD) Non-Af 48 L, BUN/Creatinine Ratio 15.6, Glucose 337 H, Calcium 7.5 L, Total Bilirubin 0.60, Direct Bilirubin 0.29, GGT 74 H, AST 11 L, ALT 18, Alkaline Phosphatase 55, Total Protein 6.0 L, Albumin 2.3 L, Globulin 3.7, Triglycerides 265 H, Cholesterol 92, LDL Cholesterol 17, VLDL Cholesterol 53 H, HDL Cholesterol 22 L 10/31/20 04:00: WBC 10.9, RBC 3.30 L, Hgb 10.4 L, Hct 32.3 L, MCV 97.9, MCH 31.5, MCHC 32.2, RDW Std Deviation 55.5 H, RDW Coeff of Marc 15.4 H, Plt Count 107 L, MPV 10.5, Immature Gran % (Auto) 1.000 H, Neut % (Auto) 84.0 H, Lymph % (Auto) 9.2 L, [place] % (Auto) 5.2, Eos % (Auto) 0.4, Baso % (Auto) 0.2, Absolute Neuts (auto) 9.2 H, Absolute Lymphs (auto) 1.00, Nucleated RBC % 0 10/31/20 06:49: POC Glucose 285 H 10/31/20 11:26: POC Glucose 313 H 10/31/20 17:08: POC Glucose 365 H Micro: Microbiology 10/30/20 11:29 Urine, Cystoscopy Urine Culture - Preliminary Culture exhibits no growth. Cardiology Labs/Tests 10/30/20 19:40: PT 16.8 H, INR 1.4, APTT 37.0 H 10/30/20 19:40: Lactic Acid 1.1 10/31/20 04:00: Sodium 134 L, Potassium 3.9, Chloride 100, Carbon Dioxide 27.0, Anion Gap 7, BUN 19 H, Creatinine 1.22 H, Est GFR (MDRD) Af Amer 58 L, Est GFR (MDRD) Non-Af 48 L, BUN/Creatinine Ratio 15.6, Glucose 337 H, Calcium 7.5 L, Total Bilirubin 0.60, Direct Bilirubin 0.29, Triglycerides 265 H, Cholesterol 92, LDL Cholesterol 17, VLDL Cholesterol 53 H, HDL Cholesterol 22 L 10/31/20 04:00: WBC 10.9, RBC 3.30 L, Hgb 10.4 L, Hct 32.3 L, MCV 97.9, MCH 31.5, MCHC 32.2, Plt Count 107 L, MPV 10.5, Immature Gran % (Auto) 1.000 H, Neut % (Auto) 84.0 H, Lymph % (Auto) 9.2 L, [place] % (Auto) 5.2, Eos % (Auto) 0.4, Baso % (Auto) 0.2, Absolute Neuts (auto) 9.2 H, Nucleated RBC % 0 Rhythm: Sinus rhythm Radiography Diagnostic Testing: Radiology Impression Echocardiogram 10/30/20 13:47 Interpretation Summary The study was technically difficult. Contrast injection was performed. Left ventricular systolic function is normal. The estimated ejection fraction is 60 %. The left atrium is mildly enlarged. Trivial mitral valve insufficiency. Trivial tricuspid valve insufficiency. Right ventricular systolic pressure estimated to be 34 mmHg. Diastolic function is indeterminate. Ordering Physician: Cornelius Alfaro Referring Physician: LUPE ZEPEDA Performed By: Alena Perales, FRANCIACS, RVT Physical Exam Narrative This is a 60-year-old white female who is resting comfortably at the moment in no acute distress. Const alert, oriented x3 and no apparent distress Orientation / Consciousness: awake HEENT normocephalic, head/scalp atraumatic and hearing grossly normal bilaterally Eyes PERRL, EOMs intact bilaterally and conjunctivae normal Neck full ROM, supple and no JVD Resp clear to auscultation bilaterally Cardio regular rate, regular rhythm, S1 normal heart sound and S2 normal heart sound GI normal to inspection, nondistended, normoactive bowel sounds Extremity no pedal edema Skin no rashes or lesions noted Neuro oriented x3, CN's II-XII intact bilaterally and moves all extremities Psych mental status grossly normal Assessment & Plan Assessment/Plan (1) Pre-op evaluation: PLAN: The patient has been referred for preoperative cardiovascular evaluation based upon the aforementioned reasons. At the present the patient appears to be without any acute cardiovascular symptoms/events. The patient's ECG has been noted. The patient has undergone previous diagnostic cardiac catheterization as noted above. A request will be made for the official cardiac catheterization reports. However, the patient states that she has not had to follow with anybody from cardiology on an active basis. Her echocardiogram is as noted above. At the moment it does not appear she requires further cardiac diagnostic studies/intervention prior to her upcoming noncardiovascular surgery. She should have close monitoring of her cardiac rate, rhythm, and blood pressure during and following any surgical procedure. An attempt should be made to avoid excess IV volume that may bring out a volume overload episode. (2) HLD (hyperlipidemia): QUALIFIERS: Hyperlipidemia type: unspecified Qualified Code(s): E78.5 - Hyperlipidemia, unspecified PLAN: She is reported as having a history of hyperlipidemia. It would not be unreasonable to reassess her lipids. She should continue medical therapy as deemed appropriate (3) Hypertension: QUALIFIERS: Hypertension type: unspecified Qualified Code(s): I10 - Essential (primary) hypertension PLAN: She is reported as having history of hypertension. Her blood pressure should be monitored. Her medications can be adjusted accordingly. Addt'l Comments This note was generated using a voice recognition system and there may be incorrect words, spelling or punctuation that were not noted when reviewing the office note prior to saving.
[2020-10-31] MEDS: Ondansetron 4 MG/2 ML Vial IV (20:03)
[2020-10-31 22:31] LABS: Bedside Glucose 341 mg/dL (70-110)
[2020-11-01] VITALS (8 sets, daily range): BP systolic 111–136; BP diastolic 46–75; PULSE 67–90; RESP 16–18; TEMP 36.4–37.1; O2SAT 92–95
[2020-11-01] MEDS: Levothyroxine 50 MCG Tablet PO (05:41)
[2020-11-01] MEDS: Sucralfate 1 GM Tablet PO ×3 (05:44→21:16)
[2020-11-01] MEDS: 0.9% Saline Lock 10 ML Syringe IV (06:57)
[2020-11-01 07:10] LABS: Absolute Lymphocyte Count 1.69 X10^3/uL (0.83-4.51); Absolute Neutrophil Count 5.6 X10^3/uL (2.0-7.7); Basophil# 0.01 X10^3/uL; Basophil% 0.1 % (0-1); Eosinophil# 0.06 X10^3/uL; Eosinophils% 0.7 % (0-5); Hematocrit 32.7 % (37-47); Hemoglobin 10.1 g/dL (12.0-15.0); Lymphocyte # 1.69 X10^3/ul (0.83-4.51); Mean Corp Hgb Conc 30.9 g/dL (32-36); Mean Corpuscular Hgb 30.9 pg (27.0-32.0); Mean Platelet Vol. 10.9 fl (6.2-12.0); Monocyte# 0.57 X10^3/uL; Monocyte% 7.1 % (0-10); NRBC Flagged by Analyzer 0 % (0-5); Neutrophil # 5.64 X10^3/uL (2.7-7.7); Neutrophil % 70.2 % (47-70); Platelet Count 116 K/mm3 (150-450); RBC Distribution Width CV 15.3 % (11.6-14.6); RBC Distribution Width SD 56.7 fl (35.1-43.9); Red Blood Count 3.27 M/mm3 (4.2-5.4)
[2020-11-01 07:39] LABS: Anion Gap 5 (5-15); BUN 17 mg/dL (7-18); BUN/Creat Ratio 17.1 RATIO (10-20); Chloride 102 mmol/L (98-107); Creatinine, Serum 0.99 mg/dL (0.55-1.02); EST Glomerular Filtration Rate 61 mL/min (>60); Est Glom Filt Rate - Afr Amer 74 mL/min (>60); Estimated Creatinine Clearance 52.84 ml/min; Glucose 274 mg/dL (74-106); Potassium 3.9 mmol/L (3.5-5.1); Sodium Level 134 mmol/L (136-145)
--- NOTE | 2020-11-01 07:52 | CON.PCM_ITS ---
Consult Date of Consult: 11/01/20 Patient admitted to the hospital for obstructing distal right stone status post stent placement she has been seen by cardiology I think she is safe to proceed tomorrow for surgery so n.p.o. at midnight we will plan to laser out the stones and remove the stent she was complaining about her high blood sugar levels I con jaylen hospitalist to help with management of her blood sugars.
[2020-11-01 08:01] LABS: Bedside Glucose 334 mg/dL (70-110)
[2020-11-01] MEDS: Insulin Lispro 100 UNIT/ML INSULN.PEN 20 UNIT SC (08:24)
[2020-11-01] MEDS: Insulin Lispro 100 UNIT/ML INSULN.PEN SC ×4 (08:25→21:14)
[2020-11-01] MEDS: Multivitamins,Ther W-Minerals Tablet 1 TABLET PO (08:26)
[2020-11-01] MEDS: Gabapentin 600 MG Tablet PO ×4 (08:26→21:16)
[2020-11-01] MEDS: Allopurinol 100 MG Tablet PO (08:27)
[2020-11-01] MEDS: oxyCODONE 5 MG Tablet 15 MG PO (08:29)
--- NOTE | 2020-11-01 08:36 | PN.CC_ITS ---
Assessment & Plan Assessment/Plan (1) Right distal ureteral calculus: (2) Body mass index (BMI) 40.0-44.9, adult: (3) Tobacco abuse: (4) Diabetic polyneuropathy: PLAN: RECOMMENDATIONS: 1. Continue empiric antibiotics pending culture data 2. We will continue to follow until postoperative from a pulmonary perspective 3. Wean oxygen as tolerated. Encourage CPAP with sleep 4. Initiate as needed bronchodilators. No steroids at this time 5. Increase Lantus. Aggressive control of blood sugars. 6. Okay to proceed with surgery from my perspective IMPRESSIONS: 1. Sepsis secondary to UTI secondary to obstructing stone status post stent Patient appears to be doing okay at this time. Patient is on appropriate broad-spectrum antibiotics. Await culture data. Patient will likely require definitive therapy at some point for obstructing stone. Blood pressures have been doing well after fluid resuscitation. Likely okay to proceed with definitive stone therapy from my perspective. 2. 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 However, patient is requiring only minimal nasal cannula oxygen after aggressive fluid resuscitation. Clinical suspicion that untreated sleep apnea will pose the greatest risk from an operative standpoint. Patient should have continuous pulse oximetry if she is not going to comply with CPAP therapy. We will continue to follow postoperatively to help with any complications. Clinical suspicion for elevated pulmonary artery pressures secondary to diastolic dysfunction versus intrinsic lung disease. Failure to comply with BETO, especially with hypoxemia could also be complicating pulmonary hypertension 3. Diabetes mellitus type 2/hypertension/hypothyroidism/GERD/bipolar/morbid obesity Complicates care, management, recovery and prognosis. Poor control of diabetes at baseline. Patient will have a variable p.o. intake secondary to potential surgical interventions. Okay to continue with baseline medications from my perspective. Patient would benefit from weight loss. Subjective Subjective Patient did well overnight. No acute issues were reported. Patient has had elevated blood sugars over the last 24 hours. Patient is concerned about her respiratory status following surgery and was under the impression that she had not been seen by forging dies final finisher. She was slightly embarrassed when she realized that I was a forging dies final finisher. Patient is very resistant to using any CPAP following surgery, even with the risks Objective Data Objective Data Vital Signs: Vital Signs Temp Pulse Resp BP Pulse Ox 37.1 C 79 16 111/62 92 11/01/20 02:00 08/03/21 02:30 11/01/20 02:00 11/01/20 02:00 11/01/20 07:18 Oxygen Flow Rate (L/min) 2 Oxygen Delivery Method Room Air Weight: 119.4 kg Body Mass Index (BMI) 43.4 Intake & Output: Intake and Output for Last 24 Hours 10/30/20 10/31/20 11/01/20 23:59 23:59 23:59 Intake Total 5450 / 5450 972 / 972 50 / 50 Output Total 475 / 875 1150 / 1600 550 / 550 Balance 4975 / 4575 -178 / -628 -500 / -500 Medical Nutrition Assessment Dietitian: Nutrition Therapy Diagnosis Start: 10/31/20 11:36 Freq: Status: Active Protocol: Document 10/31/20 14:07 RMA (Rec: 10/31/20 14:08 RMA [id number]) Nutrition Malnutrition Evidence of Malnutrition Exists No Intake Problem Decreased Nutrient Needs (specify) Etiology for calories/fat/carbohydrates related to endocrine dysfunction/DMII and obesity Signs/Symptoms as evidenced by HgbA1C 10.1%, blood glucose in the 300's and BMI 45.3 Status Active Problem Recommendation Dietitian Recommendations/Changes Will change diet to 1800 calorie; carbohydrate- controlled, cardiac. Diet education as pt willing to receive prior to d/c. [facility] DM Clinic referral when ready for lifestyle change. Lab / Micro Data Result Diagrams: 11/01/20 05:45 11/01/20 05:45 Labs: Laboratory Results - last 24 hr 10/31/20 11:26: POC Glucose 313 H 10/31/20 17:08: POC Glucose 365 H 10/31/20 21:39: POC Glucose 341 H 11/01/20 05:45: WBC 8.0, RBC 3.27 L, Hgb 10.1 L, Hct 32.7 L, MCV 100.0 H, MCH 30.9, MCHC 30.9 L, RDW Std Deviation 56.7 H, RDW Coeff of Marc 15.3 H, Plt Count 116 L, MPV 10.9, Immature Gran % (Auto) 0.900, Neut % (Auto) 70.2 H, Lymph % (Auto) 21.0, [place] % (Auto) 7.1, Eos % (Auto) 0.7, Baso % (Auto) 0.1, Absolute Neuts (auto) 5.6, Absolute Lymphs (auto) 1.69, Nucleated RBC % 0 11/01/20 05:45: Sodium 134 L, Potassium 3.9, Chloride 102, Carbon Dioxide 27.0, Anion Gap 5, BUN 17, Creatinine 0.99, Estim Creat Clear Calc 52.84, Est GFR (MDRD) Af Amer 74, Est GFR (MDRD) Non-Af 61, BUN/Creatinine Ratio 17.1, Glucose 274 H, Calcium 8.0 L 11/01/20 07:57: POC Glucose 334 H Micro: Microbiology 10/30/20 11:29 Urine, Cystoscopy Urine Culture - Preliminary Culture exhibits no growth. Radiography Diagnostic Testing: Radiology Impression Echocardiogram 10/30/20 13:47 Interpretation Summary The study was technically difficult. Contrast injection was performed. Left ventricular systolic function is normal. The estimated ejection fraction is 60 %. The left atrium is mildly enlarged. Trivial mitral valve insufficiency. Trivial tricuspid valve insufficiency. Right ventricular systolic pressure estimated to be 34 mmHg. Diastolic function is indeterminate. Ordering Physician: Cornelius Alfaro Referring Physician: LUPE ZEPEDA Performed By: Alena Perales, PAO, RVT Physical Exam Const alert, oriented x3 and no apparent distress General Appearance: cooperative, comfortable and well developed Nutritional Appearance: morbidly obese HEENT normocephalic, head/scalp atraumatic and moist oral mucous membranes Eyes PERRL and EOMs intact bilaterally Neck full ROM and no lymphadenopathy Chest inspection of chest normal Resp normal respiratory effort and no use of accessory muscles Effort and Inspection: able to speak in complete sentences Auscultation: diminished lung sounds; Negative for rales, rhonchi or wheezes Percussion: Negative for dullness Cardio regular rate, regular rhythm, S1 normal heart sound, S2 normal heart sound, no murmurs, no rub and no gallops GI normal to inspection, nondistended, normoactive bowel sounds no CVA tenderness Extremity no clubbing, cyanosis or edema Skin no rashes or lesions noted Neuro oriented x3, CN's II-XII intact bilaterally, moves all extremities and no focal motor deficits Psych cooperative and affect normal Charges/Coding Visit Charges Inpatient E&M: 10621 Subs Hosp L2
[2020-11-01] MEDS: Enoxaparin 30 MG/0.3 ML Syringe SC (09:26)
[2020-11-01] MEDS: Nystatin Powder 15gm Bottle 1 APPLIC TOPICAL ×2 (09:27→21:17)
[2020-11-01] MEDS: Pantoprazole Sodium 40 MG Tablet PO (09:27)
[2020-11-01] MEDS: Insulin Lispro 100 UNIT/ML INSULN.PEN 30 UNIT SC (12:17)
--- NOTE | 2020-11-01 12:18 | PCM.DC ---
Discharge Instructions Diet Discharge Diet: No restrictions (You may continue your normal diet.) Activity May resume sexual activity in: 1 week (if no groin problems occur.) Lifting Restrictions: 10 pounds and also avoid any pushing or pulling for 3 days after your test. Additional Activity Instructions:: You must have someone drive you home. Do not drive until instructed by your doctor. You must have someone stay with you all night after your test. Rest in bed or on the couch until the next morning. Limit the number of times you go up and down stairs the day of your test. Dressing / Incision Call your doctor if your incision/area has: Increased Pain/ Swelling, Increased Redness, Foul Smelling Discharge and Swelling at the incision site Call your doctor if you observe: Fever of 101 or Higher Additional Dressing/Incision Instructions:: Keep the dressing (bandage) on until the next morning. You may then shower, but do not take a tub bath for 5 days after your test. It is normal to have some tenderness and discomfort at the puncture site. Sometimes bruising also occurs. However, if pain, numbness, or coldness occurs below the puncture site (in your leg, toes, arms or fingers) call your doctor at once. You may have a small, marble sized knot at the puncture site. This is normal. Do not rub it. It will go away in 4-6 weeks. Bleeding can occur from the area where the puncture was done. Blood may spurt or drip from the site. If blood spurts, apply pressure right away to stop bleeding and call 911. Although rare, bleeding into the tissue (hematoma) can also occur. If this happens, a large, firm area goose egg under the skin will appear. If any of these occur, lie down as flat as you can and have someone apply firm pressure to the cath site with a gauze pad or a clean washcloth for 10-15 minutes. Call 911 or go to the Emergency Department. Follow Up Care Test Results: Test results from this visit will be discussed in further detail at your follow-up appointment, if applicable. Discharge Plan Admission Admit Date/Time: 10/30/20 22:01 Attending Provider: Etienne Rocha Primary Care Provider: Dennis Casas Consulting Providers: Cornelius Alfaro ; Can Rodriguez ; Brown,Ashu Discharge Orders/Prescriptions Prescriptions: No Action allopurinol 300 MG tablet 100 mg PO DAILY RF: 0 Meloxicam 15 mg PO DAILY RF: 0 albuterol sulfate 1 INHALER inhaler 1 puff inhalation Q4H PRN PRN (Reason: Dyspnea) RF: 0 sucralfate 1 GM tablet 1 gm PO 4X/DAY RF: 0 omeprazole 40 MG capsule,delayed release(DR/EC) 40 mg PO DAILY RF: 0 gabapentin 800 MG tablet 800 mg PO 4X/DAY RF: 0 multivitamin with minerals 1 EACH tablet 1 ea PO DAILY RF: 0 levothyroxine 50 mcg tablet 50 mcg PO DAILY RF: 0 furosemide [Lasix] 20 mg Tablet 20 mg PO DAILY RF: 0 rosuvastatin 20 mg Tablet 20 mg PO DAILY RF: 0 Levemir U-100 Insulin 100 unit/mL solution 80 unit SUBCUT BID RF: 0 Janumet 50-1,000 mg tablet 1 tab PO BID RF: 0 potassium chloride 10 mEq tablet extended release 10 meq PO DAILY RF: 0 oxycodone 15 mg tablet 30 mg PO TID RF: 0 nystatin [Nyamyc] 100,000 unit/gram powder 1 applic TOPICAL DAILY RF: 0 Referrals / Follow Up: Dennis Casas MD [Primary Care Provider] -
[2020-11-01 12:36] LABS: Bedside Glucose 339 mg/dL (70-110)
--- NOTE | 2020-11-01 13:32 | PCM.PN.HOSP ---
Subjective Subjective Patient is concerned of hyperglycemia. Blood sugar is elevated. She is also adamant about home dose of oxycodone 15 mg 3 times daily and upset about making as needed. She also does not know who her other doctors taking care of therefore brief discussion of patient financial services manager, stemmer machine, neurologist and myself was done. She is aware that she has lithotripsy procedure is scheduled tomorrow. Objective Data Objective Data Vital Signs: Vital Signs Temp Pulse Resp BP Pulse Ox 98.5 F 80 16 136/62 H 93 11/01/20 09:00 11/01/20 09:00 11/01/20 09:00 11/01/20 09:00 11/01/20 09:00 Oxygen Flow Rate (L/min) 2 Oxygen Delivery Method Room Air Weight: 263 lb 3.711 oz Body Mass Index (BMI) 43.4 Intake & Output: Intake and Output for Last 24 Hours 10/30/20 10/31/20 11/01/20 23:59 23:59 23:59 Intake Total 5450 / 5450 972 / 972 100 / 100 Output Total 475 / 875 1150 / 1600 550 / 550 Balance 4975 / 4575 -178 / -628 -450 / -450 Medical Nutrition Assessment Dietitian: Nutrition Therapy Diagnosis Start: 10/31/20 11:36 Freq: Status: Active Protocol: Document 10/31/20 14:07 RMA (Rec: 10/31/20 14:08 RMA [id number]) Nutrition Malnutrition Evidence of Malnutrition Exists No Intake Problem Decreased Nutrient Needs (specify) Etiology for calories/fat/carbohydrates related to endocrine dysfunction/DMII and obesity Signs/Symptoms as evidenced by HgbA1C 10.1%, blood glucose in the 300's and BMI 45.3 Status Active Problem Recommendation Dietitian Recommendations/Changes Will change diet to 1800 calorie; carbohydrate- controlled, cardiac. Diet education as pt willing to receive prior to d/c. [facility] DM Clinic referral when ready for lifestyle change. Lab / Micro Data Result Diagrams: 11/01/20 05:45 11/01/20 05:45 Labs: Laboratory Results - last 24 hr 10/31/20 17:08: POC Glucose 365 H 10/31/20 21:39: POC Glucose 341 H 11/01/20 05:45: WBC 8.0, RBC 3.27 L, Hgb 10.1 L, Hct 32.7 L, MCV 100.0 H, MCH 30.9, MCHC 30.9 L, RDW Std Deviation 56.7 H, RDW Coeff of Marc 15.3 H, Plt Count 116 L, MPV 10.9, Immature Gran % (Auto) 0.900, Neut % (Auto) 70.2 H, Lymph % (Auto) 21.0, [place] % (Auto) 7.1, Eos % (Auto) 0.7, Baso % (Auto) 0.1, Absolute Neuts (auto) 5.6, Absolute Lymphs (auto) 1.69, Nucleated RBC % 0 11/01/20 05:45: Sodium 134 L, Potassium 3.9, Chloride 102, Carbon Dioxide 27.0, Anion Gap 5, BUN 17, Creatinine 0.99, Estim Creat Clear Calc 52.84, Est GFR (MDRD) Af Amer 74, Est GFR (MDRD) Non-Af 61, BUN/Creatinine Ratio 17.1, Glucose 274 H, Calcium 8.0 L 11/01/20 07:57: POC Glucose 334 H 11/01/20 12:16: POC Glucose 339 H Micro: Microbiology 10/30/20 11:29 Urine, Cystoscopy Urine Culture - Preliminary Yeast Like Organism Physical Exam Narrative Seen and examined. No abdominal pain/pressure. No fever. General: Alert, Oriented x3, Cooperative, morbid obesity BMI 45.2 kg/m? HEENT: Atraumatic, PERRLA, EOMI, Normocephalic Oral: Oral mucosa is moist. No Gingival or Mucosal Lesions/ Ulcerations Neck: Supple, No JVD, Negative Carotid Bruits Lungs: Air entry diminished in bilateral lung bases. No crepitation/rhonchi Cardiovascular: Sinus rhythm, Normal S1, Normal S2, No murmurs Abdomen: Bowel Sounds Present, Soft, Non Tender, Non-Distended : No renal angle tenderness. No suprapubic tenderness. Extremities: Mild bilateral ankle edema, Capillary Refill Less than 3 Seconds. Uses walker Skin: No rashes, No breakdown Musculoskeletal: No Tenderness to Palpation of Joints or Extremities Neurological: Cranial nerves II-XII grossly intact, Deep Tendon Reflexes 2+/4 and Symmetrical, Neuro grossly intact Psych/Mental Status: Normal Affect, Appropriate. Assessment & Plan Assessment/Plan (1) Pre-op evaluation: (2) Right distal ureteral calculus: PLAN: This is a 60-year-old female admitted under Dr. Rocha, urology service after she had ureteric colic pain and found to have 2 distal ureteric calculi complicating right hydronephrosis and hydroureter 1. Right ureteric colic pain due to ureteric calculi complicated with right hydroureteronephrosis with suspicion of complicated UTI: Patient had cystoscopy and stents placed today. There is plan for lithotripsy later this week therefore cardiology and stemmer machine are being consulted for preoperative risk evaluation. UA shows WBC 25-50 cells, LE 500, nitrite negative with glucosuria and proteinuria. 2 severe sepsis with (high fever, tachycardia, tachypnea and leukocytosis with left shift and lactic acidosis) secondary to complicated UTI as mentioned above: Patient fever 102.3 Fahrenheit, tachycardia, leukocytosis and fulfills SIRS criteria with sepsis. Lactic acidosis. The patient was transferred to ICU on 10/30. Patient was volume resuscitated and has positive fluid balance. No hypotension. Lasix 20 mg IV. Vitals were stabilized. Cultures pending. Empirically on IV Zosyn since yesterday and Cipro discontinued. Can be transferred to PCU 11/01: Urine culture from 11/01 shows yeast like organism 1000-10,000 probably contamination/colonization. Blood cultures not reported yet. Continue IV antibiotic as she has severe sepsis 3. Diabetes mellitus type 2: A1c 10.1%. Glucose is uncontrolled 332. Oral hypoglycemics were held. On the schedule long and short-acting insulin. 11/01: Lantus insulin dose increased to 75 unit twice daily and lispro insulin 35 units 3 times daily. Glucose is running about 300 mg/dL 4. Acute kidney injury probably from sepsis/ATN: Creatinine is elevated. Monitor kidney function and electrolytes 10/31: Improvement in creatinine with volume resuscitation, probably mild volume overloaded. Last admission 11/01: BROCK resolved. 5. History of diagnostic cardiac cath: Coil Finisher consult reviewed. Patient underwent diagnostic cardiac cath between [id number] but no official report available. As per patient financial services manager, it seems no significant angiographically. Coronary artery disease. Fasting lipid profile shows LDL 17, HDL 22, TG 265. 11/01: 2D echo reported EF 60%, LA mild enlargement. RVSP 34 mmHg. 6. Chronic smoker, PAD possible asthma: Patient was evaluated by leather skinner/stemmer machine. 7. Other comorbidities hypertension, hypothyroidism, GERD and bipolar disorder: She denies history of cirrhosis. She states 1-2 drinks of alcohol occasionally in 1 year no significant alcohol intake. VTE prophylaxis: On Lovenox 40 mg subcu twice daily, adjusted to creatinine clearance Clinical Impression(s) from Imaging Studies Abdomen/Pelvis CT 10/29/20 16:33 IMPRESSION: Mild right hydronephrosis and hydroureter secondary to 2 distal ureteral calculi measuring up to 8-9 mm. Charges/Coding Visit Charges Inpatient E&M: 17710 Subs Hosp L2
[2020-11-01] MEDS: Insulin Lispro 100 UNIT/ML INSULN.PEN 35 UNIT SC (16:41)
[2020-11-01 17:01] LABS: Bedside Glucose 348 mg/dL (70-110)
[2020-11-01 23:51] LABS: Bedside Glucose 235 mg/dL (70-110)
[2020-11-02] VITALS (16 sets, daily range): BP systolic 110–154; BP diastolic 53–97; PULSE 69–83; RESP 16–18; TEMP 36.2–37.1; O2SAT 93–98; BMI 45.9
--- NOTE | 2020-11-02 | CALC_PTH ---
PATIENT: SANTIAGO CERDA LOC: [facility] U#:[id number] AGE/SX: 60/F ROOM: [facility] RE10/30/[address]: Dr. Etienne Rocha MD : 1960 BED: 1 DIS: 11/02/2020 SPEC #: [id number] RECD: 11/03/20 06:54 STATUS: BIBINAA JAIMES #: [id number] MARK ANTHONY: 11/02/20 00:[address]: Etienne Rocha DEPT: SURGICAL PATHOLOGY RECD BY: Denzel Casas ENTERED: 11/03/20 08:23 SP TYPE: Calculi OTHR DR: DO Dr. Can Lemos MD Dr. Paul Moodispaw, MD Dr. Steven Murray, MD Tissues: CALCULI Procedures: Surgery Specimen Level I HEADER OPERATION: Cystoscopy, ureteroscopy, basket extraction and removal of stone PRE-OP DIAGNOSIS: Right ureteral stones TISSUE SUBMITTED: Right ureteral calculi GROSS DIAGNOSIS Fragments of stone, clinically right ureteral calculi. MEMO:[place] 11/04/2020 COMMENT The calculi are submitted in its entirety for chemical stone analysis. The results from this study will be reported separately. GROSS DESCRIPTION Received without fixative labeled with the patient's name and designated right ureteral calculi. The specimen consists of two fragments of stone measuring 1 x 0.5 x 0.5 cm and 0.7 x 0.6 x 0.4 cm. The entire specimen is submitted for stone analysis. / MEMO:[place] 11/03/20 CPT: 96419
--- NOTE | 2020-11-02 05:04 | NURSING ---
Report received from Joann ALEMAN, this RN assuming care of pt. at this time.
[2020-11-02 06:01] LABS: Absolute Lymphocyte Count 2.19 X10^3/uL (0.83-4.51); Absolute Neutrophil Count 4.6 X10^3/uL (2.0-7.7); Basophil# 0.01 X10^3/uL; Basophil% 0.1 % (0-1); Eosinophil# 0.08 X10^3/uL; Eosinophils% 1.1 % (0-5); Hemoglobin 10.9 g/dL (12.0-15.0); Lymphocyte # 2.19 X10^3/ul (0.83-4.51); Lymphocyte % 29.2 % (19-41); Mean Corp Hgb Conc 31.1 g/dL (32-36); Mean Corpuscular Hgb 31.1 pg (27.0-32.0); Mean Corpuscular Volume 99.7 fL (81-99); Mean Platelet Vol. 10.6 fl (6.2-12.0); Monocyte# 0.47 X10^3/uL; Monocyte% 6.3 % (0-10); NRBC Flagged by Analyzer 0 % (0-5); Neutrophil % 61.3 % (47-70); Platelet Count 138 K/mm3 (150-450); RBC Distribution Width CV 15.2 % (11.6-14.6); RBC Distribution Width SD 55.6 fl (35.1-43.9); Red Blood Count 3.51 M/mm3 (4.2-5.4); White Blood Count 7.5 K/mm3 (4.4-11.0)
[2020-11-02 06:41] LABS: Anion Gap 5 (5-15); BUN 13 mg/dL (7-18); BUN/Creat Ratio 13.7 RATIO (10-20); Calcium,Total 8.4 mg/dL (8.5-10.1); Chloride 100 mmol/L (98-107); Creatinine, Serum 0.95 mg/dL (0.55-1.02); EST Glomerular Filtration Rate 64 mL/min (>60); Est Glom Filt Rate - Afr Amer 78 mL/min (>60); Estimated Creatinine Clearance 55.06 ml/min; Glucose 244 mg/dL (74-106); Sodium Level 134 mmol/L (136-145)
--- NOTE | 2020-11-02 08:40 | PCM.PN.INT ---
Assessment & Plan Assessment/Plan (1) Right distal ureteral calculus: (2) Body mass index (BMI) 40.0-44.9, adult: (3) Tobacco abuse: (4) Diabetic polyneuropathy: PLAN: RECOMMENDATIONS: 1. Continue empiric antibiotics pending culture data 2. We will continue to follow until postoperative from a pulmonary perspective 3. Wean oxygen as tolerated. Encourage CPAP with sleep 4. Continue bronchodilators. No steroids at this time 5. Consider decreasing Lantus dose given n.p.o. status 6. Okay to proceed with surgery from my perspective 7. If discharged following procedure, patient should follow-up in our office in 2 weeks with nurse practitioner IMPRESSIONS: 1. Sepsis secondary to UTI secondary to obstructing stone status post stent Resolved. Patient appears to be doing okay at this time. Patient is on appropriate antibiotics. Patient will likely require definitive therapy at some point for obstructing stone. Blood pressures have been doing well after fluid resuscitation. Likely okay to proceed with definitive stone therapy from my perspective. We will follow the patient remains hospitalized following procedure. 2. 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 However, patient is requiring only minimal nasal cannula oxygen after aggressive fluid resuscitation. Clinical suspicion that untreated sleep apnea will pose the greatest risk from an operative standpoint. Patient should have continuous pulse oximetry if she is not going to comply with CPAP therapy. We will continue to follow postoperatively to help with any complications. Clinical suspicion for elevated pulmonary artery pressures secondary to diastolic dysfunction versus intrinsic lung disease. Patient may have an issue with lower oxygen saturations while under anesthesia. Encourage incentive spirometer. We will follow patient postoperatively if necessary. Patient would benefit from an outpatient work-up. Patient can follow up in our office in 2 weeks with nurse practitioner if discharged following procedure. 3. Diabetes mellitus type 2/hypertension/hypothyroidism/GERD/bipolar/morbid obesity Complicates care, management, recovery and prognosis. Poor control of diabetes at baseline. Patient will have a variable p.o. intake secondary to potential surgical interventions. Okay to continue with baseline medications from my perspective. Patient would benefit from weight loss. Subjective Subjective Patient did well overnight. No acute issues were reported. Patient is not reporting any abdominal pain, nausea or vomiting. Patient does report that she is significantly concerned about her procedure today given how much I have smoked. Objective Data Objective Data Vital Signs: Vital Signs Temp Pulse Resp BP Pulse Ox 36.8 C 76 16 118/62 93 11/02/20 03:36 11/02/20 07:45 11/02/20 03:36 11/02/20 03:36 11/02/20 07:19 Oxygen Flow Rate (L/min) 2 Oxygen Delivery Method Room Air Weight: 121.4 kg Body Mass Index (BMI) 43.4 Intake & Output: Intake and Output for Last 24 Hours 10/31/20 11/01/20 11/02/20 23:59 23:59 23:59 Intake Total 972 / 972 991.75 / 991.75 0 / 0 Output Total 1150 / 1600 1175 / 1175 Balance -178 / -628 -183.25 / -183.25 0 / 0 Medical Nutrition Assessment Dietitian: Nutrition Therapy Diagnosis Start: 10/31/20 11:36 Freq: Status: Active Protocol: Document 10/31/20 14:07 RMA (Rec: 10/31/20 14:08 RMA [id number]) Nutrition Malnutrition Evidence of Malnutrition Exists No Intake Problem Decreased Nutrient Needs (specify) Etiology for calories/fat/carbohydrates related to endocrine dysfunction/DMII and obesity Signs/Symptoms as evidenced by HgbA1C 10.1%, blood glucose in the 300's and BMI 45.3 Status Active Problem Recommendation Dietitian Recommendations/Changes Will change diet to 1800 calorie; carbohydrate- controlled, cardiac. Diet education as pt willing to receive prior to d/c. [facility] DM Clinic referral when ready for lifestyle change. Lab / Micro Data Result Diagrams: 11/02/20 05:42 11/02/20 05:42 Labs: Laboratory Results - last 24 hr 11/01/20 12:16: POC Glucose 339 H 11/01/20 16:40: POC Glucose 348 H 11/01/20 21:11: POC Glucose 235 H 11/02/20 05:42: WBC 7.5, RBC 3.51 L, Hgb 10.9 L, Hct 35.0 L, MCV 99.7 H, MCH 31.1, MCHC 31.1 L, RDW Std Deviation 55.6 H, RDW Coeff of Marc 15.2 H, Plt Count 138 L, MPV 10.6, Immature Gran % (Auto) 2.000 H, Neut % (Auto) 61.3, Lymph % (Auto) 29.2, [place] % (Auto) 6.3, Eos % (Auto) 1.1, Baso % (Auto) 0.1, Absolute Neuts (auto) 4.6, Absolute Lymphs (auto) 2.19, Nucleated RBC % 0 11/02/20 05:42: Sodium 134 L, Potassium 4.0, Chloride 100, Carbon Dioxide 29.0, Anion Gap 5, BUN 13, Creatinine 0.95, Estim Creat Clear Calc 55.06, Est GFR (MDRD) Af Amer 78, Est GFR (MDRD) Non-Af 64, BUN/Creatinine Ratio 13.7, Glucose 244 H, Calcium 8.4 L, TSH 3.70 Micro: Microbiology 11/01/20 14:15 Mucosa - Nasopharyngeal SARS-CoV-2 Antigen (Rapid) - Final 10/30/20 11:29 Urine, Cystoscopy Urine Culture - Preliminary Yeast Like Organism Physical Exam Const alert, oriented x3 and no apparent distress General Appearance: cooperative, comfortable and well developed Nutritional Appearance: morbidly obese HEENT normocephalic, head/scalp atraumatic and moist oral mucous membranes Eyes PERRL and EOMs intact bilaterally Neck full ROM and no lymphadenopathy Chest inspection of chest normal Resp normal respiratory effort and no use of accessory muscles Effort and Inspection: able to speak in complete sentences Auscultation: diminished lung sounds; Negative for rales, rhonchi or wheezes Percussion: Negative for dullness Cardio regular rate, regular rhythm, S1 normal heart sound, S2 normal heart sound, no murmurs, no rub and no gallops GI normal to inspection, nondistended, normoactive bowel sounds no CVA tenderness Extremity no clubbing, cyanosis or edema Skin no rashes or lesions noted Neuro oriented x3, CN's II-XII intact bilaterally, moves all extremities and no focal motor deficits Psych cooperative and affect normal Charges/Coding Visit Charges Inpatient E&M: 09825 Subs Hosp L2
[2020-11-02 08:46] LABS: Bedside Glucose 286 mg/dL (70-110)
[2020-11-02] MEDS: Insulin Lispro 100 UNIT/ML INSULN.PEN SC ×2 (09:06→18:17)
[2020-11-02 11:06] LABS: Bedside Glucose 278 mg/dL (70-110)
[2020-11-02] MEDS: Insulin Lispro 100 UNIT/ML INSULN.PEN 10 UNIT SC (11:47)
--- NOTE | 2020-11-02 11:57 | PCM.PN.HOSP ---
Subjective Subjective Blood sugars are high probably patient did not get scheduled Lantus at night. As per nursing note, patient refused Lantus at night. Patient said that the night nurse said her sugar will bottom down therefore she did not get Lantus but she did not refuse it. Communicated to the charge nurse. Lantus 30 units and Humalog 10 units ordered. Advised to check blood sugar just before she goes to ER. Objective Data Objective Data Vital Signs: Vital Signs Temp Pulse Resp BP Pulse Ox 97.8 F 71 16 146/74 H 96 11/02/20 11:05 11/02/20 11:05 11/02/20 11:05 11/02/20 11:05 11/02/20 11:05 Oxygen Flow Rate (L/min) 2 Oxygen Delivery Method Nasal Cannula Weight: 267 lb 10.259 oz Body Mass Index (BMI) 45.9 Intake & Output: Intake and Output for Last 24 Hours 10/31/20 11/01/20 11/02/20 23:59 23:59 23:59 Intake Total 972 / 972 991.75 / 991.75 0 / 0 Output Total 1150 / 1600 1175 / 1175 Balance -178 / -628 -183.25 / -183.25 0 / 0 Medical Nutrition Assessment Dietitian: Nutrition Therapy Diagnosis Start: 10/31/20 11:36 Freq: Status: Active Protocol: Document 10/31/20 14:07 RMA (Rec: 10/31/20 14:08 RMA [id number]) Nutrition Malnutrition Evidence of Malnutrition Exists No Intake Problem Decreased Nutrient Needs (specify) Etiology for calories/fat/carbohydrates related to endocrine dysfunction/DMII and obesity Signs/Symptoms as evidenced by HgbA1C 10.1%, blood glucose in the 300's and BMI 45.3 Status Active Problem Recommendation Dietitian Recommendations/Changes Will change diet to 1800 calorie; carbohydrate- controlled, cardiac. Diet education as pt willing to receive prior to d/c. [facility] Clinic referral when ready for lifestyle change. Lab / Micro Data Result Diagrams: 11/02/20 05:42 11/02/20 05:42 Labs: Laboratory Results - last 24 hr 11/01/20 12:16: POC Glucose 339 H 11/01/20 16:40: POC Glucose 348 H 11/01/20 21:11: POC Glucose 235 H 11/02/20 05:42: WBC 7.5, RBC 3.51 L, Hgb 10.9 L, Hct 35.0 L, MCV 99.7 H, MCH 31.1, MCHC 31.1 L, RDW Std Deviation 55.6 H, RDW Coeff of Marc 15.2 H, Plt Count 138 L, MPV 10.6, Immature Gran % (Auto) 2.000 H, Neut % (Auto) 61.3, Lymph % (Auto) 29.2, [place] % (Auto) 6.3, Eos % (Auto) 1.1, Baso % (Auto) 0.1, Absolute Neuts (auto) 4.6, Absolute Lymphs (auto) 2.19, Nucleated RBC % 0 11/02/20 05:42: Sodium 134 L, Potassium 4.0, Chloride 100, Carbon Dioxide 29.0, Anion Gap 5, BUN 13, Creatinine 0.95, Estim Creat Clear Calc 55.06, Est GFR (MDRD) Af Amer 78, Est GFR (MDRD) Non-Af 64, BUN/Creatinine Ratio 13.7, Glucose 244 H, Calcium 8.4 L, TSH 3.70 11/02/20 08:04: POC Glucose 286 H 11/02/20 11:03: POC Glucose 278 H Micro: Microbiology 10/30/20 17:42 Blood Culture (Wb) - Left Hand Blood Culture - Preliminary No growth in 48 hours. 10/30/20 17:42 Blood Culture (Wb) - Right Hand Blood Culture - Preliminary No growth in 48 hours. 11/01/20 14:15 Mucosa - Nasopharyngeal SARS-CoV-2 Antigen (Rapid) - Final 10/30/20 11:29 Urine, Cystoscopy Urine Culture - Preliminary Yeast Like Organism Physical Exam Narrative Seen and examined. No abdominal pain/pressure. No fever. Discussed with Dr. Rocha. General: Alert, Oriented x3, Cooperative, morbid obesity BMI 45.2 kg/m? HEENT: Atraumatic, PERRLA, EOMI, Normocephalic Oral: Oral mucosa moist. No Gingival or Mucosal Lesions/ Ulcerations Neck: Supple, No JVD, Negative Carotid Bruits Lungs: Air entry diminished in bilateral lung bases. No crepitation/rhonchi Cardiovascular: Sinus rhythm, Normal S1, Normal S2, No murmurs Abdomen: Bowel Sounds Present, Soft, Non Tender, Non-Distended : No renal angle tenderness. No suprapubic tenderness. Extremities: Mild bilateral ankle edema, Capillary Refill Less than 3 Seconds. Uses walker Skin: No rashes, No breakdown Musculoskeletal: No Tenderness to Palpation of Joints or Extremities Neurological: Cranial nerves II-XII grossly intact, Deep Tendon Reflexes 2+/4 and Symmetrical, Neuro grossly intact Psych/Mental Status: Normal Affect, Appropriate. Assessment & Plan Assessment/Plan (1) Pre-op evaluation: (2) Right distal ureteral calculus: PLAN: This is a 60-year-old female admitted under Dr. Rocha, urology service after she had ureteric colic pain and found to have 2 distal ureteric calculi complicating right hydronephrosis and hydroureter 1. Right ureteric colic pain due to ureteric calculi complicated with right hydroureteronephrosis with suspicion of complicated UTI: Patient had cystoscopy and stents placed today. There is plan for lithotripsy later this week therefore cardiology and food trades assistants are being consulted for preoperative risk evaluation. UA shows WBC 25-50 cells, LE 500, nitrite negative with glucosuria and proteinuria. 11/02: Plan for lithotripsy today. She is medically stable for the procedure. 2 severe sepsis with (high fever, tachycardia, tachypnea and leukocytosis with left shift and lactic acidosis) secondary to complicated UTI as mentioned above: Patient fever 102.3 Fahrenheit, tachycardia, leukocytosis and fulfills SIRS criteria with sepsis. Lactic acidosis. The patient was transferred to ICU on 10/30. Patient was volume resuscitated and has positive fluid balance. No hypotension. Lasix 20 mg IV. Vitals were stabilized. Cultures pending. Empirically on IV Zosyn since yesterday and Cipro discontinued. Can be transferred to PCU 11/01: Urine culture from 11/01 shows yeast like organism 1000-10,000 probably contamination/colonization. Blood cultures not reported yet. Continue IV antibiotic as she has severe sepsis 11/02: Discussed with Dr. Rocha regarding yeast in the urine. He further said he found white plaques suggestive of yeast in the bladder on cystoscopy. Started on fluconazole. Plan for discharge after the procedure. 3. Diabetes mellitus type 2: A1c 10.1%. Glucose is uncontrolled 332. Oral hypoglycemics were held. On the schedule long and short-acting insulin. 11/01: Lantus insulin dose increased to 75 unit twice daily and lispro insulin 35 units 3 times daily. Glucose is running about 300 mg/dL 11/02: Patient home dose of Lantus is 80 units continuous twice daily. Resume home dose of Lantus after the procedure when oral intake is adequate. 4. Acute kidney injury probably from sepsis/ATN: Creatinine is elevated. Monitor kidney function and electrolytes 10/31: Improvement in creatinine with volume resuscitation, probably mild volume overloaded. Last admission 11/01: BROCK resolved. 5. History of diagnostic cardiac cath: Electric Tripper Machine Operator consult reviewed. Patient underwent diagnostic cardiac cath between [id number] but no official report available. As per special education assistant, it seems no significant angiographically. Coronary artery disease. Fasting lipid profile shows LDL 17, HDL 22, TG 265. 11/01: 2D echo reported EF 60%, LA mild enlargement. RVSP 34 mmHg. 6. Chronic smoker, PAD possible asthma: Patient was evaluated by steam and power supervisor/food trades assistants. 7. Other comorbidities hypertension, hypothyroidism, GERD and bipolar disorder: She denies history of cirrhosis. She states 1-2 drinks of alcohol occasionally in 1 year no significant alcohol intake. VTE prophylaxis: On Lovenox 40 mg subcu twice daily, adjusted to creatinine clearance Clinical Impression(s) from Imaging Studies Abdomen/Pelvis CT 10/29/20 16:33 IMPRESSION: Mild right hydronephrosis and hydroureter secondary to 2 distal ureteral calculi measuring up to 8-9 mm. Charges/Coding Visit Charges Inpatient E&M: 19955 Subs Hosp L2
--- NOTE | 2020-11-02 11:59 | CASEMGMT ---
LOVE ROBINS NOTE: Pt screened with [facility] Palliative Care Screening Tool for strata 3, pt did not meet criteria. Mitesh MOELLERN RN CM
[2020-11-02 12:25] LABS: Bedside Glucose 260 mg/dL (70-110)
--- NOTE | 2020-11-02 13:59 | PCM.DC.SUM ---
Providers Date of Admission: 10/30/20 Primary Care Physician: Dr. Dennis Casas MD Consultations 10/30/20 11:00 Consult: Cardiology Routine Consulting Provider: Cornelius Alfaro Reason for Consult: pre op clearence for general anesthesia EMERGENT Consult: No Notified: Yes Date Notified: 10/30/20 Time Notified: 12:00 Method of Notification: doctor up on MS3-verbal 10/30/20 11:02 Consult: Hospitalist Routine Consulting Provider: Can Rodriguez Reason for Consult: manegment of multiple meds and poorly controlled DM EMERGENT Consult: No Notified: Yes Date Notified: 10/30/20 Time Notified: 12:49 Method of Notification: text via SPOK Consult: Motor Analyst / Pulmonary Medicine Routine Consulting Provider: Ashu Stinson Reason for Consult: pre op clearacne for surgery EMERGENT Consult: No Notified: Yes Date Notified: 10/30/20 Time Notified: 12:27 Method of Notification: spoke on phone Reason For Visit: KIDNEY STONE, HYDRONEPHROSIS Diagnosis Discharge Diagnosis (1) Pre-op evaluation: Status: Acute Code(s): Z01.818 - Encounter for other preprocedural examination (2) Right distal ureteral calculus: Status: Acute Code(s): N20.1 - Calculus of ureter Medications at Discharge Home Medications Meloxicam 15 mg PO DAILY 07/01/13 allopurinol 100 mg PO DAILY 07/01/13 albuterol sulfate 1 puff INHALATION Q4H PRN PRN 06/24/19 omeprazole 40 mg PO DAILY 08/13/19 sucralfate 1 gm PO 4X/DAY 08/13/19 gabapentin 800 mg PO 4X/DAY 10/30/19 multivitamin with minerals 1 ea PO DAILY 10/30/19 Janumet 1 tab PO BID 10/29/20 Levemir U-100 Insulin 80 unit SUBCUT BID 10/29/20 furosemide [Lasix] 20 mg PO DAILY 10/29/20 levothyroxine 50 mcg PO DAILY 10/29/20 nystatin [Nyamyc] 1 applic TOPICAL DAILY 10/29/20 oxycodone 30 mg PO TID 10/29/20 potassium chloride 10 meq PO DAILY 10/29/20 rosuvastatin 20 mg PO DAILY 10/29/20 fluconazole [Diflucan] 150 mg PO BID #6 tab 11/02/20 oxycodone-acetaminophen 1 tab PO Q6H PRN 7 Days #14 tab 11/02/20 Hospital Course Summary of Care Provided Minutes Spent on Discharge: 30 Hospital Course: Patient was admitted to the hospital with obstructing stone and sepsis underwent stent placement and then broad-spectrum antibiotics she was in the ICU for night and then discharged to the floor today she underwent ureteroscopy and laser of the stone fragments and removal of the stent and will plan discharge within and after the surgery. She will go home without a stent and she will follow-up with urology and her primary care doctor. Physical Exam Const alert and oriented x3 General Appearance: cooperative HEENT normocephalic, head/scalp atraumatic, EAC's normal and TM's normal bilaterally Eyes PERRL and EOMs intact bilaterally Pupil: sluggish Neck no lymphadenopathy, supple and no JVD General: trachea midline Lymph Lymphatic: no lymphadenopathy noted, lymphedema and lymphadenopathy Resp normal respiratory effort, normal air movement and clear to auscultation bilaterally Cardio regular rate, regular rhythm and peripheral pulses 2+ throughout GI soft to palpation, non-tender and non-distended Extremity normal capillary refill and no clubbing, cyanosis or edema General Extremity: no tenderness to palpation of joints or extremities Skin no rashes or lesions noted General Skin Exam: turgor normal Lesions: no lesions Rashes: no rashes Neuro CN's II-XII intact bilaterally Speech: speech normal Motor Exam: strength 5/5 throughout; Negative for general weakness Psych thought process normal, cooperative and affect normal Appearance: appropriate Medical Records Data Medical Nutrition Assessment Dietitian: Nutrition Therapy Diagnosis Start: 10/31/20 11:36 Freq: Status: Active Protocol: Document 10/31/20 14:07 RMA (Rec: 10/31/20 14:08 RMA [id number]) Nutrition Malnutrition Evidence of Malnutrition Exists No Intake Problem Decreased Nutrient Needs (specify) Etiology for calories/fat/carbohydrates related to endocrine dysfunction/DMII and obesity Signs/Symptoms as evidenced by HgbA1C 10.1%, blood glucose in the 300's and BMI 45.3 Status Active Problem Recommendation Dietitian Recommendations/Changes Will change diet to 1800 calorie; carbohydrate- controlled, cardiac. Diet education as pt willing to receive prior to d/c. [facility] DM Clinic referral when ready for lifestyle change. Weight / BMI Weight Weight: 121.4 kg Body Mass Index (BMI) 45.9 ABG / Lab / Microbiology Data Result Diagrams: 11/02/20 05:42 11/02/20 05:42 Laboratory: Laboratory Results - last 24 hr 11/01/20 16:40: POC Glucose 348 H 11/01/20 21:11: POC Glucose 235 H 11/02/20 05:42: WBC 7.5, RBC 3.51 L, Hgb 10.9 L, Hct 35.0 L, MCV 99.7 H, MCH 31.1, MCHC 31.1 L, RDW Std Deviation 55.6 H, RDW Coeff of Marc 15.2 H, Plt Count 138 L, MPV 10.6, Immature Gran % (Auto) 2.000 H, Neut % (Auto) 61.3, Lymph % (Auto) 29.2, [place] % (Auto) 6.3, Eos % (Auto) 1.1, Baso % (Auto) 0.1, Absolute Neuts (auto) 4.6, Absolute Lymphs (auto) 2.19, Nucleated RBC % 0 11/02/20 05:42: Sodium 134 L, Potassium 4.0, Chloride 100, Carbon Dioxide 29.0, Anion Gap 5, BUN 13, Creatinine 0.95, Estim Creat Clear Calc 55.06, Est GFR (MDRD) Af Amer 78, Est GFR (MDRD) Non-Af 64, BUN/Creatinine Ratio 13.7, Glucose 244 H, Calcium 8.4 L, TSH 3.70 11/02/20 08:04: POC Glucose 286 H 11/02/20 11:03: POC Glucose 278 H 11/02/20 12:22: POC Glucose 260 H Microbiology: Microbiology 10/30/20 17:42 Blood Culture (Wb) - Left Hand Blood Culture - Preliminary No growth in 48 hours. 10/30/20 17:42 Blood Culture (Wb) - Right Hand Blood Culture - Preliminary No growth in 48 hours. 11/01/20 14:15 Mucosa - Nasopharyngeal SARS-CoV-2 Antigen (Rapid) - Final 10/30/20 11:29 Urine, Cystoscopy Urine Culture - Preliminary Yeast Like Organism Meaningful Use Info Meaningful Use Diagnoses (Choose all that apply): None applicable Discharge Plan Admission Admit Date/Time: 10/30/20 22:01 Primary Reason for Your Visit: kidney stone Attending Provider: Etienne Rocha Primary Care Provider: Dennis Casas Consulting Providers: Cornelius Alfaro ; Can Rodriguez ; Ashu Stinson Discharge Orders/Prescriptions Prescriptions: New fluconazole [Diflucan] 150 mg tablet 150 mg PO BID Qty: 6 RF: 0 oxycodone-acetaminophen 5-325 mg tablet 1 tab PO Q6H PRN (Reason: pain) 7 Days Qty: 14 RF: 0 Continued allopurinol 300 MG tablet 100 mg PO DAILY RF: 0 Meloxicam 15 mg PO DAILY RF: 0 albuterol sulfate 1 INHALER inhaler 1 puff inhalation Q4H PRN PRN (Reason: Dyspnea) RF: 0 sucralfate 1 GM tablet 1 gm PO 4X/DAY RF: 0 omeprazole 40 MG capsule,delayed release(DR/EC) 40 mg PO DAILY RF: 0 gabapentin 800 MG tablet 800 mg PO 4X/DAY RF: 0 multivitamin with minerals 1 EACH tablet 1 ea PO DAILY RF: 0 levothyroxine 50 mcg tablet 50 mcg PO DAILY RF: 0 furosemide [Lasix] 20 mg Tablet 20 mg PO DAILY RF: 0 rosuvastatin 20 mg Tablet 20 mg PO DAILY RF: 0 Levemir U-100 Insulin 100 unit/mL solution 80 unit SUBCUT BID RF: 0 Janumet 50-1,000 mg tablet 1 tab PO BID RF: 0 potassium chloride 10 mEq tablet extended release 10 meq PO DAILY RF: 0 oxycodone 15 mg tablet 30 mg PO TID RF: 0 nystatin [Nyamyc] 100,000 unit/gram powder 1 applic TOPICAL DAILY RF: 0 Referrals / Follow Up: Etienne Rocha MD [STAFF PHYSICIAN] - Dennis Casas MD [Primary Care Provider] - Disposition Discharge Orders: Discharge Patient (Routine); Ordered 11/02/20 Ordered By: Dr. Etienne Rocha
--- NOTE | 2020-11-02 14:39 | PCM.OPRPT ---
Report of Operation Pre-Operative Diagnosis: Distal right ureteral calculi x2 Post-Operative Diagnosis: Same Surgery/Procedure Performed:: Cystoscopy basket extraction of stones and removal stent Description of Surgical Findings:: This is a patient who presents to the hospital for treatment for an obstructing distal ureter calculi. I discussed with the patient how the surgery would be performed and we reviewed the risks and benefits of the surgery. The risk and benefits include the risk of failure to remove the stone completely and that the patient may need multiple procedures. We discussed the risk of an infection, the risk of bleeding. We discussed the very rare risk of serious complicated injury to the ureter. The patient understands that if the stone is not able to be removed safely that we may abort the procedure and place a stent. After full discussion and all questions address with the patient the consent form was signed the side was marked appropriately and the patient was taken back to the operating room for the procedure. The patient was taken back to the operating room. After induction of anesthesia by the anesthesiology team the patient was placed in dorsolithotomy position. The genitals were prepped and draped in usual sterile fashion. I went into the bladder with a 21 [place] rigid cystourethroscope through the urethra. Upon entering the bladder I inspected the trigone the left and right ureteral orifice and the bladder itself. I then cannulated the ureteral orifice and advanced a 0.038 Glidewire up into the kidney. Then over the Glidewire I advanced a 5 Fr Ureteral catheter and performed a retrograde pyelogram with about 10cc of contrast, to delineate the anatomy and identify the stone location. Then a ureteral balloon dilator was advanced over the wire and the distal ureter was balloon dilated with a 12 Fr x 5cm balloon dilator. After 3 minutes of dilating the ureter the balloon was backloaded off the 0.038 glidewire then the safety wire was left in place. I then placed a second 0.038 Guidewire as a working wire and over the working 0.038 guidewire I went in with the joellen rigide 7.5fr ureteroscope. I was able to go inside with the 7.5Fr joellen rigid utereroscope and I pulled out the working guidewire and then through the 7.5 fr simirigid ureteroscope I engage the stone in the distal ureter with a basket and gently extrated the twos stones in the distal ureter. I then drained the patient's bladder and the cystoscope was removed and the patient was taken back to the recovery room in good position. The patient was given discharge instructions to call the office for instructions on when to come to the office for a follow up. Surgeon: Etienne Rocha Type of Anesthesia: General Drains: stent right Admit VTE Documentation VTE Present on Admission: No VTE Mechan Device Prophylaxis: SCD's
[2020-11-02 15:09] LABS: Bedside Glucose 230 mg/dL (70-110)
--- NOTE | 2020-11-02 15:48 | CASEMGMT ---
This RN CM to room to discuss discharge plan with pt. Pt states no need for any further resources/therapy at discharge. Pt voices no further questions/concerns/needs. SStaten LOVE CM
[2020-11-02 16:36] LABS: Bedside Glucose 199 mg/dL (70-110)
[2020-11-02] MEDS: Sucralfate 1 GM Tablet PO (16:36)
[2020-11-02] MEDS: Gabapentin 600 MG Tablet PO (16:36)
[2020-11-02] MEDS: Atorvastatin Calcium 40 MG Tablet PO (16:37)
[2020-11-02] MEDS: Allopurinol 100 MG Tablet PO (16:38)
[2020-11-02] MEDS: Pantoprazole Sodium 40 MG Tablet PO (16:38)
[2020-11-02] MEDS: 0.9% Saline Lock 10 ML Syringe IV (16:39)
--- NOTE | 2020-11-03 14:46 | CASEMGMT ---
Addendum entered by Duyen Sebastian 11/04/20 13:58: RN CM attempted to complete follow-up again at this time. No answer and unable to leave voice message. Original Note: RN CM Discharge Follow-up Phone Call: RUBENJerardo: Velasquez Strata: 3 Call Date: 11/03/20 Discharge Date: 11/02/20 Time of Call: 1445 Duration: 1 min Admitting Diagnosis: Kidney stone, hydronephrosis RN CM attempted to complete follow-up phone call after recent hospitalization. No answer, phone rang about 12 times, unable to leave voice message. RN CM will attempt again at later time.
== END 2020-11-02 18:45 | disposition home or self-care (01) | DRG 853 ==
LOC: ED 17:04 → MS3 19:38 → ICU 10-30 16:50 → PCU 10-31 09:56 → ICU 10-31 10:31
PROVIDERS: Anesthesiology; Internal Medicine; Internal Medicine Cardiovascular Disease; Admitting Provider Urology; Emergency Provider Emergency Medicine; PCP Family Medicine; Visit Provider Urology
PROC: 0T768DZ Dilation of Right Ureter with Intraluminal Device, Via Natural or Artificial Opening Endoscopic (ICD-10-PCS; CPT 52332; principal; 2020-10-30 11:00)
PROC: 0TC68ZZ Extirpation of Matter from Right Ureter, Via Natural or Artificial Opening Endoscopic (ICD-10-PCS; CPT 52353; principal; 2020-11-02 13:45)
DX: A41.9 Sepsis, unspecified organism (principal); N17.0 Acute kidney failure with tubular necrosis; N13.2 Hydronephrosis with renal and ureteral calculous obstruction; Z68.42 Body mass index [BMI] 45.0-49.9, adult; R65.20 Severe sepsis without septic shock; E11.65 Type 2 diabetes mellitus with hyperglycemia; I10 Essential (primary) hypertension; I27.20 Pulmonary hypertension, unspecified; E03.9 Hypothyroidism, unspecified; E11.42 Type 2 diabetes mellitus with diabetic polyneuropathy; E66.01 Morbid (severe) obesity due to excess calories; F17.210 Nicotine dependence, cigarettes, uncomplicated; F31.9 Bipolar disorder, unspecified; G47.33 Obstructive sleep apnea (adult) (pediatric); I25.10 Atherosclerotic heart disease of native coronary artery without angina pectoris; I25.2 Old myocardial infarction; E78.5 Hyperlipidemia, unspecified; J44.9 Chronic obstructive pulmonary disease, unspecified; K21.9 Gastro-esophageal reflux disease without esophagitis; Z87.442 Personal history of urinary calculi; Z86.718 Personal history of other venous thrombosis and embolism; Z79.4 Long term (current) use of insulin; Z79.899 Other long term (current) drug therapy
CPT/HCPCS: 36415; 74176; 76000; 80048; 80053; 80061; 80076; 81001; 82360; 82962; 82977; 83036; 83605; 83690; 84443; 85025; 85610; 85730; 87040; 87077; 87086; 87088; 87426; 88300; 93005; 93306; 99284; J7030; J7040; J7050; J7120; Q9957; A4216; C1769; C2617; C8929; J0696; J0744; J1940; J2405; J3490

== ENCOUNTER 2021-10-24 08:58 | Emergency (ER) | payer MEDICARE, MEDICAID, SELFPAY ==
[2021-10-24 08:59] VITALS: BP 121/102; PULSE 96; RESP 20; TEMP 36.6; O2SAT 98; BMI 41.1
[2021-10-24 09:00] VITALS: BP 121/102; PULSE 98; RESP 20; TEMP 36.6; O2SAT 96
--- NOTE | 2021-10-24 09:25 | CT_ITS ---
STUDY: CT ABDOMEN AND PELVIS WITH CONTRAST REASON FOR EXAM: Female, 61 years old. Right sided abd pain, n/v RADIATION DOSAGE (If Supplied By Facility): CTDIvol = ( 21.21 ) mGy, DLP = ( 1779.34 ) mGycm TECHNIQUE: Transaxial images were obtained from the dome of the diaphragm to the symphysis pubis without oral contrast. IV 100mL Isovue-300 was administered. Sagittal and coronal images were reconstructed. Individualized dose optimization techniques were used for this CT. COMPARISON: Comparison is made with prior study dated 10/29/2020. FINDINGS: The visualized lung bases are unremarkable. The visualized portions of the heart are within normal limits. There is decreased attenuation of the liver consistent with steatosis. There are multiple small layering gallstones. Normal spleen. Normal pancreas. Normal bilateral adrenal glands. Multiple nonobstructive right intrarenal calculi. The largest calculus measures 7.3 mm and is in the lower pole. Stable small right renal cysts. Punctate calculus in the lower pole of the left kidney. Normal visualized stomach. Normal small intestine. There are multiple colonic diverticula consistent with diverticulosis. The appendix is visualized and appears normal. Normal abdominal aorta. Normal inferior vena cava. Normal retroperitoneum. Normal urinary bladder. Increased markings in the subcutaneous tissues overlying the right upper quadrant. This may represent changes secondary to possible trauma or subcutaneous injection. There are diffuse degenerative changes of the visualized lumbar spine. CT/Abdomen/Pelvis W IV Cont ONLY IMPRESSION: Multiple small gallstones. Fatty infiltration of the liver. Sigmoid diverticulosis. Nonobstructive bilateral intrarenal calculi. Electronically Signed: Julio César Prado MD at 11:10 EDT ,
--- NOTE | 2021-10-24 09:27 | EDS_ITS ---
HPI HPI - GI History of Present Illness Chief Complaint: Abd Pain Informant: patient Abdominal Pain/Flank Pain Onset: Hours (5) Context: Gradual Onset Timing: Continuous Quality: Aching Location: Right Flank Current Severity: Severe Maximum Severity: Severe Worsened by: Movement Relieved by: Remaining Still Nausea/Vomiting/Emesis GI Symptom: Positive for Nausea and Vomiting Onset: Today Quality: Positive for Nonbilious; Negative for Blood streaks or Hematemesis Diarrhea/Melena/Hematochezia GI Symptom: Positive for - (Last bowel movement last night, normal); Negative for Diarrhea, Melena or Hematochezia Associated Symptoms Associated Symptoms: Negative for Dysuria, Frequency, Hematuria or Urgency Narrative Narrative: 61-year-old female presenting with several hours of right-sided abdominal pain. She states initially she just had a generalized stomachache with some nausea and then it has been sharp and achy to the right side ever since. Associated with vomiting. Does not feel like it is in her back, but she points to the lateral mid right abdomen. History of a but no other abdominal surgeries in the past. Denies any fevers or chills. No coughing or dyspnea. No urinary s ymptoms. PFSH PFSH Medical History Anxiety Asthma Bipolar disorder Chronic cough Cirrhosis COPD (chronic obstructive pulmonary disease) Coronary artery disease Current use of insulin Depression Diabetes Diabetes Diverticulitis DVT (deep venous thrombosis) GERD (gastroesophageal reflux disease) GERD (gastroesophageal reflux disease) Hepatitis Hiatal hernia Hypertension Hypothyroidism Kidney stones Kidney stones Myocardial infarct Post-menopausal Restless legs Sleep apnea Smoker Home Medications Meloxicam 15 mg PO DAILY pain 07/01/13 [History Last Taken 07/01/13] allopurinol 300 mg tablet 100 mg PO DAILY gout 07/01/13 [History Last Taken 11/05/19 06:00] albuterol sulfate 90 mcg/actuation aerosol inhaler 1 puff inhalation Q4H PRN PRN Dyspnea 06/24/19 [History Last Taken Unknown] omeprazole 40 mg capsule,delayed release 40 mg PO DAILY ACID REFLEX 08/13/19 [History Last Taken Unknown] sucralfate 1 gram tablet 1 gm PO 4X/DAY gerd 08/13/19 [History Last Taken Unknown] gabapentin 800 mg tablet 800 mg PO 4X/DAY neuropathy 10/30/19 [History Last Taken Unknown] multivitamin with minerals 1 ea PO DAILY supplement 10/30/19 [History Last Taken Unknown] furosemide 20 mg tablet (Lasix) 20 mg PO DAILY water pill 10/29/20 [History Last Taken Unknown] insulin detemir U-100 100 unit/mL subcutaneous solution (Levemir U-100 Insulin) 80 unit subcut BID diabetes 10/29/20 [History Last Taken 10/29/20 08:00] levothyroxine 50 mcg tablet 50 mcg PO DAILY thyroid 10/29/20 [History Last Taken Unknown] nystatin 100,000 unit/gram topical powder (Nyamyc) 1 applic topical DAILY yeast under breasts, abd folds 10/29/20 [History Last Taken Unknown] oxycodone 15 mg tablet 30 mg PO TID stomach pain 10/29/20 [History Last Taken Unknown] potassium chloride 10 mEq tablet,extended release 10 meq PO DAILY replacement 10/29/20 [History Last Taken Unknown] rosuvastatin 20 mg tablet 20 mg PO DAILY cholesterol 10/29/20 [History Last Taken Unknown] sitagliptin 50 mg-metformin 1,000 mg tablet (Janumet) 1 tab PO BID diabetes 10/29/20 [History Last Taken Unknown] cefadroxil 500 mg capsule 500 mg PO BID #10 caps 11/02/20 [Rx Last Taken Unknown] fluconazole 150 mg tablet 150 mg PO Q3D #2 tabs 11/02/20 [Rx Last Taken Unknown] oxycodone-acetaminophen 5 mg-325 mg tablet 1 tab PO Q6H PRN pain 7 days #14 tabs 11/02/20 [Rx Last Taken Unknown] amoxicillin 875 mg-potassium clavulanate 125 mg tablet 875 mg PO Q12H #20 TABLETS 10/24/21 [Rx Last Taken Unknown] Allergy/AdvReac Type Severity Reaction Status Date / Time morphine Allergy Intermediate Hives Verified 10/24/21 09:00 Surgical History S/P tubal ligation Social History Smoking Status: Current every day smoker tobacco type: cigarettes ROS ROS ED Constitutional Constitutional ED: Denies chills or fever(s) Eyes Eyes: Denies change in vision or diplopia ENT ENT ED: Denies rhinorrhea or sore throat Cardiovascular Cardiovascular: Denies chest pain or palpitations Respiratory/Chest Respiratory/Chest: Denies cough or dyspnea Gastrointestinal Gastrointestinal: Reports abdominal pain, nausea and vomiting; Denies diarrhea Genitourinary Genitourinary ED: Denies dysuria or hematuria Musculoskeletal Musculoskeletal: Denies back pain or neck pain Integumentary Denies abscess or rash Neurologic Neurologic: Denies headache(s), paresthesias or weakness Psychiatric Psychiatric: Denies anxiety or suicidal thoughts EXAM Physical Exam Const Vital Signs: 10/24/21 08:59 10/24/21 09:00 10/24/21 11:22 Temperature 97.9 F 97.9 F 99.7 F H Temperature Source Temporal Temporal Temporal Pulse Rate 96 98 76 Respiratory Rate 20 H 20 H 18 Blood Pressure 121/102 H 121/102 H 137/67 H Blood Pressure Mean 108 108 90 Pulse Ox 98 96 100 Oxygen Delivery Method Room Air Room Air Room Air Positive well nourished, well developed and obese General Appearance ED: well developed and NAD Nutritional Appearance: obese HEENT Reports moist mucous membranes normocephalic and atraumatic Eyes PERRL and EOMs intact bilaterally Neck full ROM and supple Resp normal respiratory effort and clear to auscultation bilaterally Cardio regular rate, regular rhythm and no murmurs GI non-distended GI Narrative: Very tender in the lateral right mid abdomen and the right lower quadrant McBurney's point area. Very mild tenderness without guarding or rebound in the right upper quadrant subcostal. No tenderness throughout the left side or elsewhere. Some voluntary guarding in the right lower quadrant that is mild but no rebound tenderness. Not able to perform obturator or psoas signs due to pain when she moves and obesity. Rovsing's negative. Auscultation: normoactive bowel sounds Palpation: soft Back/Spine no CVA tenderness General Back: other FROM Extremity normal to inspection General Extremety ED: Negative for edema, pulses abnormal or tenderness General Extremity: Negative for edema or pulses abnormal Neuro oriented x3, CN's II-XII intact bilaterally and no sensory deficits noted Sensorium / Orientation: awake and alert Motor Exam: strength 5/5 throughout Skin no rashes or lesions noted and no wounds MDM MDM MDM Narrative Medical decision making narrative: Patient is a leukocytosis with concerning new pain and tenderness throughout the right side of her abdomen. I think a CT to evaluate her appendix first, it is seen in normal. The only other pathology that she has that could be acute is her gallbladder on the CT showing stones. Her liver enzymes are normal. Out of concern for the possibility of acute cholecystitis I sent her for an ultrasound, it shows a thickened gallbladder wall and possibility of stones there along with sludge but no firm findings of acute cholecystitis. 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 Out of concern that this could be acute cholecystitis, I discussed with surgery Dr. Ordoñez. In reviewing the chart, with her history of cirrhosis documented prior to arrival here, he recommends further testing such as a HIDA scan and admission if we are concerned about acute cholecystitis which I am. Patient adamantly denies that she has cirrhosis, as I discussed with her, it was entered into her history prior to coming to the emergency department today. The etiology is unknown, it does not appear to be related to alcohol. Discussed with hospitalist, and I also discussed with the patient who is very concerned about getting a HIDA scan because she said the last time she tried that it was very uncomfortable, but she was concerned only about the table being uncomfortable because of her low back, and I reassured her that we can always treat her prior to the test with some medications to make it easier for her and she was more amenable. Her urine is abnormal showing possibility of infection, she has no urinary symptoms right now, so I did send that for culture. There were no signs of pyelonephritis on the CT. I did discuss with hospitalist team who came and evaluated her, and then further determined that nuclear medicine states that the patient is absolutely not able to have any narcotic pain medication given prior to the HIDA scan. Under this knowledge the patient states that she will refuse to have the test and absolutely will not have it done under any circumstance. Given that, both the hospitalist team and myself agree that patient should be discharged AGAINST MEDICAL ADVICE, as this is her choice she is not allergic to the dye or any other medical reason why she cannot have the test, it is simply because of the patient's discomfort while undergoing this temporary test, and surgery does not think she needs to go to the operating room unless she has further evidence of cholecystitis. Therefore, we discussed this with her and she understands, she wants to leave. I did give her another dose of pain medication prior to discharge, she has oxycodone on her list of medications and does not appear to need more pain medication for home, but I did put her on Augmentin in case she does have urinary infection, biliary infection, or both. Advised to follow-up soon as possible, if she changes her mind about the HIDA scan she is welcome to return for admission. Lab Data Attestation: I reviewed the patient's lab results. Labs: Laboratory Results - last 24 hr 10/24/21 10/24/21 10/24/21 09:15 09:15 11:20 WBC 15.0 H RBC 4.29 Hgb 13.3 Hct 41.7 MCV 97.2 MCH 31.0 MCHC 31.9 L RDW Std Deviation 53.9 H RDW Coeff of Marc 15.2 H Plt Count 176 MPV 10.2 Immature Gran % (Auto) 2.500 H Neut % (Auto) 73.7 H Lymph % (Auto) 18.4 L [place] % (Auto) 4.6 Eos % (Auto) 0.5 Baso % (Auto) 0.3 Absolute Neuts (auto) 11.1 H Absolute Lymphs (auto) 2.76 Nucleated RBC % 0.1 Sodium 138 Potassium 3.4 L Chloride 101 Carbon Dioxide 29.0 Anion Gap 8 BUN 11 Creatinine 0.99 Estim Creat Clear Calc 52.18 Est GFR (MDRD) Af Amer 74 Est GFR (MDRD) Non-Af 61 BUN/Creatinine Ratio 11.1 Glucose 232 H Calcium 9.3 Total Bilirubin 0.30 AST 13 L ALT 19 Alkaline Phosphatase 91 Total Protein 7.7 Albumin 3.0 L Globulin 4.7 H Albumin/Globulin Ratio 0.6 L Lipase 64 L Urine Color Yellow Urine Clarity Turbid Urine pH 5.0 Ur Specific [place] 1.020 Urine Protein 100 H Urine Glucose (UA) 50 H Urine Ketones 5 H Urine Occult Blood 25 H Urine Nitrite Negative Urine Bilirubin Negative Urine Urobilinogen 1 H Ur Leukocyte Esterase 500 H Urine RBC 0-5 SEEN Urine WBC 25-50 SEEN Ur Squamous Epith Cells 0-5 SEEN Urine Bacteria 1+ Urine Mucus 0 SEEN Urine Yeast 1+ Radiography Diagnostic Testing: Clinical Impression(s) from Imaging Studies Abdomen/Pelvis CT 10/24/21 09:25 IMPRESSION: Multiple small gallstones. Fatty infiltration of the liver. Sigmoid diverticulosis. Nonobstructive bilateral intrarenal calculi. Electronically Signed: Julio César Prado MD at 11:10 EDT , Gallbladder Ultrasound 10/24/21 11:26 IMPRESSION: Mild hepatomegaly and diffuse fatty infiltration of the liver. Gallbladder wall thickening. Tumefactive sludge within the gallbladder lumen. Tiny gallstones cannot be excluded. Electronically Signed: Julio César Prado MD at 13:01 EDT , Discharge Plan Triage Chief Complaint: Abd Pain ED Provider: Kev Eden Dx/Rx/DC Orders Clinical Impression: Right sided abdominal pain, Leukocytosis, N&V (nausea and vomiting), UTI (urinary tract infection) Prescriptions: New amoxicillin-pot clavulanate [amoxicillin-pot clavulanate] 875-125 mg tablet 875 mg PO Q12H Qty: 20 0RF No Action allopurinol 300 MG tablet 100 mg PO DAILY Meloxicam 15 mg PO DAILY albuterol sulfate 1 INHALER inhaler 1 puff inhalation Q4H PRN PRN (Reason: Dyspnea) sucralfate 1 GM tablet 1 gm PO 4X/DAY omeprazole 40 MG capsule,delayed release(DR/EC) 40 mg PO DAILY gabapentin 800 MG tablet 800 mg PO 4X/DAY multivitamin with minerals 1 EACH tablet 1 ea PO DAILY levothyroxine 50 mcg tablet 50 mcg PO DAILY Label Comments: take 1 tablet by mouth once daily furosemide [Lasix] 20 mg Tablet 20 mg PO DAILY rosuvastatin 20 mg Tablet 20 mg PO DAILY Levemir U-100 Insulin 100 unit/mL solution 80 unit SUBCUT BID Label Comments: inject 80 units subcutaneously twice a day Janumet 50-1,000 mg tablet 1 tab PO BID Label Comments: take 1 tablet by mouth twice a day potassium chloride 10 mEq tablet extended release 10 meq PO DAILY Label Comments: take 1 tablet by mouth once daily oxycodone 15 mg tablet 30 mg PO TID Label Comments: take 1 tablet by mouth every 4 hours nystatin [[facility]] 100,000 unit/gram powder 1 applic TOPICAL DAILY Label Comments: apply topically to affected area three times a day oxycodone-acetaminophen 5-325 mg tablet 1 tab PO Q6H PRN (Reason: pain) 7 Days Qty: 14 0RF cefadroxil 500 mg capsule 500 mg PO BID Qty: 10 0RF fluconazole 150 mg tablet 150 mg PO Q3D Qty: 2 0RF Primary Care Provider: Dennis Casas Referrals: Gregg Ordoñez MD [Med Staff - Active Staff] - As soon as possible (if symptoms persist) Dennis Casas MD [Primary Care Provider] - As soon as possible Disposition Disposition: Against Medical Advice
[2021-10-24 09:53] LABS: Absolute Lymphocyte Count 2.76 X10^3/uL (0.83-4.51); Absolute Neutrophil Count 11.1 X10^3/uL (2.0-7.7); Basophil# 0.05 X10^3/uL; Basophil% 0.3 % (0-1); Eosinophil# 0.07 X10^3/uL; Eosinophils% 0.5 % (0-5); Hematocrit 41.7 % (37-47); Hemoglobin 13.3 g/dL (12.0-15.0); Lymphocyte # 2.76 X10^3/ul (0.83-4.51); Lymphocyte % 18.4 % (19-41); Mean Corp Hgb Conc 31.9 g/dL (32-36); Mean Corpuscular Volume 97.2 fL (81-99); Mean Platelet Vol. 10.2 fl (6.2-12.0); Monocyte# 0.69 X10^3/uL; Monocyte% 4.6 % (0-10); NRBC Flagged by Analyzer 0.1 % (0-5); Neutrophil % 73.7 % (47-70); Platelet Count 176 K/mm3 (150-450); RBC Distribution Width CV 15.2 % (11.6-14.6); RBC Distribution Width SD 53.9 fl (35.1-43.9); Red Blood Count 4.29 M/mm3 (4.2-5.4)
[2021-10-24 10:09] LABS: ALB/GLOB Ratio 0.6 RATIO (0.9-2.4); AST(SGOT) 13 U/L (15-37); Alanine Aminotransfer ALT/SGPT 19 U/L (13-56); Alkaline Phosphatase 91 U/L (45-117); Anion Gap 8 (5-15); BUN 11 mg/dL (7-18); BUN/Creat Ratio 11.1 RATIO (10-20); Calcium,Total 9.3 mg/dL (8.5-10.1); Chloride 101 mmol/L (98-107); Creatinine, Serum 0.99 mg/dL (0.55-1.02); EST Glomerular Filtration Rate 61 mL/min (>60); Est Glom Filt Rate - Afr Amer 74 mL/min (>60); Estimated Creatinine Clearance 52.18 ml/min; Globulin 4.7 g/dL (2.2-4.2); Glucose 232 mg/dL (74-106); Lipase 64 U/L (73-393); Potassium 3.4 mmol/L (3.5-5.1); Protein, Total 7.7 g/dL (6.4-8.2); Sodium Level 138 mmol/L (136-145)
[2021-10-24] MEDS: Ondansetron 4 MG/2 ML Vial IV (10:20)
[2021-10-24] MEDS: fentaNYL 100 MCG/2 ML Ampul 50 MCG IV ×2 (10:20→14:21)
[2021-10-24] MEDS: 0.9% Normal Saline 1,000 ML 125 ML IV (10:22)
[2021-10-24 11:22] VITALS: BP 137/67; PULSE 76; RESP 18; TEMP 37.6; O2SAT 100
[2021-10-24 11:24] LABS: Mucous, Urine 0 SEEN /hpf (<or=2+)
--- NOTE | 2021-10-24 11:26 | US_ITS ---
STUDY: ABDOMINAL ULTRASOUND - RIGHT UPPER QUADRANT REASON FOR VISIT: Female, 61 years old . Right upper quadrant pain. Nausea and vomiting. TECHNIQUE: Ultrasound evaluation of the right upper quadrant was performed with real-time and static yanez-scale imaging. TECHNICAL QUALITY: Adequate. COMPARISON: Comparison is made with prior CT scan of the abdomen and pelvis done earlier today. FINDINGS: Liver: The liver is mildly enlarged and measures 18 cm. There is increased echogenicity consistent with fatty infiltration. The bile ducts are within normal limits. There is hepatic color flow. The direction of portal flow is hepatopetal. There is no demonstrated mass lesion. Gallbladder: Normal distended gallbladder. The gallbladder wall is thickened and measures 5.6 mm. There is a negative sonographic Kendrick''s sign. There is no pericholecystic fluid. There are no gallstones. Thick echogenic sludge seen within the gallbladder lumen suggestive of a tumefactive sludge. Tiny gallstones cannot be excluded. Common Bile Duct (C.B.D.): The common bile duct measures 7.6 mm. Pancreas: Normal size of the head of the pancreas. There is normal echogenicity of the pancreas. There is no demonstrated pancreatic mass or cyst. Right Kidney: Normal size of the right kidney. The right kidney measures 12 cm x 5.4 cm x 6.2 cm. Normal renal cortex. The right cortex measures 1.8 cm. There is no demonstrated renal mass or cyst. There is no right hydronephrosis. Tiny calculus seen in the lower pole of the right kidney. US/Gallbladder IMPRESSION: Mild hepatomegaly and diffuse fatty infiltration of the liver. Gallbladder wall thickening. Tumefactive sludge within the gallbladder lumen. Tiny gallstones cannot be excluded. Electronically Signed: JulioC ésar Prado MD at 13:01 EDT ,
[2021-10-24 11:31] LABS: Color, Urine Yellow (Yellow); Glucose, Dipstick 50 mg/dl (Normal); Ketone-Dipstick 5 mg/dl (Negative); Leukocyte Esterase-Dipstick 500 /ul (Negative); Nitrite-Dipstick Negative (Negative); Occult Blood-Urine 25 /ul (Negative); Protein-Dipstick 100 mg/dl (Negative); Urine Bilirubin Dipstick Negative (Negative); Urine Clarity Turbid (Clear); Urine Urobilinogen 1 mg/dl (Normal)
[2021-10-24 11:48] LABS: Bacteria 1+ /hpf (None Seen); Red Blood Cells-Urine 0-5 SEEN /hpf (0-5); Squamous Epithelial Cells - UA 0-5 SEEN /hpf (5-10); White Blood Cells 25-50 SEEN /hpf (0-5)
[2021-10-24 11:49] LABS: Yeast-Urine 1+ /hpf (None Seen)
--- NOTE | 2021-10-24 13:44 | NURSING ---
MED SURG OBS KOTSONIS RT SIDED ABD PAIN, N, V, LEUKOCYTOSIS
[2021-10-24] MEDS: Amox/Clavulanate 875 MG Tablet PO (14:21)
[2021-10-24 14:31] VITALS: PULSE 81; RESP 17; O2SAT 99
== END 2021-10-24 14:33 | disposition left against medical advice (07) ==
PROVIDERS: Emergency Provider Emergency Medicine; PCP Family Medicine; Visit Provider Emergency Medicine
DX: R10.9 Unspecified abdominal pain (principal); J44.9 Chronic obstructive pulmonary disease, unspecified; E11.9 Type 2 diabetes mellitus without complications; Z79.4 Long term (current) use of insulin; D72.829 Elevated white blood cell count, unspecified; R11.2 Nausea with vomiting, unspecified; N39.0 Urinary tract infection, site not specified; I25.10 Atherosclerotic heart disease of native coronary artery without angina pectoris; F17.210 Nicotine dependence, cigarettes, uncomplicated; G47.30 Sleep apnea, unspecified; I10 Essential (primary) hypertension; E66.9 Obesity, unspecified; K21.9 Gastro-esophageal reflux disease without esophagitis; E03.9 Hypothyroidism, unspecified; I25.2 Old myocardial infarction; Z79.899 Other long term (current) drug therapy; Z86.718 Personal history of other venous thrombosis and embolism
CPT/HCPCS: 74177; 76705; 80053; 81001; 83690; 85025; 87086; 87088; 96374; 96375; 96376; 99283; J7030; Q9967; A4216; J2405